=== PATIENT | male | born 1935 | race Caucasian/White ===

== ENCOUNTER 2017-12-19 17:38 | Emergency (ER) | payer MEDICARE, MEDICAID ==
[~2017-12-19] VITALS: Ht 177.8 cm; Wt 81.6 kg
--- NOTE | 2017-12-19 17:57 | Emergency Room Report ---
History of Present Illness General Chief Complaint: Malfunctioning Gastric Tube Source: Patient Present Illness HPI Patient is an 82-year-old male who was sent in by nursing facility for clogged G -tube. The patient was noted to have a previous G-tube placement. The patient was noted to be diabetic. The patient's G-tube began malfunctioning earlier in the day. The patient is normally nonverbal. History is markedly limited by patient's mental status. Allergies: Coded Allergies: No Known Allergies (Unverified , 12/19/17) Patient History Reviewed Nursing Documentation: PMH: Agreed; PSxH: Agreed Review of Systems All Other Systems: limited - by mental status Physical Exam Vital Signs Date Time Temp Pulse Resp B/P (MAP) Pulse Ox O2 Delivery O2 Flow Rate FiO2 12/19/17 17:41 97.7 72 18 149/70 98 Room Air 97.7 General Appearance: alert, Chronically Ill Eyes: bilateral eye other ENT: uvula midline, dry mucus membranes Neck: limited range of motion Respiratory: lungs clear, no rhonchi Cardiovascular #1: no edema, no gallop Gastrointestinal: soft, other - gtube stoma C/D/I Neurologic: responsive, 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 G-tube was manipulated with the acidic solution with improvement G-tube function. Patient tolerated well without complications. The patient was discharged back to [facility]. Patient was return for persistent vomiting, other concerns. Last Vital Signs Date Time Temp Pulse Resp B/P (MAP) Pulse Ox O2 Delivery O2 Flow Rate FiO2 12/19/17 17:41 97.7 72 18 149/70 98 Room Air 97.7 Status: improved Disposition: [facility] Condition: Stable Brannon Pool Dec 19, 2017 17:57
[2017-12-19 17:59] VITALS: BP 149/70
[2017-12-19 18:10] VITALS: BP 149/70
== END 2017-12-19 18:10 ==
LOC: EDBD 17:38 → EMR 18:08
DX: K94.23 Gastrostomy malfunction (principal)
CPT/HCPCS: 99283

== ENCOUNTER 2018-01-02 23:01 | Emergency (ER) | payer MEDICARE, MEDICAID ==
[~2018-01-02] VITALS: Ht 182.9 cm; Wt 82.6 kg
[2018-01-02 23:15] VITALS: BP 156/72
--- NOTE | 2018-01-02 23:20 | Emergency Room Report ---
History of Present Illness General Chief Complaint: Malfunctioning Gastric Tube Source: Patient, Medical Record, EMS Present Illness HPI Patient is an 82-year-old male brought in by EMS for malfunctioning G-tube. Patient was noted to have malpositioning of the G-tube. The patient G-tube was noted to be inside the abdomen too deep. The patient had not been vomiting. He had no recent fever. Allergies: Coded Allergies: No Known Allergies (Unverified , 12/19/17) Patient History Past Medical History: see triage record Reviewed Nursing Documentation: PMH: Agreed; PSxH: Agreed Nursing Documentation-PMH Hx Hypertension: Yes Hx Diabetes: Yes - dm type 2 Hx Dialysis: Yes - MWF (right upper chest) Hx Cerebrovascular Accident: Yes - hemiplegia, hemiparesis Review of Systems All Other Systems: limited Physical Exam Vital Signs Date Time Temp Pulse Resp B/P (MAP) Pulse Ox O2 Delivery O2 Flow Rate FiO2 01/02/18 23:06 97.7 72 18 150/76 99 Room Air 97.7 General Appearance: no apparent distress, Chronically Ill Head: atraumatic ENT: hearing grossly normal, normal voice Neck: full range of motion, supple Respiratory: no respiratory distress Gastrointestinal: other - gtube noted to be deep in abdomen. Musculoskeletal: decreased range of mation - right leg contracture Neurologic: motor weakness - left side weakness Psychiatric: mood/affect normal Skin: no rash Medical Decision Making Diagnostic Impression: Primary Impression: Malfunction of percutaneous endoscopic gastrostomy (PEG) tube ER Course Patient presented for G-tube malfunction. Differential diagnosis included was not limited to obstruction, gastric outlet obstruction, migration among others. Patient has a benign exam and does not appear to require any laboratory testing at this time. The G-tube was adjusted with manual traction. The patient's G-tube was subsequently noted to have improved placement. KUB after manipulation showed adequate gastrostomy function. Patient was discharged to half-way facility. Patient is to return for leaking G-tube, persistent vomiting, fever or other concerns. Last Vital Signs Date Time Temp Pulse Resp B/P (MAP) Pulse Ox O2 Delivery O2 Flow Rate FiO2 01/02/18 23:06 97.7 72 18 150/76 99 Room Air 97.7 Status: improved Disposition: [facility] Condition: Stable Referrals: Courtney Weeks MD (PCP) Brannon Pool Jan 02, 2018 23:20
[2018-01-02 23:55] VITALS: BP 156/72
--- NOTE | 2018-01-03 09:56 | Diagnostic Imaging Report ---
Indication: Gastrostomy tube replacement Technique: Supine abdomen following water-soluble contrast injection via the gastrostomy tube. Comparison: None Findings: There is opacification of the stomach confirming intraluminal positioning. No obvious extravasation is seen. Impression: Opacification of the stomach following injection of the gastrostomy tube confirming intraluminal positioning. No obvious extravasation.
== END 2018-01-02 23:54 ==
LOC: EDBD 23:01 → EMR 23:15
DX: K94.23 Gastrostomy malfunction (principal); Y83.3 Surgical operation with formation of external stoma as the cause of abnormal reaction of the patient, or of later complication, without mention of misadventure at the time of the procedure; I10 Essential (primary) hypertension; E11.9 Type 2 diabetes mellitus without complications; I69.351 Hemiplegia and hemiparesis following cerebral infarction affecting right dominant side
CPT/HCPCS: 74018; 99283

== ENCOUNTER 2018-01-17 20:30 | Inpatient (IN) | payer MEDICAID, MEDICARE ==
[~2018-01-17] VITALS: Ht 154.9 cm; Wt 87.6 kg
[2018-01-17 20:35] VITALS: BP 142/68
[2018-01-17] MEDS ORDERED: DULCOLAX10 MG RC (20:38)
[2018-01-17] MEDS ORDERED: COLACE100 MG ORAL (20:38)
[2018-01-17] MEDS ORDERED: JUVEN PACKET1 EAC1 GT (20:38)
[2018-01-17] MEDS ORDERED: MULTI-DELYN237 ML GT (20:38)
[2018-01-17] MEDS ORDERED: AMIODARONE HCL400 M1 GT (20:38)
[2018-01-17] MEDS ORDERED: NEXIUM40 MG GT (20:38)
[2018-01-17] MEDS ORDERED: METOPROLOL SUCC25 MG GT (20:38)
[2018-01-17] MEDS ORDERED: MILK OF MA400 MG/51 GT (20:38)
[2018-01-17] MEDS ORDERED: CRANBERRY450 M4 GT (20:38)
[2018-01-17] MEDS ORDERED: FERROUS SULFAT325 MG GT (20:38)
[2018-01-17] MEDS ORDERED: DONEPEZIL HCL10 MG ORAL (20:38)
[2018-01-17] MEDS ORDERED: LANTUS SOL100 UNIT/1 SUBQ (20:38)
[2018-01-17] MEDS ORDERED: PROSCAR5 MG GT (20:38)
[2018-01-17] MEDS ORDERED: FOLIC ACID1 MG ORAL (20:38)
[2018-01-17] MEDS ORDERED: ATORVASTATIN CA80 MG ORAL (20:38)
[2018-01-17] MEDS ORDERED: LOSARTAN POTASS50 MG ORAL (20:38)
[2018-01-17] MEDS ORDERED: FLORASTOR250 MG GT (20:38)
[2018-01-17] MEDS ORDERED: ACETAMINOPHEN325 M1 GT (20:46)
[2018-01-17] MEDS ORDERED: UTI-STAT L3875 MG/31 GT (20:46)
[2018-01-17] MEDS ORDERED: NORCO 5-325 TA1 EACH GT (20:46)
[2018-01-17] MEDS ORDERED: TYLENOL WITH C1 EACH GT (20:46)
[2018-01-17] MEDS ORDERED: NITRO-BID1 GM TOPIC (20:46)
[2018-01-17] MEDS ORDERED: TAMSULOSIN HCL0.4 MG ORAL (20:46)
[2018-01-17] MEDS ORDERED: SENNA8.6 M2 GT (20:46)
[2018-01-17] MEDS ORDERED: VITAMIN C500 M1 GT (20:46)
[2018-01-17 21:14] LABS: EOSINOPHILS % (AUTO) 3.4 % (0.0-3.0); HEMATOCRIT 38.3 % (42.0-52.0); HEMOGLOBIN 12.9 G/DL (14.2-18.0); LYMPHOCYTES % (AUTO) 20.8 % (20.0-45.0); MEAN CORPUSCULAR VOLUME 99 FL (80-99); MONOCYTES % (AUTO) 6.8 % (1.0-10.0); PLATELET COUNT 193 K/UL (150-450); RED BLOOD COUNT 3.86 M/UL (4.70-6.10); RED CELL DISTRIBUTION WIDTH 13.8 % (11.6-14.8); WHITE BLOOD COUNT 9.5 K/UL (4.8-10.8)
[2018-01-17 21:25] LABS: ANION GAP 8 mmol/L (5-15); BLOOD UREA NITROGEN 74 mg/dL (7-18); CALCIUM 8.9 MG/DL (8.5-10.1); CARBON DIOXIDE 27 MMOL/L (21-32); CHLORIDE 100 MMOL/L (98-107); CREATININE 1.7 MG/DL (0.55-1.30); POTASSIUM 3.7 MMOL/L (3.5-5.1); SODIUM 135 MMOL/L (136-145)
--- NOTE | 2018-01-17 21:44 | Emergency Room Report ---
History of Present Illness General Chief Complaint: General Complaint Source: EMS, PMD Present Illness HPI Patient present with discharge from the right dialysis catheter this in place [facility] had reported significant yellowish discharge Patient himself is not able to provide history Unknown regarding fever There was no report of vomiting or diarrhea Patient has been getting dialysis for over 1 month from this site Allergies: Coded Allergies: No Known Allergies (Unverified , 12/19/17) Patient History Limited by: medical condition Past Medical History: see triage record Pertinent Family History: unable to obtain Reviewed Nursing Documentation: PMH: Agreed; PSxH: Agreed Nursing Documentation-PMH Hx Cardiac Problems: Yes - CHF, anemia, atherosclerotic heart disease, hyperlipidemia Hx Hypertension: Yes Hx Diabetes: Yes - dm type 2 Hx Gastrointestinal Problems: Yes - dysphagia, gastrostomy Hx Dialysis: Yes - Kidney Failure, MWF dialysis, BPH Hx Cerebrovascular Accident: Yes - Encephalopathy,cererbral infarction, hemiplegia and hemiparesis Review of Systems All Other Systems: limited - Other than the ones mentioned in the history of present illness all others are reviewed however they do stay limited due to the patient's mental status Physical Exam Vital Signs Date Time Temp Pulse Resp B/P (MAP) Pulse Ox O2 Delivery O2 Flow Rate FiO2 01/17/18 20:21 74 20 142/68 98 Nasal Cannula 2.0 Sp02 EP Interpretation: reviewed, normal General Appearance: no apparent distress Head: normocephalic, atraumatic Eyes: bilateral eye PERRL ENT: normal pharynx Neck: supple, thyroid normal Respiratory: lungs clear Cardiovascular #1: regular rate, rhythm Gastrointestinal: non tender, soft, other - Feeding tube in place Musculoskeletal: other - Patient has appearance of previous CVA right hand contracted. Not following commands Neurologic: responsive - 2 physical stimuli however not verbal, not following commands Skin: other - Dialysis catheter in the right upper chest, the area sutured in, I cannot express any pus from the area Lymphatic: no adenopathy Medical Decision Making Diagnostic Impression: Primary Impression: dialysis catheter discharge ER Course Speaking to the primary physician there was significant concern of increased discharge from the site Specialty consultation is being made Patient's initial blood work is at appropriate levels And at this time requiring further inpatient care Labs Test 01/17/18 20:45 White Blood Count 9.5 K/UL (4.8-10.8) Red Blood Count 3.86 M/UL (4.70-6.10) Hemoglobin 12.9 G/DL (14.2-18.0) Hematocrit 38.3 % (42.0-52.0) Mean Corpuscular Volume 99 FL (80-99) Mean Corpuscular Hemoglobin 33.5 PG (27.0-31.0) Mean Corpuscular Hemoglobin Concent 33.8 G/DL (32.0-36.0) Red Cell Distribution Width 13.8 % (11.6-14.8) Platelet Count 193 K/UL (150-450) Mean Platelet Volume 7.6 FL (6.5-10.1) Neutrophils (%) (Auto) 68.0 % (45.0-75.0) Lymphocytes (%) (Auto) 20.8 % (20.0-45.0) Monocytes (%) (Auto) 6.8 % (1.0-10.0) Eosinophils (%) (Auto) 3.4 % (0.0-3.0) Basophils (%) (Auto) 1.0 % (0.0-2.0) Sodium Level 135 MMOL/L (136-145) Potassium Level 3.7 MMOL/L (3.5-5.1) Chloride Level 100 MMOL/L (98-107) Carbon Dioxide Level 27 MMOL/L (21-32) Anion Gap 8 mmol/L (5-15) Blood Urea Nitrogen 74 mg/dL (7-18) Creatinine 1.7 MG/DL (0.55-1.30) Estimat Glomerular Filtration Rate mL/min (>60) Glucose Level 215 MG/DL (74-106) Lactic Acid Level 1.90 mmol/L (0.66-2.22) Calcium Level 8.9 MG/DL (8.5-10.1) Rhythm Strip Diag. Results EP Interpretation: yes Rate: 77 Rhythm: NSR, no PVC's, no ectopy Chest X-Ray Diagnostic Results Chest X-Ray Diagnostic Results : Chest X-Ray Ordered: Yes # of Views/Limited/Complete: 1 View Indication: Chest Pain EP Interpretation: Yes Interpretation: no consolidation, no pneumothorax, other - Dialysis catheter in place poor respiratory effort haziness in the left upper and lower lobes perihilar fullness Impression: Other - Bilateral congestion Electronically Signed by: Damian Velasquez DO Last Vital Signs Date Time Temp Pulse Resp B/P (MAP) Pulse Ox O2 Delivery O2 Flow Rate FiO2 01/17/18 20:35 20 142/68 98 Nasal Cannula 2.0 01/17/18 20:21 74 Status: improved Disposition: ADMITTED INPATIENT Condition: Serious Referrals: Courtney Weeks MD (PCP) Damian Velasquez DO January 17, 2018 21:44
[2018-01-17 22:20] VITALS: BP 149/64
[2018-01-17 22:55] VITALS: BP 153/75
[2018-01-18] VITALS: BP 144/73
[2018-01-18] MEDS ORDERED: Tylenol #3 tab (300mg/30mg) ORAL PRN ×3 (01:15→06:45)
[2018-01-18] MEDS ORDERED: Sennosides 8.6mg ORAL PRN (01:15)
[2018-01-18] MEDS ORDERED: Milk of Magnesia 30ml Ud ORAL PRN (01:15)
[2018-01-18] MEDS ORDERED: Norco 5mg/325mg tab ORAL PRN ×3 (01:15→06:45)
[2018-01-18] MEDS ORDERED: Levemir Flexpen SUBQ SCH ×2 (02:30→21:00)
[2018-01-18 04:00] VITALS: BP 140/83
[2018-01-18] MEDS: Vancomycin 1gm/D5W 275ml IVPB SCH ×2 (04:42)
[2018-01-18 08:00] VITALS: BP 151/78
[2018-01-18 08:32] LABS: BASOPHILS % (AUTO) 1.2 % (0.0-2.0); EOSINOPHILS % (AUTO) 3.2 % (0.0-3.0); HEMATOCRIT 38.1 % (42.0-52.0); HEMOGLOBIN 13.2 G/DL (14.2-18.0); MEAN CORPUSCULAR VOLUME 100 FL (80-99); MONOCYTES % (AUTO) 7.8 % (1.0-10.0); NEUTROPHILS % (AUTO) 66.8 % (45.0-75.0); PLATELET COUNT 196 K/UL (150-450); RED BLOOD COUNT 3.81 M/UL (4.70-6.10); RED CELL DISTRIBUTION WIDTH 13.5 % (11.6-14.8)
[2018-01-18] MEDS ORDERED: Metoprolol Succinate XL 25mg tab ORAL SCH (09:00)
[2018-01-18] MEDS ORDERED: Losartan 50mg tab ORAL SCH (09:00)
[2018-01-18] MEDS ORDERED: Nitroglycerin 2% oint pkt TOPIC SCH (09:00)
[2018-01-18] MEDS ORDERED: Ascorbic Acid 500mg tab ORAL SCH (09:00)
[2018-01-18] MEDS ORDERED: Esomeprazole sodium 40mg vial IVP SCH (09:00)
[2018-01-18] MEDS ORDERED: Docusate 100mg cap ORAL SCH ×2 (09:00)
[2018-01-18] MEDS ORDERED: Multivitamins W/Minerals 15 ML UDC GT SCH (09:00)
[2018-01-18] MEDS ORDERED: Amiodarone 200mg tab ORAL SCH ×2 (09:00)
[2018-01-18] MEDS ORDERED: Enoxaparin 80mg Inj SUBQ SCH (09:00)
[2018-01-18] MEDS ORDERED: Pantoprazole Inj IVP SCH (09:00)
[2018-01-18] MEDS ORDERED: Milk of Magnesia 30ml Ud ORAL SCH (09:00)
[2018-01-18] MEDS ORDERED: Heparin 5000 units/ml inj SUBQ SCH (09:00)
[2018-01-18 09:09] LABS: ALANINE AMINOTRANSFERASE 75 U/L (12-78); ALBUMIN 2.4 G/DL (3.4-5.0); ALBUMIN/GLOBULIN RATIO 0.5 (1.0-2.7); ALKALINE PHOSPHATASE 182 U/L (46-116); ANION GAP 9 mmol/L (5-15); ASPARTATE AMINO TRANSFERASE 40 U/L (15-37); BILIRUBIN,TOTAL 0.5 MG/DL (0.2-1.0); BLOOD UREA NITROGEN 80 mg/dL (7-18); CALCIUM 9.1 MG/DL (8.5-10.1); CARBON DIOXIDE 27 MMOL/L (21-32); CHLORIDE 99 MMOL/L (98-107); CREATININE 1.8 MG/DL (0.55-1.30); POTASSIUM 4.3 MMOL/L (3.5-5.1); SODIUM 135 MMOL/L (136-145)
[2018-01-18] MEDS: Ascorbic Acid 500mg tab ORAL SCH (09:20)
[2018-01-18] MEDS: Metoprolol Succinate XL 25mg tab ORAL SCH (09:20)
[2018-01-18] MEDS: Losartan 50mg tab ORAL SCH (09:21)
[2018-01-18] MEDS: Donepezil 10mg tab ORAL SCH (09:21)
[2018-01-18] MEDS ORDERED: Tubing IV Secondary IV ONE (10:29)
[2018-01-18] MEDS ORDERED: D5W 275ml ONE (10:29)
[2018-01-18] MEDS ORDERED: NS 500ML ONE (10:29)
--- NOTE | 2018-01-18 11:37 | Cardiology Report ---
APPROVED REPORT EKG Measurement Heart [id number] P71 [id number] Atrial flutter with variable AV block with premature ventricular or aberrantly conducted complexes Right bundle branch block Left anterior fascicular block Bifascicular block Cannot rule out Inferior infarct, age undetermined Abnormal ECG
--- NOTE | 2018-01-18 11:47 | Consultation ---
Consult Note Consult Note asked to eval for dialysis management Chief Complaint: General Complaint Patient present with discharge from the right dialysis catheter this in place detention had reported significant yellowish discharge Patient himself is not able to provide history Unknown regarding fever There was no report of vomiting or diarrhea Hx Cardiac Problems: Yes - CHF, anemia, atherosclerotic heart disease, hyperlipidemia Hx Hypertension: Yes Hx Diabetes: Yes - dm type 2 Hx Gastrointestinal Problems: Yes - dysphagia, gastrostomy Hx Dialysis: Yes - Kidney Failure, MWF dialysis, BPH Hx Cerebrovascular Accident: Yes - Encephalopathy,cererbral infarction, hemiplegia and hemiparesis not historian- examined- data reviewed discussed with RN has over 300 cc urine residual ! Assessment/Plan Renal failure- Been dialysed , I am not sure the indication ! urine out let Obstruction, Urine retention Right permacath in place GT in place DM HTN Increase flomax- Singer for now 2D echo SANDRO kidney monitor renal parameters avoid nephrotoxics VALENTIN RUSH January 18, 2018 11:47
[2018-01-18 12:00] VITALS: BP 140/77
--- NOTE | 2018-01-18 12:11 | Cardiology Report ---
APPROVED REPORT EXAM: Two-dimensional and M-mode echocardiogram with Doppler and color Doppler. INDICATION Atrial Fibrillation M-Mode DIMENSIONS IVSd1.4 (0.7-1.1cm)Left Atrium (MM)3.9 (1.6-4.0cm) LVDd4.9 (3.5-5.6cm)Aortic Root2.7 (2.0-3.7cm) PWd1.1 (0.7-1.1cm)Aortic Cusp Exc.1.5 (1.5-2.0cm) LVDs3.9 (2.5-4.0cm) PWs1.3 cm Normal left ventricular chamber size. Global left ventricular hypokinesis. Left ventricular ejection fraction estimated to be 30 %. Mild left ventricular hypertrophy. No evidence of pericardial effusion. Left atrial size at upper limits of normal. Right cardiac chamber sizes are within normal limits. Aortic valve calcification with decreased cusp excursion c/w aortic stenosis. Mildly thickened mitral valve leaflets with normal excursion. Moderate mitral annulus and aortic root calcification. Pulmonic valve not well visualized. Normal tricuspid valve structure. IVC dilated at 2.4 cm without physiological collapse, estimated RAP is 15 mmHg. A color flow and spectral Doppler study was performed and revealed: Mild aortic insufficiency. Peak aortic valve gradient of 12 mmHg and a mean of 6 mmHg. Aortic valve area 1.4 cm2 calculated by continuity equation. Moderate mitral regurgitation. Left ventricular diastolic function could not be determined due to A-Fib. Mild tricuspid regurgitation. Tricuspid systolic velocities suggests peak right ventricular systolic pressure of 42 mmHg, consistent with mild pulmonary hypertension. Severe pulmonic regurgitation present.
[2018-01-18] MEDS: Docusate 100mg/10ml Liq GT SCH ×2 (12:56→17:16)
--- NOTE | 2018-01-18 12:57 | Cardiac Electrophysiology PN ---
Subjective Subjective [id number] Objective Last 24 Hour Vital Signs Date Time Temp Pulse Resp B/P (MAP) Pulse Ox O2 Delivery O2 Flow Rate FiO2 01/18/18 12:00 98.6 60 20 140/77 97 Room Air 98.6 01/18/18 09:21 151/78 01/18/18 09:20 85 151/78 01/18/18 08:00 98.2 85 21 151/78 97 98.2 01/18/18 04:00 69 01/18/18 04:00 98.3 73 20 140/83 98 Nasal Cannula 2.0 98.3 01/18/18 00:00 98.0 64 20 144/73 100 Nasal Cannula 2.0 98.0 01/17/18 23:00 68 22 149/64 99 Nasal Cannula 2.0 01/17/18 22:55 98.3 71 20 153/75 98 Nasal Cannula 2.0 98.3 01/17/18 22:55 65 01/17/18 22:20 68 22 149/64 99 Nasal Cannula 2.0 01/17/18 20:35 20 142/68 98 Nasal Cannula 2.0 01/17/18 20:21 74 20 142/68 98 Nasal Cannula 2.0 Intake and Output 01/17/18 01/18/18 19:00 07:00 Intake Total 100 ml Balance 100 ml Intake Oral 0 ml Free Water 30 ml Tube Feeding 70 ml # Voids 1 # Bowel Movements 2 Laboratory Tests Test 01/17/18 20:45 01/18/18 07:48 White Blood Count 9.5 K/UL (4.8-10.8) 9.0 K/UL (4.8-10.8) Red Blood Count 3.86 M/UL (4.70-6.10) L 3.81 M/UL (4.70-6.10) L Hemoglobin 12.9 G/DL (14.2-18.0) L 13.2 G/DL (14.2-18.0) L Hematocrit 38.3 % (42.0-52.0) L 38.1 % (42.0-52.0) L Mean Corpuscular Volume 99 FL (80-99) 100 FL (80-99) H Mean Corpuscular Hemoglobin 33.5 PG (27.0-31.0) H 34.6 PG (27.0-31.0) H Mean Corpuscular Hemoglobin Concent 33.8 G/DL (32.0-36.0) 34.6 G/DL (32.0-36.0) Red Cell Distribution Width 13.8 % (11.6-14.8) 13.5 % (11.6-14.8) Platelet Count 193 K/UL (150-450) 196 K/UL (150-450) Mean Platelet Volume 7.6 FL (6.5-10.1) 8.0 FL (6.5-10.1) Neutrophils (%) (Auto) 68.0 % (45.0-75.0) 66.8 % (45.0-75.0) Lymphocytes (%) (Auto) 20.8 % (20.0-45.0) 21.0 % (20.0-45.0) Monocytes (%) (Auto) 6.8 % (1.0-10.0) 7.8 % (1.0-10.0) Eosinophils (%) (Auto) 3.4 % (0.0-3.0) H 3.2 % (0.0-3.0) H Basophils (%) (Auto) 1.0 % (0.0-2.0) 1.2 % (0.0-2.0) Sodium Level 135 MMOL/L (136-145) L 135 MMOL/L (136-145) L Potassium Level 3.7 MMOL/L (3.5-5.1) 4.3 MMOL/L (3.5-5.1) Chloride Level 100 MMOL/L (98-107) 99 MMOL/L (98-107) Carbon Dioxide Level 27 MMOL/L (21-32) 27 MMOL/L (21-32) Anion Gap 8 mmol/L (5-15) 9 mmol/L (5-15) Blood Urea Nitrogen 74 mg/dL (7-18) H 80 mg/dL (7-18) H Creatinine 1.7 MG/DL (0.55-1.30) H 1.8 MG/DL (0.55-1.30) H Estimat Glomerular Filtration Rate mL/min (>60) mL/min (>60) Glucose Level 215 MG/DL (74-106) H 327 MG/DL (74-106) #H Lactic Acid Level 1.90 mmol/L (0.66-2.22) Calcium Level 8.9 MG/DL (8.5-10.1) 9.1 MG/DL (8.5-10.1) Total Bilirubin 0.5 MG/DL (0.2-1.0) Aspartate Amino Transf (AST/SGOT) 40 U/L (15-37) H Alanine Aminotransferase (ALT/SGPT) 75 U/L (12-78) Alkaline Phosphatase 182 U/L (46-116) H Troponin I 0.000 ng/mL (0.000-0.056) C-Reactive Protein, Quantitative < 0.4 mg/dL (0.00-0.90) Total Protein 7.1 G/DL (6.4-8.2) Albumin 2.4 G/DL (3.4-5.0) L Globulin 4.7 g/dL Albumin/Globulin Ratio 0.5 (1.0-2.7) L Thyroid Stimulating Hormone (TSH) 9.764 uiU/mL (0.358-3.740) Malik Shannon MD January 18, 2018 12:57
--- NOTE | 2018-01-18 15:07 | History & Physical ---
History and Physical History & Physicial Dictated for Int Med-Dr Weeks no. [id number]. ALAN DILLON January 18, 2018 15:07
[2018-01-18 16:00] VITALS: BP 130/77
[2018-01-18] MEDS: Eliquis 2.5mg tablet ORAL SCH (17:16)
[2018-01-18] MEDS: Tamsulosin 0.4mg cap ORAL SCH (17:16)
--- NOTE | 2018-01-18 17:56 | General Progress Note ---
Progress Note Progress Note Consult dictated #[id number] JOSEPH MIRANDA January 18, 2018 17:56
--- NOTE | 2018-01-18 18:45 | History and Physical Report ---
DATE OF ADMISSION: 01/17/2018 CHIEF COMPLAINT: The patient is an 82-year-old male, who presents with chief complaint of infected PermCath. HISTORY OF PRESENT ILLNESS: The patient is a resident of [facility]. The patient is followed there by Dr. Weeks. The patient has a right upper chest PermCath for dialysis. The patient undergoes dialysis every Friday, Friday, and Friday. According to staff at [facility], the patient began to experience purulent drainage from the right chest PermCath. The patient was transported to [facility]. The patient is admitted for infected right upper chest PermCath. REVIEW OF SYSTEMS: Unable to assess secondary to the patient's mental status. PAST MEDICAL HISTORY: Significant for: 1. End-stage renal disease, on hemodialysis every Friday, Friday, and Friday. 2. Diabetes type 2. 3. Hypercholesterolemia. 4. Cardiomyopathy. 5. Hypertension. 6. Alzheimer dementia. 7. Benign prostatic hypertrophy. 8. Congestive heart failure. PAST SURGICAL HISTORY: Significant for: 1. G-tube placement. 2. Right upper chest PermCath placement. CURRENT MEDICATIONS: 1. Amiodarone 400 mg one tablet per G-tube daily. 2. Atorvastatin 80 mg per G-tube nightly. 3. Cranberry tablets 450 mg per G-tube daily. 4. Donepezil 10 mg per G-tube nightly. 5. Nexium 40 mg per G-tube daily. 6. Iron sulfate 325 mg per G-tube twice daily. 7. Finasteride 5 mg per G-tube daily. 8. Florastor 250 mg per G-tube daily. 9. Folic acid 1 mg per G-tube daily. 10. Lantus insulin 23 units subcutaneously daily. 11. Losartan 50 mg per G-tube daily. 12. Metoprolol ER 25 mg per G-tube daily. 13. Nitroglycerin ointment 2% applied twice daily. 14. Flomax 0.4 mg per G-tube daily. ALLERGIES: No known drug allergies. SOCIAL HISTORY: The patient denies tobacco or alcohol use. The patient is a resident of [facility]. PHYSICAL EXAMINATION: VITAL SIGNS: Temperature 98.3, respirations 20, pulse 69, blood pressure 140/83. GENERAL: The patient is a well-developed and well-nourished male, who is confused. HEENT: Pupils equal and responsive to light and accommodation. Extraocular movements are intact. NECK: Supple without lymphadenopathy. CHEST: Lungs are clear to auscultation bilaterally without wheezes or rales. CARDIOVASCULAR: Regular rate. S1, S2 normal without murmurs, rubs, or gallops. ABDOMEN: Soft, nontender, and nondistended. Positive bowel sounds. No evidence of hepatosplenomegaly. Currently, no rebound or guarding noted. EXTREMITIES: Negative for clubbing, cyanosis, or edema. RECTAL: Refused. GENITAL: Refused. NEUROLOGIC: Cranial nerves II through XII are grossly intact without focal deficits. Motor strength is 5/5 bilaterally intact. Deep tendon reflexes are 2+, plantar. LABORATORY STUDIES: WBC 9.5, hemoglobin 12.9, hematocrit 38.3, platelets 193,000. Sodium 135, potassium 4.3, chloride 99, CO2 27, BUN 8, creatinine 1.8, glucose 327. TSH elevated at 9.764. ASSESSMENT: This is an 81-year-old male with: 1. Infected right upper chest PermCath. 2. End-stage renal disease. 3. Diabetes type 2. 4. Hypercholesterolemia. 5. Cardiomyopathy. 6. Atrial fibrillation. 7. Congestive heart failure. 8. Hypertension. 9. Alzheimer dementia. 10. Benign prostatic hypertrophy. TREATMENT: 1. Infected PermCath. The patient has been started empirically on intravenous vancomycin. An Infectious Disease consultation has been obtained. Blood cultures have been obtained. 2. End-stage renal disease. The patient is currently on hemodialysis every Friday, Friday, and Friday. Nephrology consultation has been obtained with Dr. Verma. We will follow recommendation of Nephrology. 3. Diabetes type 2. The patient has been started on NovoLog sliding scale. 4. Hypercholesterolemia. Continue atorvastatin as above. 5. Cardiomyopathy. 6. Atrial fibrillation. Continue amiodarone as above. 7. Congestive heart failure. 8. Hypertension. Continue losartan and metoprolol as above. 9. Alzheimer dementia. Continue Aricept as above. 10. Benign prostatic hypertrophy. Continue Flomax and finasteride as above. Tho Antonio M.D. DR: Cherelle JOB#: [id number] CC:
[2018-01-18 20:00] VITALS: BP 139/77
[2018-01-18] MEDS: Sennosides 8.6mg GT SCH (20:47)
[2018-01-18] MEDS ORDERED: Atorvastatin 80mg tab ORAL SCH ×2 (21:00)
[2018-01-18] MEDS ORDERED: Tamsulosin 0.4mg cap ORAL SCH ×2 (21:00)
[2018-01-18] MEDS ORDERED: Donepezil 10mg tab ORAL SCH (21:00)
--- NOTE | 2018-01-18 23:45 | Consultation ---
DATE OF CONSULTATION: 01/18/2018 CARDIOLOGY CONSULTATION CONSULTING PHYSICIAN: Malik Shannon M.D. REFERRING PHYSICIAN: Courtney Weeks M.D. REASON FOR CONSULTATION: Congestive heart failure as well as atrial flutter and fascicular block. HISTORY OF PRESENT ILLNESS: The patient is an 82-year-old gentleman with history of hypertension and congestive heart failure as well as diabetes and end-stage renal disease, on hemodialysis as well as history of chronic encephalopathy and hemiplegia and hemiparesis. The patient also has dysphagia, status post PEG placement. The patient was brought from emergency room for discharge from the right dialysis catheter, which has significant yellowish discharge. The patient is not able to provide any information; however, the information was obtained by reviewing the patient's records. On admission, the patient was found to have atrial flutter and bifascicular block. His echocardiogram showed ejection fraction of 30%. REVIEW OF SYSTEMS: Cannot be obtained, as the patient is nonverbal. PAST MEDICAL HISTORY: 1. Hypertension. 2. Diabetes. 3. End-stage renal disease, on hemodialysis. 4. Cardiomyopathy. 5. Atrial flutter. 6. Dysphagia, status post G-tube placement. FAMILY HISTORY: Noncontributory. SOCIAL HISTORY: He lives in a residential. Does not smoke or drink alcohol. PHYSICAL EXAMINATION: VITAL SIGNS: Blood pressure is 140/77, pulse 60, respirations 18, and temperature 98.2 degrees. HEAD AND NECK: No JVD. LUNGS: Clear. CARDIOVASCULAR: Regular S1 and S2 with no gallop. He has right chest PermCath. ABDOMEN: Soft, status post G-tube. EXTREMITIES: There is 1+ pitting edema. LABORATORY AND DIAGNOSTIC DATA: His EKG showed atrial flutter with ventricular response of 71 with bifascicular block including right bundle-branch block and left anterior fascicular block. His echocardiogram showed ejection fraction of only 30% with severe pulmonary regurgitation. His labs show white count of 9, hemoglobin 13.2, hematocrit 38.1, and platelet count of 196. Sodium 135, potassium 4.3, BUN of 80, creatinine 1.8, and glucose of 327. Troponin is negative. 02:23 is 9.764. ASSESSMENT AND PLAN: 1. Atrial flutter. The patient's rate is currently controlled on amiodarone 400 mg daily as well as Toprol-XL 25 mg daily. I will decrease amiodarone to 200 mg daily. The patient will need anticoagulation to prevent thromboembolic event. Switch Lovenox to Eliquis 2.5 mg b.i.d. 2. Hypertension. Continue losartan 50 mg daily and Toprol-XL 25 mg daily and hemodialysis. 3. Cardiomyopathy, ejection fraction of only 30%, on hemodialysis and Cozaar and Toprol-XL 25 mg daily. In view of his overall condition, he is not a candidate for defibrillator placement. Also, since he is asymptomatic despite having classical typical atrial flutter, he is not a candidate for defibrillator in view of his overall status, not being nonverbal and not on dialysis. The patient initially is on hemodialysis. 04:01 discharge from the dialysis catheter. The patient was started on vancomycin. 4. Hyperlipidemia, on Lipitor. Thank you very much, Dr. Weeks, for allowing me to participate in the care of this patient. Please do not hesitate to contact me for any questions regarding my evaluation. Malik Shannon M.D. DR: ANDRIA JOB#: [id number] CC:
[2018-01-19] VITALS: BP 155/79
--- NOTE | 2018-01-19 01:45 | Consultation ---
DATE OF CONSULTATION: 01/18/2018 VASCULAR SURGERY CONSULTATION CONSULTING PHYSICIAN: Héctor De Santiago M.D. REFERRING PHYSICIAN: Courtney Weeks M.D. REASON FOR EVALUATION: Right chest catheter evaluation and drainage. HISTORY OF PRESENT ILLNESS: This is an 82-year-old male who resides in a longterm, presented with a right chest catheter drainage. Vascular Surgery is consulted for further evaluation. The patient is nonverbal, has dementia and prior history of encephalopathy, all the history obtained from the medical records, the patient reported he is on dialysis through the right chest Iclu-X-Zamjjrnv. His BUN is 80 and creatinine is 1.8. PAST MEDICAL HISTORY: As above. History of stroke, dementia, nonverbal, nonambulatory, contracted lower extremity, longterm resident, diabetes mellitus, gastrostomy tube, history of anemia, congestive heart failure, diabetes mellitus type 2 and renal failure. MEDICATIONS: See attached MAR. ALLERGIES: No known drug allergies. SOCIAL HISTORY: Unobtainable. FAMILY HISTORY: Unobtainable. REVIEW OF SYSTEMS: Unobtainable. PHYSICAL EXAMINATION: VITAL SIGNS: The patient is afebrile, 98.6 degrees, heart rate 60, blood pressure is 140/77, respirations 20, and saturations 97%. EXTREMITIES: He has palpable radial pulses bilateral. Right chest Wekx-N-Mgazoplj site had an exit site skin infection, very superficial. There is no cellulitis. Absent popliteal and pedal pulses bilaterally. He does have lower extremity locked knee and contractures. There is no wound. LUNGS: Clear to auscultation. HEART: Regular rate and rhythm. ABDOMEN: Soft and nontender with palpable femoral pulses. LABORATORY AND DIAGNOSTIC DATA: Laboratories revealed WBC of 9.0, hemoglobin 13.2, and platelet count is 196. Sodium 135, potassium 4.3, chloride is 99, CO2 27, BUN is 80, creatinine is 1.8 and glucose is 327. AST 40 and ALT 75. IMPRESSION: 1. Right chest Wdzt-R-Qiobbxmr site, exit site skin infection, superficial with normal white count and no fever. 2. Renal failure, on dialysis with uremia. 3. History of heart failure. 4. Diabetes mellitus. 5. Encephalopathy. 6. Stroke. 7. Nonambulatory. 8. Dementia. 9. Nonverbal. 10. Knee contracture. 11. Calcific PAD. PLAN AND RECOMMENDATIONS: 1. We will have the right chest Zojb-V-Typincxe removed and cultured. 2. Renal and medical optimization in progress. 3. Antibiotics per ID service. 4. Obtain echocardiogram and renal ultrasound. 5. A new Perm-A-Cath and left arm arteriovenous shunt can be scheduled if indicated by renal service and once medically optimized and cleared, and consented by both with the patient and the nurse. Continue with DVT and decubitus precautions. Héctor De Santiago M.D. DR: EVITA JOB#: [id number] CC: Courtney Weeks M.D.; Fax#: [phone] Sidney Verma M.D. MTDArgelia
[2018-01-19] MEDS: Vancomycin 1gm/D5W 275ml IVPB SCH ×2 (03:36)
[2018-01-19 04:00] VITALS: BP 137/80
[2018-01-19 08:00] VITALS: BP 175/70
[2018-01-19] MEDS: Amiodarone 200mg tab ORAL SCH (09:00)
[2018-01-19] MEDS: Ascorbic Acid 500mg tab ORAL SCH (09:00)
[2018-01-19] MEDS: Docusate 100mg/10ml Liq GT SCH ×3 (09:00→17:23)
[2018-01-19] MEDS: Metoprolol Succinate XL 25mg tab ORAL SCH (09:00)
[2018-01-19] MEDS: Donepezil 10mg tab ORAL SCH (09:00)
[2018-01-19] MEDS: Eliquis 2.5mg tablet ORAL SCH ×2 (09:00→17:23)
[2018-01-19] MEDS: Tamsulosin 0.4mg cap ORAL SCH ×2 (09:00→17:24)
[2018-01-19] MEDS: Losartan 50mg tab ORAL SCH (09:00)
[2018-01-19] MEDS: Nitroglycerin 2% oint pkt TOPIC SCH (09:12)
--- NOTE | 2018-01-19 09:14 | Diagnostic Imaging Report ---
Indication:Elevated Bun and Creatinine. Technique: Grayscale and duplex Doppler imaging of the kidneys performed. Comparison: None Findings: Small shadowing echogenic focus demonstrated in the left kidney suspicious for nonobstructive stone. Findings may be confirmed by noncontrast CT. Renal echogenicity is within normal limits. There is no hydronephrosis demonstrated. IVC and bladder appear unremarkable. The kidneys are both between 10 and 11 cm in length. IMPRESSION: Suspected nonobstructive nephrolithiasis in the left kidney.
--- NOTE | 2018-01-19 09:24 | General Progress Note ---
Assessment/Plan Status: stable Assessment/Plan 1. Infected right upper chest PermCath. 2. End-stage renal disease. 3. Diabetes type 2. 4. Hypercholesterolemia. 5. Cardiomyopathy. 6. Atrial fibrillation. 7. Congestive heart failure. 8. Hypertension. 9. Alzheimer dementia. 10. Benign prostatic hypertrophy. 11. Lack of capacity to make medical decisions TREATMENT: DC HD access , will monitor for need for Re-insertion Notes from Cardiology, Nephrology, Vascular Sx and ID are reviewed Given the lack of availability of the Next keen, and the urgency for the procedure to remove the Cath, it is justified to proceed for removal/procedure at this time Subjective ROS Limited/Unobtainable: Yes Constitutional: Reports: no symptoms, malaise HEENT: Reports: no symptoms Respiratory: Reports: no symptoms Allergies: Coded Allergies: No Known Allergies (Unverified , 12/19/17) Objective Last 24 Hour Vital Signs Date Time Temp Pulse Resp B/P (MAP) Pulse Ox O2 Delivery O2 Flow Rate FiO2 01/19/18 09:12 175/70 01/19/18 09:00 65 175/70 01/19/18 09:00 175/70 01/19/18 04:00 97.0 63 20 137/80 98 Room Air 97.0 01/19/18 04:00 65 01/19/18 00:23 54 01/19/18 00:00 97.0 59 20 155/79 96 Room Air 97.0 01/18/18 20:35 66 01/18/18 20:00 97.9 63 20 139/77 96 Room Air 97.9 01/18/18 16:00 66 01/18/18 16:00 98.0 75 21 130/77 96 Room Air 98.0 01/18/18 12:00 84 01/18/18 12:00 98.6 60 20 140/77 97 Room Air 98.6 01/18/18 09:21 151/78 Intake and Output 01/18/18 01/19/18 19:00 07:00 Intake Total 0 ml 273.483 ml Output Total 200 ml Balance -200 ml 273.483 ml Intake Oral 0 ml Free Water 80 ml IV Total 73.483 ml Tube Feeding 120 ml Output Urine Total 200 ml # Voids 1 # Bowel Movements 6 Height (Feet): 5 Height (Inches): 1.00 Weight (Pounds): 177 General Appearance: WD/WN EENT: PERRL/EOMI Neck: supple Cardiovascular: normal rate Respiratory/Chest: lungs clear Abdomen: soft, other - PEG tube in place Extremities: non-tender, other - atrophied musculature Neurologic: community mental health social worker II-XII grossly normal, disoriented, other - not coherent but verbal at this time Courtney Weeks MD January 19, 2018 09:24
--- NOTE | 2018-01-19 09:51 | Diagnostic Imaging Report ---
APPROVED REPORT CPT Code: 98772 Present Symptoms Comments: BILATERAL LEGS PAIN. BILATERAL: Imaging reveals a patent deep venous system bilaterally. There is no evidence of thrombus within the femoral, popliteal or tibial segments. The greater saphenous veins are also within normal limits. Doppler indicates normal spontaneous flow within these segments.
[2018-01-19 09:54] LABS: HEMATOCRIT 37.8 % (42.0-52.0); LYMPHOCYTES % (AUTO) 20.2 % (20.0-45.0); MEAN CORPUSCULAR VOLUME 99 FL (80-99); MONOCYTES % (AUTO) 6.9 % (1.0-10.0); PLATELET COUNT 198 K/UL (150-450); RED BLOOD COUNT 3.82 M/UL (4.70-6.10); RED CELL DISTRIBUTION WIDTH 13.6 % (11.6-14.8); WHITE BLOOD COUNT 9.6 K/UL (4.8-10.8)
[2018-01-19 10:24] LABS: GAMMA GLUTAMYL TRANSPEPTIDASE 81 U/L (5-85); PHOSPHORUS 3.2 MG/DL (2.5-4.9)
[2018-01-19 10:26] LABS: ALANINE AMINOTRANSFERASE 61 U/L (12-78); ALBUMIN 2.3 G/DL (3.4-5.0); ALBUMIN/GLOBULIN RATIO 0.5 (1.0-2.7); ALKALINE PHOSPHATASE 164 U/L (46-116); ANION GAP 8 mmol/L (5-15); ASPARTATE AMINO TRANSFERASE 30 U/L (15-37); BILIRUBIN,TOTAL 0.5 MG/DL (0.2-1.0); BLOOD UREA NITROGEN 81 mg/dL (7-18); CALCIUM 9.4 MG/DL (8.5-10.1); CARBON DIOXIDE 28 MMOL/L (21-32); CHLORIDE 102 MMOL/L (98-107); CHOLESTEROL 87 MG/DL (< 200); CREATININE 1.8 MG/DL (0.55-1.30); FERRITIN 464 NG/ML (8-388); HDL CHOLESTEROL 35 MG/DL (40-60); POTASSIUM 3.8 MMOL/L (3.5-5.1); SODIUM 138 MMOL/L (136-145); TRIGLYCERIDES 29 MG/DL (30-150)
[2018-01-19 10:32] LABS: % IRON SATURATION 31 % (15-50); IRON 80 ug/dL (50-175); TOTAL IRON BINDING CAPACITY 262 ug/dL (250-450)
[2018-01-19] MEDS ORDERED: NovoLOG Insulin Flexpen SUBQ SCH (11:50)
[2018-01-19 12:00] VITALS: BP 154/73
--- NOTE | 2018-01-19 13:37 | Nephrology Progress Note ---
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 urine out let Obstruction, Urine retention Right permacath in place GT in place DM HTN echo: Cardiomyopathy 30% ej Fx HypoThyroidism Plan Plan: Increase flomax- Singer for now 2D echo 30% ej fx SANDRO kidney Suspected nonobstructive nephrolithiasis in the left kidney. monitor renal parameters avoid nephrotoxics After load reduction- optimize renal and cardiac status. Echo: Global left ventricular hypokinesis. Left ventricular ejection fraction estimated to be 30 %. Subjective ROS Limited/Unobtainable: No Constitutional: Reports: malaise, weakness Objective Objective Last 24 Hour Vital Signs Date Time Temp Pulse Resp B/P (MAP) Pulse Ox O2 Delivery O2 Flow Rate FiO2 01/19/18 09:12 175/70 01/19/18 09:00 65 175/70 01/19/18 09:00 175/70 01/19/18 08:00 66 01/19/18 08:00 98.0 80 20 175/70 98 Room Air 98.0 01/19/18 04:00 97.0 63 20 137/80 98 Room Air 97.0 01/19/18 04:00 65 01/19/18 00:23 54 01/19/18 00:00 97.0 59 20 155/79 96 Room Air 97.0 01/18/18 20:35 66 01/18/18 20:00 97.9 63 20 139/77 96 Room Air 97.9 01/18/18 16:00 66 01/18/18 16:00 98.0 75 21 130/77 96 Room Air 98.0 Intake and Output 01/18/18 01/19/18 19:00 07:00 Intake Total 0 ml 273.483 ml Output Total 200 ml Balance -200 ml 273.483 ml Intake Oral 0 ml Free Water 80 ml IV Total 73.483 ml Tube Feeding 120 ml Output Urine Total 200 ml # Voids 1 # Bowel Movements 6 Laboratory Tests 01/19/18 07:45: White Blood Count 9.6, Red Blood Count 3.82L, Hemoglobin 13.0L, Hematocrit 37.8L , Mean Corpuscular Volume 99, Mean Corpuscular Hemoglobin 34.1H, Mean Corpuscular Hemoglobin Concent 34.5, Red Cell Distribution Width 13.6, Platelet Count 198, Mean Platelet Volume 8.0, Neutrophils (%) (Auto) 69.0, Lymphocytes (% ) (Auto) 20.2, Monocytes (%) (Auto) 6.9, Eosinophils (%) (Auto) 3.0, Basophils ( %) (Auto) 1.0, Sodium Level 138, Potassium Level 3.8, Chloride Level 102, Carbon Dioxide Level 28, Anion Gap 8, Blood Urea Nitrogen 81H, Creatinine 1.8H, Estimat Glomerular Filtration Rate , Glucose Level 81#, Hemoglobin A1c 6.8H, Uric Acid 3.9, Calcium Level 9.4, Phosphorus Level 3.2, Magnesium Level 1.9, Iron Level 80, Total Iron Binding Capacity 262, Percent Iron Saturation 31, Unsaturated Iron Binding 182, Ferritin 464H, Total Bilirubin 0.5, Gamma Glutamyl Transpeptidase 81, Aspartate Amino Transf (AST/SGOT) 30, Alanine Aminotransferase (ALT/SGPT) 61, Alkaline Phosphatase 164H, Troponin I 0.000, Pro -B-Type Natriuretic Peptide 51654E, Total Protein 7.4, Albumin 2.3L, Globulin 5.1, Albumin/Globulin Ratio 0.5L, Triglycerides Level 29L, Cholesterol Level 87 , LDL Cholesterol 53, HDL Cholesterol 35L, Cholesterol/HDL Ratio 2.5L, Vitamin B12 Level 1173H, Folate 71.5H 01/19/18 11:50: Prothrombin Time 10.7, Prothromb Time International Ratio 1.0, Activated Partial Thromboplast Time 33 Height (Feet): 5 Height (Inches): 1.00 Weight (Pounds): 177 General Appearance: no apparent distress, lethargic Cardiovascular: bradycardia Respiratory/Chest: decreased breath sounds Abdomen: soft, other - PEG Objective no other changes VALENTIN RUSH January 19, 2018 13:37
--- NOTE | 2018-01-19 13:41 | Consultation ---
History of Present Illness General Date patient seen: January 19, 2018 Time patient seen: 13:30 Chief Complaint: General Complaint Present Illness HPI 82 y/o M with hx of Stroke w/ hemiparesis, dementia, nonverbal,HTN, HLD, cardiomyopathy, Aflutter, contractures, DM2, dysphagia s/p PEG, anemia, CHF, ESRD on HD, detention resident presents to ED on 01/17 with R chest catheter yellowish drainage. In ED found to ahve Aflutter and bifascicular block, EF 30%. No report of vomiting, diarrhea Allergies: Coded Allergies: No Known Allergies (Unverified , 12/19/17) Medication History Scheduled Amiodarone Hcl* (Amiodarone Hcl*), 400 MG ORAL DAILY, (Reported) Ascorbic Acid* (Vitamin C*), 500 MG ORAL DAILY, (Reported) Atorvastatin Calcium* (Lipitor*), 80 MG ORAL BEDTIME, (Reported) Cran/Vitc/Mannose/Inulin/Brom (Uti-Stat Liquid), 3,875 MG PO DAILY, (Reported) Cranberry Fruit Concentrate (Cranberry), 450 MG PO DAILY, (Reported) Docusate Sodium* (Colace*), 100 MG ORAL DAILY, (Reported) Donepezil Hcl* (Donepezil Hcl*), 10 MG ORAL DAILY, (Reported) Esomeprazole Magnesium (Nexium), 40 MG ORAL DAILY, (Reported) Ferrous Sulfate* (Ferrous Sulfate*), 325 MG ORAL TWICE A DAY, (Reported) Finasteride* (Proscar*), 5 MG ORAL DAILY, (Reported) Folic Acid* (Folic Acid*), 1 MG ORAL DAILY, (Reported) Insulin Glargine (Lantus), 23 SUBQ BEDTIME, (Reported) Losartan Potassium* (Losartan Potassium*), 50 MG ORAL DAILY, (Reported) Magnesium Hydroxide* (Milk Of Magnesia*), 30 ML ORAL DAILY, (Reported) Metoprolol Succinate* (Metoprolol Succinate*), 25 MG ORAL DAILY, (Reported) Multivitamin Liquid* (Multi-Delyn*), 5 ML GT DAILY, (Reported) Saccharomyces Boulardii (Florastor*), 250 MG ORAL DAILY, (Reported) Sennosides (Senna), 8.6 MG PO QHS, (Reported) Tamsulosin Hcl (Tamsulosin Hcl*), 0.4 MG ORAL BEDTIME, (Reported) Scheduled PRN Acetaminophen With Codeine 300MG/30MG (T#3)* (Tylenol With Codeine #3 Tablet*), 1 TAB ORAL Q4H PRN for For Pain, (Reported) Acetaminophen* (Acetaminophen 325MG Tablet*), 650 MG ORAL Q4H PRN for Mild Pain/ Temp > 100.5, (Reported) Bisacodyl (Dulcolax), 10 MG RC for Constipation, (Reported) Hydrocodone Bit/Acetaminophen 5-325* ([place] 5-325*), 1 TAB ORAL Q4H PRN for For Pain, (Reported) Miscellaneous Medications Arginine/Glutamine/Calcium Hmb (Tae Packet), 1 EACH PO, (Reported) Nitroglycerin (Nitro-Bid*), Unknown Dose TOPIC, (Reported) Patient History Healthcare decision maker Resuscitation status Full Code Advanced Directive on File Patient History Narrative Pmhx: as above Shx: He lives in a detention. Does not smoke or drink alcohol. Fhx: non contributory Review of Systems ROS Narrative unable to obtain Physical Exam Physical Exam Narrative HEAD AND NECK: No JVD. LUNGS: Clear. CARDIOVASCULAR: Regular S1 and S2 with no gallop. He has right chest PermCath. ABDOMEN: Soft, status post G-tube. EXTREMITIES: There is 1+ pitting edema R HD cath with erythema on exit site, no purulent drainage at present Last 24 Hour Vital Signs Date Time Temp Pulse Resp B/P (MAP) Pulse Ox O2 Delivery O2 Flow Rate FiO2 01/19/18 09:12 175/70 01/19/18 09:00 65 175/70 01/19/18 09:00 175/70 01/19/18 08:00 66 01/19/18 08:00 98.0 80 20 175/70 98 Room Air 98.0 01/19/18 04:00 97.0 63 20 137/80 98 Room Air 97.0 01/19/18 04:00 65 01/19/18 00:23 54 01/19/18 00:00 97.0 59 20 155/79 96 Room Air 97.0 01/18/18 20:35 66 01/18/18 20:00 97.9 63 20 139/77 96 Room Air 97.9 5/6/18 16:00 66 01/18/18 16:00 98.0 75 21 130/77 96 Room Air 98.0 Intake and Output 01/18/18 01/19/18 19:00 07:00 Intake Total 0 ml 273.483 ml Output Total 200 ml Balance -200 ml 273.483 ml Intake Oral 0 ml Free Water 80 ml IV Total 73.483 ml Tube Feeding 120 ml Output Urine Total 200 ml # Voids 1 # Bowel Movements 6 Laboratory Tests Test 01/19/18 07:45 01/19/18 11:50 White Blood Count 9.6 K/UL (4.8-10.8) Red Blood Count 3.82 M/UL (4.70-6.10) L Hemoglobin 13.0 G/DL (14.2-18.0) L Hematocrit 37.8 % (42.0-52.0) L Mean Corpuscular Volume 99 FL (80-99) Mean Corpuscular Hemoglobin 34.1 PG (27.0-31.0) H Mean Corpuscular Hemoglobin Concent 34.5 G/DL (32.0-36.0) Red Cell Distribution Width 13.6 % (11.6-14.8) Platelet Count 198 K/UL (150-450) Mean Platelet Volume 8.0 FL (6.5-10.1) Neutrophils (%) (Auto) 69.0 % (45.0-75.0) Lymphocytes (%) (Auto) 20.2 % (20.0-45.0) Monocytes (%) (Auto) 6.9 % (1.0-10.0) Eosinophils (%) (Auto) 3.0 % (0.0-3.0) Basophils (%) (Auto) 1.0 % (0.0-2.0) Sodium Level 138 MMOL/L (136-145) Potassium Level 3.8 MMOL/L (3.5-5.1) Chloride Level 102 MMOL/L (98-107) Carbon Dioxide Level 28 MMOL/L (21-32) Anion Gap 8 mmol/L (5-15) Blood Urea Nitrogen 81 mg/dL (7-18) H Creatinine 1.8 MG/DL (0.55-1.30) H Estimat Glomerular Filtration Rate mL/min (>60) Glucose Level 81 MG/DL (74-106) # Hemoglobin A1c 6.8 % (4.3-6.0) H Uric Acid 3.9 MG/DL (2.6-7.2) Calcium Level 9.4 MG/DL (8.5-10.1) Phosphorus Level 3.2 MG/DL (2.5-4.9) Magnesium Level 1.9 MG/DL (1.8-2.4) Iron Level 80 ug/dL (50-175) Total Iron Binding Capacity 262 ug/dL (250-450) Percent Iron Saturation 31 % (15-50) Unsaturated Iron Binding 182 ug/dL (112-346) Ferritin 464 NG/ML (8-388) H Total Bilirubin 0.5 MG/DL (0.2-1.0) Gamma Glutamyl Transpeptidase 81 U/L (5-85) Aspartate Amino Transf (AST/SGOT) 30 U/L (15-37) Alanine Aminotransferase (ALT/SGPT) 61 U/L (12-78) Alkaline Phosphatase 164 U/L (46-116) H Troponin I 0.000 ng/mL (0.000-0.056) Pro-B-Type Natriuretic Peptide 44500 pg/mL (0-125) H Total Protein 7.4 G/DL (6.4-8.2) Albumin 2.3 G/DL (3.4-5.0) L Globulin 5.1 g/dL Albumin/Globulin Ratio 0.5 (1.0-2.7) L Triglycerides Level 29 MG/DL (30-150) L Cholesterol Level 87 MG/DL (< 200) LDL Cholesterol 53 mg/dL (<100) HDL Cholesterol 35 MG/DL (40-60) L Cholesterol/HDL Ratio 2.5 (3.3-4.4) L Vitamin B12 Level 1173 PG/ML (193-986) H Folate 71.5 NG/ML (8.6-58.9) H Prothrombin Time 10.7 SEC (9.30-11.50) Prothromb Time International Ratio 1.0 (0.9-1.1) Activated Partial Thromboplast Time 33 SEC (23-33) Height (Feet): 5 Height (Inches): 1.00 Weight (Pounds): 177 Medications Current Medications Medications (Trade) Dose Ordered Sig/Tiffany Route PRN Reason Start Time Stop Time Status Last Admin Dose Admin Acetaminophen (Tylenol) 650 mg Q4H PRN ORAL Mild Pain/Temp > 100.5 01/18/18 02:00 02/17/18 01:59 Acetaminophen/ Codeine Phosphate (Tylenol #3) 1 tab Q4H PRN ORAL Pain Scale (3-5) 01/18/18 06:45 01/25/18 06:44 Acetaminophen/ Hydrocodone Bitart ([place] 5/325) 1 tab Q4H PRN ORAL Severe Pain (Pain Scale 7-10) 01/18/18 06:45 01/25/18 06:44 Amiodarone HCl (Cordarone) 200 mg DAILY ORAL 01/19/18 09:00 02/17/18 08:59 Apixaban (Eliquis) 2.5 mg BID ORAL 01/18/18 18:00 02/17/18 17:59 01/18/18 17:16 Ascorbic Acid (Vitamin C) 500 mg DAILY ORAL 01/18/18 09:00 02/17/18 08:59 01/18/18 09:20 Atorvastatin Calcium (Lipitor) 80 mg BEDTIME ORAL 01/18/18 21:00 02/17/18 20:59 01/18/18 20:47 Bisacodyl (Dulcolax) 10 mg DAILYPRN PRN RECTAL Constipation 01/18/18 02:00 02/17/18 01:59 Docusate Sodium (Colace) 100 mg TID GT 01/18/18 13:00 02/17/18 08:59 01/18/18 17:16 Donepezil HCl (Aricept) 10 mg DAILY ORAL 01/18/18 09:00 02/17/18 08:59 01/18/18 09:21 Finasteride (Proscar) 5 mg DAILY ORAL 01/18/18 09:00 02/17/18 08:59 01/18/18 09:20 Folic Acid (Folate) 1 mg DAILY ORAL 01/18/18 09:00 02/17/18 08:59 01/18/18 09:20 Losartan Potassium (Cozaar) 50 mg DAILY ORAL 01/18/18 09:00 02/17/18 08:59 01/18/18 09:21 Metoprolol Succinate (Toprol XL) 25 mg DAILY ORAL 01/18/18 09:00 6/5/18 08:59 01/18/18 09:20 Nitroglycerin (Nitro-Bid) 1 inch DAILY TOPIC 01/19/18 09:00 02/18/18 08:59 01/19/18 09:12 Saccharomyces Boulardii (Florastor) 250 mg DAILY ORAL 01/18/18 09:00 02/17/18 08:59 01/18/18 09:20 Sennosides (Senokot) 1 tab QHS GT 01/18/18 21:00 02/17/18 20:59 01/18/18 20:47 Tamsulosin HCl (Flomax) 0.4 mg BID ORAL 01/18/18 18:00 02/17/18 20:59 01/18/18 17:16 Vancomycin HCl (Vanco rx to dose) 1 ea DAILY PRN MISC Per pharmacy dosing 01/18/18 13:15 02/17/18 13:14 Vancomycin HCl 1 gm/Dextrose 275 ml @ 183.708 mls/hr Q24H IVPB 01/18/18 04:00 01/23/18 03:59 01/19/18 03:36 Assessment/Plan Assessment/Plan Abx: IV Vanco 01/18- Assessment: Infected HD cath- r.o bacteremia -BCx NTD -wound cx: GPC -Echo: no vegetations seen. Aortic valve calcification with decreased cusp excursion c/w aortic stenosis. Mildly thickened mitral valve leaflets with normal excursion. Moderate mitral annulus and aortic root calcification. Afebrile, no leukocytosis ESRD on HD -renal US: Suspected nonobstructive nephrolithiasis in the left kidney. Stroke w/ hemiparesis dementia nonverbal HTN HLD cardiomyopathy Aflutter contractures, DM2 dysphagia s/p PEG anemia CHF detention resident Plan: -Conitnue empiric IV Vancomycin #2 pending wound cx and Bcx -if Bcx remains negative will treat for 7 days -Agree with HD cath removal -placement of new permanent HD catheter should be done after Bcx negative for 72 hours and placed in opposite site -f/u cx -Monitor CBC/BMP, temperatures Thank you for this consultation. Will continue to follow along with you. Discussed with Sarah Lujan M.D. January 19, 2018 13:41
[2018-01-19] MEDS: HydrALAZINE 25mg tab GT SCH ×2 (14:30→17:23)
[2018-01-19 16:00] VITALS: BP 150/100
--- NOTE | 2018-01-19 16:14 | Cardiac Electrophysiology PN ---
Assessment/Plan Assessment/Plan 1. Atrial flutter. The patient's rate is currently controlled on amiodarone 200 mg daily as well as Toprol-XL 25 mg daily. On Eliquis 2.5 mg b.i.d. 2. Hypertension. Continue losartan 50 mg daily and Toprol-XL 25 mg daily and hemodialysis. 3. Cardiomyopathy, ejection fraction of only 30%, on hemodialysis and Cozaar and Toprol-XL 25 mg daily. In view of his overall condition, he is not a candidate for defibrillator placement. 4. ESRD on HD with discharge from the site. On vancomycin.Removal tomorroqw 5. Hyperlipidemia, on Lipitor. BINDU rN Subjective Subjective Comfortable in NAD. In Atrial fib controlled. Nonverbal.NPO for removal of R chest PermCath Objective Last 24 Hour Vital Signs Date Time Temp Pulse Resp B/P (MAP) Pulse Ox O2 Delivery O2 Flow Rate FiO2 01/19/18 14:30 154/73 01/19/18 12:00 73 01/19/18 12:00 97.2 56 20 154/73 97 Room Air 97.2 01/19/18 09:12 175/70 01/19/18 09:00 65 175/70 01/19/18 09:00 175/70 01/19/18 08:00 66 01/19/18 08:00 98.0 80 20 175/70 98 Room Air 98.0 01/19/18 04:00 97.0 63 20 137/80 98 Room Air 97.0 01/19/18 04:00 65 01/19/18 00:23 54 01/19/18 00:00 97.0 59 20 155/79 96 Room Air 97.0 01/18/18 20:35 66 01/18/18 20:00 97.9 63 20 139/77 96 Room Air 97.9 Intake and Output 01/18/18 01/19/18 19:00 07:00 Intake Total 0 ml 273.483 ml Output Total 200 ml Balance -200 ml 273.483 ml Intake Oral 0 ml Free Water 80 ml IV Total 73.483 ml Tube Feeding 120 ml Output Urine Total 200 ml # Voids 1 # Bowel Movements 6 Laboratory Tests Test 01/19/18 07:45 01/19/18 11:50 White Blood Count 9.6 K/UL (4.8-10.8) Red Blood Count 3.82 M/UL (4.70-6.10) L Hemoglobin 13.0 G/DL (14.2-18.0) L Hematocrit 37.8 % (42.0-52.0) L Mean Corpuscular Volume 99 FL (80-99) Mean Corpuscular Hemoglobin 34.1 PG (27.0-31.0) H Mean Corpuscular Hemoglobin Concent 34.5 G/DL (32.0-36.0) Red Cell Distribution Width 13.6 % (11.6-14.8) Platelet Count 198 K/UL (150-450) Mean Platelet Volume 8.0 FL (6.5-10.1) Neutrophils (%) (Auto) 69.0 % (45.0-75.0) Lymphocytes (%) (Auto) 20.2 % (20.0-45.0) Monocytes (%) (Auto) 6.9 % (1.0-10.0) Eosinophils (%) (Auto) 3.0 % (0.0-3.0) Basophils (%) (Auto) 1.0 % (0.0-2.0) Sodium Level 138 MMOL/L (136-145) Potassium Level 3.8 MMOL/L (3.5-5.1) Chloride Level 102 MMOL/L (98-107) Carbon Dioxide Level 28 MMOL/L (21-32) Anion Gap 8 mmol/L (5-15) Blood Urea Nitrogen 81 mg/dL (7-18) H Creatinine 1.8 MG/DL (0.55-1.30) H Estimat Glomerular Filtration Rate mL/min (>60) Glucose Level 81 MG/DL (74-106) # Hemoglobin A1c 6.8 % (4.3-6.0) H Uric Acid 3.9 MG/DL (2.6-7.2) Calcium Level 9.4 MG/DL (8.5-10.1) Phosphorus Level 3.2 MG/DL (2.5-4.9) Magnesium Level 1.9 MG/DL (1.8-2.4) Iron Level 80 ug/dL (50-175) Total Iron Binding Capacity 262 ug/dL (250-450) Percent Iron Saturation 31 % (15-50) Unsaturated Iron Binding 182 ug/dL (112-346) Ferritin 464 NG/ML (8-388) H Total Bilirubin 0.5 MG/DL (0.2-1.0) Gamma Glutamyl Transpeptidase 81 U/L (5-85) Aspartate Amino Transf (AST/SGOT) 30 U/L (15-37) Alanine Aminotransferase (ALT/SGPT) 61 U/L (12-78) Alkaline Phosphatase 164 U/L (46-116) H Troponin I 0.000 ng/mL (0.000-0.056) Pro-B-Type Natriuretic Peptide 61974 pg/mL (0-125) H Total Protein 7.4 G/DL (6.4-8.2) Albumin 2.3 G/DL (3.4-5.0) L Globulin 5.1 g/dL Albumin/Globulin Ratio 0.5 (1.0-2.7) L Triglycerides Level 29 MG/DL (30-150) L Cholesterol Level 87 MG/DL (< 200) LDL Cholesterol 53 mg/dL (<100) HDL Cholesterol 35 MG/DL (40-60) L Cholesterol/HDL Ratio 2.5 (3.3-4.4) L Vitamin B12 Level 1173 PG/ML (193-986) H Folate 71.5 NG/ML (8.6-58.9) H Prothrombin Time 10.7 SEC (9.30-11.50) Prothromb Time International Ratio 1.0 (0.9-1.1) Activated Partial Thromboplast Time 33 SEC (23-33) Microbiology Date/Time Source Procedure Growth Status 01/17/18 21:00 Blood Blood Culture - Preliminary NO GROWTH AFTER 24 HOURS Resulted 01/17/18 20:45 Blood Blood Culture - Preliminary NO GROWTH AFTER 24 HOURS Resulted 01/18/18 04:53 Chest Gram Stain - Final Resulted 01/18/18 04:53 Wound Culture - Preliminary Gram Positive Cocci Resulted Objective HEAD AND NECK: No JVD. LUNGS: Clear. CARDIOVASCULAR: Regular S1 and S2 with no gallop. He has right chest PermCath. ABDOMEN: Soft, status post G-tube. EXTREMITIES: There is 1+ pitting edema. Malik Shannon MD January 19, 2018 16:14
[2018-01-19] MEDS: NovoLOG Insulin Flexpen SUBQ SCH (17:34)
[2018-01-19 20:00] VITALS: BP 123/70
[2018-01-19] MEDS: Atorvastatin 20mg tab ORAL SCH (20:59)
[2018-01-19] MEDS: Sennosides 8.6mg GT SCH (21:00)
[2018-01-20] VITALS: BP 146/84
[2018-01-20] MEDS: HydrALAZINE 25mg tab GT SCH ×4 (00:32→21:43)
[2018-01-20] MEDS ORDERED: D5NS 200 ML IV ONE (02:30)
[2018-01-20] MEDS: Vancomycin 1gm/D5W 275ml IVPB SCH ×2 (03:35)
[2018-01-20 04:00] VITALS: BP 163/57
[2018-01-20] MEDS: NovoLOG Insulin Flexpen SUBQ SCH ×5 (06:00→23:30)
[2018-01-20 06:11] LABS: BASOPHILS % (AUTO) 0.7 % (0.0-2.0); EOSINOPHILS % (AUTO) 3.3 % (0.0-3.0); HEMATOCRIT 37.4 % (42.0-52.0); HEMOGLOBIN 13.8 G/DL (14.2-18.0); LYMPHOCYTES % (AUTO) 16.5 % (20.0-45.0); MEAN CORPUSCULAR VOLUME 98 FL (80-99); NEUTROPHILS % (AUTO) 72.4 % (45.0-75.0); PLATELET COUNT 205 K/UL (150-450); RED BLOOD COUNT 3.82 M/UL (4.70-6.10); RED CELL DISTRIBUTION WIDTH 13.3 % (11.6-14.8); WHITE BLOOD COUNT 8.9 K/UL (4.8-10.8)
[2018-01-20 06:48] LABS: ALANINE AMINOTRANSFERASE 52 U/L (12-78); ALBUMIN 2.4 G/DL (3.4-5.0); ALBUMIN/GLOBULIN RATIO 0.5 (1.0-2.7); ALKALINE PHOSPHATASE 161 U/L (46-116); ANION GAP 7 mmol/L (5-15); ASPARTATE AMINO TRANSFERASE 30 U/L (15-37); BILIRUBIN,TOTAL 0.6 MG/DL (0.2-1.0); BLOOD UREA NITROGEN 77 mg/dL (7-18); CALCIUM 9.5 MG/DL (8.5-10.1); CARBON DIOXIDE 27 MMOL/L (21-32); CHLORIDE 102 MMOL/L (98-107); POTASSIUM 3.8 MMOL/L (3.5-5.1); SODIUM 136 MMOL/L (136-145)
[2018-01-20 08:00] VITALS: BP 128/76
[2018-01-20] MEDS ORDERED: Lidocaine 2% 20mg/ml/Epi 0.005mg/ml 20ml vial INJ ONE (08:30)
[2018-01-20] MEDS ORDERED: Lidocaine 2% 20mg/ml/Epi 0.005mg/ml 20ml vial INJ SCH (09:00)
[2018-01-20] MEDS: Eliquis 2.5mg tablet ORAL SCH ×2 (09:00→17:59)
[2018-01-20] MEDS: Tamsulosin 0.4mg cap ORAL SCH ×2 (09:36→17:58)
[2018-01-20] MEDS: Donepezil 10mg tab ORAL SCH (09:36)
[2018-01-20] MEDS: Amiodarone 200mg tab ORAL SCH (09:36)
[2018-01-20] MEDS: Losartan 50mg tab ORAL SCH (09:38)
[2018-01-20] MEDS: Docusate 100mg/10ml Liq GT SCH ×3 (09:39→17:58)
[2018-01-20] MEDS: Nitroglycerin 2% oint pkt TOPIC SCH (09:39)
[2018-01-20] MEDS: Metoprolol Succinate XL 25mg tab ORAL SCH (09:43)
[2018-01-20] MEDS: Ascorbic Acid 500mg tab ORAL SCH (09:45)
--- NOTE | 2018-01-20 11:24 | Infectious Diseases Prog Note ---
Assessment/Plan Assessment/Plan Abx: IV Vanco 01/18- Assessment: Infected HD cath- r.o bacteremia -BCx NTD -wound cx: MRSA (S Vancomycin, Bactrim, Tetracycline) -Echo: no vegetations seen. Aortic valve calcification with decreased cusp excursion c/w aortic stenosis. Mildly thickened mitral valve leaflets with normal excursion. Moderate mitral annulus and aortic root calcification. Afebrile, no leukocytosis ESRD on HD -renal US: Suspected nonobstructive nephrolithiasis in the left kidney. Stroke w/ hemiparesis dementia nonverbal HTN HLD cardiomyopathy Aflutter contractures, DM2 dysphagia s/p PEG anemia CHF assisted resident Plan: -Conitnue empiric IV Vancomycin #3 for MRSA HD cath infection -if Bcx remains negative will treat for 7 days -Agree with HD cath removal -placement of new permanent HD catheter should be done after Bcx negative for 72 hours and placed in opposite site -Bcx from HD cath -f/u cx -Monitor CBC/BMP, temperatures Thank you for this consultation. Will continue to follow along with you. Discussed with RN. Subjective Allergies: Coded Allergies: No Known Allergies (Unverified , 12/19/17) Subjective afebrile no leukocytosis BCx NTD woujnd cx MRSA for remoavl of permacath today Objective Vital Signs Last 24 Hour Vital Signs Date Time Temp Pulse Resp B/P (MAP) Pulse Ox O2 Delivery O2 Flow Rate FiO2 01/20/18 09:43 103 128/76 01/20/18 09:39 128/76 01/20/18 09:38 128/76 01/20/18 08:00 97.7 103 20 128/76 97 Room Air 97.7 01/20/18 07:38 81 01/20/18 06:29 163/57 01/20/18 04:00 80 01/20/18 04:00 97.5 94 20 163/57 93 Room Air 97.5 01/20/18 00:32 146/84 01/20/18 00:00 96.8 76 20 146/84 96 Room Air 96.8 01/20/18 00:00 68 01/19/18 20:00 68 01/19/18 20:00 97.9 72 20 123/70 97 Room Air 97.9 01/19/18 17:23 154/73 01/19/18 16:00 97.8 68 20 150/100 97 Room Air 97.8 01/19/18 16:00 67 01/19/18 14:30 154/73 01/19/18 12:00 73 01/19/18 12:00 97.2 56 20 154/73 97 Room Air 97.2 Height (Feet): 5 Height (Inches): 1.00 Weight (Pounds): 177 Objective HEAD AND NECK: No JVD. LUNGS: Clear. CARDIOVASCULAR: Regular S1 and S2 with no gallop. He has right chest PermCath. ABDOMEN: Soft, status post G-tube. EXTREMITIES: There is 1+ pitting edema R HD cath with erythema on exit site, no purulent drainage at present Microbiology Date/Time Source Procedure Growth Status 01/18/18 07:48 Blood Blood Culture - Preliminary NO GROWTH AFTER 24 HOURS Resulted 01/17/18 21:00 Blood Blood Culture - Preliminary NO GROWTH AFTER 48 HOURS Resulted 01/17/18 20:45 Blood Blood Culture - Preliminary NO GROWTH AFTER 48 HOURS Resulted 01/17/18 22:13 Nasal Nares MRSA Culture - Final Staphylococcus Aureus - Mrsa Complete 01/18/18 04:53 Chest Gram Stain - Final Resulted 01/18/18 04:53 Wound Culture - Preliminary Staphylococcus Aureus - Mrsa Resulted 01/17/18 22:13 Rectum VRE Culture - Final Enterococcus Faecalis - Vre Complete Laboratory Tests Test 01/19/18 11:50 01/20/18 04:50 Prothrombin Time 10.7 SEC (9.30-11.50) Prothromb Time International Ratio 1.0 (0.9-1.1) Activated Partial Thromboplast Time 33 SEC (23-33) White Blood Count 8.9 K/UL (4.8-10.8) Red Blood Count 3.82 M/UL (4.70-6.10) L Hemoglobin 13.8 G/DL (14.2-18.0) L Hematocrit 37.4 % (42.0-52.0) L Mean Corpuscular Volume 98 FL (80-99) Mean Corpuscular Hemoglobin 36.1 PG (27.0-31.0) H Mean Corpuscular Hemoglobin Concent 36.9 G/DL (32.0-36.0) H Red Cell Distribution Width 13.3 % (11.6-14.8) Platelet Count 205 K/UL (150-450) Mean Platelet Volume 7.4 FL (6.5-10.1) Neutrophils (%) (Auto) 72.4 % (45.0-75.0) Lymphocytes (%) (Auto) 16.5 % (20.0-45.0) L Monocytes (%) (Auto) 7.0 % (1.0-10.0) Eosinophils (%) (Auto) 3.3 % (0.0-3.0) H Basophils (%) (Auto) 0.7 % (0.0-2.0) Sodium Level 136 MMOL/L (136-145) Potassium Level 3.8 MMOL/L (3.5-5.1) Chloride Level 102 MMOL/L (98-107) Carbon Dioxide Level 27 MMOL/L (21-32) Anion Gap 7 mmol/L (5-15) Blood Urea Nitrogen 77 mg/dL (7-18) H Creatinine 2.0 MG/DL (0.55-1.30) H Estimat Glomerular Filtration Rate mL/min (>60) Glucose Level 149 MG/DL (74-106) H Calcium Level 9.5 MG/DL (8.5-10.1) Total Bilirubin 0.6 MG/DL (0.2-1.0) Aspartate Amino Transf (AST/SGOT) 30 U/L (15-37) Alanine Aminotransferase (ALT/SGPT) 52 U/L (12-78) Alkaline Phosphatase 161 U/L (46-116) H Total Protein 7.5 G/DL (6.4-8.2) Albumin 2.4 G/DL (3.4-5.0) L Globulin 5.1 g/dL Albumin/Globulin Ratio 0.5 (1.0-2.7) L Current Medications Medications (Trade) Dose Ordered Sig/Tiffany Route PRN Reason Start Time Stop Time Status Last Admin Dose Admin Acetaminophen (Tylenol) 650 mg Q4H PRN ORAL Mild Pain/Temp > 100.5 01/18/18 02:00 02/17/18 01:59 Acetaminophen/ Codeine Phosphate (Tylenol #3) 1 tab Q4H PRN ORAL Pain Scale (3-5) 01/18/18 06:45 01/25/18 06:44 Acetaminophen/ Hydrocodone Bitart ([place] 5/325) 1 tab Q4H PRN ORAL Severe Pain (Pain Scale 7-10) 01/18/18 06:45 01/25/18 06:44 Amiodarone HCl (Cordarone) 200 mg DAILY ORAL 01/19/18 09:00 02/17/18 08:59 01/20/18 09:36 Apixaban (Eliquis) 2.5 mg BID ORAL 01/18/18 18:00 02/17/18 17:59 01/19/18 17:23 Ascorbic Acid (Vitamin C) 500 mg DAILY ORAL 01/18/18 09:00 02/17/18 08:59 01/20/18 09:45 Atorvastatin Calcium (Lipitor) 40 mg BEDTIME ORAL 01/19/18 21:00 02/17/18 20:59 01/19/18 20:59 Bisacodyl (Dulcolax) 10 mg DAILYPRN PRN RECTAL Constipation 01/18/18 02:00 02/17/18 01:59 Dextrose (Dextrose 50%) 25 ml STAT PRN IV Hypoglycemia 01/19/18 13:30 02/18/18 13:29 Dextrose (Dextrose 50%) 50 ml STAT PRN IV Hypoglycemia 01/19/18 13:30 02/18/18 13:29 01/20/18 00:32 Docusate Sodium (Colace) 100 mg TID GT 01/18/18 13:00 02/17/18 08:59 01/20/18 09:39 Donepezil HCl (Aricept) 10 mg DAILY ORAL 01/18/18 09:00 02/17/18 08:59 01/20/18 09:36 Finasteride (Proscar) 5 mg DAILY ORAL 01/18/18 09:00 02/17/18 08:59 01/20/18 09:36 Hydralazine HCl (Apresoline) 25 mg Q6HR GT 01/19/18 14:30 02/18/18 14:29 01/20/18 06:29 Insulin Aspart (NovoLOG) EVERY 6 HOURS SUBQ 01/19/18 18:00 02/18/18 17:59 Levothyroxine Sodium (Synthroid) 50 mcg DAILY@0630 ORAL 01/20/18 06:30 02/19/18 06:29 01/20/18 09:42 Losartan Potassium (Cozaar) 50 mg DAILY ORAL 01/18/18 09:00 02/17/18 08:59 01/20/18 09:38 Metoprolol Succinate (Toprol XL) 25 mg DAILY ORAL 01/18/18 09:00 02/17/18 08:59 01/20/18 09:43 Nitroglycerin (Nitro-Bid) 1 inch DAILY TOPIC 01/19/18 09:00 02/18/18 08:59 01/20/18 09:39 Saccharomyces Boulardii (Florastor) 250 mg DAILY ORAL 01/18/18 09:00 02/17/18 08:59 01/20/18 09:36 Sennosides (Senokot) 1 tab QHS GT 01/18/18 21:00 02/17/18 20:59 01/19/18 21:00 Tamsulosin HCl (Flomax) 0.4 mg BID ORAL 01/18/18 18:00 02/17/18 20:59 01/20/18 09:36 Vancomycin HCl (Vanco rx to dose) 1 ea DAILY PRN MISC Per pharmacy dosing 01/18/18 13:15 02/17/18 13:14 Vancomycin HCl 1 gm/Dextrose 275 ml @ 183.708 mls/hr Q24H IVPB 01/18/18 04:00 01/23/18 03:59 01/20/18 03:35 Sarah Borjas M.D. January 20, 2018 11:24
[2018-01-20 12:00] VITALS: BP 96/81
--- NOTE | 2018-01-20 13:09 | General Progress Note ---
Assessment/Plan Status: stable Assessment/Plan 1. Infected right upper chest PermCath. 2. End-stage renal disease. 3. Diabetes type 2. 4. Hypercholesterolemia. 5. Cardiomyopathy. 6. Atrial fibrillation. 7. Congestive heart failure. 8. Hypertension. 9. Alzheimer dementia. 10. Benign prostatic hypertrophy. 11. Lack of capacity to make medical decisions TREATMENT: DC HD access , will monitor for need for Re-insertion Notes from Cardiology, Nephrology, Vascular Sx and ID are reviewed Given the lack of availability of the Next keen, and the urgency for the procedure to remove the Cath, it is justified to proceed for removal/procedure at this time DC Lantus, c/q SSI On ATC- Eliquis Subjective ROS Limited/Unobtainable: Yes Constitutional: Reports: no symptoms, malaise Allergies: Coded Allergies: No Known Allergies (Unverified , 12/19/17) Objective Last 24 Hour Vital Signs Date Time Temp Pulse Resp B/P (MAP) Pulse Ox O2 Delivery O2 Flow Rate FiO2 01/20/18 12:00 96/81 01/20/18 12:00 97.9 93 18 96/81 95 Room Air 97.9 01/20/18 09:43 103 128/76 01/20/18 09:39 128/76 01/20/18 09:38 128/76 01/20/18 08:00 97.7 103 20 128/76 97 Room Air 97.7 01/20/18 07:38 81 01/20/18 06:29 163/57 01/20/18 04:00 80 01/20/18 04:00 97.5 94 20 163/57 93 Room Air 97.5 01/20/18 00:32 146/84 01/20/18 00:00 96.8 76 20 146/84 96 Room Air 96.8 01/20/18 00:00 68 01/19/18 20:00 68 01/19/18 20:00 97.9 72 20 123/70 97 Room Air 97.9 01/19/18 17:23 154/73 01/19/18 16:00 97.8 68 20 150/100 97 Room Air 97.8 01/19/18 16:00 67 01/19/18 14:30 154/73 Intake and Output 01/19/18 01/20/18 19:00 07:00 Intake Total 100 ml Output Total 651 ml 400 ml Balance -651 ml -300 ml Free Water 100 ml Output Urine Total 650 ml 400 ml Stool Total 1 ml # Bowel Movements 3 Laboratory Tests 01/20/18 04:50: White Blood Count 8.9, Red Blood Count 3.82L, Hemoglobin 13.8L, Hematocrit 37.4L , Mean Corpuscular Volume 98, Mean Corpuscular Hemoglobin 36.1H, Mean Corpuscular Hemoglobin Concent 36.9H, Red Cell Distribution Width 13.3, Platelet Count 205, Mean Platelet Volume 7.4, Neutrophils (%) (Auto) 72.4, Lymphocytes (%) (Auto) 16.5L, Monocytes (%) (Auto) 7.0, Eosinophils (%) (Auto) 3.3H, Basophils (%) (Auto) 0.7, Sodium Level 136, Potassium Level 3.8, Chloride Level 102, Carbon Dioxide Level 27, Anion Gap 7, Blood Urea Nitrogen 77H, Creatinine 2.0H, Estimat Glomerular Filtration Rate , Glucose Level 149H, Calcium Level 9.5, Total Bilirubin 0.6, Aspartate Amino Transf (AST/SGOT) 30, Alanine Aminotransferase (ALT/SGPT) 52, Alkaline Phosphatase 161H, Total Protein 7.5, Albumin 2.4L, Globulin 5.1, Albumin/Globulin Ratio 0.5L Height (Feet): 5 Height (Inches): 1.00 Weight (Pounds): 177 General Appearance: no apparent distress EENT: PERRL/EOMI Neck: supple Cardiovascular: normal rate Abdomen: soft, other - PEG in place Extremities: non-tender, other - atrophied musculature Neurologic: disoriented Courtney Weeks MD January 20, 2018 13:09
--- NOTE | 2018-01-20 14:54 | Nephrology Progress Note ---
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 urine out let Obstruction, Urine retention Right permacath in place GT in place DM HTN echo: Cardiomyopathy 30% ej Fx HypoThyroidism Plan Plan: stop Cocaar Albumin IV one dose adjust Hydralazine dose Increase flomax- Ifsher for now 2D echo 30% ej fx SANDRO kidney Suspected nonobstructive nephrolithiasis in the left kidney. monitor renal parameters avoid nephrotoxics After load reduction- optimize renal and cardiac status. Echo: Global left ventricular hypokinesis. Left ventricular ejection fraction estimated to be 30 %. Subjective ROS Limited/Unobtainable: No Constitutional: Reports: malaise Objective Objective Last 24 Hour Vital Signs Date Time Temp Pulse Resp B/P (MAP) Pulse Ox O2 Delivery O2 Flow Rate FiO2 01/20/18 12:00 96/81 01/20/18 12:00 97.9 93 18 96/81 95 Room Air 97.9 01/20/18 11:56 92 01/20/18 09:43 103 128/76 01/20/18 09:39 128/76 01/20/18 09:38 128/76 01/20/18 08:00 97.7 103 20 128/76 97 Room Air 97.7 01/20/18 07:38 81 01/20/18 06:29 163/57 01/20/18 04:00 80 01/20/18 04:00 97.5 94 20 163/57 93 Room Air 97.5 01/20/18 00:32 146/84 01/20/18 00:00 96.8 76 20 146/84 96 Room Air 96.8 01/20/18 00:00 68 01/19/18 20:00 68 01/19/18 20:00 97.9 72 20 123/70 97 Room Air 97.9 01/19/18 17:23 154/73 01/19/18 16:00 97.8 68 20 150/100 97 Room Air 97.8 01/19/18 16:00 67 Intake and Output 01/19/18 01/20/18 19:00 07:00 Intake Total 100 ml Output Total 651 ml 400 ml Balance -651 ml -300 ml Free Water 100 ml Output Urine Total 650 ml 400 ml Stool Total 1 ml # Bowel Movements 3 Laboratory Tests 01/20/18 04:50: White Blood Count 8.9, Red Blood Count 3.82L, Hemoglobin 13.8L, Hematocrit 37.4L , Mean Corpuscular Volume 98, Mean Corpuscular Hemoglobin 36.1H, Mean Corpuscular Hemoglobin Concent 36.9H, Red Cell Distribution Width 13.3, Platelet Count 205, Mean Platelet Volume 7.4, Neutrophils (%) (Auto) 72.4, Lymphocytes (%) (Auto) 16.5L, Monocytes (%) (Auto) 7.0, Eosinophils (%) (Auto) 3.3H, Basophils (%) (Auto) 0.7, Sodium Level 136, Potassium Level 3.8, Chloride Level 102, Carbon Dioxide Level 27, Anion Gap 7, Blood Urea Nitrogen 77H, Creatinine 2.0H, Estimat Glomerular Filtration Rate , Glucose Level 149H, Calcium Level 9.5, Total Bilirubin 0.6, Aspartate Amino Transf (AST/SGOT) 30, Alanine Aminotransferase (ALT/SGPT) 52, Alkaline Phosphatase 161H, Total Protein 7.5, Albumin 2.4L, Globulin 5.1, Albumin/Globulin Ratio 0.5L Height (Feet): 5 Height (Inches): 1.00 Weight (Pounds): 177 General Appearance: no apparent distress, lethargic Cardiovascular: tachycardia Respiratory/Chest: decreased breath sounds Abdomen: soft Genitourinary/Rectal: other - fisher + Objective no other changes VALENTIN RUSH January 20, 2018 14:54
[2018-01-20 16:00] VITALS: BP 144/95
--- NOTE | 2018-01-20 17:30 | Consultation ---
DATE OF CONSULTATION: 01/20/2018 ENDOCRINOLOGY CONSULTATION CONSULTING PHYSICIAN: Musa Miller M.D. REFERRING PHYSICIAN: Courtney Weeks M.D. REASON FOR CONSULTATION: Diabetes management. HISTORY OF PRESENT ILLNESS: It is important to note that history is obtained from review of the chart and medical records as the patient is not able to provide any history. The patient is an 82-year-old male with history of stroke, hemiparesis, dementia, nonverbal, hypertension, diabetes, cardiomyopathy, and end-stage renal disease, on hemodialysis, who is a resident at the senior care facility, admitted on 01/17/2018 with right chest catheter yellowish drainage and the patient in the emergency room had atrial fibrillation with bifascicular block and EF of 30%. The last time, he was hypoglycemic and he was treated with Levemir 23 units daily with NovoLog sliding scale. I was called to manage diabetes. REVIEW OF SYSTEMS: Unobtainable. ALLERGIES TO MEDICATION: None. MEDICATIONS: Reviewed and reconciled. FAMILY HISTORY: Noncontributory. SOCIAL HISTORY: Resident of a senior care facility. No active smoking, alcohol, or drug use. LABORATORY VALUES: WBC 8.9, hemoglobin 13.8, hematocrit 37.4, and platelets of 205. Sodium 138, potassium 3.8, chloride 102, bicarbonate 20, BUN 81, and creatinine 1.8. Hemoglobin A1c of 6.8. TSH of 9.7. PHYSICAL EXAMINATION: GENERAL: The patient is nonverbal. VITAL SIGNS: Blood pressure of 162/57, heart rate of 94, respiratory rate of 20, and temperature of 97.5. HEENT: Pupils are equal and reactive to light. Sclerae are anicteric. NECK: No JVD. No thyromegaly. LUNGS: Clear. HEART: Regular rate and rhythm. ABDOMEN: Positive bowel sounds. EXTREMITIES: Positive for edema. DIAGNOSES: 1. Infected dialysis catheter. 2. Hypothyroidism. 3. Diabetes, out of control. 4. Hypoglycemia. 5. Dementia. PLAN: Continue with sliding scale insulin without any basal insulin coverage and further adjustment according to blood glucose values. Start levothyroxine 50 mcg daily. Repeat TSH in two weeks. I will follow the patient during the hospital stay. Thank you, Dr. Weeks, for the courtesy of this consultation. Musa Miller M.D. DR: JAKE JOB#: [id number] CC:
[2018-01-20 20:00] VITALS: BP 132/73
[2018-01-20] MEDS: Atorvastatin 20mg tab ORAL SCH (21:42)
[2018-01-20] MEDS: Sennosides 8.6mg GT SCH (21:42)
--- NOTE | 2018-01-20 22:51 | Cardiology Progress Note ---
Assessment/Plan Assessment/Plan COVERAGE FOR DR. ESTRADA 1. Atrial flutter with CVR, continue amiodarone,Toprol-XL and Eliquis. 2. Hypertension. Continue losartan 50 mg daily and Toprol-XL 25 mg daily and hemodialysis. 3. Cardiomyopathy, ejection fraction of only 30%, he is not a candidate for defibrillator placement. 4. ESRD on HD with discharge from the site. On vancomycin. 5. Hyperlipidemia, on Lipitor. Subjective Subjective Atrial flutter with CVR at 74. Awake, not verbally communication. Objective Last 24 Hour Vital Signs Date Time Temp Pulse Resp B/P (MAP) Pulse Ox O2 Delivery O2 Flow Rate FiO2 01/20/18 21:43 132/73 01/20/18 20:00 97.0 74 20 132/73 96 Room Air 97.0 01/20/18 19:33 72 01/20/18 17:03 79 01/20/18 16:00 98.7 91 19 144/95 97 Room Air 98.7 01/20/18 12:00 96/81 01/20/18 12:00 97.9 93 18 96/81 95 Room Air 97.9 01/20/18 11:56 92 01/20/18 09:43 103 128/76 01/20/18 09:39 128/76 01/20/18 09:38 128/76 01/20/18 08:00 97.7 103 20 128/76 97 Room Air 97.7 01/20/18 07:38 81 01/20/18 06:29 163/57 01/20/18 04:00 80 01/20/18 04:00 97.5 94 20 163/57 93 Room Air 97.5 01/20/18 00:32 146/84 01/20/18 00:00 96.8 76 20 146/84 96 Room Air 96.8 01/20/18 00:00 68 Intake and Output 01/19/18 01/20/18 19:00 07:00 Intake Total 100 ml Output Total 651 ml 400 ml Balance -651 ml -300 ml Free Water 100 ml Output Urine Total 650 ml 400 ml Stool Total 1 ml # Bowel Movements 3 2D Echo: EF ~30%, global LV HK, Mild AR, RVSP 42 mmHg Laboratory Tests Test 01/20/18 04:50 White Blood Count 8.9 K/UL (4.8-10.8) Red Blood Count 3.82 M/UL (4.70-6.10) L Hemoglobin 13.8 G/DL (14.2-18.0) L Hematocrit 37.4 % (42.0-52.0) L Mean Corpuscular Volume 98 FL (80-99) Mean Corpuscular Hemoglobin 36.1 PG (27.0-31.0) H Mean Corpuscular Hemoglobin Concent 36.9 G/DL (32.0-36.0) H Red Cell Distribution Width 13.3 % (11.6-14.8) Platelet Count 205 K/UL (150-450) Mean Platelet Volume 7.4 FL (6.5-10.1) Neutrophils (%) (Auto) 72.4 % (45.0-75.0) Lymphocytes (%) (Auto) 16.5 % (20.0-45.0) L Monocytes (%) (Auto) 7.0 % (1.0-10.0) Eosinophils (%) (Auto) 3.3 % (0.0-3.0) H Basophils (%) (Auto) 0.7 % (0.0-2.0) Sodium Level 136 MMOL/L (136-145) Potassium Level 3.8 MMOL/L (3.5-5.1) Chloride Level 102 MMOL/L (98-107) Carbon Dioxide Level 27 MMOL/L (21-32) Anion Gap 7 mmol/L (5-15) Blood Urea Nitrogen 77 mg/dL (7-18) H Creatinine 2.0 MG/DL (0.55-1.30) H Estimat Glomerular Filtration Rate mL/min (>60) Glucose Level 149 MG/DL (74-106) H Calcium Level 9.5 MG/DL (8.5-10.1) Total Bilirubin 0.6 MG/DL (0.2-1.0) Aspartate Amino Transf (AST/SGOT) 30 U/L (15-37) Alanine Aminotransferase (ALT/SGPT) 52 U/L (12-78) Alkaline Phosphatase 161 U/L (46-116) H Total Protein 7.5 G/DL (6.4-8.2) Albumin 2.4 G/DL (3.4-5.0) L Globulin 5.1 g/dL Albumin/Globulin Ratio 0.5 (1.0-2.7) L Microbiology Date/Time Source Procedure Growth Status 01/18/18 07:48 Blood Blood Culture - Preliminary NO GROWTH AFTER 24 HOURS Resulted 01/19/18 01:30 Abdomen Gram Stain - Final Resulted 01/19/18 01:30 Abdomen Wound Culture Pending Resulted 01/18/18 04:53 Chest Gram Stain - Final Resulted 01/18/18 04:53 Wound Culture - Preliminary Staphylococcus Aureus - Mrsa Resulted Objective HEAD AND NECK: No JVD. LUNGS: Clear. CARDIOVASCULAR: Regular S1 and S2 with no gallop, right chest PermCath in place. ABDOMEN: Soft, status post G-tube. EXTREMITIES: There is 1+ pitting edema. DEACON CURRIE January 20, 2018 22:51
[2018-01-21] VITALS (7 sets, daily range): BP systolic 94–145; BP diastolic 52–92
[2018-01-21 04:26] LABS: BASOPHILS % (AUTO) 1.2 % (0.0-2.0); EOSINOPHILS % (AUTO) 2.1 % (0.0-3.0); HEMATOCRIT 35.8 % (42.0-52.0); HEMOGLOBIN 13.3 G/DL (14.2-18.0); LYMPHOCYTES % (AUTO) 16.2 % (20.0-45.0); MEAN CORPUSCULAR VOLUME 98 FL (80-99); MONOCYTES % (AUTO) 8.4 % (1.0-10.0); PLATELET COUNT 216 K/UL (150-450); RED BLOOD COUNT 3.64 M/UL (4.70-6.10); RED CELL DISTRIBUTION WIDTH 13.4 % (11.6-14.8); WHITE BLOOD COUNT 8.7 K/UL (4.8-10.8)
[2018-01-21 04:27] LABS: APPEARANCE,URINE CLEAR; BILIRUBIN, URINE NEGATIVE (NEGATIVE); GLUCOSE, URINE (UA) NEGATIVE (NEGATIVE); KETONES,URINE NEGATIVE (NEGATIVE); NITRITE,URINE NEGATIVE (NEGATIVE); PH,URINE 6 (4.5-8.0); PROTEIN,URINE 3+ (NEGATIVE); UROBILINOGEN,URINE NORMAL MG/DL (0.0-1.0)
[2018-01-21 04:37] LABS: ALANINE AMINOTRANSFERASE 41 U/L (12-78); ALBUMIN 2.3 G/DL (3.4-5.0); ALBUMIN/GLOBULIN RATIO 0.5 (1.0-2.7); ALKALINE PHOSPHATASE 175 U/L (46-116); ANION GAP 8 mmol/L (5-15); ASPARTATE AMINO TRANSFERASE 23 U/L (15-37); BILIRUBIN,TOTAL 0.5 MG/DL (0.2-1.0); BLOOD UREA NITROGEN 81 mg/dL (7-18); CALCIUM 9.5 MG/DL (8.5-10.1); CARBON DIOXIDE 27 MMOL/L (21-32); CHLORIDE 102 MMOL/L (98-107); CREATININE 2.3 MG/DL (0.55-1.30); POTASSIUM 4.1 MMOL/L (3.5-5.1); SODIUM 137 MMOL/L (136-145)
[2018-01-21] MEDS ORDERED: Vancomycin 1gm/D5W 275ml IVPB SCH ×2 (05:00)
[2018-01-21] MEDS ORDERED: Vancomycin 750mg/NS 250ml 250 ML IVPB SCH (05:00)
[2018-01-21 05:20] LABS: COLOR,URINE YELLOW; LEUKOCYTE ESTERASE ,URINE 1+ (NEGATIVE)
[2018-01-21] MEDS: NovoLOG Insulin Flexpen SUBQ SCH ×3 (05:27→18:00)
[2018-01-21] MEDS: HydrALAZINE 25mg tab GT SCH ×3 (06:39→22:00)
--- NOTE | 2018-01-21 07:05 | General Progress Note ---
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, stage IV ICD Codes: I13.0 - Hypertensive heart and chronic kidney disease with heart failure and stage 1 through stage 4 chronic kidney disease, or unspecified chronic kidney disease; N18.4 - Chronic kidney disease, stage 4 (severe) SNOMED: 949270127 (4) Renal failure (ARF), acute on chronic ICD Codes: N17.9 - Acute kidney failure, unspecified; N18.9 - Chronic kidney disease, unspecified SNOMED: 548307577 Assessment/Plan add Levemir 8 units daily continue NISS continue Levothyroxine 50 mcg daily repeat TSH in 2 weeks Subjective ROS Limited/Unobtainable: Yes Allergies: Coded Allergies: No Known Allergies (Unverified , 12/19/17) Subjective events noted Objective Last 24 Hour Vital Signs Date Time Temp Pulse Resp B/P (MAP) Pulse Ox O2 Delivery O2 Flow Rate FiO2 01/21/18 06:39 134/86 01/21/18 04:12 98 01/21/18 04:00 97.9 101 12 134/86 99 Room Air 97.9 01/21/18 00:00 97.7 89 20 94/52 96 Room Air 97.7 01/20/18 23:40 89 01/20/18 21:43 132/73 01/20/18 20:00 97.0 74 20 132/73 96 Room Air 97.0 01/20/18 19:33 72 01/20/18 17:03 79 01/20/18 16:00 98.7 91 19 144/95 97 Room Air 98.7 01/20/18 12:00 96/81 01/20/18 12:00 97.9 93 18 96/81 95 Room Air 97.9 01/20/18 11:56 92 01/20/18 09:43 103 128/76 01/20/18 09:39 128/76 01/20/18 09:38 128/76 01/20/18 08:00 97.7 103 20 128/76 97 Room Air 97.7 01/20/18 07:38 81 Intake and Output 01/20/18 01/21/18 19:00 07:00 Intake Total 350 ml 750 ml Output Total 800 ml Balance -450 ml 750 ml Free Water 50 ml 150 ml Tube Feeding 300 ml 500 ml Other 100 ml Output Urine Total 800 ml # Bowel Movements 1 4 Laboratory Tests 01/21/18 02:41: Urine Color Yellow, Urine Appearance Clear, Urine pH 6, Urine Specific [place] 1.005, Urine Protein 3+H, Urine Glucose (UA) Negative, Urine Ketones Negative, Urine Occult Blood 1+H, Urine Nitrite Negative, Urine Bilirubin Negative, Urine Urobilinogen Normal, Urine Leukocyte Esterase 1+H, Urine RBC 0-2H, Urine WBC 2-4 , Urine Squamous Epithelial Cells None, Urine Bacteria Few, Urine Eosinophils None seen, Urine Random Sodium 34 01/21/18 03:45: White Blood Count 8.7, Red Blood Count 3.64L, Hemoglobin 13.3L, Hematocrit 35.8L , Mean Corpuscular Volume 98, Mean Corpuscular Hemoglobin 36.4H, Mean Corpuscular Hemoglobin Concent 37.1H, Red Cell Distribution Width 13.4, Platelet Count 216, Mean Platelet Volume 8.2, Neutrophils (%) (Auto) 72.0, Lymphocytes (%) (Auto) 16.2L, Monocytes (%) (Auto) 8.4, Eosinophils (%) (Auto) 2.1, Basophils (%) (Auto) 1.2, Sodium Level 137, Potassium Level 4.1, Chloride Level 102, Carbon Dioxide Level 27, Anion Gap 8, Blood Urea Nitrogen 81H, Creatinine 2.3H, Estimat Glomerular Filtration Rate , Glucose Level 249#H, Calcium Level 9.5, Total Bilirubin 0.5, Aspartate Amino Transf (AST/SGOT) 23, Alanine Aminotransferase (ALT/SGPT) 41, Alkaline Phosphatase 175H, Total Protein 7.2, Albumin 2.3L, Globulin 4.9, Albumin/Globulin Ratio 0.5L, Vancomycin Level Trough 20.8H Height (Feet): 5 Height (Inches): 1.00 Weight (Pounds): 177 General Appearance: no apparent distress Neck: normal alignment Cardiovascular: normal rate Respiratory/Chest: decreased breath sounds Abdomen: other - PEG Pelvis: normal external exam Edema: 1+ Arm (L), 1+ Arm (R), 1+ Leg (L), 1+ Leg (R), 1+ Pedal (L), 1+ Pedal ( R), 1+ Generalized Objective Current Medications Medications (Trade) Dose Ordered Sig/Tiffany Route PRN Reason Start Time Stop Time Status Last Admin Dose Admin Acetaminophen (Tylenol) 650 mg Q4H PRN ORAL Mild Pain/Temp > 100.5 01/18/18 02:00 02/17/18 01:59 Acetaminophen/ Codeine Phosphate (Tylenol #3) 1 tab Q4H PRN ORAL Pain Scale (3-5) 01/18/18 06:45 01/25/18 06:44 Acetaminophen/ Hydrocodone Bitart ([place] 5/325) 1 tab Q4H PRN ORAL Severe Pain (Pain Scale 7-10) 01/18/18 06:45 01/25/18 06:44 Amiodarone HCl (Cordarone) 200 mg DAILY ORAL 01/19/18 09:00 02/17/18 08:59 01/20/18 09:36 Apixaban (Eliquis) 2.5 mg BID ORAL 01/18/18 18:00 02/17/18 17:59 01/20/18 17:59 Ascorbic Acid (Vitamin C) 500 mg DAILY ORAL 01/18/18 09:00 02/17/18 08:59 01/20/18 09:45 Atorvastatin Calcium (Lipitor) 40 mg BEDTIME ORAL 01/19/18 21:00 02/17/18 20:59 01/20/18 21:42 Bisacodyl (Dulcolax) 10 mg DAILYPRN PRN RECTAL Constipation 01/18/18 02:00 02/17/18 01:59 Dextrose (Dextrose 50%) 25 ml STAT PRN IV Hypoglycemia 01/19/18 13:30 02/18/18 13:29 Dextrose (Dextrose 50%) 50 ml STAT PRN IV Hypoglycemia 01/19/18 13:30 02/18/18 13:29 01/20/18 00:32 Docusate Sodium (Colace) 100 mg TID GT 01/18/18 13:00 02/17/18 08:59 01/20/18 17:58 Donepezil HCl (Aricept) 10 mg DAILY ORAL 01/18/18 09:00 02/17/18 08:59 01/20/18 09:36 Finasteride (Proscar) 5 mg DAILY ORAL 01/18/18 09:00 02/17/18 08:59 01/20/18 09:36 Hydralazine HCl (Apresoline) 25 mg Q8HR GT 01/20/18 22:00 02/18/18 14:29 01/21/18 06:39 Insulin Aspart (NovoLOG) EVERY 6 HOURS SUBQ 01/19/18 18:00 02/18/18 17:59 01/21/18 05:27 Levothyroxine Sodium (Synthroid) 50 mcg DAILY@0630 ORAL 01/20/18 06:30 02/19/18 06:29 01/21/18 06:39 Metoprolol Succinate (Toprol XL) 25 mg DAILY ORAL 01/18/18 09:00 02/17/18 08:59 01/20/18 09:43 Nitroglycerin (Nitro-Bid) 1 inch DAILY TOPIC 01/19/18 09:00 02/18/18 08:59 01/20/18 09:39 Saccharomyces Boulardii (Florastor) 250 mg DAILY ORAL 01/18/18 09:00 02/17/18 08:59 01/20/18 09:36 Sennosides (Senokot) 1 tab QHS GT 01/18/18 21:00 02/17/18 20:59 01/20/18 21:42 Tamsulosin HCl (Flomax) 0.4 mg BID ORAL 01/18/18 18:00 02/17/18 20:59 01/20/18 17:58 Vancomycin HCl (Vanco rx to dose) 1 ea DAILY PRN MISC Per pharmacy dosing 01/18/18 13:15 02/17/18 13:14 Vancomycin/Sodium Chloride 250 ml @ 166 mls/hr Q24H IVPB 01/21/18 05:00 01/26/18 04:59 01/21/18 06:26 Item Value Date Time Bedside Blood Glucose 243 mg/dl H 01/21/18 0600 Bedside Blood Glucose 198 mg/dl H 01/21/18 0000 Bedside Blood Glucose 163 mg/dl H 01/20/18 1801 Bedside Blood Glucose 150 mg/dl H 01/20/18 1234 Bedside Blood Glucose 122 mg/dl H 01/20/18 0600 Bedside Blood Glucose 134 mg/dl H 01/20/18 0050 ANITA WANG January 21, 2018 07:05
[2018-01-21] MEDS ORDERED: Levemir Flexpen SUBQ SCH (09:00)
[2018-01-21] MEDS: Ascorbic Acid 500mg tab ORAL SCH (09:03)
[2018-01-21] MEDS: Tamsulosin 0.4mg cap ORAL SCH ×2 (09:03→21:50)
[2018-01-21] MEDS: Amiodarone 200mg tab ORAL SCH (09:03)
[2018-01-21] MEDS: Eliquis 2.5mg tablet ORAL SCH (09:03)
[2018-01-21] MEDS: Docusate 100mg/10ml Liq GT SCH ×3 (09:03→21:50)
[2018-01-21] MEDS: Donepezil 10mg tab ORAL SCH (09:03)
[2018-01-21] MEDS: Metoprolol Succinate XL 25mg tab ORAL SCH (09:04)
[2018-01-21] MEDS: Nitroglycerin 2% oint pkt TOPIC SCH (09:04)
--- NOTE | 2018-01-21 11:07 | General Progress Note ---
Assessment/Plan Status: stable Assessment/Plan 1. Infected right upper chest PermCath. 2. End-stage renal disease. 3. Diabetes type 2. 4. Hypercholesterolemia. 5. Cardiomyopathy. 6. Atrial fibrillation. 7. Congestive heart failure. 8. Hypertension. 9. Alzheimer dementia. 10. Benign prostatic hypertrophy. 11. Lack of capacity to make medical decisions TREATMENT: DC HD access , will monitor for need for Re-insertion Notes from Cardiology, Nephrology, Vascular Sx and ID are reviewed Given the lack of availability of the Next keen, and the urgency for the procedure to remove the Cath, it is justified to proceed for removal/procedure at this time Re start low dose Lantus Self- Extraction of Fisher Ok to monitor off fisher Re-insert if Volume > 400 Subjective ROS Limited/Unobtainable: Yes Constitutional: Reports: malaise HEENT: Reports: no symptoms Allergies: Coded Allergies: No Known Allergies (Unverified , 12/19/17) Objective Last 24 Hour Vital Signs Date Time Temp Pulse Resp B/P (MAP) Pulse Ox O2 Delivery O2 Flow Rate FiO2 01/21/18 09:04 139/92 01/21/18 09:04 94 139/92 01/21/18 08:00 78 01/21/18 08:00 97.5 94 20 139/92 95 Room Air 97.5 01/21/18 06:39 134/86 01/21/18 04:12 98 01/21/18 04:00 97.9 101 12 134/86 99 Room Air 97.9 01/21/18 00:00 97.7 89 20 94/52 96 Room Air 97.7 01/20/18 23:40 89 01/20/18 21:43 132/73 01/20/18 20:00 97.0 74 20 132/73 96 Room Air 97.0 01/20/18 19:33 72 01/20/18 17:03 79 01/20/18 16:00 98.7 91 19 144/95 97 Room Air 98.7 01/20/18 12:00 96/81 01/20/18 12:00 97.9 93 18 96/81 95 Room Air 97.9 01/20/18 11:56 92 Intake and Output 01/20/18 01/21/18 19:00 07:00 Intake Total 350 ml 945.2 ml Output Total 800 ml 450 ml Balance -450 ml 495.2 ml Free Water 50 ml 200 ml IV Total 95.2 ml Tube Feeding 300 ml 550 ml Other 100 ml Output Urine Total 800 ml 450 ml # Bowel Movements 1 4 Laboratory Tests 01/21/18 02:41: Urine Color Yellow, Urine Appearance Clear, Urine pH 6, Urine Specific [place] 1.005, Urine Protein 3+H, Urine Glucose (UA) Negative, Urine Ketones Negative, Urine Occult Blood 1+H, Urine Nitrite Negative, Urine Bilirubin Negative, Urine Urobilinogen Normal, Urine Leukocyte Esterase 1+H, Urine RBC 0-2H, Urine WBC 2-4 , Urine Squamous Epithelial Cells None, Urine Bacteria Few, Urine Eosinophils None seen, Urine Random Sodium 34 01/21/18 03:45: White Blood Count 8.7, Red Blood Count 3.64L, Hemoglobin 13.3L, Hematocrit 35.8L , Mean Corpuscular Volume 98, Mean Corpuscular Hemoglobin 36.4H, Mean Corpuscular Hemoglobin Concent 37.1H, Red Cell Distribution Width 13.4, Platelet Count 216, Mean Platelet Volume 8.2, Neutrophils (%) (Auto) 72.0, Lymphocytes (%) (Auto) 16.2L, Monocytes (%) (Auto) 8.4, Eosinophils (%) (Auto) 2.1, Basophils (%) (Auto) 1.2, Sodium Level 137, Potassium Level 4.1, Chloride Level 102, Carbon Dioxide Level 27, Anion Gap 8, Blood Urea Nitrogen 81H, Creatinine 2.3H, Estimat Glomerular Filtration Rate , Glucose Level 249#H, Calcium Level 9.5, Total Bilirubin 0.5, Aspartate Amino Transf (AST/SGOT) 23, Alanine Aminotransferase (ALT/SGPT) 41, Alkaline Phosphatase 175H, Total Protein 7.2, Albumin 2.3L, Globulin 4.9, Albumin/Globulin Ratio 0.5L, Vancomycin Level Trough 20.8H Height (Feet): 5 Height (Inches): 1.00 Weight (Pounds): 177 General Appearance: WD/WN EENT: PERRL/EOMI Neck: supple Cardiovascular: normal rate Respiratory/Chest: lungs clear Abdomen: other - PEG tube in place Extremities: non-tender, other - atrophied extremities Neurologic: disoriented Courtney Weeks MD January 21, 2018 11:07
--- NOTE | 2018-01-21 11:27 | Nephrology Progress Note ---
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 monitor renal parameters avoid nephrotoxics After load reduction- optimize renal and cardiac status. Echo: Global left ventricular hypokinesis. Left ventricular ejection fraction estimated to be 30 %. Subjective ROS Limited/Unobtainable: No Constitutional: Reports: malaise, weakness Objective Objective Last 24 Hour Vital Signs Date Time Temp Pulse Resp B/P (MAP) Pulse Ox O2 Delivery O2 Flow Rate FiO2 01/21/18 09:04 139/92 01/21/18 09:04 94 139/92 01/21/18 08:00 78 01/21/18 08:00 97.5 94 20 139/92 95 Room Air 97.5 01/21/18 06:39 134/86 01/21/18 04:12 98 01/21/18 04:00 97.9 101 12 134/86 99 Room Air 97.9 01/21/18 00:00 97.7 89 20 94/52 96 Room Air 97.7 01/20/18 23:40 89 01/20/18 21:43 132/73 01/20/18 20:00 97.0 74 20 132/73 96 Room Air 97.0 01/20/18 19:33 72 01/20/18 17:03 79 01/20/18 16:00 98.7 91 19 144/95 97 Room Air 98.7 01/20/18 12:00 96/81 01/20/18 12:00 97.9 93 18 96/81 95 Room Air 97.9 01/20/18 11:56 92 Intake and Output 01/20/18 01/21/18 19:00 07:00 Intake Total 350 ml 945.2 ml Output Total 800 ml 450 ml Balance -450 ml 495.2 ml Free Water 50 ml 200 ml IV Total 95.2 ml Tube Feeding 300 ml 550 ml Other 100 ml Output Urine Total 800 ml 450 ml # Bowel Movements 1 4 Laboratory Tests 01/21/18 02:41: Urine Color Yellow, Urine Appearance Clear, Urine pH 6, Urine Specific [place] 1.005, Urine Protein 3+H, Urine Glucose (UA) Negative, Urine Ketones Negative, Urine Occult Blood 1+H, Urine Nitrite Negative, Urine Bilirubin Negative, Urine Urobilinogen Normal, Urine Leukocyte Esterase 1+H, Urine RBC 0-2H, Urine WBC 2-4 , Urine Squamous Epithelial Cells None, Urine Bacteria Few, Urine Eosinophils None seen, Urine Random Sodium 34 01/21/18 03:45: White Blood Count 8.7, Red Blood Count 3.64L, Hemoglobin 13.3L, Hematocrit 35.8L , Mean Corpuscular Volume 98, Mean Corpuscular Hemoglobin 36.4H, Mean Corpuscular Hemoglobin Concent 37.1H, Red Cell Distribution Width 13.4, Platelet Count 216, Mean Platelet Volume 8.2, Neutrophils (%) (Auto) 72.0, Lymphocytes (%) (Auto) 16.2L, Monocytes (%) (Auto) 8.4, Eosinophils (%) (Auto) 2.1, Basophils (%) (Auto) 1.2, Sodium Level 137, Potassium Level 4.1, Chloride Level 102, Carbon Dioxide Level 27, Anion Gap 8, Blood Urea Nitrogen 81H, Creatinine 2.3H, Estimat Glomerular Filtration Rate , Glucose Level 249#H, Calcium Level 9.5, Total Bilirubin 0.5, Aspartate Amino Transf (AST/SGOT) 23, Alanine Aminotransferase (ALT/SGPT) 41, Alkaline Phosphatase 175H, Total Protein 7.2, Albumin 2.3L, Globulin 4.9, Albumin/Globulin Ratio 0.5L, Vancomycin Level Trough 20.8H Height (Feet): 5 Height (Inches): 1.00 Weight (Pounds): 177 Objective no other changes VALENTIN RUSH January 21, 2018 11:27
--- NOTE | 2018-01-21 15:38 | Infectious Diseases Prog Note ---
Assessment/Plan Assessment/Plan Abx: IV Vanco 01/18- Assessment: Infected HD cath- r.o bacteremia -s/p removal perma cath 01/20 -BCx NTD -wound cx: MRSA (S Vancomycin, Bactrim, Tetracycline) -Echo: no vegetations seen. Aortic valve calcification with decreased cusp excursion c/w aortic stenosis. Mildly thickened mitral valve leaflets with normal excursion. Moderate mitral annulus and aortic root calcification. Afebrile, no leukocytosis ESRD on HD -renal US: Suspected nonobstructive nephrolithiasis in the left kidney.\ Abd wound- no sings of infection -wound cx: GPC, CONS (colonizers) Stroke w/ hemiparesis dementia nonverbal HTN HLD cardiomyopathy Aflutter contractures, DM2 dysphagia s/p PEG anemia CHF custodial resident Plan: -Conitnue empiric IV Vancomycin #4 for MRSA HD cath infection -if Bcx remains negative will treat for 7 days -Placement of new permanent HD catheter should be done after Bcx negative for 72 hours and placed in opposite site -f/u cx -Monitor CBC/BMP, temperatures Thank you for this consultation. Will continue to follow along with you. Discussed with RN. Subjective Allergies: Coded Allergies: No Known Allergies (Unverified , 12/19/17) Subjective afebrile no leukocytosis BCx NTD permacath removed yesterday Objective Vital Signs Last 24 Hour Vital Signs Date Time Temp Pulse Resp B/P (MAP) Pulse Ox O2 Delivery O2 Flow Rate FiO2 01/21/18 14:58 138/73 01/21/18 14:56 97.6 68 20 138/73 96 Room Air 97.6 01/21/18 12:00 66 01/21/18 11:57 97.6 68 20 114/74 96 Room Air 97.6 01/21/18 09:04 139/92 01/21/18 09:04 94 139/92 01/21/18 08:00 78 01/21/18 08:00 97.5 94 20 139/92 95 Room Air 97.5 01/21/18 06:39 134/86 01/21/18 04:12 98 01/21/18 04:00 97.9 101 12 134/86 99 Room Air 97.9 01/21/18 00:00 97.7 89 20 94/52 96 Room Air 97.7 01/20/18 23:40 89 01/20/18 21:43 132/73 01/20/18 20:00 97.0 74 20 132/73 96 Room Air 97.0 01/20/18 19:33 72 01/20/18 17:03 79 01/20/18 16:00 98.7 91 19 144/95 97 Room Air 98.7 Height (Feet): 5 Height (Inches): 1.00 Weight (Pounds): 177 Objective HEAD AND NECK: No JVD. LUNGS: Clear. CARDIOVASCULAR: Regular S1 and S2 with no gallop. He has right chest PermCath. ABDOMEN: Soft, status post G-tube. EXTREMITIES: There is 1+ pitting edema s/p removal of HD cath Microbiology Date/Time Source Procedure Growth Status 01/19/18 01:30 Abdomen Gram Stain - Final Resulted 01/19/18 01:30 Wound Culture - Preliminary Gram Positive Cocci Staphylococcus Sp Coag Neg Resulted Laboratory Tests Test 01/21/18 02:41 01/21/18 03:45 Urine Color Yellow Urine Appearance Clear Urine pH 6 (4.5-8.0) Urine Specific [place] 1.005 (1.005-1.035) Urine Protein 3+ (NEGATIVE) H Urine Glucose (UA) Negative (NEGATIVE) Urine Ketones Negative (NEGATIVE) Urine Occult Blood 1+ (NEGATIVE) H Urine Nitrite Negative (NEGATIVE) Urine Bilirubin Negative (NEGATIVE) Urine Urobilinogen Normal MG/DL (0.0-1.0) Urine Leukocyte Esterase 1+ (NEGATIVE) H Urine RBC 0-2 /HPF (0 - 0) H Urine WBC 2-4 /HPF (0 - 0) Urine Squamous Epithelial Cells None /LPF (NONE/OCC) Urine Bacteria Few /HPF (NONE) Urine Eosinophils None seen Urine Random Sodium 34 mmol/L (20-110) White Blood Count 8.7 K/UL (4.8-10.8) Red Blood Count 3.64 M/UL (4.70-6.10) L Hemoglobin 13.3 G/DL (14.2-18.0) L Hematocrit 35.8 % (42.0-52.0) L Mean Corpuscular Volume 98 FL (80-99) Mean Corpuscular Hemoglobin 36.4 PG (27.0-31.0) H Mean Corpuscular Hemoglobin Concent 37.1 G/DL (32.0-36.0) H Red Cell Distribution Width 13.4 % (11.6-14.8) Platelet Count 216 K/UL (150-450) Mean Platelet Volume 8.2 FL (6.5-10.1) Neutrophils (%) (Auto) 72.0 % (45.0-75.0) Lymphocytes (%) (Auto) 16.2 % (20.0-45.0) L Monocytes (%) (Auto) 8.4 % (1.0-10.0) Eosinophils (%) (Auto) 2.1 % (0.0-3.0) Basophils (%) (Auto) 1.2 % (0.0-2.0) Sodium Level 137 MMOL/L (136-145) Potassium Level 4.1 MMOL/L (3.5-5.1) Chloride Level 102 MMOL/L (98-107) Carbon Dioxide Level 27 MMOL/L (21-32) Anion Gap 8 mmol/L (5-15) Blood Urea Nitrogen 81 mg/dL (7-18) H Creatinine 2.3 MG/DL (0.55-1.30) H Estimat Glomerular Filtration Rate mL/min (>60) Glucose Level 249 MG/DL (74-106) #H Calcium Level 9.5 MG/DL (8.5-10.1) Total Bilirubin 0.5 MG/DL (0.2-1.0) Aspartate Amino Transf (AST/SGOT) 23 U/L (15-37) Alanine Aminotransferase (ALT/SGPT) 41 U/L (12-78) Alkaline Phosphatase 175 U/L (46-116) H C-Reactive Protein, Quantitative 0.7 mg/dL (0.00-0.90) Total Protein 7.2 G/DL (6.4-8.2) Albumin 2.3 G/DL (3.4-5.0) L Globulin 4.9 g/dL Albumin/Globulin Ratio 0.5 (1.0-2.7) L Vancomycin Level Trough 20.8 ug/mL (5.0-12.0) H Current Medications Medications (Trade) Dose Ordered Sig/Tiffany Route PRN Reason Start Time Stop Time Status Last Admin Dose Admin Acetaminophen (Tylenol) 650 mg Q4H PRN ORAL Mild Pain/Temp > 100.5 01/18/18 02:00 02/17/18 01:59 Acetaminophen/ Codeine Phosphate (Tylenol #3) 1 tab Q4H PRN ORAL Pain Scale (3-5) 01/18/18 06:45 01/25/18 06:44 Acetaminophen/ Hydrocodone Bitart ([place] 5/325) 1 tab Q4H PRN ORAL Severe Pain (Pain Scale 7-10) 01/18/18 06:45 01/25/18 06:44 Amiodarone HCl (Cordarone) 200 mg DAILY ORAL 01/19/18 09:00 02/17/18 08:59 01/21/18 09:03 Apixaban (Eliquis) 2.5 mg BID ORAL 01/18/18 18:00 02/17/18 17:59 01/21/18 09:03 Ascorbic Acid (Vitamin C) 500 mg DAILY ORAL 01/18/18 09:00 02/17/18 08:59 01/21/18 09:03 Atorvastatin Calcium (Lipitor) 40 mg BEDTIME ORAL 01/19/18 21:00 02/17/18 20:59 01/20/18 21:42 Bisacodyl (Dulcolax) 10 mg DAILYPRN PRN RECTAL Constipation 01/18/18 02:00 02/17/18 01:59 Dextrose (Dextrose 50%) 25 ml STAT PRN IV Hypoglycemia 01/21/18 07:30 02/20/18 07:29 Dextrose (Dextrose 50%) 50 ml STAT PRN IV Hypoglycemia 01/21/18 07:30 02/20/18 07:29 Docusate Sodium (Colace) 100 mg TID GT 01/18/18 13:00 02/17/18 08:59 01/21/18 14:17 Donepezil HCl (Aricept) 10 mg DAILY ORAL 01/18/18 09:00 02/17/18 08:59 01/21/18 09:03 Finasteride (Proscar) 5 mg DAILY ORAL 01/18/18 09:00 02/17/18 08:59 01/21/18 09:03 Hydralazine HCl (Apresoline) 25 mg Q8HR GT 01/20/18 22:00 02/18/18 14:29 01/21/18 14:58 Insulin Aspart (NovoLOG) EVERY 6 HOURS SUBQ 01/19/18 18:00 02/18/18 17:59 01/21/18 12:08 Insulin Detemir (Levemir) 8 units DAILY SUBQ 01/21/18 09:00 02/20/18 08:59 01/21/18 09:26 Levothyroxine Sodium (Synthroid) 50 mcg DAILY@0630 ORAL 01/20/18 06:30 02/19/18 06:29 01/21/18 06:39 Metoprolol Succinate (Toprol XL) 25 mg DAILY ORAL 01/18/18 09:00 02/17/18 08:59 01/21/18 09:04 Nitroglycerin (Nitro-Bid) 1 inch DAILY TOPIC 01/19/18 09:00 02/18/18 08:59 01/21/18 09:04 Saccharomyces Boulardii (Florastor) 250 mg DAILY ORAL 01/18/18 09:00 02/17/18 08:59 01/21/18 09:03 Sennosides (Senokot) 1 tab QHS GT 01/18/18 21:00 02/17/18 20:59 01/20/18 21:42 Tamsulosin HCl (Flomax) 0.4 mg BID ORAL 01/18/18 18:00 02/17/18 20:59 01/21/18 09:03 Sarah Borjas M.D. January 21, 2018 15:38
--- NOTE | 2018-01-21 15:50 | Consultation ---
History of Present Illness General Date patient seen: January 20, 2018 Chief Complaint: General Complaint Present Illness HPI 82-year-old male with history of stroke, hemiparesis, dementia, nonverbal, hypertension, diabetes, cardiomyopathy, and end-stage renal disease, on hemodialysis, who is a resident at the [facility] facility. the pt has been confused and unable to communicate due to cognitive impairment. the pt does not have capacity and gets agitated at times. Allergies: Coded Allergies: No Known Allergies (Unverified , 12/19/17) Medication History Scheduled Amiodarone Hcl* (Amiodarone Hcl*), 400 MG ORAL DAILY, (Reported) Ascorbic Acid* (Vitamin C*), 500 MG ORAL DAILY, (Reported) Atorvastatin Calcium* (Lipitor*), 80 MG ORAL BEDTIME, (Reported) Cran/Vitc/Mannose/Inulin/Brom (Uti-Stat Liquid), 3,875 MG PO DAILY, (Reported) Cranberry Fruit Concentrate (Cranberry), 450 MG PO DAILY, (Reported) Docusate Sodium* (Colace*), 100 MG ORAL DAILY, (Reported) Donepezil Hcl* (Donepezil Hcl*), 10 MG ORAL DAILY, (Reported) Esomeprazole Magnesium (Nexium), 40 MG ORAL DAILY, (Reported) Ferrous Sulfate* (Ferrous Sulfate*), 325 MG ORAL TWICE A DAY, (Reported) Finasteride* (Proscar*), 5 MG ORAL DAILY, (Reported) Folic Acid* (Folic Acid*), 1 MG ORAL DAILY, (Reported) Insulin Glargine (Lantus), 23 SUBQ BEDTIME, (Reported) Losartan Potassium* (Losartan Potassium*), 50 MG ORAL DAILY, (Reported) Magnesium Hydroxide* (Milk Of Magnesia*), 30 ML ORAL DAILY, (Reported) Metoprolol Succinate* (Metoprolol Succinate*), 25 MG ORAL DAILY, (Reported) Multivitamin Liquid* (Multi-Delyn*), 5 ML GT DAILY, (Reported) Saccharomyces Boulardii (Florastor*), 250 MG ORAL DAILY, (Reported) Sennosides (Senna), 8.6 MG PO QHS, (Reported) Tamsulosin Hcl (Tamsulosin Hcl*), 0.4 MG ORAL BEDTIME, (Reported) Scheduled PRN Acetaminophen With Codeine 300MG/30MG (T#3)* (Tylenol With Codeine #3 Tablet*), 1 TAB ORAL Q4H PRN for For Pain, (Reported) Acetaminophen* (Acetaminophen 325MG Tablet*), 650 MG ORAL Q4H PRN for Mild Pain/ Temp > 100.5, (Reported) Bisacodyl (Dulcolax), 10 MG RC for Constipation, (Reported) Hydrocodone Bit/Acetaminophen 5-325* ([place] 5-325*), 1 TAB ORAL Q4H PRN for For Pain, (Reported) Miscellaneous Medications Arginine/Glutamine/Calcium Hmb (Tae Packet), 1 EACH PO, (Reported) Nitroglycerin (Nitro-Bid*), Unknown Dose TOPIC, (Reported) Patient History Limited by: medical condition History Provided By: Medical Record, PMD Healthcare decision maker Resuscitation status Full Code Advanced Directive on File Past Medical/Surgical History Past Medical/Surgical History: (1) Attention to G-tube (2) Malfunction of gastrostomy tube (3) Renal failure (4) Renal failure (ARF), acute on chronic (5) 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 (6) 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, stage IV (7) Hypothyroidism (8) Diabetes mellitus out of control Review of Systems Psychiatric: Reports: prior hx, anxiety, depressed feelings, emotional problems Physical Exam General Appearance: WD/WN, no apparent distress, alert, confused Last 24 Hour Vital Signs Date Time Temp Pulse Resp B/P (MAP) Pulse Ox O2 Delivery O2 Flow Rate FiO2 01/21/18 14:58 138/73 01/21/18 14:56 97.6 68 20 138/73 96 Room Air 97.6 01/21/18 12:00 66 01/21/18 11:57 97.6 68 20 114/74 96 Room Air 97.6 01/21/18 09:04 139/92 01/21/18 09:04 94 139/92 01/21/18 08:00 78 01/21/18 08:00 97.5 94 20 139/92 95 Room Air 97.5 01/21/18 06:39 134/86 01/21/18 04:12 98 01/21/18 04:00 97.9 101 12 134/86 99 Room Air 97.9 01/21/18 00:00 97.7 89 20 94/52 96 Room Air 97.7 01/20/18 23:40 89 01/20/18 21:43 132/73 01/20/18 20:00 97.0 74 20 132/73 96 Room Air 97.0 01/20/18 19:33 72 01/20/18 17:03 79 01/20/18 16:00 98.7 91 19 144/95 97 Room Air 98.7 Intake and Output 01/20/18 01/21/18 19:00 07:00 Intake Total 350 ml 945.2 ml Output Total 800 ml 450 ml Balance -450 ml 495.2 ml Free Water 50 ml 200 ml IV Total 95.2 ml Tube Feeding 300 ml 550 ml Other 100 ml Output Urine Total 800 ml 450 ml # Bowel Movements 1 4 Laboratory Tests Test 01/21/18 02:41 01/21/18 03:45 Urine Color Yellow Urine Appearance Clear Urine pH 6 (4.5-8.0) Urine Specific [place] 1.005 (1.005-1.035) Urine Protein 3+ (NEGATIVE) H Urine Glucose (UA) Negative (NEGATIVE) Urine Ketones Negative (NEGATIVE) Urine Occult Blood 1+ (NEGATIVE) H Urine Nitrite Negative (NEGATIVE) Urine Bilirubin Negative (NEGATIVE) Urine Urobilinogen Normal MG/DL (0.0-1.0) Urine Leukocyte Esterase 1+ (NEGATIVE) H Urine RBC 0-2 /HPF (0 - 0) H Urine WBC 2-4 /HPF (0 - 0) Urine Squamous Epithelial Cells None /LPF (NONE/OCC) Urine Bacteria Few /HPF (NONE) Urine Eosinophils None seen Urine Random Sodium 34 mmol/L (20-110) White Blood Count 8.7 K/UL (4.8-10.8) Red Blood Count 3.64 M/UL (4.70-6.10) L Hemoglobin 13.3 G/DL (14.2-18.0) L Hematocrit 35.8 % (42.0-52.0) L Mean Corpuscular Volume 98 FL (80-99) Mean Corpuscular Hemoglobin 36.4 PG (27.0-31.0) H Mean Corpuscular Hemoglobin Concent 37.1 G/DL (32.0-36.0) H Red Cell Distribution Width 13.4 % (11.6-14.8) Platelet Count 216 K/UL (150-450) Mean Platelet Volume 8.2 FL (6.5-10.1) Neutrophils (%) (Auto) 72.0 % (45.0-75.0) Lymphocytes (%) (Auto) 16.2 % (20.0-45.0) L Monocytes (%) (Auto) 8.4 % (1.0-10.0) Eosinophils (%) (Auto) 2.1 % (0.0-3.0) Basophils (%) (Auto) 1.2 % (0.0-2.0) Sodium Level 137 MMOL/L (136-145) Potassium Level 4.1 MMOL/L (3.5-5.1) Chloride Level 102 MMOL/L (98-107) Carbon Dioxide Level 27 MMOL/L (21-32) Anion Gap 8 mmol/L (5-15) Blood Urea Nitrogen 81 mg/dL (7-18) H Creatinine 2.3 MG/DL (0.55-1.30) H Estimat Glomerular Filtration Rate mL/min (>60) Glucose Level 249 MG/DL (74-106) #H Calcium Level 9.5 MG/DL (8.5-10.1) Total Bilirubin 0.5 MG/DL (0.2-1.0) Aspartate Amino Transf (AST/SGOT) 23 U/L (15-37) Alanine Aminotransferase (ALT/SGPT) 41 U/L (12-78) Alkaline Phosphatase 175 U/L (46-116) H C-Reactive Protein, Quantitative 0.7 mg/dL (0.00-0.90) Total Protein 7.2 G/DL (6.4-8.2) Albumin 2.3 G/DL (3.4-5.0) L Globulin 4.9 g/dL Albumin/Globulin Ratio 0.5 (1.0-2.7) L Vancomycin Level Trough 20.8 ug/mL (5.0-12.0) H Height (Feet): 5 Height (Inches): 1.00 Weight (Pounds): 177 Medications Current Medications Medications (Trade) Dose Ordered Sig/Tiffany Route PRN Reason Start Time Stop Time Status Last Admin Dose Admin Acetaminophen (Tylenol) 650 mg Q4H PRN ORAL Mild Pain/Temp > 100.5 01/18/18 02:00 02/17/18 01:59 Acetaminophen/ Codeine Phosphate (Tylenol #3) 1 tab Q4H PRN ORAL Pain Scale (3-5) 01/18/18 06:45 01/25/18 06:44 Acetaminophen/ Hydrocodone Bitart ([place] 5/325) 1 tab Q4H PRN ORAL Severe Pain (Pain Scale 7-10) 01/18/18 06:45 01/25/18 06:44 Amiodarone HCl (Cordarone) 200 mg DAILY ORAL 01/19/18 09:00 02/17/18 08:59 01/21/18 09:03 Apixaban (Eliquis) 2.5 mg BID ORAL 01/18/18 18:00 02/17/18 17:59 01/21/18 09:03 Ascorbic Acid (Vitamin C) 500 mg DAILY ORAL 01/18/18 09:00 02/17/18 08:59 01/21/18 09:03 Atorvastatin Calcium (Lipitor) 40 mg BEDTIME ORAL 01/19/18 21:00 02/17/18 20:59 01/20/18 21:42 Bisacodyl (Dulcolax) 10 mg DAILYPRN PRN RECTAL Constipation 01/18/18 02:00 02/17/18 01:59 Dextrose (Dextrose 50%) 25 ml STAT PRN IV Hypoglycemia 01/21/18 07:30 02/20/18 07:29 Dextrose (Dextrose 50%) 50 ml STAT PRN IV Hypoglycemia 01/21/18 07:30 02/20/18 07:29 Docusate Sodium (Colace) 100 mg TID GT 01/18/18 13:00 02/17/18 08:59 01/21/18 14:17 Donepezil HCl (Aricept) 10 mg DAILY ORAL 01/18/18 09:00 02/17/18 08:59 01/21/18 09:03 Finasteride (Proscar) 5 mg DAILY ORAL 01/18/18 09:00 02/17/18 08:59 01/21/18 09:03 Hydralazine HCl (Apresoline) 25 mg Q8HR GT 01/20/18 22:00 02/18/18 14:29 01/21/18 14:58 Insulin Aspart (NovoLOG) EVERY 6 HOURS SUBQ 01/19/18 18:00 02/18/18 17:59 01/21/18 12:08 Insulin Detemir (Levemir) 8 units DAILY SUBQ 01/21/18 09:00 02/20/18 08:59 01/21/18 09:26 Levothyroxine Sodium (Synthroid) 50 mcg DAILY@0630 ORAL 01/20/18 06:30 02/19/18 06:29 01/21/18 06:39 Metoprolol Succinate (Toprol XL) 25 mg DAILY ORAL 01/18/18 09:00 02/17/18 08:59 01/21/18 09:04 Nitroglycerin (Nitro-Bid) 1 inch DAILY TOPIC 01/19/18 09:00 02/18/18 08:59 01/21/18 09:04 Saccharomyces Boulardii (Florastor) 250 mg DAILY ORAL 01/18/18 09:00 02/17/18 08:59 01/21/18 09:03 Sennosides (Senokot) 1 tab QHS GT 01/18/18 21:00 02/17/18 20:59 01/20/18 21:42 Tamsulosin HCl (Flomax) 0.4 mg BID ORAL 01/18/18 18:00 02/17/18 20:59 01/21/18 09:03 Vancomycin HCl (Vanco rx to dose) 1 ea DAILY PRN MISC Per rx protocol 01/21/18 15:45 02/20/18 15:44 UNV Assessment/Plan Status: not improved, unchanged Assessment/Plan Dementia encephalopathy -Ativan prn -dc Ashly Alanis M.D. January 21, 2018 15:50
--- NOTE | 2018-01-21 15:51 | General Progress Note ---
Assessment/Plan Status: stable, unchanged Assessment/Plan Dementia encephalopathy -Ativan prn -dc Aricept -the pt lacks capacity Subjective Date patient seen: January 21, 2018 Neurologic/Psychiatric: Reports: anxiety, depressed, emotional problems Allergies: Coded Allergies: No Known Allergies (Unverified , 12/19/17) Objective Last 24 Hour Vital Signs Date Time Temp Pulse Resp B/P (MAP) Pulse Ox O2 Delivery O2 Flow Rate FiO2 01/21/18 14:58 138/73 01/21/18 14:56 97.6 68 20 138/73 96 Room Air 97.6 01/21/18 12:00 66 01/21/18 11:57 97.6 68 20 114/74 96 Room Air 97.6 01/21/18 09:04 139/92 01/21/18 09:04 94 139/92 01/21/18 08:00 78 01/21/18 08:00 97.5 94 20 139/92 95 Room Air 97.5 01/21/18 06:39 134/86 01/21/18 04:12 98 01/21/18 04:00 97.9 101 12 134/86 99 Room Air 97.9 01/21/18 00:00 97.7 89 20 94/52 96 Room Air 97.7 01/20/18 23:40 89 01/20/18 21:43 132/73 01/20/18 20:00 97.0 74 20 132/73 96 Room Air 97.0 01/20/18 19:33 72 01/20/18 17:03 79 01/20/18 16:00 98.7 91 19 144/95 97 Room Air 98.7 Intake and Output 01/20/18 01/21/18 19:00 07:00 Intake Total 350 ml 945.2 ml Output Total 800 ml 450 ml Balance -450 ml 495.2 ml Free Water 50 ml 200 ml IV Total 95.2 ml Tube Feeding 300 ml 550 ml Other 100 ml Output Urine Total 800 ml 450 ml # Bowel Movements 1 4 Laboratory Tests 01/21/18 02:41: Urine Color Yellow, Urine Appearance Clear, Urine pH 6, Urine Specific [place] 1.005, Urine Protein 3+H, Urine Glucose (UA) Negative, Urine Ketones Negative, Urine Occult Blood 1+H, Urine Nitrite Negative, Urine Bilirubin Negative, Urine Urobilinogen Normal, Urine Leukocyte Esterase 1+H, Urine RBC 0-2H, Urine WBC 2-4 , Urine Squamous Epithelial Cells None, Urine Bacteria Few, Urine Eosinophils None seen, Urine Random Sodium 34 01/21/18 03:45: White Blood Count 8.7, Red Blood Count 3.64L, Hemoglobin 13.3L, Hematocrit 35.8L , Mean Corpuscular Volume 98, Mean Corpuscular Hemoglobin 36.4H, Mean Corpuscular Hemoglobin Concent 37.1H, Red Cell Distribution Width 13.4, Platelet Count 216, Mean Platelet Volume 8.2, Neutrophils (%) (Auto) 72.0, Lymphocytes (%) (Auto) 16.2L, Monocytes (%) (Auto) 8.4, Eosinophils (%) (Auto) 2.1, Basophils (%) (Auto) 1.2, Sodium Level 137, Potassium Level 4.1, Chloride Level 102, Carbon Dioxide Level 27, Anion Gap 8, Blood Urea Nitrogen 81H, Creatinine 2.3H, Estimat Glomerular Filtration Rate , Glucose Level 249#H, Calcium Level 9.5, Total Bilirubin 0.5, Aspartate Amino Transf (AST/SGOT) 23, Alanine Aminotransferase (ALT/SGPT) 41, Alkaline Phosphatase 175H, C-Reactive Protein, Quantitative 0.7, Total Protein 7.2, Albumin 2.3L, Globulin 4.9, Albumin/Globulin Ratio 0.5L, Vancomycin Level Trough 20.8H Height (Feet): 5 Height (Inches): 1.00 Weight (Pounds): 177 General Appearance: WD/WN, no apparent distress, alert, confused Neurologic: depressed affect Ashly Rajan M.D. January 21, 2018 15:51
--- NOTE | 2018-01-21 17:29 | Diagnostic Imaging Report ---
Indication: Gastrostomy tube placement Technique: XRAY Abdomen 1v Comparison: 01/02/2018 FINDINGS/IMPRESSION: A gastrostomy tube button/silicone bumper is noted projecting over the stomach bubble. Oral contrast is not noted within the stomach. There is oral contrast in distal small bowel loops. This may be related to delayed acquisition of the radiograph following administration of contrast via the gastrostomy tube. Repeat exam with acquisition of the radiograph immediately after injection of contrast via gastrostomy tube recommended. No evidence of bowel obstruction. There are atherosclerotic gastric calcifications and degenerative changes in the spine. This was conveyed to the treating staff on 2 E. via telephone conversation.
[2018-01-21] MEDS: Eliquis 2.5mg tablet GT SCH (21:50)
[2018-01-21] MEDS: Sennosides 8.6mg GT SCH (21:50)
[2018-01-21] MEDS: Atorvastatin 20mg tab ORAL SCH (21:50)
--- NOTE | 2018-01-21 22:30 | Consultation ---
DATE OF CONSULTATION: 01/21/2018 REASON FOR CONSULTATION: Urinary retention. HISTORY OF PRESENT ILLNESS: The patient was admitted to the hospital with a Singer catheter. Singer catheter was discharged and the patient is currently voiding spontaneously. He has previous history of urinary retention. PAST MEDICAL HISTORY: He has multiple medical problems including end-stage renal disease, and last time, he had an episode of hypoglycemia and was treated with some medications and currently voiding spontaneously. REVIEW OF SYMPTOMS: Unobtainable. ALLERGIES TO MEDICATIONS: None. MEDICATIONS: Reviewed and reconciled. FAMILY HISTORY: Noncontributory. PHYSICAL EXAMINATION: GENERAL: He is nonverbal. VITAL SIGNS: Blood pressure stable. LUNGS: Clear. HEART: Regular rate and rhythm. ABDOMEN: Positive bowel sounds. No evidence of suprapubic distention. No CVA tenderness. ASSESSMENT AND PLAN: History of benign prostatic hypertrophy and end-stage renal disease. Singer was removed. The patient is voiding spontaneous his Singer catheter. Blaise Barron M.D. DR: TOMMY JOB#: [id number] CC:
--- NOTE | 2018-01-21 23:32 | Cardiology Progress Note ---
Assessment/Plan Assessment/Plan COVERAGE FOR DR. ESTRADA 1. Atrial flutter with CVR, continue amiodarone,Toprol-XL and Eliquis. 2. Hypertension. Continue losartan and Toprol-XL. 3. Cardiomyopathy, ejection fraction ~30%, not a candidate for defibrillator placement. 4. ESRD on HD 5. Hyperlipidemia, continue Lipitor. Subjective Subjective Atrial flutter with CVR at 69. Not verbally communication. Objective Last 24 Hour Vital Signs Date Time Temp Pulse Resp B/P (MAP) Pulse Ox O2 Delivery O2 Flow Rate FiO2 01/21/18 22:00 145/75 01/21/18 20:41 97.8 69 16 145/75 96 97.8 01/21/18 19:14 61 01/21/18 16:00 79 01/21/18 16:00 97.3 78 20 120/70 95 Room Air 97.3 01/21/18 14:58 138/73 01/21/18 14:56 97.6 68 20 138/73 96 Room Air 97.6 01/21/18 12:00 66 01/21/18 11:57 97.6 68 20 114/74 96 Room Air 97.6 01/21/18 09:04 139/92 01/21/18 09:04 94 139/92 01/21/18 08:00 78 01/21/18 08:00 97.5 94 20 139/92 95 Room Air 97.5 01/21/18 06:39 134/86 01/21/18 04:12 98 01/21/18 04:00 97.9 101 12 134/86 99 Room Air 97.9 01/21/18 00:00 97.7 89 20 94/52 96 Room Air 97.7 01/20/18 23:40 89 Intake and Output 01/20/18 01/21/18 19:00 07:00 Intake Total 350 ml 945.2 ml Output Total 800 ml 450 ml Balance -450 ml 495.2 ml Free Water 50 ml 200 ml IV Total 95.2 ml Tube Feeding 300 ml 550 ml Other 100 ml Output Urine Total 800 ml 450 ml # Bowel Movements 1 4 2D Echo: EF ~30%, global LV HK, Mild AR, RVSP 42 mmHg Laboratory Tests Test 01/21/18 02:41 01/21/18 03:45 Urine Color Yellow Urine Appearance Clear Urine pH 6 (4.5-8.0) Urine Specific [place] 1.005 (1.005-1.035) Urine Protein 3+ (NEGATIVE) H Urine Glucose (UA) Negative (NEGATIVE) Urine Ketones Negative (NEGATIVE) Urine Occult Blood 1+ (NEGATIVE) H Urine Nitrite Negative (NEGATIVE) Urine Bilirubin Negative (NEGATIVE) Urine Urobilinogen Normal MG/DL (0.0-1.0) Urine Leukocyte Esterase 1+ (NEGATIVE) H Urine RBC 0-2 /HPF (0 - 0) H Urine WBC 2-4 /HPF (0 - 0) Urine Squamous Epithelial Cells None /LPF (NONE/OCC) Urine Bacteria Few /HPF (NONE) Urine Eosinophils None seen Urine Random Sodium 34 mmol/L (20-110) White Blood Count 8.7 K/UL (4.8-10.8) Red Blood Count 3.64 M/UL (4.70-6.10) L Hemoglobin 13.3 G/DL (14.2-18.0) L Hematocrit 35.8 % (42.0-52.0) L Mean Corpuscular Volume 98 FL (80-99) Mean Corpuscular Hemoglobin 36.4 PG (27.0-31.0) H Mean Corpuscular Hemoglobin Concent 37.1 G/DL (32.0-36.0) H Red Cell Distribution Width 13.4 % (11.6-14.8) Platelet Count 216 K/UL (150-450) Mean Platelet Volume 8.2 FL (6.5-10.1) Neutrophils (%) (Auto) 72.0 % (45.0-75.0) Lymphocytes (%) (Auto) 16.2 % (20.0-45.0) L Monocytes (%) (Auto) 8.4 % (1.0-10.0) Eosinophils (%) (Auto) 2.1 % (0.0-3.0) Basophils (%) (Auto) 1.2 % (0.0-2.0) Sodium Level 137 MMOL/L (136-145) Potassium Level 4.1 MMOL/L (3.5-5.1) Chloride Level 102 MMOL/L (98-107) Carbon Dioxide Level 27 MMOL/L (21-32) Anion Gap 8 mmol/L (5-15) Blood Urea Nitrogen 81 mg/dL (7-18) H Creatinine 2.3 MG/DL (0.55-1.30) H Estimat Glomerular Filtration Rate mL/min (>60) Glucose Level 249 MG/DL (74-106) #H Calcium Level 9.5 MG/DL (8.5-10.1) Total Bilirubin 0.5 MG/DL (0.2-1.0) Aspartate Amino Transf (AST/SGOT) 23 U/L (15-37) Alanine Aminotransferase (ALT/SGPT) 41 U/L (12-78) Alkaline Phosphatase 175 U/L (46-116) H C-Reactive Protein, Quantitative 0.7 mg/dL (0.00-0.90) Total Protein 7.2 G/DL (6.4-8.2) Albumin 2.3 G/DL (3.4-5.0) L Globulin 4.9 g/dL Albumin/Globulin Ratio 0.5 (1.0-2.7) L Vancomycin Level Trough 20.8 ug/mL (5.0-12.0) H Microbiology Date/Time Source Procedure Growth Status 01/19/18 01:30 Abdomen Gram Stain - Final Resulted 01/19/18 01:30 Wound Culture - Preliminary Gram Positive Cocci Staphylococcus Sp Coag Neg Resulted Objective HEAD AND NECK: No JVD. LUNGS: Clear. CARDIOVASCULAR: Regular S1 and S2 with no gallop, right chest PermCath in place. ABDOMEN: Soft, status post G-tube. EXTREMITIES: There is 1+ pitting edema. DEACON CURRIE January 21, 2018 23:32
[2018-01-22 00:16] VITALS: BP 139/78
[2018-01-22 04:00] VITALS: BP 144/77
[2018-01-22] MEDS ORDERED: Vancomycin 1gm in D5W 275ml IVPB SCH (04:00)
[2018-01-22] MEDS: NovoLOG Insulin Flexpen SUBQ SCH ×4 (06:00→17:51)
[2018-01-22] MEDS: HydrALAZINE 25mg tab GT SCH ×3 (06:54→21:39)
[2018-01-22 08:00] VITALS: BP 149/80
[2018-01-22 08:55] LABS: BASOPHILS % (AUTO) 1.1 % (0.0-2.0); EOSINOPHILS % (AUTO) 4.2 % (0.0-3.0); HEMATOCRIT 37.1 % (42.0-52.0); HEMOGLOBIN 12.4 G/DL (14.2-18.0); LYMPHOCYTES % (AUTO) 25.2 % (20.0-45.0); MEAN CORPUSCULAR VOLUME 99 FL (80-99); MONOCYTES % (AUTO) 9.5 % (1.0-10.0); NEUTROPHILS % (AUTO) 60.1 % (45.0-75.0); PLATELET COUNT 214 K/UL (150-450); RED BLOOD COUNT 3.77 M/UL (4.70-6.10); RED CELL DISTRIBUTION WIDTH 13.5 % (11.6-14.8); WHITE BLOOD COUNT 8.6 K/UL (4.8-10.8)
[2018-01-22] MEDS: Docusate 100mg/10ml Liq GT SCH ×3 (09:36→17:41)
[2018-01-22] MEDS: Tamsulosin 0.4mg cap ORAL SCH ×2 (09:36→17:41)
[2018-01-22] MEDS: Metoprolol Succinate XL 25mg tab ORAL SCH (09:38)
[2018-01-22] MEDS: Amiodarone 200mg tab ORAL SCH (09:38)
[2018-01-22] MEDS: Eliquis 2.5mg tablet GT SCH (09:38)
[2018-01-22] MEDS: Ascorbic Acid 500mg tab ORAL SCH (09:38)
[2018-01-22] MEDS: Nitroglycerin 2% oint pkt TOPIC SCH (09:39)
[2018-01-22] MEDS: Donepezil 10mg tab ORAL SCH (09:39)
[2018-01-22 09:46] LABS: ALANINE AMINOTRANSFERASE 42 U/L (12-78); ALBUMIN 2.6 G/DL (3.4-5.0); ALBUMIN/GLOBULIN RATIO 0.5 (1.0-2.7); ALKALINE PHOSPHATASE 153 U/L (46-116); ANION GAP 9 mmol/L (5-15); ASPARTATE AMINO TRANSFERASE 26 U/L (15-37); BILIRUBIN,TOTAL 0.6 MG/DL (0.2-1.0); BLOOD UREA NITROGEN 78 mg/dL (7-18); CALCIUM 9.2 MG/DL (8.5-10.1); CARBON DIOXIDE 26 MMOL/L (21-32); CHLORIDE 103 MMOL/L (98-107); CREATININE 2.3 MG/DL (0.55-1.30); PHOSPHORUS 4.7 MG/DL (2.5-4.9); POTASSIUM 3.9 MMOL/L (3.5-5.1); SODIUM 138 MMOL/L (136-145)
--- NOTE | 2018-01-22 10:11 | General Progress Note ---
Assessment/Plan Status: stable Assessment/Plan 1. Infected right upper chest PermCath. 2. End-stage renal disease. 3. Diabetes type 2. 4. Hypercholesterolemia. 5. Cardiomyopathy. 6. Atrial fibrillation. 7. Congestive heart failure. 8. Hypertension. 9. Alzheimer dementia. 10. Benign prostatic hypertrophy. 11. Lack of capacity to make medical decisions TREATMENT: DC HD access , will monitor for need for Re-insertion Notes from Cardiology, Nephrology, Vascular Sx and ID are reviewed Given the lack of availability of the Next keen, and the urgency for the procedure to remove the Cath, it is justified to proceed for removal/procedure at this time Re start low dose Lantus Self- Extraction of Fisher Ok to monitor off fisher Re-insert if Volume > 400 Subjective ROS Limited/Unobtainable: Yes Constitutional: Reports: malaise Allergies: Coded Allergies: No Known Allergies (Unverified , 12/19/17) Objective Last 24 Hour Vital Signs Date Time Temp Pulse Resp B/P (MAP) Pulse Ox O2 Delivery O2 Flow Rate FiO2 01/22/18 09:39 149/80 01/22/18 09:38 84 132/60 01/22/18 06:54 140/71 01/22/18 04:20 64 01/22/18 04:00 98.2 66 17 144/77 96 98.2 01/22/18 00:16 97.8 64 16 139/78 95 97.8 01/21/18 23:40 71 01/21/18 22:00 145/75 01/21/18 20:41 97.8 69 16 145/75 96 97.8 01/21/18 19:14 61 01/21/18 16:00 79 01/21/18 16:00 97.3 78 20 120/70 95 Room Air 97.3 01/21/18 14:58 138/73 01/21/18 14:56 97.6 68 20 138/73 96 Room Air 97.6 01/21/18 12:00 66 01/21/18 11:57 97.6 68 20 114/74 96 Room Air 97.6 Intake and Output 01/21/18 01/22/18 19:00 07:00 Intake Total 510 ml Output Total 1800 ml Balance -1290 ml IV Total 250 ml Tube Feeding 260 ml Output Urine Total 1800 ml # Voids 2 2 # Bowel Movements 1 1 Laboratory Tests 01/22/18 07:25: White Blood Count 8.6, Red Blood Count 3.77L, Hemoglobin 12.4L, Hematocrit 37.1L , Mean Corpuscular Volume 99, Mean Corpuscular Hemoglobin 32.9H, Mean Corpuscular Hemoglobin Concent 33.3, Red Cell Distribution Width 13.5, Platelet Count 214, Mean Platelet Volume 7.1, Neutrophils (%) (Auto) 60.1, Lymphocytes (% ) (Auto) 25.2, Monocytes (%) (Auto) 9.5, Eosinophils (%) (Auto) 4.2H, Basophils (%) (Auto) 1.1, Sodium Level 138, Potassium Level 3.9, Chloride Level 103, Carbon Dioxide Level 26, Anion Gap 9, Blood Urea Nitrogen 78H, Creatinine 2.3H, Estimat Glomerular Filtration Rate , Glucose Level 115#H, Uric Acid 5.6, Calcium Level 9.2, Phosphorus Level 4.7, Magnesium Level 2.0, Total Bilirubin 0.6, Aspartate Amino Transf (AST/SGOT) 26, Alanine Aminotransferase (ALT/SGPT) 42, Alkaline Phosphatase 153H, Troponin I [Pending], Pro-B-Type Natriuretic Peptide 90474D, Total Protein 7.5, Albumin 2.6L, Globulin 4.9, Albumin/Globulin Ratio 0.5L, Random Vancomycin Level 36.2 Height (Feet): 5 Height (Inches): 1.00 Weight (Pounds): 192 General Appearance: no apparent distress EENT: PERRL/EOMI Neck: supple Cardiovascular: normal rate Respiratory/Chest: lungs clear Abdomen: soft, other - PEG t in place Extremities: non-tender Neurologic: disoriented Courtney Weeks MD January 22, 2018 10:11
[2018-01-22] MEDS ORDERED: SYNTHROID50 MCG ORAL (10:16)
[2018-01-22] MEDS ORDERED: HYDRALAZINE HCL25 M1 GT (10:16)
[2018-01-22] MEDS ORDERED: ELIQUIS2.5 MG GT (10:16)
--- NOTE | 2018-01-22 10:52 | Nephrology Progress Note ---
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 monitor renal parameters avoid nephrotoxics After load reduction- optimize renal and cardiac status. Echo: Global left ventricular hypokinesis. Left ventricular ejection fraction estimated to be 30 %. Subjective ROS Limited/Unobtainable: No Constitutional: Reports: malaise Objective Objective Last 24 Hour Vital Signs Date Time Temp Pulse Resp B/P (MAP) Pulse Ox O2 Delivery O2 Flow Rate FiO2 01/22/18 09:39 149/80 01/22/18 09:38 84 132/60 01/22/18 06:54 140/71 01/22/18 04:20 64 01/22/18 04:00 98.2 66 17 144/77 96 98.2 01/22/18 00:16 97.8 64 16 139/78 95 97.8 01/21/18 23:40 71 01/21/18 22:00 145/75 01/21/18 20:41 97.8 69 16 145/75 96 97.8 01/21/18 19:14 61 01/21/18 16:00 79 01/21/18 16:00 97.3 78 20 120/70 95 Room Air 97.3 01/21/18 14:58 138/73 01/21/18 14:56 97.6 68 20 138/73 96 Room Air 97.6 01/21/18 12:00 66 01/21/18 11:57 97.6 68 20 114/74 96 Room Air 97.6 Intake and Output 01/21/18 01/22/18 19:00 07:00 Intake Total 510 ml Output Total 1800 ml Balance -1290 ml IV Total 250 ml Tube Feeding 260 ml Output Urine Total 1800 ml # Voids 2 2 # Bowel Movements 1 1 Laboratory Tests 01/22/18 07:25: White Blood Count 8.6, Red Blood Count 3.77L, Hemoglobin 12.4L, Hematocrit 37.1L , Mean Corpuscular Volume 99, Mean Corpuscular Hemoglobin 32.9H, Mean Corpuscular Hemoglobin Concent 33.3, Red Cell Distribution Width 13.5, Platelet Count 214, Mean Platelet Volume 7.1, Neutrophils (%) (Auto) 60.1, Lymphocytes (% ) (Auto) 25.2, Monocytes (%) (Auto) 9.5, Eosinophils (%) (Auto) 4.2H, Basophils (%) (Auto) 1.1, Sodium Level 138, Potassium Level 3.9, Chloride Level 103, Carbon Dioxide Level 26, Anion Gap 9, Blood Urea Nitrogen 78H, Creatinine 2.3H, Estimat Glomerular Filtration Rate , Glucose Level 115#H, Uric Acid 5.6, Calcium Level 9.2, Phosphorus Level 4.7, Magnesium Level 2.0, Total Bilirubin 0.6, Aspartate Amino Transf (AST/SGOT) 26, Alanine Aminotransferase (ALT/SGPT) 42, Alkaline Phosphatase 153H, Troponin I 0.000, Pro-B-Type Natriuretic Peptide 75254U, Total Protein 7.5, Albumin 2.6L, Globulin 4.9, Albumin/Globulin Ratio 0.5L, Random Vancomycin Level 36.2 Height (Feet): 5 Height (Inches): 1.00 Weight (Pounds): 192 General Appearance: no apparent distress Cardiovascular: normal rate Respiratory/Chest: decreased breath sounds Abdomen: distended Objective no other changes VALENTIN RUSH January 22, 2018 10:52
--- NOTE | 2018-01-22 11:35 | Diagnostic Imaging Report ---
Indication: Gastrostomy check Comparison: None Single view of the abdomen obtained Findings: Gastrostomy tube tip is projected over the stomach. There is contrast in multiple loops of small bowel and the stomach. No obvious extraluminal contrast identified. Aorta moderately calcified. IMPRESSION: NG tube appears to be in good position. No leak identified.
--- NOTE | 2018-01-22 11:57 | Diagnostic Imaging Report ---
EXAM: XR Chest, 1 View CLINICAL HISTORY: SOB TECHNIQUE: Frontal view of the chest. COMPARISON: No relevant prior studies available. FINDINGS: Lungs: Diffuse airspace opacities likely represent pulmonary vascular congestion. Pleural space: Probable left-sided pleural effusion. No pneumothorax. Heart: Mild enlargement of the heart. Mediastinum: Unremarkable. Bones/joints: No acute osseous abnormality. Tubes, lines and devices: Right IJ vas catheter with tip in the right atrium. IMPRESSION: 1. Right IJ vas catheter with tip in the right atrium. 2. Diffuse airspace opacities likely represent pulmonary vascular congestion. 3. Probable left-sided pleural effusion.
--- NOTE | 2018-01-22 11:59 | General Progress Note ---
Assessment/Plan Assessment/Plan Dementia encephalopathy -Ativan prn -dc Aricept -the pt lacks capacity Subjective Date patient seen: January 22, 2018 Neurologic/Psychiatric: Reports: anxiety, depressed, emotional problems Allergies: Coded Allergies: No Known Allergies (Unverified , 12/19/17) Objective Last 24 Hour Vital Signs Date Time Temp Pulse Resp B/P (MAP) Pulse Ox O2 Delivery O2 Flow Rate FiO2 01/22/18 09:39 149/80 01/22/18 09:38 84 132/60 01/22/18 06:54 140/71 01/22/18 04:20 64 01/22/18 04:00 98.2 66 17 144/77 96 98.2 01/22/18 00:16 97.8 64 16 139/78 95 97.8 01/21/18 23:40 71 01/21/18 22:00 145/75 01/21/18 20:41 97.8 69 16 145/75 96 97.8 01/21/18 19:14 61 01/21/18 16:00 79 01/21/18 16:00 97.3 78 20 120/70 95 Room Air 97.3 01/21/18 14:58 138/73 01/21/18 14:56 97.6 68 20 138/73 96 Room Air 97.6 01/21/18 12:00 66 Intake and Output 01/21/18 01/22/18 19:00 07:00 Intake Total 510 ml Output Total 1800 ml Balance -1290 ml IV Total 250 ml Tube Feeding 260 ml Output Urine Total 1800 ml # Voids 2 2 # Bowel Movements 1 1 Laboratory Tests 01/22/18 07:25: White Blood Count 8.6, Red Blood Count 3.77L, Hemoglobin 12.4L, Hematocrit 37.1L , Mean Corpuscular Volume 99, Mean Corpuscular Hemoglobin 32.9H, Mean Corpuscular Hemoglobin Concent 33.3, Red Cell Distribution Width 13.5, Platelet Count 214, Mean Platelet Volume 7.1, Neutrophils (%) (Auto) 60.1, Lymphocytes (% ) (Auto) 25.2, Monocytes (%) (Auto) 9.5, Eosinophils (%) (Auto) 4.2H, Basophils (%) (Auto) 1.1, Sodium Level 138, Potassium Level 3.9, Chloride Level 103, Carbon Dioxide Level 26, Anion Gap 9, Blood Urea Nitrogen 78H, Creatinine 2.3H, Estimat Glomerular Filtration Rate , Glucose Level 115#H, Uric Acid 5.6, Calcium Level 9.2, Phosphorus Level 4.7, Magnesium Level 2.0, Total Bilirubin 0.6, Aspartate Amino Transf (AST/SGOT) 26, Alanine Aminotransferase (ALT/SGPT) 42, Alkaline Phosphatase 153H, Troponin I 0.000, Pro-B-Type Natriuretic Peptide 82236X, Total Protein 7.5, Albumin 2.6L, Globulin 4.9, Albumin/Globulin Ratio 0.5L, Random Vancomycin Level 36.2 Height (Feet): 5 Height (Inches): 1.00 Weight (Pounds): 192 General Appearance: no apparent distress, alert, confused Ashly Rajan M.D. January 22, 2018 11:59
[2018-01-22 12:00] VITALS: BP 114/54
[2018-01-22] MEDS ORDERED: Heparin Sod 1000 units/ml 10ml ONE (12:31)
[2018-01-22] MEDS ORDERED: Heparin 2000 units/Ns 1000ml 0 ML ONE (12:31)
[2018-01-22] MEDS ORDERED: Heparin 2000 units/Ns 1000ml INJ SCH (12:45)
[2018-01-22] MEDS ORDERED: Lidocaine 2% 20mg/ml/Epi 0.005mg/ml 20ml vial INJ SCH (12:45)
[2018-01-22] MEDS ORDERED: Heparin Sod 1000 units/ml 10ml INJ SCH (12:45)
--- NOTE | 2018-01-22 15:31 | Cardiac Electrophysiology PN ---
Assessment/Plan Assessment/Plan 1. Atrial flutter. The patient's rate is currently controlled on amiodarone 200 mg daily, Toprol-XL 25 mg daily and resume Eliquis 2.5 mg b.i.d. if no surgery scheduled 2. Hypertension. Continue losartan 50 mg daily and Toprol-XL 25 mg 3. Cardiomyopathy, ejection fraction of only 30%, on hemodialysis and Cozaar and Toprol-XL 25 mg daily. In view of his overall condition, he is not a candidate for defibrillator placement. 4. ESRD on HD with discharge from the site. On vancomycin.S/P Removal of PermCath 5. Hyperlipidemia, on Lipitor. BINDU RN Subjective Subjective Comfortable in NAD in Atrial fib controlled. Says few words Objective Last 24 Hour Vital Signs Date Time Temp Pulse Resp B/P (MAP) Pulse Ox O2 Delivery O2 Flow Rate FiO2 01/22/18 14:53 129/74 01/22/18 12:00 97.5 62 21 114/54 98 97.5 01/22/18 12:00 63 01/22/18 09:39 149/80 01/22/18 09:38 84 132/60 01/22/18 08:00 97.9 79 19 149/80 97 97.9 01/22/18 08:00 73 01/22/18 06:54 140/71 01/22/18 04:20 64 01/22/18 04:00 98.2 66 17 144/77 96 98.2 01/22/18 00:16 97.8 64 16 139/78 95 97.8 01/21/18 23:40 71 01/21/18 22:00 145/75 01/21/18 20:41 97.8 69 16 145/75 96 97.8 01/21/18 19:14 61 01/21/18 16:00 79 01/21/18 16:00 97.3 78 20 120/70 95 Room Air 97.3 Intake and Output 01/21/18 01/22/18 19:00 07:00 Intake Total 510 ml Output Total 1800 ml Balance -1290 ml IV Total 250 ml Tube Feeding 260 ml Output Urine Total 1800 ml # Voids 2 2 # Bowel Movements 1 1 Laboratory Tests Test 01/22/18 07:25 White Blood Count 8.6 K/UL (4.8-10.8) Red Blood Count 3.77 M/UL (4.70-6.10) L Hemoglobin 12.4 G/DL (14.2-18.0) L Hematocrit 37.1 % (42.0-52.0) L Mean Corpuscular Volume 99 FL (80-99) Mean Corpuscular Hemoglobin 32.9 PG (27.0-31.0) H Mean Corpuscular Hemoglobin Concent 33.3 G/DL (32.0-36.0) Red Cell Distribution Width 13.5 % (11.6-14.8) Platelet Count 214 K/UL (150-450) Mean Platelet Volume 7.1 FL (6.5-10.1) Neutrophils (%) (Auto) 60.1 % (45.0-75.0) Lymphocytes (%) (Auto) 25.2 % (20.0-45.0) Monocytes (%) (Auto) 9.5 % (1.0-10.0) Eosinophils (%) (Auto) 4.2 % (0.0-3.0) H Basophils (%) (Auto) 1.1 % (0.0-2.0) Sodium Level 138 MMOL/L (136-145) Potassium Level 3.9 MMOL/L (3.5-5.1) Chloride Level 103 MMOL/L (98-107) Carbon Dioxide Level 26 MMOL/L (21-32) Anion Gap 9 mmol/L (5-15) Blood Urea Nitrogen 78 mg/dL (7-18) H Creatinine 2.3 MG/DL (0.55-1.30) H Estimat Glomerular Filtration Rate mL/min (>60) Glucose Level 115 MG/DL (74-106) #H Uric Acid 5.6 MG/DL (2.6-7.2) Calcium Level 9.2 MG/DL (8.5-10.1) Phosphorus Level 4.7 MG/DL (2.5-4.9) Magnesium Level 2.0 MG/DL (1.8-2.4) Total Bilirubin 0.6 MG/DL (0.2-1.0) Aspartate Amino Transf (AST/SGOT) 26 U/L (15-37) Alanine Aminotransferase (ALT/SGPT) 42 U/L (12-78) Alkaline Phosphatase 153 U/L (46-116) H Troponin I 0.000 ng/mL (0.000-0.056) Pro-B-Type Natriuretic Peptide 02022 pg/mL (0-125) H Total Protein 7.5 G/DL (6.4-8.2) Albumin 2.6 G/DL (3.4-5.0) L Globulin 4.9 g/dL Albumin/Globulin Ratio 0.5 (1.0-2.7) L Random Vancomycin Level 36.2 ug/mL Microbiology Date/Time Source Procedure Growth Status 01/20/18 12:05 Blood Blood Culture - Preliminary NO GROWTH AFTER 24 HOURS Resulted 01/20/18 16:44 Other(Specify in comment) Catheter Tip Culture - Preliminary NO GROWTH AFTER 24 HOURS Resulted Objective HEAD AND NECK: No JVD. LUNGS: Clear. CARDIOVASCULAR: Regular S1 and S2 with no gallop. R chest PermCath removed. ABDOMEN: Soft, status post G-tube. EXTREMITIES: There is 1+ pitting edema. Malik Shannon MD January 22, 2018 15:31
[2018-01-22 16:00] VITALS: BP 131/75
--- NOTE | 2018-01-22 17:00 | Infectious Diseases Prog Note ---
Assessment/Plan Assessment/Plan Abx: IV Vanco 01/18- Assessment: Infected HD cath- r.o bacteremia -s/p removal perma cath 01/20; cath tip cx NTD -BCx NTD (peripheral), HD Cath Bcx NTD -wound cx: MRSA (S Vancomycin, Bactrim, Tetracycline) -Echo: no vegetations seen. Aortic valve calcification with decreased cusp excursion c/w aortic stenosis. Mildly thickened mitral valve leaflets with normal excursion. Moderate mitral annulus and aortic root calcification. Afebrile, no leukocytosis ESRD on HD -renal US: Suspected nonobstructive nephrolithiasis in the left kidney.\ Abd wound- no sings of infection -wound cx: MRSA, CONS (colonizers) Stroke w/ hemiparesis dementia nonverbal HTN HLD cardiomyopathy Aflutter contractures, DM2 dysphagia s/p PEG anemia CHF long-term resident VRE colonized Plan: -Switch IV Vancomycin #01/19 to IV Daptomycin 4mg/kg q48hrs for MRSA HD cath infection (supratherapeutic vanco levels) -if Bcx positive, then extend duration to 14 adys -monitor CPK -Placement of new permanent HD catheter should be done after Bcx negative for 72 hours and placed in opposite site -f/u cx -Monitor CBC/BMP, temperatures Thank you for this consultation. Will continue to follow along with you. Discussed with RN. Subjective Allergies: Coded Allergies: No Known Allergies (Unverified , 12/19/17) Subjective afebrile no leukocytosis BCx NTD Objective Vital Signs Last 24 Hour Vital Signs Date Time Temp Pulse Resp B/P (MAP) Pulse Ox O2 Delivery O2 Flow Rate FiO2 01/22/18 16:00 76 01/22/18 14:53 129/74 01/22/18 12:00 97.5 62 21 114/54 98 97.5 01/22/18 12:00 63 01/22/18 09:39 149/80 01/22/18 09:38 84 132/60 01/22/18 08:00 97.9 79 19 149/80 97 97.9 01/22/18 08:00 73 01/22/18 06:54 140/71 01/22/18 04:20 64 01/22/18 04:00 98.2 66 17 144/77 96 98.2 01/22/18 00:16 97.8 64 16 139/78 95 97.8 01/21/18 23:40 71 01/21/18 22:00 145/75 01/21/18 20:41 97.8 69 16 145/75 96 97.8 01/21/18 19:14 61 Height (Feet): 5 Height (Inches): 1.00 Weight (Pounds): 192 Objective HEAD AND NECK: No JVD. LUNGS: Clear. CARDIOVASCULAR: Regular S1 and S2 with no gallop. He has right chest PermCath. ABDOMEN: Soft, status post G-tube. EXTREMITIES: There is 1+ pitting edema s/p removal of HD cath Microbiology Date/Time Source Procedure Growth Status 01/20/18 12:05 Blood Blood Culture - Preliminary NO GROWTH AFTER 24 HOURS Resulted 01/20/18 16:44 Other(Specify in comment) Catheter Tip Culture - Preliminary NO GROWTH AFTER 24 HOURS Resulted Laboratory Tests Test 01/22/18 07:25 White Blood Count 8.6 K/UL (4.8-10.8) Red Blood Count 3.77 M/UL (4.70-6.10) L Hemoglobin 12.4 G/DL (14.2-18.0) L Hematocrit 37.1 % (42.0-52.0) L Mean Corpuscular Volume 99 FL (80-99) Mean Corpuscular Hemoglobin 32.9 PG (27.0-31.0) H Mean Corpuscular Hemoglobin Concent 33.3 G/DL (32.0-36.0) Red Cell Distribution Width 13.5 % (11.6-14.8) Platelet Count 214 K/UL (150-450) Mean Platelet Volume 7.1 FL (6.5-10.1) Neutrophils (%) (Auto) 60.1 % (45.0-75.0) Lymphocytes (%) (Auto) 25.2 % (20.0-45.0) Monocytes (%) (Auto) 9.5 % (1.0-10.0) Eosinophils (%) (Auto) 4.2 % (0.0-3.0) H Basophils (%) (Auto) 1.1 % (0.0-2.0) Sodium Level 138 MMOL/L (136-145) Potassium Level 3.9 MMOL/L (3.5-5.1) Chloride Level 103 MMOL/L (98-107) Carbon Dioxide Level 26 MMOL/L (21-32) Anion Gap 9 mmol/L (5-15) Blood Urea Nitrogen 78 mg/dL (7-18) H Creatinine 2.3 MG/DL (0.55-1.30) H Estimat Glomerular Filtration Rate mL/min (>60) Glucose Level 115 MG/DL (74-106) #H Uric Acid 5.6 MG/DL (2.6-7.2) Calcium Level 9.2 MG/DL (8.5-10.1) Phosphorus Level 4.7 MG/DL (2.5-4.9) Magnesium Level 2.0 MG/DL (1.8-2.4) Total Bilirubin 0.6 MG/DL (0.2-1.0) Aspartate Amino Transf (AST/SGOT) 26 U/L (15-37) Alanine Aminotransferase (ALT/SGPT) 42 U/L (12-78) Alkaline Phosphatase 153 U/L (46-116) H Troponin I 0.000 ng/mL (0.000-0.056) Pro-B-Type Natriuretic Peptide 80415 pg/mL (0-125) H Total Protein 7.5 G/DL (6.4-8.2) Albumin 2.6 G/DL (3.4-5.0) L Globulin 4.9 g/dL Albumin/Globulin Ratio 0.5 (1.0-2.7) L Random Vancomycin Level 36.2 ug/mL Current Medications Medications (Trade) Dose Ordered Sig/Tiffany Route PRN Reason Start Time Stop Time Status Last Admin Dose Admin Acetaminophen (Tylenol) 650 mg Q4H PRN ORAL Mild Pain/Temp > 100.5 01/18/18 02:00 02/17/18 01:59 Acetaminophen/ Codeine Phosphate (Tylenol #3) 1 tab Q4H PRN ORAL Pain Scale (3-5) 01/18/18 06:45 01/25/18 06:44 Acetaminophen/ Hydrocodone Bitart ([place] 5/325) 1 tab Q4H PRN ORAL Severe Pain (Pain Scale 7-10) 01/18/18 06:45 01/25/18 06:44 Amiodarone HCl (Cordarone) 200 mg DAILY ORAL 5/7/18 09:00 02/17/18 08:59 01/22/18 09:38 Apixaban (Eliquis) 2.5 mg BID ORAL 01/22/18 18:00 02/21/18 17:59 UNV Ascorbic Acid (Vitamin C) 500 mg DAILY ORAL 01/18/18 09:00 02/17/18 08:59 01/22/18 09:38 Atorvastatin Calcium (Lipitor) 40 mg BEDTIME ORAL 01/19/18 21:00 02/17/18 20:59 01/20/18 21:42 Bisacodyl (Dulcolax) 10 mg DAILYPRN PRN RECTAL Constipation 01/18/18 02:00 02/17/18 01:59 Daptomycin 350 mg/ Sodium Chloride 55 ml @ 100 mls/hr QOD IV 01/24/18 09:00 01/31/18 08:59 UNV Dextrose (Dextrose 50%) 25 ml STAT PRN IV Hypoglycemia 01/21/18 07:30 02/20/18 07:29 Dextrose (Dextrose 50%) 50 ml STAT PRN IV Hypoglycemia 01/21/18 07:30 02/20/18 07:29 01/22/18 00:39 Docusate Sodium (Colace) 100 mg TID GT 01/18/18 13:00 02/17/18 08:59 01/22/18 14:52 Donepezil HCl (Aricept) 10 mg DAILY ORAL 01/18/18 09:00 02/17/18 08:59 01/22/18 09:39 Finasteride (Proscar) 5 mg DAILY ORAL 01/18/18 09:00 02/17/18 08:59 01/22/18 09:37 Hydralazine HCl (Apresoline) 25 mg Q8HR GT 01/20/18 22:00 02/18/18 14:29 01/22/18 14:53 Insulin Aspart (NovoLOG) EVERY 6 HOURS SUBQ 01/19/18 18:00 02/18/18 17:59 01/21/18 12:08 Levothyroxine Sodium (Synthroid) 50 mcg DAILY@0630 ORAL 01/20/18 06:30 02/19/18 06:29 01/22/18 06:54 Metoprolol Succinate (Toprol XL) 25 mg DAILY ORAL 01/18/18 09:00 02/17/18 08:59 01/22/18 09:38 Nitroglycerin (Nitro-Bid) 1 inch DAILY TOPIC 01/19/18 09:00 02/18/18 08:59 01/22/18 09:39 Saccharomyces Boulardii (Florastor) 250 mg DAILY ORAL 01/18/18 09:00 02/17/18 08:59 01/22/18 09:37 Sennosides (Senokot) 1 tab QHS GT 01/18/18 21:00 02/17/18 20:59 01/20/18 21:42 Tamsulosin HCl (Flomax) 0.4 mg BID ORAL 01/18/18 18:00 02/17/18 20:59 01/22/18 09:36 Sarah Borjas M.D. January 22, 2018 16:59
[2018-01-22] MEDS ORDERED: DAPTOmycin 350 MG in NS 55 ML IV SCH (18:00)
[2018-01-22] MEDS ORDERED: Eliquis 2.5mg tablet ORAL SCH (18:00)
--- NOTE | 2018-01-22 19:31 | General Progress Note ---
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, stage IV ICD Codes: I13.0 - Hypertensive heart and chronic kidney disease with heart failure and stage 1 through stage 4 chronic kidney disease, or unspecified chronic kidney disease; N18.4 - Chronic kidney disease, stage 4 (severe) SNOMED: 262636066 (4) Renal failure (ARF), acute on chronic ICD Codes: N17.9 - Acute kidney failure, unspecified; N18.9 - Chronic kidney disease, unspecified SNOMED: 887141588 Assessment/Plan no longer on Levemir - he became hypoglycemic even with only 8 units daily continue NISS continue Levothyroxine 50 mcg daily repeat TSH in 2 weeks Subjective ROS Limited/Unobtainable: Yes Allergies: Coded Allergies: No Known Allergies (Unverified , 12/19/17) Subjective events noted hypoglycemia this morning - I was notified by RN - Levemir 8 units daily was held and DC'ed TF is on and tolerated Objective Last 24 Hour Vital Signs Date Time Temp Pulse Resp B/P (MAP) Pulse Ox O2 Delivery O2 Flow Rate FiO2 01/22/18 16:00 98.0 78 20 131/75 97 98.0 01/22/18 16:00 76 01/22/18 14:53 129/74 01/22/18 12:00 97.5 62 21 114/54 98 97.5 01/22/18 12:00 63 01/22/18 09:39 149/80 01/22/18 09:38 84 132/60 01/22/18 08:00 97.9 79 19 149/80 97 97.9 01/22/18 08:00 73 01/22/18 06:54 140/71 01/22/18 04:20 64 01/22/18 04:00 98.2 66 17 144/77 96 98.2 01/22/18 00:16 97.8 64 16 139/78 95 97.8 01/21/18 23:40 71 01/21/18 22:00 145/75 01/21/18 20:41 97.8 69 16 145/75 96 97.8 Intake and Output 01/21/18 01/22/18 19:00 07:00 Intake Total 510 ml Output Total 1800 ml Balance -1290 ml IV Total 250 ml Tube Feeding 260 ml Output Urine Total 1800 ml # Voids 2 2 # Bowel Movements 1 1 Laboratory Tests 01/22/18 07:25: White Blood Count 8.6, Red Blood Count 3.77L, Hemoglobin 12.4L, Hematocrit 37.1L , Mean Corpuscular Volume 99, Mean Corpuscular Hemoglobin 32.9H, Mean Corpuscular Hemoglobin Concent 33.3, Red Cell Distribution Width 13.5, Platelet Count 214, Mean Platelet Volume 7.1, Neutrophils (%) (Auto) 60.1, Lymphocytes (% ) (Auto) 25.2, Monocytes (%) (Auto) 9.5, Eosinophils (%) (Auto) 4.2H, Basophils (%) (Auto) 1.1, Sodium Level 138, Potassium Level 3.9, Chloride Level 103, Carbon Dioxide Level 26, Anion Gap 9, Blood Urea Nitrogen 78H, Creatinine 2.3H, Estimat Glomerular Filtration Rate , Glucose Level 115#H, Uric Acid 5.6, Calcium Level 9.2, Phosphorus Level 4.7, Magnesium Level 2.0, Total Bilirubin 0.6, Aspartate Amino Transf (AST/SGOT) 26, Alanine Aminotransferase (ALT/SGPT) 42, Alkaline Phosphatase 153H, Troponin I 0.000, Pro-B-Type Natriuretic Peptide 69602X, Total Protein 7.5, Albumin 2.6L, Globulin 4.9, Albumin/Globulin Ratio 0.5L, Random Vancomycin Level 36.2 Height (Feet): 5 Height (Inches): 1.00 Weight (Pounds): 192 General Appearance: lethargic Neck: normal alignment Cardiovascular: regular rhythm Respiratory/Chest: decreased breath sounds Abdomen: normal bowel sounds Pelvis: normal external exam Edema: 1+ Arm (L), 1+ Arm (R), 1+ Leg (L), 1+ Leg (R), 1+ Pedal (L), 1+ Pedal ( R), 1+ Generalized Objective Current Medications Medications (Trade) Dose Ordered Sig/Tiffany Route PRN Reason Start Time Stop Time Status Last Admin Dose Admin Acetaminophen (Tylenol) 650 mg Q4H PRN ORAL Mild Pain/Temp > 100.5 01/18/18 02:00 02/17/18 01:59 Acetaminophen/ Codeine Phosphate (Tylenol #3) 1 tab Q4H PRN ORAL Pain Scale (3-5) 01/18/18 06:45 01/25/18 06:44 Acetaminophen/ Hydrocodone Bitart ([place] 5/325) 1 tab Q4H PRN ORAL Severe Pain (Pain Scale 7-10) 01/18/18 06:45 01/25/18 06:44 Amiodarone HCl (Cordarone) 200 mg DAILY ORAL 01/19/18 09:00 02/17/18 08:59 01/22/18 09:38 Apixaban (Eliquis) 2.5 mg BID ORAL 01/22/18 18:00 02/21/18 17:59 01/22/18 17:42 Ascorbic Acid (Vitamin C) 500 mg DAILY ORAL 01/18/18 09:00 02/17/18 08:59 01/22/18 09:38 Atorvastatin Calcium (Lipitor) 40 mg BEDTIME ORAL 01/19/18 21:00 02/17/18 20:59 01/20/18 21:42 Bisacodyl (Dulcolax) 10 mg DAILYPRN PRN RECTAL Constipation 01/18/18 02:00 02/17/18 01:59 Daptomycin 350 mg/ Sodium Chloride 55 ml @ 100 mls/hr QOD@1800 IV 01/22/18 18:00 01/29/18 17:59 01/22/18 18:01 Dextrose (Dextrose 50%) 25 ml STAT PRN IV Hypoglycemia 01/21/18 07:30 02/20/18 07:29 Dextrose (Dextrose 50%) 50 ml STAT PRN IV Hypoglycemia 01/21/18 07:30 02/20/18 07:29 01/22/18 00:39 Docusate Sodium (Colace) 100 mg TID GT 01/18/18 13:00 02/17/18 08:59 01/22/18 17:41 Donepezil HCl (Aricept) 10 mg DAILY ORAL 01/18/18 09:00 02/17/18 08:59 01/22/18 09:39 Finasteride (Proscar) 5 mg DAILY ORAL 01/18/18 09:00 02/17/18 08:59 01/22/18 09:37 Hydralazine HCl (Apresoline) 25 mg Q8HR GT 01/20/18 22:00 02/18/18 14:29 01/22/18 14:53 Insulin Aspart (NovoLOG) EVERY 6 HOURS SUBQ 01/19/18 18:00 02/18/18 17:59 01/22/18 17:51 Levothyroxine Sodium (Synthroid) 50 mcg DAILY@0630 ORAL 01/20/18 06:30 02/19/18 06:29 01/22/18 06:54 Metoprolol Succinate (Toprol XL) 25 mg DAILY ORAL 01/18/18 09:00 02/17/18 08:59 01/22/18 09:38 Nitroglycerin (Nitro-Bid) 1 inch DAILY TOPIC 01/19/18 09:00 02/18/18 08:59 01/22/18 09:39 Saccharomyces Boulardii (Florastor) 250 mg DAILY ORAL 01/18/18 09:00 02/17/18 08:59 01/22/18 09:37 Sennosides (Senokot) 1 tab QHS GT 01/18/18 21:00 02/17/18 20:59 01/20/18 21:42 Tamsulosin HCl (Flomax) 0.4 mg BID ORAL 01/18/18 18:00 02/17/18 20:59 01/22/18 17:41 Item Value Date Time Bedside Blood Glucose 180 mg/dl H 01/22/18 1751 Bedside Blood Glucose 143 mg/dl H 01/22/18 1200 Bedside Blood Glucose 110 mg/dl 01/22/18 0600 Bedside Blood Glucose 59 mg/dl L 01/22/18 0039 Bedside Blood Glucose 113 mg/dl 01/21/18 1800 ANITA WANG January 22, 2018 19:31
[2018-01-22 20:00] VITALS: BP 121/63
[2018-01-22] MEDS: Sennosides 8.6mg GT SCH (21:00)
[2018-01-22] MEDS: Atorvastatin 20mg tab ORAL SCH (21:38)
[2018-01-23] VITALS (7 sets, daily range): BP systolic 132–162; BP diastolic 64–95
[2018-01-23] MEDS: NovoLOG Insulin Flexpen SUBQ SCH ×5 (01:01→23:47)
[2018-01-23] MEDS ORDERED: Tylenol #3 tab (300mg/30mg) ORAL PRN (02:45)
[2018-01-23] MEDS ORDERED: Norco 5mg/325mg tab ORAL PRN (02:45)
[2018-01-23] MEDS ORDERED: Vancomycin 1gm/D5W 275ml IVPB SCH ×2 (05:00)
[2018-01-23 07:42] LABS: CREATINE KINASE 64 U/L (26-308)
[2018-01-23] MEDS: HydrALAZINE 25mg tab GT SCH ×3 (07:49→21:39)
[2018-01-23] MEDS: Docusate 100mg/10ml Liq GT SCH ×4 (09:16→17:06)
[2018-01-23] MEDS: Eliquis 2.5mg tablet ORAL SCH ×3 (09:17→17:06)
[2018-01-23] MEDS: Tamsulosin 0.4mg cap ORAL SCH ×3 (09:17→17:06)
[2018-01-23] MEDS: Metoprolol Succinate XL 25mg tab ORAL SCH ×2 (09:17→10:19)
[2018-01-23] MEDS: Ascorbic Acid 500mg tab ORAL SCH ×2 (09:17→10:19)
[2018-01-23] MEDS: Amiodarone 200mg tab ORAL SCH ×2 (09:17→10:18)
[2018-01-23] MEDS: Nitroglycerin 2% oint pkt TOPIC SCH (09:17)
[2018-01-23] MEDS: Donepezil 10mg tab ORAL SCH ×2 (09:20→10:18)
--- NOTE | 2018-01-23 12:46 | General Progress Note ---
Assessment/Plan Status: stable Assessment/Plan 1. Infected right upper chest PermCath. 2. End-stage renal disease. 3. Diabetes type 2. 4. Hypercholesterolemia. 5. Cardiomyopathy. 6. Atrial fibrillation. 7. Congestive heart failure. 8. Hypertension. 9. Alzheimer dementia. 10. Benign prostatic hypertrophy. 11. Lack of capacity to make medical decisions TREATMENT: DC HD access , will monitor for need for Re-insertion Notes from Cardiology, Nephrology, Vascular Sx and ID are reviewed Given the lack of availability of the Next keen, and the urgency for the procedure to remove the Cath, it is justified to proceed for removal/procedure at this time Re start low dose Lantus Self- Extraction of Fisher Ok to monitor off fisher Re-insert if Volume > 400 Subjective ROS Limited/Unobtainable: Yes Allergies: Coded Allergies: No Known Allergies (Unverified , 12/19/17) Objective Last 24 Hour Vital Signs Date Time Temp Pulse Resp B/P (MAP) Pulse Ox O2 Delivery O2 Flow Rate FiO2 01/23/18 09:17 145/64 01/23/18 08:00 97.8 71 16 145/64 95 Room Air 97.8 01/23/18 07:49 149/72 01/23/18 04:00 97.6 82 20 147/79 97 97.6 01/23/18 00:00 98.6 80 20 132/67 95 98.6 01/22/18 21:39 121/63 01/22/18 20:00 98.1 65 18 121/63 95 98.1 01/22/18 16:00 98.0 78 20 131/75 97 98.0 01/22/18 16:00 76 01/22/18 14:53 129/74 Intake and Output 01/22/18 01/23/18 19:00 07:00 Intake Total 55 ml 240 ml Balance 55 ml 240 ml IV Total 55 ml Tube Feeding 240 ml # Voids 2 6 # Bowel Movements 2 Laboratory Tests 01/23/18 06:40: Total Creatine Kinase 64 Height (Feet): 5 Height (Inches): 1.00 Weight (Pounds): 185 General Appearance: WD/WN EENT: PERRL/EOMI Neck: supple Cardiovascular: normal rate Respiratory/Chest: lungs clear Abdomen: soft Extremities: non-tender, other - atrophied mucles in all extremities Neurologic: disoriented, other - AO x 1 Courtney Weeks MD January 23, 2018 12:46
--- NOTE | 2018-01-23 12:46 | General Progress Note ---
Assessment/Plan Status: stable, progressing Assessment/Plan Dementia encephalopathy -Ativan prn -dc Aricept -the pt lacks capacity Subjective Date patient seen: January 23, 2018 Neurologic/Psychiatric: Reports: anxiety, depressed, emotional problems Allergies: Coded Allergies: No Known Allergies (Unverified , 12/19/17) Objective Last 24 Hour Vital Signs Date Time Temp Pulse Resp B/P (MAP) Pulse Ox O2 Delivery O2 Flow Rate FiO2 01/23/18 09:17 145/64 01/23/18 08:00 97.8 71 16 145/64 95 Room Air 97.8 01/23/18 07:49 149/72 01/23/18 04:00 97.6 82 20 147/79 97 97.6 01/23/18 00:00 98.6 80 20 132/67 95 98.6 01/22/18 21:39 121/63 01/22/18 20:00 98.1 65 18 121/63 95 98.1 01/22/18 16:00 98.0 78 20 131/75 97 98.0 01/22/18 16:00 76 01/22/18 14:53 129/74 Intake and Output 01/22/18 01/23/18 19:00 07:00 Intake Total 55 ml 240 ml Balance 55 ml 240 ml IV Total 55 ml Tube Feeding 240 ml # Voids 2 6 # Bowel Movements 2 Laboratory Tests 01/23/18 06:40: Total Creatine Kinase 64 Height (Feet): 5 Height (Inches): 1.00 Weight (Pounds): 185 General Appearance: WD/WN, no apparent distress, alert Neurologic: oriented x 3, responsive, depressed affect Ashly Rajan M.D. January 23, 2018 12:46
[2018-01-23] MEDS ORDERED: Tubing IV Secondary IV ONE (13:59)
[2018-01-23] MEDS ORDERED: D5NS 1000ml IV ONE (13:59)
[2018-01-23] MEDS ORDERED: Sterile Water Irrig 1000ml IRRIG ONE (13:59)
[2018-01-23] MEDS ORDERED: NS 500ML ONE (13:59)
--- NOTE | 2018-01-23 14:12 | GI Initial Consult Note ---
History of Present Illness General Date patient seen: January 23, 2018 Time patient seen: 14:06 Reason for Hospitalization: General Complaint Referring physician: ANDRAE SOLIZ Reason for Consultation: GT MALFUNCTION Present Illness HPI Patient present with discharge from the right dialysis catheter this in place custodial had reported significant yellowish discharge Patient himself is not able to provide history Unknown regarding fever There was no report of vomiting or diarrhea Patient has been getting dialysis for over 1 month from this site GI consulted for GT malfunction. ROS limited, seen awake alert NAD. GT assessed, unable to clog. Site assess, noted with hypergranulation and bleeding from the site. Labs reviewed show mild anemia, renal insufficiency and hypoalbuminemia. Home Meds Reported Medications Ascorbic Acid* (VITAMIN C*) 500 Mg Tablet, 500 MG ORAL DAILY, #30 TAB 0 Refills 01/17/18 Cran/Vitc/Mannose/Inulin/Brom (UTI-STAT LIQUID) 3,875 Mg/30 Ml Liquid, 3875 MG PO DAILY, ML 01/17/18 Acetaminophen With Codeine 300MG/30MG (T#3)* (TYLENOL WITH CODEINE #3 TABLET*) Y Tab, 1 TAB ORAL Q4H PRN for For Pain, #30 TAB 0 Refills 01/17/18 Acetaminophen* (ACETAMINOPHEN 325MG TABLET*) 325 Mg Tablet, 650 MG ORAL Q4H PRN for Mild Pain/Temp > 100.5, TAB 01/17/18 Tamsulosin Hcl (TAMSULOSIN HCL*) 0.4 Mg Cap.er.24h, 0.4 MG ORAL BEDTIME, CAP 01/17/18 Sennosides (SENNA) 8.6 Mg Tablet, 8.6 MG PO QHS, #2 TAB 01/17/18 Hydrocodone Bit/Acetaminophen 5-325* (NORCO 5-325*) 1 Each Tablet, 1 TAB ORAL Q4H PRN for For Pain, TAB 0 Refills 01/17/18 Nitroglycerin (NITRO-BID*) 1 Gm Oint...g., TOPIC, PKT 0 Refills 01/17/18 Multivitamin Liquid* (MULTI-DELYN*) 237 Ml Liquid, 5 ML GT DAILY, ML 01/17/18 Magnesium Hydroxide* (MILK OF MAGNESIA*) 400 Mg/5 Ml Oral.susp, 30 ML ORAL DAILY , ML 01/17/18 Metoprolol Succinate* (METOPROLOL SUCCINATE*) 25 Mg Tab.er.24h, 25 MG ORAL DAILY , TAB 01/17/18 Losartan Potassium* (LOSARTAN POTASSIUM*) 50 Mg Tablet, 50 MG ORAL DAILY, TAB 01/17/18 Insulin Glargine (LANTUS) 100 Unit/1 Ml Insuln.pen, 23 SUBQ BEDTIME, #1 EA 0 Refills 01/17/18 Arginine/Glutamine/Calcium Hmb (SUBHASH PACKET) 1 Each Powd.pack, 1 EACH PO, PACK 01/17/18 Folic Acid* (FOLIC ACID*) 1 Mg Tablet, 1 MG ORAL DAILY, TAB 01/17/18 Saccharomyces Boulardii (FLORASTOR*) 250 Mg Capsule, 250 MG ORAL DAILY, CAP 01/17/18 Finasteride* (PROSCAR*) 5 Mg Tablet, 5 MG ORAL DAILY, #30 TAB 0 Refills 01/17/18 Ferrous Sulfate* (FERROUS SULFATE*) 325 Mg Tablet, 325 MG ORAL TWICE A DAY, #60 TAB 0 Refills 01/17/18 Esomeprazole Magnesium (NEXIUM) 40 Mg Capsule.dr, 40 MG ORAL DAILY, CAP 01/17/18 Bisacodyl (DULCOLAX) 10 Mg Supp.rect, 10 MG RC PRN for Constipation, SUPP 01/17/18 Donepezil Hcl* (DONEPEZIL HCL*) 10 Mg Tablet, 10 MG ORAL DAILY, TAB 01/17/18 Docusate Sodium* (COLACE*) 100 Mg Capsule, 100 MG ORAL DAILY, CAP 01/17/18 Cranberry Fruit Concentrate (CRANBERRY) 450 Mg Capsule, 450 MG PO DAILY, CAP 01/17/18 Atorvastatin Calcium* (LIPITOR*) 80 Mg Tablet, 80 MG ORAL BEDTIME, TAB 01/17/18 Amiodarone Hcl* (AMIODARONE HCL*) 400 Mg Tablet, 400 MG ORAL DAILY, TAB 01/17/18 Med list reviewed/reconciled: Yes Allergies: Coded Allergies: No Known Allergies (Unverified , 12/19/17) Patient History PMH Narrative Limited by: medical condition Past Medical History: see triage record Pertinent Family History: unable to obtain Reviewed Nursing Documentation: PMH: Agreed; PSxH: Agreed Nursing Documentation-PMH Hx Cardiac Problems: Yes - CHF, anemia, atherosclerotic heart disease, hyperlipidemia Hx Hypertension: Yes Hx Diabetes: Yes - dm type 2 Hx Gastrointestinal Problems: Yes - dysphagia, gastrostomy Hx Dialysis: Yes - Kidney Failure, MWF dialysis, BPH Hx Cerebrovascular Accident: Yes - Encephalopathy,cererbral infarction, hemiplegia and hemiparesis Review of Systems All Other Systems: limited Physical Exam Vital Signs Date Time Temp Pulse Resp B/P (MAP) Pulse Ox O2 Delivery O2 Flow Rate FiO2 01/19/18 08:00 98.0 80 20 175/70 98 Room Air 98.0 Labs Laboratory Tests Test 01/23/18 06:40 Total Creatine Kinase 64 U/L (26-308) General Appearance: no apparent distress, alert Head: normocephalic EENT: normal ENT inspection Neck: supple Respiratory: normal breath sounds, no respiratory distress Gastrointestinal: gt - clogged, needs replacement Rectal: deferred Neurologic: alert Current Medications Current Medications Medications (Trade) Dose Ordered Sig/Tiffany Route PRN Reason Start Time Stop Time Status Last Admin Dose Admin Acetaminophen (Tylenol) 650 mg Q4H PRN ORAL Mild Pain/Temp > 100.5 01/23/18 02:00 02/17/18 01:59 Acetaminophen/ Codeine Phosphate (Tylenol #3) 1 tab Q4H PRN ORAL Pain Scale (3-5) 01/23/18 02:45 01/25/18 06:44 Acetaminophen/ Hydrocodone Bitart ([place] 5/325) 1 tab Q4H PRN ORAL Severe Pain (Pain Scale 7-10) 01/23/18 02:45 01/25/18 06:44 Amiodarone HCl (Cordarone) 200 mg DAILY ORAL 01/23/18 09:00 02/17/18 08:59 Apixaban (Eliquis) 2.5 mg BID ORAL 01/23/18 09:00 02/21/18 17:59 Ascorbic Acid (Vitamin C) 500 mg DAILY ORAL 01/23/18 09:00 02/17/18 08:59 Atorvastatin Calcium (Lipitor) 40 mg BEDTIME ORAL 01/23/18 21:00 02/17/18 20:59 Bisacodyl (Dulcolax) 10 mg DAILYPRN PRN RECTAL Constipation 01/23/18 02:00 02/17/18 01:59 Daptomycin 350 mg/ Sodium Chloride 55 ml @ 100 mls/hr QOD@1800 IV 01/24/18 18:00 01/29/18 17:59 Dextrose (Dextrose 50%) 25 ml STAT PRN IV Hypoglycemia 01/23/18 07:30 02/20/18 07:29 Dextrose (Dextrose 50%) 50 ml STAT PRN IV Hypoglycemia 01/23/18 07:30 02/20/18 07:29 Docusate Sodium (Colace) 100 mg TID GT 01/23/18 09:00 02/17/18 08:59 Donepezil HCl (Aricept) 10 mg DAILY ORAL 01/23/18 09:00 02/17/18 08:59 Finasteride (Proscar) 5 mg DAILY ORAL 01/23/18 09:00 02/17/18 08:59 Hydralazine HCl (Apresoline) 25 mg Q8HR GT 01/23/18 06:00 02/18/18 14:29 01/23/18 07:49 Insulin Aspart (NovoLOG) EVERY 6 HOURS SUBQ 01/23/18 00:00 02/18/18 17:59 01/23/18 07:31 Levothyroxine Sodium (Synthroid) 50 mcg DAILY@0630 ORAL 01/23/18 06:30 02/19/18 06:29 01/23/18 07:29 Metoprolol Succinate (Toprol XL) 25 mg DAILY ORAL 01/23/18 09:00 02/17/18 08:59 Nitroglycerin (Nitro-Bid) 1 inch DAILY TOPIC 01/23/18 09:00 02/18/18 08:59 01/23/18 09:17 Saccharomyces Boulardii (Florastor) 250 mg DAILY ORAL 01/23/18 09:00 02/17/18 08:59 Sennosides (Senokot) 1 tab QHS GT 01/23/18 21:00 02/17/18 20:59 Tamsulosin HCl (Flomax) 0.4 mg BID ORAL 01/23/18 09:00 02/17/18 20:59 GI: Plan Problems: (1) Anemia (2) Malfunction of gastrostomy tube (3) Hypothyroidism Plan GT replaced at beside with 20fr. >> ok to use after CXR confirmation GTFs per RD GT site care BID/prn >> zinc oxide around GT site anemia work up OB stool r/o GI bleed monitor H&H, prn transfusions bowel regime ppi fu labs Discussed with Dr. Espinal. Thank you for this patient referral, we will follow. The patient was seen and examined at bedside and all new and available data was reviewed in the patients chart. I agree with the above findings, impression and plan. (Patient seen earlier today. Signature stamp does not reflect patient encounter time.). - MD Keiko Nunez [employer] PROFESSOR OF EDUCATION January 23, 2018 14:12
--- NOTE | 2018-01-23 14:33 | Diagnostic Imaging Report ---
Indication: Dysphasia Procedure and findings: Real-time fluoroscopic imaging performed in a lateral projection in conjunction with the speech pathologist evaluation. Variable consistencies of barium given per mouth. Findings: Significant abnormalities of both oral and pharyngeal phases of swallowing are demonstrated. Total fluoroscopic time 164 seconds. Minimal delay in aspiration noted with nectar. No penetration or aspiration with thin barium. Abnormal video swallow. Please refer to speech pathology evaluation for more information.
--- NOTE | 2018-01-23 15:13 | General Progress Note ---
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, stage IV ICD Codes: I13.0 - Hypertensive heart and chronic kidney disease with heart failure and stage 1 through stage 4 chronic kidney disease, or unspecified chronic kidney disease; N18.4 - Chronic kidney disease, stage 4 (severe) SNOMED: 316937692 (4) Renal failure (ARF), acute on chronic ICD Codes: N17.9 - Acute kidney failure, unspecified; N18.9 - Chronic kidney disease, unspecified SNOMED: 523195971 Assessment/Plan will hold of on Levemir for now due to hx of hypoglycemia continue NISS continue Levothyroxine 50 mcg daily repeat TSH in 2 weeks Subjective ROS Limited/Unobtainable: Yes Allergies: Coded Allergies: No Known Allergies (Unverified , 12/19/17) Subjective events noted no recurrence of hypoglycemia Objective Last 24 Hour Vital Signs Date Time Temp Pulse Resp B/P (MAP) Pulse Ox O2 Delivery O2 Flow Rate FiO2 01/23/18 12:00 98.0 80 17 143/71 98 Room Air 98.0 01/23/18 09:17 145/64 01/23/18 08:00 97.8 71 16 145/64 95 Room Air 97.8 01/23/18 07:49 149/72 01/23/18 04:00 97.6 82 20 147/79 97 97.6 01/23/18 00:00 98.6 80 20 132/67 95 98.6 01/22/18 21:39 121/63 01/22/18 20:00 98.1 65 18 121/63 95 98.1 01/22/18 16:00 98.0 78 20 131/75 97 98.0 01/22/18 16:00 76 Intake and Output 01/22/18 01/23/18 19:00 07:00 Intake Total 55 ml 240 ml Balance 55 ml 240 ml IV Total 55 ml Tube Feeding 240 ml # Voids 2 6 # Bowel Movements 2 Laboratory Tests 01/23/18 06:40: Total Creatine Kinase 64 Height (Feet): 5 Height (Inches): 1.00 Weight (Pounds): 185 General Appearance: no apparent distress Neck: normal alignment Cardiovascular: normal rate Respiratory/Chest: decreased breath sounds Abdomen: normal bowel sounds Edema: 1+ Arm (L), 1+ Arm (R), 1+ Leg (L), 1+ Leg (R), 1+ Pedal (L), 1+ Pedal ( R), 1+ Generalized Objective Current Medications Medications (Trade) Dose Ordered Sig/Tiffany Route PRN Reason Start Time Stop Time Status Last Admin Dose Admin Acetaminophen (Tylenol) 650 mg Q4H PRN ORAL Mild Pain/Temp > 100.5 01/23/18 02:00 02/17/18 01:59 Acetaminophen/ Codeine Phosphate (Tylenol #3) 1 tab Q4H PRN ORAL Pain Scale (3-5) 01/23/18 02:45 01/25/18 06:44 Acetaminophen/ Hydrocodone Bitart ([place] 5/325) 1 tab Q4H PRN ORAL Severe Pain (Pain Scale 7-10) 01/23/18 02:45 01/25/18 06:44 Amiodarone HCl (Cordarone) 200 mg DAILY ORAL 01/23/18 09:00 02/17/18 08:59 Apixaban (Eliquis) 2.5 mg BID ORAL 01/23/18 09:00 02/21/18 17:59 Ascorbic Acid (Vitamin C) 500 mg DAILY ORAL 01/23/18 09:00 02/17/18 08:59 Atorvastatin Calcium (Lipitor) 40 mg BEDTIME ORAL 01/23/18 21:00 02/17/18 20:59 Bisacodyl (Dulcolax) 10 mg DAILYPRN PRN RECTAL Constipation 01/23/18 02:00 02/17/18 01:59 Daptomycin 350 mg/ Sodium Chloride 55 ml @ 100 mls/hr QOD@1800 IV 01/24/18 18:00 01/29/18 17:59 Dextrose (Dextrose 50%) 25 ml STAT PRN IV Hypoglycemia 01/23/18 07:30 02/20/18 07:29 Dextrose (Dextrose 50%) 50 ml STAT PRN IV Hypoglycemia 01/23/18 07:30 02/20/18 07:29 Diatrizoate Meglum/ Diatrizoate Sod (Gastrografin) 120 ml ONCE ONCE ORAL 01/23/18 15:00 01/23/18 15:01 UNV Docusate Sodium (Colace) 100 mg TID GT 01/23/18 09:00 02/17/18 08:59 Donepezil HCl (Aricept) 10 mg DAILY ORAL 01/23/18 09:00 02/17/18 08:59 Finasteride (Proscar) 5 mg DAILY ORAL 01/23/18 09:00 02/17/18 08:59 Hydralazine HCl (Apresoline) 25 mg Q8HR GT 01/23/18 06:00 02/18/18 14:29 01/23/18 07:49 Insulin Aspart (NovoLOG) EVERY 6 HOURS SUBQ 01/23/18 00:00 02/18/18 17:59 01/23/18 07:31 Levothyroxine Sodium (Synthroid) 50 mcg DAILY@0630 ORAL 01/23/18 06:30 02/19/18 06:29 01/23/18 07:29 Metoprolol Succinate (Toprol XL) 25 mg DAILY ORAL 01/23/18 09:00 02/17/18 08:59 Nitroglycerin (Nitro-Bid) 1 inch DAILY TOPIC 01/23/18 09:00 02/18/18 08:59 01/23/18 09:17 Saccharomyces Boulardii (Florastor) 250 mg DAILY ORAL 01/23/18 09:00 02/17/18 08:59 Sennosides (Senokot) 1 tab QHS GT 01/23/18 21:00 02/17/18 20:59 Tamsulosin HCl (Flomax) 0.4 mg BID ORAL 01/23/18 09:00 02/17/18 20:59 Zinc Oxide (Zinc Oxide) 1 applic BID TOPIC 01/23/18 18:00 02/22/18 17:59 Item Value Date Time Bedside Blood Glucose 155 mg/dl H 01/23/18 1200 Bedside Blood Glucose 253 mg/dl H 01/23/18 0731 Bedside Blood Glucose 253 mg/dl H 01/23/18 0600 Bedside Blood Glucose 245 mg/dl H 01/23/18 0101 Bedside Blood Glucose 213 mg/dl H 01/22/18 2135 Bedside Blood Glucose 180 mg/dl H 01/22/18 1751 ANITA WANG January 23, 2018 15:13
--- NOTE | 2018-01-23 15:24 | Cardiac Electrophysiology PN ---
Assessment/Plan Assessment/Plan 1. Atrial flutter. Continue amiodarone 200 mg daily, Toprol-XL 25 mg daily and Eliquis 2.5 mg b.i.d. 2. Hypertension. Continue losartan 50 mg daily and Toprol-XL 25 mg 3. Cardiomyopathy, ejection fraction of only 30%, on hemodialysis and Cozaar and Toprol-XL 25 mg daily. In view of his overall condition, he is not a candidate for defibrillator placement. 4. ESRD on HD with discharge from the site. On vancomycin.S/P Removal of PermCath 5. Hyperlipidemia, on Lipitor. BINDU RN Subjective Subjective Comfortable in NAD transferred to [facility]. Objective Last 24 Hour Vital Signs Date Time Temp Pulse Resp B/P (MAP) Pulse Ox O2 Delivery O2 Flow Rate FiO2 01/23/18 12:00 98.0 80 17 143/71 98 Room Air 98.0 01/23/18 09:17 145/64 01/23/18 08:00 97.8 71 16 145/64 95 Room Air 97.8 01/23/18 07:49 149/72 01/23/18 04:00 97.6 82 20 147/79 97 97.6 01/23/18 00:00 98.6 80 20 132/67 95 98.6 01/22/18 21:39 121/63 01/22/18 20:00 98.1 65 18 121/63 95 98.1 01/22/18 16:00 98.0 78 20 131/75 97 98.0 01/22/18 16:00 76 Intake and Output 01/22/18 01/23/18 19:00 07:00 Intake Total 55 ml 240 ml Balance 55 ml 240 ml IV Total 55 ml Tube Feeding 240 ml # Voids 2 6 # Bowel Movements 2 Laboratory Tests Test 01/23/18 06:40 Total Creatine Kinase 64 U/L (26-308) Microbiology Date/Time Source Procedure Growth Status 01/20/18 16:44 Other(Specify in comment) Catheter Tip Culture - Preliminary Resulted Objective HEAD AND NECK: No JVD. LUNGS: Clear. CARDIOVASCULAR: Regular S1 and S2 with no gallop. R chest PermCath removed. ABDOMEN: Soft, status post G-tube. EXTREMITIES: There is 1+ pitting edema. Malik Shannon MD January 23, 2018 15:24
--- NOTE | 2018-01-23 15:36 | Nephrology Progress Note ---
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 replace permacath if out pt dialysis to continue by PMD adjust Hydralazine dose Increase flomax- Singer for now 2D echo 30% ej fx SANDRO kidney Suspected nonobstructive nephrolithiasis in the left kidney. monitor renal parameters avoid nephrotoxics After load reduction- optimize renal and cardiac status. Echo: Global left ventricular hypokinesis. Left ventricular ejection fraction estimated to be 30 %. Subjective ROS Limited/Unobtainable: No Constitutional: Reports: malaise Objective Objective Last 24 Hour Vital Signs Date Time Temp Pulse Resp B/P (MAP) Pulse Ox O2 Delivery O2 Flow Rate FiO2 01/23/18 12:00 98.0 80 17 143/71 98 Room Air 98.0 01/23/18 09:17 145/64 01/23/18 08:00 97.8 71 16 145/64 95 Room Air 97.8 01/23/18 07:49 149/72 01/23/18 04:00 97.6 82 20 147/79 97 97.6 01/23/18 00:00 98.6 80 20 132/67 95 98.6 01/22/18 21:39 121/63 01/22/18 20:00 98.1 65 18 121/63 95 98.1 01/22/18 16:00 98.0 78 20 131/75 97 98.0 01/22/18 16:00 76 Intake and Output 01/22/18 01/23/18 19:00 07:00 Intake Total 55 ml 240 ml Balance 55 ml 240 ml IV Total 55 ml Tube Feeding 240 ml # Voids 2 6 # Bowel Movements 2 Laboratory Tests 01/23/18 06:40: Total Creatine Kinase 64 Height (Feet): 5 Height (Inches): 1.00 Weight (Pounds): 185 General Appearance: no apparent distress Objective no other changes VALENTIN RUSH January 23, 2018 15:36
--- NOTE | 2018-01-23 16:41 | Diagnostic Imaging Report ---
Indication: Gastrostomy injection Comparison: None Single view of the abdomen obtained Findings: Gastrostomy tube projects over the upper part of the stomach. There is no leak. There is contrast in the stomach and first part of the duodenum. Pre-existing contrast from prior study noted in the colon. IMPRESSION: Unremarkable gastrostomy injection
[2018-01-23] MEDS: Zinc Oxide Oint 2oz TOPIC SCH (18:03)
--- NOTE | 2018-01-23 18:43 | Infectious Diseases Prog Note ---
Assessment/Plan Assessment/Plan Abx: IV Vanco 01/18- Assessment: Infected HD cath- r.o bacteremia -s/p removal perma cath 01/20; cath tip cx NTD -BCx NTD (peripheral), HD Cath Bcx NTD -wound cx: MRSA (S Vancomycin, Bactrim, Tetracycline) -Echo: no vegetations seen. Aortic valve calcification with decreased cusp excursion c/w aortic stenosis. Mildly thickened mitral valve leaflets with normal excursion. Moderate mitral annulus and aortic root calcification. 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 Will continue to follow along with you. Discussed with RN. Subjective Allergies: Coded Allergies: No Known Allergies (Unverified , 12/19/17) Subjective afebrile no leukocytosis BCx NTD Objective Vital Signs Last 24 Hour Vital Signs Date Time Temp Pulse Resp B/P (MAP) Pulse Ox O2 Delivery O2 Flow Rate FiO2 01/23/18 18:13 70 142/86 01/23/18 16:00 97.4 90 16 162/90 98 Room Air 97.4 01/23/18 12:00 98.0 80 17 143/71 98 Room Air 98.0 01/23/18 09:17 145/64 01/23/18 08:00 97.8 71 16 145/64 95 Room Air 97.8 01/23/18 07:49 149/72 01/23/18 04:00 97.6 82 20 147/79 97 97.6 01/23/18 00:00 98.6 80 20 132/67 95 98.6 01/22/18 21:39 121/63 01/22/18 20:00 98.1 65 18 121/63 95 98.1 Height (Feet): 5 Height (Inches): 1.00 Weight (Pounds): 185 Objective HEAD AND NECK: No JVD. LUNGS: Clear. CARDIOVASCULAR: Regular S1 and S2 with no gallop. He has right chest PermCath. ABDOMEN: Soft, status post G-tube. EXTREMITIES: There is 1+ pitting edema s/p removal of HD cath Laboratory Tests Test 01/23/18 06:40 Total Creatine Kinase 64 U/L (26-308) Current Medications Medications (Trade) Dose Ordered Sig/Tiffany Route PRN Reason Start Time Stop Time Status Last Admin Dose Admin Acetaminophen (Tylenol) 650 mg Q4H PRN ORAL Mild Pain/Temp > 100.5 01/23/18 02:00 02/17/18 01:59 Acetaminophen/ Codeine Phosphate (Tylenol #3) 1 tab Q4H PRN ORAL Pain Scale (3-5) 01/23/18 02:45 01/25/18 06:44 Acetaminophen/ Hydrocodone Bitart ([place] 5/325) 1 tab Q4H PRN ORAL Severe Pain (Pain Scale 7-10) 01/23/18 02:45 01/25/18 06:44 Amiodarone HCl (Cordarone) 200 mg DAILY ORAL 01/23/18 09:00 02/17/18 08:59 Apixaban (Eliquis) 2.5 mg BID ORAL 01/23/18 09:00 02/21/18 17:59 01/23/18 17:06 Ascorbic Acid (Vitamin C) 500 mg DAILY ORAL 01/23/18 09:00 02/17/18 08:59 Atorvastatin Calcium (Lipitor) 40 mg BEDTIME ORAL 01/23/18 21:00 02/17/18 20:59 Bisacodyl (Dulcolax) 10 mg DAILYPRN PRN RECTAL Constipation 01/23/18 02:00 02/17/18 01:59 Daptomycin 350 mg/ Sodium Chloride 55 ml @ 100 mls/hr QOD@1800 IV 01/24/18 18:00 01/29/18 17:59 Dextrose (Dextrose 50%) 25 ml STAT PRN IV Hypoglycemia 01/23/18 07:30 02/20/18 07:29 Dextrose (Dextrose 50%) 50 ml STAT PRN IV Hypoglycemia 01/23/18 07:30 02/20/18 07:29 Diatrizoate Meglum/ Diatrizoate Sod (Gastrografin) 120 ml ONCE PRN ORAL RADIOLOGY PROCEDURE 01/23/18 16:00 01/25/18 23:59 01/23/18 16:02 Docusate Sodium (Colace) 100 mg TID GT 01/23/18 09:00 02/17/18 08:59 Donepezil HCl (Aricept) 10 mg DAILY ORAL 01/23/18 09:00 02/17/18 08:59 Finasteride (Proscar) 5 mg DAILY ORAL 01/23/18 09:00 02/17/18 08:59 Hydralazine HCl (Apresoline) 25 mg Q8HR GT 01/23/18 06:00 02/18/18 14:29 01/23/18 07:49 Insulin Aspart (NovoLOG) EVERY 6 HOURS SUBQ 01/23/18 00:00 02/18/18 17:59 01/23/18 17:40 Levothyroxine Sodium (Synthroid) 50 mcg DAILY@0630 ORAL 01/23/18 06:30 02/19/18 06:29 01/23/18 07:29 Metoprolol Succinate (Toprol XL) 25 mg DAILY ORAL 01/23/18 09:00 02/17/18 08:59 Nitroglycerin (Nitro-Bid) 1 inch DAILY TOPIC 01/23/18 09:00 02/18/18 08:59 01/23/18 09:17 Saccharomyces Boulardii (Florastor) 250 mg DAILY ORAL 01/23/18 09:00 02/17/18 08:59 Sennosides (Senokot) 1 tab QHS GT 01/23/18 21:00 02/17/18 20:59 Tamsulosin HCl (Flomax) 0.4 mg BID ORAL 01/23/18 09:00 02/17/18 20:59 01/23/18 17:06 Zinc Oxide (Zinc Oxide) 1 applic BID TOPIC 01/23/18 18:00 02/22/18 17:59 01/23/18 18:03 Sarah Borjas M.D. January 23, 2018 18:43
[2018-01-23] MEDS ORDERED: Atorvastatin 20mg tab ORAL SCH (21:00)
[2018-01-23] MEDS ORDERED: Sennosides 8.6mg GT SCH (21:00)
[2018-01-24] VITALS: BP 129/66
[2018-01-24 04:00] VITALS: BP 149/77
[2018-01-24] MEDS ORDERED: HydrALAZINE 25mg tab GT SCH (06:00)
[2018-01-24] MEDS: NovoLOG Insulin Flexpen SUBQ SCH ×3 (06:06→17:22)
--- NOTE | 2018-01-24 07:34 | General Progress Note ---
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, stage IV ICD Codes: I13.0 - Hypertensive heart and chronic kidney disease with heart failure and stage 1 through stage 4 chronic kidney disease, or unspecified chronic kidney disease; N18.4 - Chronic kidney disease, stage 4 (severe) SNOMED: 290055473 (4) Renal failure (ARF), acute on chronic ICD Codes: N17.9 - Acute kidney failure, unspecified; N18.9 - Chronic kidney disease, unspecified SNOMED: 451241158 Assessment/Plan no need for basal insulin for now continue NISS tight glycemic control is not indicated continue Levothyroxine 50 mcg daily repeat TSH in 2 weeks Subjective ROS Limited/Unobtainable: Yes Allergies: Coded Allergies: No Known Allergies (Unverified , 12/19/17) Subjective events noted BG values improved w/o hypoglycemia Objective Last 24 Hour Vital Signs Date Time Temp Pulse Resp B/P (MAP) Pulse Ox O2 Delivery O2 Flow Rate FiO2 01/24/18 06:28 149/77 01/24/18 04:00 97.6 71 20 149/77 98 Room Air 97.6 01/24/18 04:00 Room Air 01/24/18 00:00 97.4 66 20 129/66 98 Room Air 97.4 01/24/18 00:00 Room Air 01/23/18 21:39 148/95 01/23/18 20:00 98.1 72 20 148/95 98 Room Air 98.1 01/23/18 20:00 Room Air 01/23/18 18:13 70 142/86 01/23/18 16:00 97.4 90 16 162/90 98 Room Air 97.4 01/23/18 12:00 98.0 80 17 143/71 98 Room Air 98.0 01/23/18 09:17 145/64 01/23/18 08:00 97.8 71 16 145/64 95 Room Air 97.8 01/23/18 07:49 149/72 Intake and Output 01/23/18 01/24/18 19:00 07:00 Intake Total 240 ml 490 ml Balance 240 ml 490 ml Free Water 120 ml 160 ml Tube Feeding 120 ml 330 ml # Voids 2 # Bowel Movements 2 1 Laboratory Tests 01/23/18 23:30: Urine Eosinophils None seen Height (Feet): 5 Height (Inches): 1.00 Weight (Pounds): 187 General Appearance: no apparent distress Neck: normal alignment Cardiovascular: normal rate Respiratory/Chest: lungs clear Abdomen: normal bowel sounds, other - PEG Pelvis: normal external exam Edema: 1+ Arm (L), 1+ Arm (R), 1+ Leg (L), 1+ Leg (R), 1+ Pedal (L), 1+ Pedal ( R), 1+ Generalized Objective Current Medications Medications (Trade) Dose Ordered Sig/Tiffany Route PRN Reason Start Time Stop Time Status Last Admin Dose Admin Acetaminophen (Tylenol) 650 mg Q4H PRN ORAL Mild Pain/Temp > 100.5 01/23/18 02:00 02/17/18 01:59 Acetaminophen/ Codeine Phosphate (Tylenol #3) 1 tab Q4H PRN ORAL Pain Scale (3-5) 01/23/18 02:45 01/25/18 06:44 Acetaminophen/ Hydrocodone Bitart ([place] 5/325) 1 tab Q4H PRN ORAL Severe Pain (Pain Scale 7-10) 01/23/18 02:45 01/25/18 06:44 Amiodarone HCl (Cordarone) 200 mg DAILY ORAL 01/23/18 09:00 02/17/18 08:59 Apixaban (Eliquis) 2.5 mg BID ORAL 01/23/18 09:00 02/21/18 17:59 01/23/18 17:06 Ascorbic Acid (Vitamin C) 500 mg DAILY ORAL 01/23/18 09:00 02/17/18 08:59 Atorvastatin Calcium (Lipitor) 40 mg BEDTIME ORAL 01/23/18 21:00 02/17/18 20:59 01/23/18 21:39 Bisacodyl (Dulcolax) 10 mg DAILYPRN PRN RECTAL Constipation 01/23/18 02:00 02/17/18 01:59 Daptomycin 350 mg/ Sodium Chloride 55 ml @ 100 mls/hr QOD@1800 IV 01/24/18 18:00 01/29/18 17:59 Dextrose (Dextrose 50%) 25 ml STAT PRN IV Hypoglycemia 01/23/18 07:30 02/20/18 07:29 Dextrose (Dextrose 50%) 50 ml STAT PRN IV Hypoglycemia 01/23/18 07:30 02/20/18 07:29 Diatrizoate Meglum/ Diatrizoate Sod (Gastrografin) 120 ml ONCE PRN ORAL RADIOLOGY PROCEDURE 01/23/18 16:00 01/25/18 23:59 01/23/18 16:02 Docusate Sodium (Colace) 100 mg TID GT 01/23/18 09:00 02/17/18 08:59 Donepezil HCl (Aricept) 10 mg DAILY ORAL 01/23/18 09:00 02/17/18 08:59 Finasteride (Proscar) 5 mg DAILY ORAL 01/23/18 09:00 02/17/18 08:59 Hydralazine HCl (Apresoline) 25 mg Q8HR GT 01/24/18 06:00 02/23/18 05:59 01/24/18 06:28 Insulin Aspart (NovoLOG) EVERY 6 HOURS SUBQ 01/23/18 00:00 02/18/18 17:59 01/24/18 06:06 Levothyroxine Sodium (Synthroid) 50 mcg DAILY@0630 ORAL 01/23/18 06:30 02/19/18 06:29 01/24/18 06:09 Metoprolol Succinate (Toprol XL) 25 mg DAILY ORAL 01/23/18 09:00 02/17/18 08:59 Nitroglycerin (Nitro-Bid) 1 inch DAILY TOPIC 01/23/18 09:00 02/18/18 08:59 01/23/18 09:17 Saccharomyces Boulardii (Florastor) 250 mg DAILY ORAL 01/23/18 09:00 02/17/18 08:59 Sennosides (Senokot) 1 tab QHS GT 01/23/18 21:00 02/17/18 20:59 Tamsulosin HCl (Flomax) 0.4 mg BID ORAL 01/23/18 09:00 02/17/18 20:59 01/23/18 17:06 Zinc Oxide (Zinc Oxide) 1 applic BID TOPIC 01/23/18 18:00 02/22/18 17:59 01/23/18 18:03 Item Value Date Time Bedside Blood Glucose 168 mg/dl H 01/24/18 0606 Bedside Blood Glucose 161 mg/dl H 01/24/18 0000 Bedside Blood Glucose 203 mg/dl H 01/23/18 1740 Bedside Blood Glucose 155 mg/dl H 01/23/18 1200 Bedside Blood Glucose 253 mg/dl H 01/23/18 0731 Bedside Blood Glucose 253 mg/dl H 01/23/18 0600 ANITA WANG January 24, 2018 07:34
[2018-01-24 08:00] VITALS: BP 158/83
[2018-01-24] MEDS: Docusate 100mg/10ml Liq GT SCH ×4 (09:00→17:25)
[2018-01-24] MEDS ORDERED: DAPTOmycin 350 MG in NS 55 ML IV SCH ×2 (09:00→18:00)
[2018-01-24 09:16] LABS: BASOPHILS % (AUTO) 1.1 % (0.0-2.0); EOSINOPHILS % (AUTO) 3.3 % (0.0-3.0); HEMOGLOBIN 12.8 G/DL (14.2-18.0); LYMPHOCYTES % (AUTO) 17.3 % (20.0-45.0); MEAN CORPUSCULAR VOLUME 99 FL (80-99); MONOCYTES % (AUTO) 9.7 % (1.0-10.0); NEUTROPHILS % (AUTO) 68.7 % (45.0-75.0); PLATELET COUNT 238 K/UL (150-450); RED BLOOD COUNT 3.84 M/UL (4.70-6.10); RED CELL DISTRIBUTION WIDTH 13.2 % (11.6-14.8); WHITE BLOOD COUNT 8.5 K/UL (4.8-10.8)
--- NOTE | 2018-01-24 09:17 | General Progress Note ---
Assessment/Plan Status: stable Assessment/Plan 1. Infected right upper chest PermCath. 2. End-stage renal disease. 3. Diabetes type 2. 4. Hypercholesterolemia. 5. Cardiomyopathy. 6. Atrial fibrillation. 7. Congestive heart failure. 8. Hypertension. 9. Alzheimer dementia. 10. Benign prostatic hypertrophy. 11. Lack of capacity to make medical decisions TREATMENT: DC HD access , will monitor for need for Re-insertion Notes from Cardiology, Nephrology, Vascular Sx and ID are reviewed Given the lack of availability of the Next keen, and the urgency for the procedure to remove the Cath, it is justified to proceed for removal/procedure at this time Re start low dose Lantus Self- Extraction of Fisher Ok to monitor off fisher Re-insert if Volume > 400 Subjective ROS Limited/Unobtainable: Yes Allergies: Coded Allergies: No Known Allergies (Unverified , 12/19/17) Objective Last 24 Hour Vital Signs Date Time Temp Pulse Resp B/P (MAP) Pulse Ox O2 Delivery O2 Flow Rate FiO2 01/24/18 06:28 149/77 01/24/18 04:00 97.6 71 20 149/77 98 Room Air 97.6 01/24/18 04:00 Room Air 01/24/18 00:00 97.4 66 20 129/66 98 Room Air 97.4 01/24/18 00:00 Room Air 01/23/18 21:39 148/95 01/23/18 20:00 98.1 72 20 148/95 98 Room Air 98.1 01/23/18 20:00 Room Air 01/23/18 18:13 70 142/86 01/23/18 16:00 97.4 90 16 162/90 98 Room Air 97.4 01/23/18 12:00 98.0 80 17 143/71 98 Room Air 98.0 01/23/18 09:17 145/64 Intake and Output 01/23/18 01/24/18 19:00 07:00 Intake Total 240 ml 490 ml Balance 240 ml 490 ml Free Water 120 ml 160 ml Tube Feeding 120 ml 330 ml # Voids 2 # Bowel Movements 2 1 Laboratory Tests 01/23/18 23:30: Urine Eosinophils None seen 01/24/18 07:15: White Blood Count [Pending], Red Blood Count [Pending], Hemoglobin [Pending], Hematocrit [Pending], Mean Corpuscular Volume [Pending], Mean Corpuscular Hemoglobin [Pending], Mean Corpuscular Hemoglobin Concent [Pending], Red Cell Distribution Width [Pending], Platelet Count [Pending], Mean Platelet Volume [ Pending], Neutrophils (%) (Auto) [Pending], Lymphocytes (%) (Auto) [Pending], Monocytes (%) (Auto) [Pending], Eosinophils (%) (Auto) [Pending], Basophils (%) (Auto) [Pending], Sodium Level [Pending], Potassium Level [Pending], Chloride Level [Pending], Carbon Dioxide Level [Pending], Blood Urea Nitrogen [Pending], Creatinine [Pending], Estimat Glomerular Filtration Rate [Pending], Glucose Level [Pending], Calcium Level [Pending], Phosphorus Level [Pending], Magnesium Level [Pending] Height (Feet): 5 Height (Inches): 1.00 Weight (Pounds): 187 General Appearance: no apparent distress EENT: PERRL/EOMI Neck: supple Cardiovascular: normal rate Abdomen: soft Extremities: other - atrophied musculature Neurologic: disoriented Courtney Weeks MD January 24, 2018 09:17
[2018-01-24] MEDS: Amiodarone 200mg tab ORAL SCH (09:30)
[2018-01-24] MEDS: Ascorbic Acid 500mg tab ORAL SCH (09:30)
[2018-01-24] MEDS: Donepezil 10mg tab ORAL SCH (09:30)
[2018-01-24] MEDS: Metoprolol Succinate XL 25mg tab ORAL SCH (09:31)
[2018-01-24] MEDS: Nitroglycerin 2% oint pkt TOPIC SCH (09:31)
[2018-01-24] MEDS: Zinc Oxide Oint 2oz TOPIC SCH ×2 (09:33→17:25)
[2018-01-24 09:46] LABS: ANION GAP 12 mmol/L (5-15); BLOOD UREA NITROGEN 80 mg/dL (7-18); CALCIUM 9.3 MG/DL (8.5-10.1); CARBON DIOXIDE 25 MMOL/L (21-32); CHLORIDE 105 MMOL/L (98-107); CREATININE 2.4 MG/DL (0.55-1.30); PHOSPHORUS 4.7 MG/DL (2.5-4.9); POTASSIUM 3.9 MMOL/L (3.5-5.1); SODIUM 142 MMOL/L (136-145)
--- NOTE | 2018-01-24 10:35 | Infectious Diseases Prog Note ---
Assessment/Plan Assessment/Plan Assessment: Infected HD cath- r.o bacteremia -s/p removal perma cath 01/20; cath tip cx :GPC -BCx NTD (peripheral), HD Cath Bcx NTD -wound cx: MRSA (S Vancomycin, Bactrim, Tetracycline) -Echo: no vegetations seen. Aortic valve calcification with decreased cusp excursion c/w aortic stenosis. Mildly thickened mitral valve leaflets with normal excursion. Moderate mitral annulus and aortic root calcification. Abd wound- no sings of infection -wound cx: MRSA, CONS (colonizers) Afebrile, no leukocytosis ESRD on HD -renal US: Suspected nonobstructive nephrolithiasis in the left kidney.\ Stroke w/ hemiparesis dementia nonverbal HTN HLD cardiomyopathy Aflutter contractures, DM2 dysphagia s/p PEG anemia CHF longterm resident VRE colonized Plan: -Continue IV Daptomycin 4mg/kg q48hrs abx d # 03/21 for MRSA HD cath infection -01/22 SP IV Vancomcyin #5 (d/c due to supratherapeutic vanco levels) -if Bcx positive, then extend duration to 14 days and increase dose to 6mg/kg -monitor CPK -Placement of new permanent HD catheter should be done after Bcx negative for 72 hours and placed in opposite site -f/u Blood cx -Monitor CBC/BMP, temperatures Subjective Constitutional: Denies: no symptoms, fever, chills, fatigue, anorexia, drenching sweats, other Allergies: Coded Allergies: No Known Allergies (Unverified , 12/19/17) Objective Vital Signs Last 24 Hour Vital Signs Date Time Temp Pulse Resp B/P (MAP) Pulse Ox O2 Delivery O2 Flow Rate FiO2 01/24/18 09:31 158/83 01/24/18 09:31 81 158/83 01/24/18 08:00 97.2 81 18 158/83 97 Room Air 97.2 01/24/18 06:28 149/77 01/24/18 04:00 97.6 71 20 149/77 98 Room Air 97.6 01/24/18 04:00 Room Air 01/24/18 00:00 97.4 66 20 129/66 98 Room Air 97.4 01/24/18 00:00 Room Air 01/23/18 21:39 148/95 01/23/18 20:00 98.1 72 20 148/95 98 Room Air 98.1 01/23/18 20:00 Room Air 01/23/18 18:13 70 142/86 01/23/18 16:00 97.4 90 16 162/90 98 Room Air 97.4 01/23/18 12:00 98.0 80 17 143/71 98 Room Air 98.0 Height (Feet): 5 Height (Inches): 1.00 Weight (Pounds): 187 HEENT: mucous membranes moist Respiratory/Chest: normal breath sounds Cardiovascular: regular rhythm Abdomen: no organomegaly Laboratory Tests Test 01/23/18 23:30 01/24/18 07:15 Urine Eosinophils None seen White Blood Count 8.5 K/UL (4.8-10.8) Red Blood Count 3.84 M/UL (4.70-6.10) L Hemoglobin 12.8 G/DL (14.2-18.0) L Hematocrit 38.0 % (42.0-52.0) L Mean Corpuscular Volume 99 FL (80-99) Mean Corpuscular Hemoglobin 33.2 PG (27.0-31.0) H Mean Corpuscular Hemoglobin Concent 33.6 G/DL (32.0-36.0) Red Cell Distribution Width 13.2 % (11.6-14.8) Platelet Count 238 K/UL (150-450) Mean Platelet Volume 7.4 FL (6.5-10.1) Neutrophils (%) (Auto) 68.7 % (45.0-75.0) Lymphocytes (%) (Auto) 17.3 % (20.0-45.0) L Monocytes (%) (Auto) 9.7 % (1.0-10.0) Eosinophils (%) (Auto) 3.3 % (0.0-3.0) H Basophils (%) (Auto) 1.1 % (0.0-2.0) Sodium Level 142 MMOL/L (136-145) Potassium Level 3.9 MMOL/L (3.5-5.1) Chloride Level 105 MMOL/L (98-107) Carbon Dioxide Level 25 MMOL/L (21-32) Anion Gap 12 mmol/L (5-15) Blood Urea Nitrogen 80 mg/dL (7-18) H Creatinine 2.4 MG/DL (0.55-1.30) H Estimat Glomerular Filtration Rate mL/min (>60) Glucose Level 198 MG/DL (74-106) H Calcium Level 9.3 MG/DL (8.5-10.1) Phosphorus Level 4.7 MG/DL (2.5-4.9) Magnesium Level 2.1 MG/DL (1.8-2.4) Current Medications Medications (Trade) Dose Ordered Sig/Tiffany Route PRN Reason Start Time Stop Time Status Last Admin Dose Admin Acetaminophen (Tylenol) 650 mg Q4H PRN ORAL Mild Pain/Temp > 100.5 01/23/18 02:00 02/17/18 01:59 Acetaminophen/ Codeine Phosphate (Tylenol #3) 1 tab Q4H PRN ORAL Pain Scale (3-5) 01/23/18 02:45 01/25/18 06:44 Acetaminophen/ Hydrocodone Bitart ([place] 5/325) 1 tab Q4H PRN ORAL Severe Pain (Pain Scale 7-10) 01/23/18 02:45 01/25/18 06:44 Amiodarone HCl (Cordarone) 200 mg DAILY ORAL 01/23/18 09:00 02/17/18 08:59 01/24/18 09:30 Apixaban (Eliquis) 2.5 mg BID ORAL 01/23/18 09:00 02/21/18 17:59 01/23/18 17:06 Ascorbic Acid (Vitamin C) 500 mg DAILY ORAL 01/23/18 09:00 02/17/18 08:59 01/24/18 09:30 Atorvastatin Calcium (Lipitor) 40 mg BEDTIME ORAL 01/23/18 21:00 02/17/18 20:59 01/23/18 21:39 Bisacodyl (Dulcolax) 10 mg DAILYPRN PRN RECTAL Constipation 01/23/18 02:00 02/17/18 01:59 Daptomycin 350 mg/ Sodium Chloride 55 ml @ 100 mls/hr QOD@1800 IV 01/24/18 18:00 01/29/18 17:59 Dextrose (Dextrose 50%) 25 ml STAT PRN IV Hypoglycemia 01/23/18 07:30 02/20/18 07:29 Dextrose (Dextrose 50%) 50 ml STAT PRN IV Hypoglycemia 01/23/18 07:30 02/20/18 07:29 Diatrizoate Meglum/ Diatrizoate Sod (Gastrografin) 120 ml ONCE PRN ORAL RADIOLOGY PROCEDURE 01/23/18 16:00 01/25/18 23:59 01/23/18 16:02 Docusate Sodium (Colace) 100 mg TID GT 01/23/18 09:00 02/17/18 08:59 Donepezil HCl (Aricept) 10 mg DAILY ORAL 01/23/18 09:00 02/17/18 08:59 01/24/18 09:30 Finasteride (Proscar) 5 mg DAILY ORAL 01/23/18 09:00 02/17/18 08:59 01/24/18 09:31 Hydralazine HCl (Apresoline) 25 mg Q8HR GT 01/24/18 06:00 02/23/18 05:59 01/24/18 06:28 Insulin Aspart (NovoLOG) EVERY 6 HOURS SUBQ 01/23/18 00:00 02/18/18 17:59 01/24/18 06:06 Levothyroxine Sodium (Synthroid) 50 mcg DAILY@0630 ORAL 01/23/18 06:30 02/19/18 06:29 01/24/18 06:09 Metoprolol Succinate (Toprol XL) 25 mg DAILY ORAL 01/23/18 09:00 02/17/18 08:59 01/24/18 09:31 Nitroglycerin (Nitro-Bid) 1 inch DAILY TOPIC 01/23/18 09:00 02/18/18 08:59 01/24/18 09:31 Saccharomyces Boulardii (Florastor) 250 mg DAILY ORAL 01/23/18 09:00 02/17/18 08:59 01/24/18 09:30 Sennosides (Senokot) 1 tab QHS GT 01/23/18 21:00 02/17/18 20:59 Tamsulosin HCl (Flomax) 0.4 mg BID ORAL 01/23/18 09:00 02/17/18 20:59 01/23/18 17:06 Zinc Oxide (Zinc Oxide) 1 applic BID TOPIC 01/23/18 18:00 02/22/18 17:59 01/24/18 09:33 Alberto Little MD January 24, 2018 10:35
--- NOTE | 2018-01-24 11:08 | Nephrology Progress Note ---
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 replace permacath if out pt dialysis to continue by PMD adjust Hydralazine dose Increase flomax- [place] for now 2D echo 30% ej fx SANDRO kidney Suspected nonobstructive nephrolithiasis in the left kidney. monitor renal parameters avoid nephrotoxics After load reduction- hydralazine optimize renal and cardiac status. Echo: Global left ventricular hypokinesis. Left ventricular ejection fraction estimated to be 30 %. Subjective ROS Limited/Unobtainable: No Objective Objective Last 24 Hour Vital Signs Date Time Temp Pulse Resp B/P (MAP) Pulse Ox O2 Delivery O2 Flow Rate FiO2 01/24/18 09:31 158/83 01/24/18 09:31 81 158/83 01/24/18 08:00 97.2 81 18 158/83 97 Room Air 97.2 01/24/18 06:28 149/77 01/24/18 04:00 97.6 71 20 149/77 98 Room Air 97.6 01/24/18 04:00 Room Air 01/24/18 00:00 97.4 66 20 129/66 98 Room Air 97.4 01/24/18 00:00 Room Air 01/23/18 21:39 148/95 01/23/18 20:00 98.1 72 20 148/95 98 Room Air 98.1 01/23/18 20:00 Room Air 01/23/18 18:13 70 142/86 01/23/18 16:00 97.4 90 16 162/90 98 Room Air 97.4 01/23/18 12:00 98.0 80 17 143/71 98 Room Air 98.0 Intake and Output 01/23/18 01/24/18 19:00 07:00 Intake Total 240 ml 490 ml Balance 240 ml 490 ml Free Water 120 ml 160 ml Tube Feeding 120 ml 330 ml # Voids 2 # Bowel Movements 2 1 Laboratory Tests 01/23/18 23:30: Urine Eosinophils None seen 01/24/18 07:15: White Blood Count 8.5, Red Blood Count 3.84L, Hemoglobin 12.8L, Hematocrit 38.0L , Mean Corpuscular Volume 99, Mean Corpuscular Hemoglobin 33.2H, Mean Corpuscular Hemoglobin Concent 33.6, Red Cell Distribution Width 13.2, Platelet Count 238, Mean Platelet Volume 7.4, Neutrophils (%) (Auto) 68.7, Lymphocytes (% ) (Auto) 17.3L, Monocytes (%) (Auto) 9.7, Eosinophils (%) (Auto) 3.3H, Basophils (%) (Auto) 1.1, Sodium Level 142, Potassium Level 3.9, Chloride Level 105, Carbon Dioxide Level 25, Anion Gap 12, Blood Urea Nitrogen 80H, Creatinine 2.4H, Estimat Glomerular Filtration Rate , Glucose Level 198H, Calcium Level 9.3 , Phosphorus Level 4.7, Magnesium Level 2.1 Height (Feet): 5 Height (Inches): 1.00 Weight (Pounds): 187 General Appearance: no apparent distress Objective no other changes VALENTIN RUSH January 24, 2018 11:08
[2018-01-24] MEDS: Eliquis 2.5mg tablet ORAL SCH ×2 (11:23→17:25)
[2018-01-24] MEDS: Tamsulosin 0.4mg cap ORAL SCH ×2 (11:23→17:25)
[2018-01-24] MEDS: HydrALAZINE 25mg tab GT SCH ×2 (11:58→17:26)
[2018-01-24 12:00] VITALS: BP 154/80
--- NOTE | 2018-01-24 14:37 | Cardiac Electrophysiology PN ---
Assessment/Plan Assessment/Plan 1. Atrial flutter. Continue amiodarone 200 mg daily, Toprol-XL 25 mg daily and Eliquis 2.5 mg b.i.d. 2. Hypertension. Continue Hydralazine 25 q6 and Toprol-XL 25 mg 3. Cardiomyopathy, ejection fraction of only 30%, on hemodialysis and Cozaar and Toprol-XL 25 mg daily. In view of his overall condition, he is not a candidate for defibrillator placement. 4. ESRD on HD with discharge from the PermCath, s/p REMOVAL 5. Hyperlipidemia, on Lipitor. 6. Dysphagia, S/P PEF replacement DW RN Subjective Subjective Comfortable in NAD . G tube was replaced at bedside Objective Last 24 Hour Vital Signs Date Time Temp Pulse Resp B/P (MAP) Pulse Ox O2 Delivery O2 Flow Rate FiO2 01/24/18 12:00 98.6 80 18 154/80 97 Room Air 98.6 01/24/18 11:58 154/80 01/24/18 09:31 158/83 01/24/18 09:31 81 158/83 01/24/18 08:00 97.2 81 18 158/83 97 Room Air 97.2 01/24/18 06:28 149/77 01/24/18 04:00 97.6 71 20 149/77 98 Room Air 97.6 01/24/18 04:00 Room Air 01/24/18 00:00 97.4 66 20 129/66 98 Room Air 97.4 01/24/18 00:00 Room Air 01/23/18 21:39 148/95 01/23/18 20:00 98.1 72 20 148/95 98 Room Air 98.1 01/23/18 20:00 Room Air 01/23/18 18:13 70 142/86 01/23/18 16:00 97.4 90 16 162/90 98 Room Air 97.4 Intake and Output 01/23/18 01/24/18 19:00 07:00 Intake Total 240 ml 490 ml Balance 240 ml 490 ml Free Water 120 ml 160 ml Tube Feeding 120 ml 330 ml # Voids 2 # Bowel Movements 2 1 Laboratory Tests Test 01/23/18 23:30 01/24/18 07:15 Urine Eosinophils None seen White Blood Count 8.5 K/UL (4.8-10.8) Red Blood Count 3.84 M/UL (4.70-6.10) L Hemoglobin 12.8 G/DL (14.2-18.0) L Hematocrit 38.0 % (42.0-52.0) L Mean Corpuscular Volume 99 FL (80-99) Mean Corpuscular Hemoglobin 33.2 PG (27.0-31.0) H Mean Corpuscular Hemoglobin Concent 33.6 G/DL (32.0-36.0) Red Cell Distribution Width 13.2 % (11.6-14.8) Platelet Count 238 K/UL (150-450) Mean Platelet Volume 7.4 FL (6.5-10.1) Neutrophils (%) (Auto) 68.7 % (45.0-75.0) Lymphocytes (%) (Auto) 17.3 % (20.0-45.0) L Monocytes (%) (Auto) 9.7 % (1.0-10.0) Eosinophils (%) (Auto) 3.3 % (0.0-3.0) H Basophils (%) (Auto) 1.1 % (0.0-2.0) Sodium Level 142 MMOL/L (136-145) Potassium Level 3.9 MMOL/L (3.5-5.1) Chloride Level 105 MMOL/L (98-107) Carbon Dioxide Level 25 MMOL/L (21-32) Anion Gap 12 mmol/L (5-15) Blood Urea Nitrogen 80 mg/dL (7-18) H Creatinine 2.4 MG/DL (0.55-1.30) H Estimat Glomerular Filtration Rate mL/min (>60) Glucose Level 198 MG/DL (74-106) H Calcium Level 9.3 MG/DL (8.5-10.1) Phosphorus Level 4.7 MG/DL (2.5-4.9) Magnesium Level 2.1 MG/DL (1.8-2.4) Objective HEAD AND NECK: No JVD. LUNGS: Clear. CARDIOVASCULAR: Regular S1 and S2 with no gallop. R chest PermCath removed. ABDOMEN: Soft, status post G-tube. EXTREMITIES: There is 1+ pitting edema. Malik Shannon MD January 24, 2018 14:37
[2018-01-24 16:00] VITALS: BP 148/79
[2018-01-24 20:00] VITALS: BP 156/81
[2018-01-24] MEDS: Sennosides 8.6mg GT SCH (21:43)
[2018-01-24] MEDS: Atorvastatin 20mg tab ORAL SCH (21:43)
[2018-01-25] VITALS: BP 137/73
[2018-01-25] MEDS: HydrALAZINE 25mg tab GT SCH ×5 (00:11→23:59)
[2018-01-25] MEDS: NovoLOG Insulin Flexpen SUBQ SCH ×4 (00:12→18:19)
[2018-01-25 04:00] VITALS: BP 125/52
--- NOTE | 2018-01-25 06:53 | General Progress Note ---
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, stage IV ICD Codes: I13.0 - Hypertensive heart and chronic kidney disease with heart failure and stage 1 through stage 4 chronic kidney disease, or unspecified chronic kidney disease; N18.4 - Chronic kidney disease, stage 4 (severe) SNOMED: 906647560 (4) Renal failure (ARF), acute on chronic ICD Codes: N17.9 - Acute kidney failure, unspecified; N18.9 - Chronic kidney disease, unspecified SNOMED: 232561441 Assessment/Plan no need for basal insulin for now continue NISS tight glycemic control is not indicated continue Levothyroxine 50 mcg daily repeat TSH in 2 weeks Subjective ROS Limited/Unobtainable: Yes Allergies: Coded Allergies: No Known Allergies (Unverified , 12/19/17) Subjective events noted BG values improved w/o hypoglycemia Objective Last 24 Hour Vital Signs Date Time Temp Pulse Resp B/P (MAP) Pulse Ox O2 Delivery O2 Flow Rate FiO2 01/25/18 06:45 125/52 01/25/18 04:00 97.7 63 20 125/52 100 Room Air 97.7 01/25/18 00:11 156/81 01/25/18 00:00 98.0 91 20 137/73 99 Room Air 98.0 01/24/18 20:00 98.5 102 20 156/81 99 Room Air 98.5 01/24/18 17:26 148/79 01/24/18 16:00 98.1 76 18 148/79 97 Room Air 98.1 01/24/18 12:00 98.6 80 18 154/80 97 Room Air 98.6 01/24/18 11:58 154/80 01/24/18 09:31 158/83 01/24/18 09:31 81 158/83 01/24/18 08:00 97.2 81 18 158/83 97 Room Air 97.2 Intake and Output 01/24/18 01/25/18 19:00 07:00 # Voids 5 # Bowel Movements 1 Laboratory Tests 01/24/18 07:15: White Blood Count 8.5, Red Blood Count 3.84L, Hemoglobin 12.8L, Hematocrit 38.0L , Mean Corpuscular Volume 99, Mean Corpuscular Hemoglobin 33.2H, Mean Corpuscular Hemoglobin Concent 33.6, Red Cell Distribution Width 13.2, Platelet Count 238, Mean Platelet Volume 7.4, Neutrophils (%) (Auto) 68.7, Lymphocytes (% ) (Auto) 17.3L, Monocytes (%) (Auto) 9.7, Eosinophils (%) (Auto) 3.3H, Basophils (%) (Auto) 1.1, Sodium Level 142, Potassium Level 3.9, Chloride Level 105, Carbon Dioxide Level 25, Anion Gap 12, Blood Urea Nitrogen 80H, Creatinine 2.4H, Estimat Glomerular Filtration Rate , Glucose Level 198H, Calcium Level 9.3 , Phosphorus Level 4.7, Magnesium Level 2.1 Height (Feet): 5 Height (Inches): 1.00 Weight (Pounds): 187 General Appearance: no apparent distress Neck: normal alignment Cardiovascular: normal rate Respiratory/Chest: decreased breath sounds Abdomen: normal bowel sounds Pelvis: normal external exam Edema: 1+ Arm (L), 1+ Arm (R), 1+ Leg (L), 1+ Leg (R), 1+ Pedal (L), 1+ Pedal ( R), 1+ Generalized Objective Current Medications Medications (Trade) Dose Ordered Sig/Tiffany Route PRN Reason Start Time Stop Time Status Last Admin Dose Admin Acetaminophen (Tylenol) 650 mg Q4H PRN ORAL Mild Pain/Temp > 100.5 01/23/18 02:00 02/17/18 01:59 Amiodarone HCl (Cordarone) 200 mg DAILY ORAL 01/25/18 09:00 02/17/18 08:59 Apixaban (Eliquis) 2.5 mg BID ORAL 01/24/18 18:00 02/21/18 17:59 01/24/18 17:25 Ascorbic Acid (Vitamin C) 500 mg DAILY ORAL 01/25/18 09:00 02/17/18 08:59 Atorvastatin Calcium (Lipitor) 40 mg BEDTIME ORAL 01/24/18 21:00 02/17/18 20:59 01/24/18 21:43 Bisacodyl (Dulcolax) 10 mg DAILYPRN PRN RECTAL Constipation 01/23/18 02:00 02/17/18 01:59 Dextrose (Dextrose 50%) 25 ml STAT PRN IV Hypoglycemia 01/23/18 07:30 02/20/18 07:29 Dextrose (Dextrose 50%) 50 ml STAT PRN IV Hypoglycemia 01/23/18 07:30 02/20/18 07:29 Diatrizoate Meglum/ Diatrizoate Sod (Gastrografin) 120 ml ONCE PRN ORAL RADIOLOGY PROCEDURE 01/23/18 16:00 01/25/18 23:59 01/23/18 16:02 Docusate Sodium (Colace) 100 mg TID GT 01/24/18 13:00 02/17/18 12:59 Donepezil HCl (Aricept) 10 mg DAILY ORAL 01/25/18 09:00 02/17/18 08:59 Finasteride (Proscar) 5 mg DAILY ORAL 01/23/18 09:00 02/17/18 08:59 01/24/18 09:31 Hydralazine HCl (Apresoline) 25 mg Q6HR GT 01/24/18 12:00 02/23/18 05:59 01/25/18 06:45 Insulin Aspart (NovoLOG) EVERY 6 HOURS SUBQ 01/23/18 00:00 02/18/18 17:59 01/25/18 06:46 Levothyroxine Sodium (Synthroid) 50 mcg DAILY@0630 ORAL 01/23/18 06:30 02/19/18 06:29 01/25/18 06:45 Metoprolol Succinate (Toprol XL) 25 mg DAILY ORAL 01/23/18 09:00 02/17/18 08:59 01/24/18 09:31 Nitroglycerin (Nitro-Bid) 1 inch DAILY TOPIC 01/23/18 09:00 02/18/18 08:59 01/24/18 09:31 Saccharomyces Boulardii (Florastor) 250 mg DAILY ORAL 01/25/18 09:00 02/17/18 08:59 Sennosides (Senokot) 1 tab QHS GT 01/24/18 21:00 02/23/18 20:59 01/24/18 21:43 Tamsulosin HCl (Flomax) 0.4 mg BID ORAL 01/24/18 18:00 02/17/18 17:59 01/24/18 17:25 Zinc Oxide (Zinc Oxide) 1 applic BID TOPIC 01/23/18 18:00 02/22/18 17:59 01/24/18 17:25 Item Value Date Time Bedside Blood Glucose 212 mg/dl H 01/25/18 0646 Bedside Blood Glucose 188 mg/dl H 01/25/18 0012 Bedside Blood Glucose 220 mg/dl H 01/24/18 1800 Bedside Blood Glucose 213 mg/dl H 01/24/18 1200 Bedside Blood Glucose 168 mg/dl H 01/24/18 0606 Bedside Blood Glucose 161 mg/dl H 01/24/18 0000 ANITA WANG January 25, 2018 06:53
[2018-01-25 08:00] VITALS: BP 129/73
[2018-01-25] MEDS: Docusate 100mg/10ml Liq GT SCH ×3 (09:00→18:00)
[2018-01-25] MEDS: Zinc Oxide Oint 2oz TOPIC SCH ×2 (10:09→18:12)
[2018-01-25] MEDS: Donepezil 10mg tab ORAL SCH (10:10)
[2018-01-25] MEDS: Tamsulosin 0.4mg cap ORAL SCH ×2 (10:10→18:11)
[2018-01-25] MEDS: Ascorbic Acid 500mg tab ORAL SCH (10:10)
[2018-01-25] MEDS: Eliquis 2.5mg tablet ORAL SCH ×2 (10:11→18:11)
[2018-01-25] MEDS: Amiodarone 200mg tab ORAL SCH (10:11)
[2018-01-25] MEDS: Metoprolol Succinate XL 25mg tab ORAL SCH (10:52)
[2018-01-25] MEDS: Nitroglycerin 2% oint pkt TOPIC SCH (10:53)
--- NOTE | 2018-01-25 11:33 | General Progress Note ---
Assessment/Plan Status: stable Assessment/Plan 1. Infected right upper chest PermCath. 2. End-stage renal disease- transiet- off HD for now- will monitor renal function 3. Diabetes type 2. 4. Hypercholesterolemia. 5. Cardiomyopathy. 6. Atrial fibrillation. 7. Congestive heart failure. 8. Hypertension. 9. Alzheimer dementia. 10. Benign prostatic hypertrophy. 11. Lack of capacity to make medical decisions TREATMENT: DC HD access , will monitor for need for Re-insertion Notes from Cardiology, Nephrology, Vascular Sx and ID are reviewed Given the lack of availability of the Next keen, and the urgency for the procedure to remove the Cath, it is justified to proceed for removal/procedure at this time oFF scheduled insuline Self- Extraction of Fisher Ok to monitor off fisher Re-insert if Volume > 400 Subjective Allergies: Coded Allergies: No Known Allergies (Unverified , 12/19/17) Objective Last 24 Hour Vital Signs Date Time Temp Pulse Resp B/P (MAP) Pulse Ox O2 Delivery O2 Flow Rate FiO2 01/25/18 10:53 129/73 01/25/18 10:52 84 129/73 01/25/18 08:00 98.8 84 17 129/73 100 Room Air 98.8 01/25/18 06:45 125/52 01/25/18 04:00 97.7 63 20 125/52 100 Room Air 97.7 01/25/18 00:11 156/81 01/25/18 00:00 98.0 91 20 137/73 99 Room Air 98.0 01/24/18 20:00 98.5 102 20 156/81 99 Room Air 98.5 01/24/18 17:26 148/79 01/24/18 16:00 98.1 76 18 148/79 97 Room Air 98.1 01/24/18 12:00 98.6 80 18 154/80 97 Room Air 98.6 01/24/18 11:58 154/80 Intake and Output 01/24/18 01/25/18 19:00 07:00 Intake Total 90 ml 510 ml Balance 90 ml 510 ml Free Water 60 ml 180 ml Tube Feeding 30 ml 330 ml # Voids 5 2 # Bowel Movements 1 1 Height (Feet): 5 Height (Inches): 1.00 Weight (Pounds): 184 Objective Height (Feet): 5 Height (Inches): 1.00 Weight (Pounds): 187 General Appearance: no apparent distress EENT: PERRL/EOMI Neck: supple Cardiovascular: normal rate Abdomen: soft Extremities: other - atrophied musculature Neurologic: disoriented Courtney Weeks MD January 25, 2018 11:33
[2018-01-25 12:00] VITALS: BP 124/71
--- NOTE | 2018-01-25 13:48 | Nephrology Progress Note ---
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 replace permacath if out pt dialysis to continue by PMD adjust Hydralazine dose Increase flomax- Singer for now 2D echo 30% ej fx SANDRO kidney Suspected nonobstructive nephrolithiasis in the left kidney. monitor renal parameters avoid nephrotoxics After load reduction- hydralazine optimize renal and cardiac status. Echo: Global left ventricular hypokinesis. Left ventricular ejection fraction estimated to be 30 %. Subjective ROS Limited/Unobtainable: No Constitutional: Reports: malaise Objective Objective Last 24 Hour Vital Signs Date Time Temp Pulse Resp B/P (MAP) Pulse Ox O2 Delivery O2 Flow Rate FiO2 01/25/18 12:13 124/71 01/25/18 12:00 97.5 74 18 124/71 99 Room Air 97.5 01/25/18 10:53 129/73 01/25/18 10:52 84 129/73 01/25/18 08:00 98.8 84 17 129/73 100 Room Air 98.8 01/25/18 06:45 125/52 01/25/18 04:00 97.7 63 20 125/52 100 Room Air 97.7 01/25/18 00:11 156/81 01/25/18 00:00 98.0 91 20 137/73 99 Room Air 98.0 01/24/18 20:00 98.5 102 20 156/81 99 Room Air 98.5 01/24/18 17:26 148/79 01/24/18 16:00 98.1 76 18 148/79 97 Room Air 98.1 Intake and Output 01/24/18 01/25/18 19:00 07:00 Intake Total 90 ml 510 ml Balance 90 ml 510 ml Free Water 60 ml 180 ml Tube Feeding 30 ml 330 ml # Voids 5 2 # Bowel Movements 1 1 Height (Feet): 5 Height (Inches): 1.00 Weight (Pounds): 184 General Appearance: no apparent distress Objective no other changes VALENTIN RUSH January 25, 2018 13:48
[2018-01-25 16:00] VITALS: BP 118/79
[2018-01-25 20:00] VITALS: BP 123/80
[2018-01-25] MEDS: Atorvastatin 20mg tab ORAL SCH (20:10)
[2018-01-25] MEDS: Sennosides 8.6mg GT SCH (20:10)
[2018-01-26] VITALS (7 sets, daily range): BP systolic 105–153; BP diastolic 62–84
[2018-01-26] MEDS: NovoLOG Insulin Flexpen SUBQ SCH ×5 (05:52→23:55)
[2018-01-26] MEDS: HydrALAZINE 25mg tab GT SCH ×4 (05:52→23:53)
[2018-01-26] MEDS: Metoprolol Succinate XL 25mg tab ORAL SCH (09:00)
[2018-01-26] MEDS: Docusate 100mg/10ml Liq GT SCH ×4 (09:00→18:00)
[2018-01-26] MEDS: Zinc Oxide Oint 2oz TOPIC SCH ×2 (10:16→18:31)
[2018-01-26] MEDS: Donepezil 10mg tab ORAL SCH (10:19)
[2018-01-26] MEDS: Ascorbic Acid 500mg tab ORAL SCH (10:23)
[2018-01-26] MEDS: Eliquis 2.5mg tablet ORAL SCH ×2 (10:23→18:30)
[2018-01-26] MEDS: Tamsulosin 0.4mg cap ORAL SCH ×2 (10:25→18:29)
--- NOTE | 2018-01-26 10:31 | Infectious Diseases Prog Note ---
Assessment/Plan Assessment/Plan Assessment: Infected HD cath- no Evid of bacteremia -s/p removal perma cath 01/20; cath tip cx :CoNS -BCx NTD (peripheral), HD Cath Bcx NTD -wound cx: MRSA (S Vancomycin, Bactrim, Tetracycline) -Echo: no vegetations seen. Aortic valve calcification with decreased cusp excursion c/w aortic stenosis. Mildly thickened mitral valve leaflets with normal excursion. Moderate mitral annulus and aortic root calcification. Abd wound- no sings of infection -wound cx: MRSA, CONS (colonizers) Afebrile, no leukocytosis ESRD on HD -renal US: Suspected nonobstructive nephrolithiasis in the left kidney Stroke w/ hemiparesis dementia nonverbal HTN HLD cardiomyopathy Aflutter contractures, DM2 dysphagia s/p PEG anemia CHF long-term resident VRE colonized Plan: - 01/24 SP IV Daptomycin 4mg/kg q48hrs abx d # 7/ for MRSA HD cath infection -01/22 SP IV Vancomcyin #5 (d/c due to supratherapeutic vanco levels) - from ID stand point ok to proceed w Placement of new permanent HD catheter -f/u Blood cx -Monitor CBC/BMP, temperatures Subjective Allergies: Coded Allergies: No Known Allergies (Unverified , 12/19/17) Subjective comfortable Objective Vital Signs Last 24 Hour Vital Signs Date Time Temp Pulse Resp B/P (MAP) Pulse Ox O2 Delivery O2 Flow Rate FiO2 01/26/18 06:00 99.0 98 20 148/72 96 Room Air 99.0 01/26/18 05:52 148/72 01/26/18 04:00 99.0 98 20 153/72 96 Room Air 99.0 01/26/18 00:00 103 20 132/73 95 Room Air 01/25/18 23:59 133/73 01/25/18 20:00 98.0 98 20 123/80 93 Room Air 98.0 01/25/18 18:12 118/79 01/25/18 16:00 98.0 81 17 118/79 98 Room Air 98.0 01/25/18 12:13 124/71 01/25/18 12:00 97.5 74 18 124/71 99 Room Air 97.5 01/25/18 10:53 129/73 01/25/18 10:52 84 129/73 Height (Feet): 5 Height (Inches): 1.00 Weight (Pounds): 189 HEENT: anicteric Respiratory/Chest: no accessory muscle use Cardiovascular: regularly irregular Abdomen: soft, non tender Current Medications Medications (Trade) Dose Ordered Sig/Tiffany Route PRN Reason Start Time Stop Time Status Last Admin Dose Admin Acetaminophen (Tylenol) 650 mg Q4H PRN ORAL Mild Pain/Temp > 100.5 01/23/18 02:00 02/17/18 01:59 Amiodarone HCl (Cordarone) 200 mg DAILY ORAL 01/25/18 09:00 02/17/18 08:59 01/25/18 10:11 Apixaban (Eliquis) 2.5 mg BID ORAL 01/24/18 18:00 02/21/18 17:59 01/26/18 10:23 Ascorbic Acid (Vitamin C) 500 mg DAILY ORAL 01/25/18 09:00 02/17/18 08:59 01/26/18 10:23 Atorvastatin Calcium (Lipitor) 40 mg BEDTIME ORAL 01/24/18 21:00 02/17/18 20:59 01/25/18 20:10 Bisacodyl (Dulcolax) 10 mg DAILYPRN PRN RECTAL Constipation 01/23/18 02:00 02/17/18 01:59 Dextrose (Dextrose 50%) 25 ml STAT PRN IV Hypoglycemia 01/23/18 07:30 02/20/18 07:29 Dextrose (Dextrose 50%) 50 ml STAT PRN IV Hypoglycemia 01/23/18 07:30 02/20/18 07:29 Docusate Sodium (Colace) 100 mg TID GT 01/24/18 13:00 02/17/18 12:59 Donepezil HCl (Aricept) 10 mg DAILY ORAL 01/25/18 09:00 02/17/18 08:59 01/26/18 10:19 Finasteride (Proscar) 5 mg DAILY ORAL 01/25/18 10:30 02/24/18 10:29 01/26/18 10:20 Hydralazine HCl (Apresoline) 25 mg Q6HR GT 01/24/18 12:00 02/23/18 05:59 01/26/18 05:52 Insulin Aspart (NovoLOG) EVERY 6 HOURS SUBQ 01/23/18 00:00 02/18/18 17:59 01/26/18 05:52 Levothyroxine Sodium (Synthroid) 50 mcg DAILY@0630 ORAL 01/26/18 06:30 02/25/18 06:29 01/26/18 05:50 Metoprolol Succinate (Toprol XL) 25 mg DAILY ORAL 01/25/18 10:30 02/24/18 10:29 01/25/18 10:52 Nitroglycerin (Nitro-Bid) 1 inch DAILY TOPIC 01/25/18 10:30 02/24/18 10:29 01/25/18 10:53 Saccharomyces Boulardii (Florastor) 250 mg DAILY ORAL 01/25/18 09:00 02/17/18 08:59 01/26/18 10:19 Sennosides (Senokot) 1 tab QHS GT 01/24/18 21:00 02/23/18 20:59 01/24/18 21:43 Tamsulosin HCl (Flomax) 0.4 mg BID ORAL 01/24/18 18:00 02/17/18 17:59 01/26/18 10:25 Zinc Oxide (Zinc Oxide) 1 applic BID TOPIC 01/23/18 18:00 02/22/18 17:59 01/26/18 10:16 Alberto Little MD January 26, 2018 10:31
[2018-01-26] MEDS: Amiodarone 200mg tab ORAL SCH (10:39)
[2018-01-26] MEDS: Nitroglycerin 2% oint pkt TOPIC SCH (10:40)
--- NOTE | 2018-01-26 11:17 | Nephrology Progress Note ---
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 replace permacath if out pt dialysis to continue by PMD adjust Hydralazine dose Increase flomax- Singer for now 2D echo 30% ej fx SANDRO kidney Suspected nonobstructive nephrolithiasis in the left kidney. monitor renal parameters avoid nephrotoxics After load reduction- hydralazine optimize renal and cardiac status. Echo: Global left ventricular hypokinesis. Left ventricular ejection fraction estimated to be 30 %. Subjective ROS Limited/Unobtainable: No Constitutional: Reports: malaise, weakness Objective Objective Last 24 Hour Vital Signs Date Time Temp Pulse Resp B/P (MAP) Pulse Ox O2 Delivery O2 Flow Rate FiO2 01/26/18 10:40 105/84 01/26/18 09:00 85 105/84 01/26/18 08:00 99.0 85 20 105/84 97 Room Air 99.0 01/26/18 06:00 99.0 98 20 148/72 96 Room Air 99.0 01/26/18 05:52 148/72 01/26/18 04:00 99.0 98 20 153/72 96 Room Air 99.0 01/26/18 00:00 103 20 132/73 95 Room Air 01/25/18 23:59 133/73 01/25/18 20:00 98.0 98 20 123/80 93 Room Air 98.0 01/25/18 18:12 118/79 01/25/18 16:00 98.0 81 17 118/79 98 Room Air 98.0 01/25/18 12:13 124/71 01/25/18 12:00 97.5 74 18 124/71 99 Room Air 97.5 Intake and Output 01/25/18 01/26/18 19:00 07:00 Intake Total 90 ml 360 ml Output Total 960 ml 350 ml Balance -870 ml 10 ml Free Water 60 ml 60 ml Tube Feeding 30 ml 300 ml Output Urine Total 960 ml 350 ml # Bowel Movements 1 Height (Feet): 5 Height (Inches): 1.00 Weight (Pounds): 189 General Appearance: no apparent distress Objective no other changes VALENTIN RUSH January 26, 2018 11:17
--- NOTE | 2018-01-26 12:01 | GI Progress Note ---
Assessment/Plan Problems: (1) Anemia ICD Codes: D64.9 - Anemia, unspecified SNOMED: 351928826 (2) Malfunction of gastrostomy tube ICD Codes: K94.23 - Gastrostomy malfunction SNOMED: 795591888 (3) Attention to G-tube ICD Codes: Z43.1 - Encounter for attention to gastrostomy SNOMED: 743734102, 437171474 Status: unchanged Status Narrative Discussed with Dr. Espinal. Assessment/Plan GT replaced at beside with 20fr.\ GTFs per RD GT site care BID/prn >> zinc oxide around GT site OB stool r/o GI bleed monitor H&H, prn transfusions bowel regime ppi fu labs The patient was seen and examined at bedside and all new and available data was reviewed in the patients chart. I agree with the above findings, impression and plan. (Patient seen earlier today. Signature stamp does not reflect patient encounter time.). - Xavier Espinal MD Subjective Subjective limited Objective Last 24 Hour Vital Signs Date Time Temp Pulse Resp B/P (MAP) Pulse Ox O2 Delivery O2 Flow Rate FiO2 01/26/18 10:40 105/84 01/26/18 09:00 85 105/84 01/26/18 08:00 99.0 85 20 105/84 97 Room Air 99.0 01/26/18 06:00 99.0 98 20 148/72 96 Room Air 99.0 01/26/18 05:52 148/72 01/26/18 04:00 99.0 98 20 153/72 96 Room Air 99.0 01/26/18 00:00 103 20 132/73 95 Room Air 01/25/18 23:59 133/73 01/25/18 20:00 98.0 98 20 123/80 93 Room Air 98.0 01/25/18 18:12 118/79 01/25/18 16:00 98.0 81 17 118/79 98 Room Air 98.0 01/25/18 12:13 124/71 01/25/18 12:00 97.5 74 18 124/71 99 Room Air 97.5 Intake and Output 01/25/18 01/26/18 19:00 07:00 Intake Total 90 ml 360 ml Output Total 960 ml 350 ml Balance -870 ml 10 ml Free Water 60 ml 60 ml Tube Feeding 30 ml 300 ml Output Urine Total 960 ml 350 ml # Bowel Movements 1 Height (Feet): 5 Height (Inches): 1.00 Weight (Pounds): 189 General Appearance: no apparent distress Cardiovascular: normal rate Respiratory/Chest: normal breath sounds, no respiratory distress Abdominal Exam: normal bowel sounds, non tender, soft, GT site - c/d/i Extremities: non-tender Camilo Aden NP January 26, 2018 12:01
--- NOTE | 2018-01-26 14:04 | General Progress Note ---
Assessment/Plan Status: stable Assessment/Plan 1. Infected right upper chest PermCath. 2. End-stage renal disease- transiet- off HD for now- will monitor renal function 3. Diabetes type 2. 4. Hypercholesterolemia. 5. Cardiomyopathy. 6. Atrial fibrillation. 7. Congestive heart failure. 8. Hypertension. 9. Alzheimer dementia. 10. Benign prostatic hypertrophy. 11. Lack of capacity to make medical decisions TREATMENT: DC HD access , will monitor for need for Re-insertion Notes from Cardiology, Nephrology, Vascular Sx and ID are reviewed Given the lack of availability of the Next keen, and the urgency for the procedure to remove the Cath, it is justified to proceed for removal/procedure at this time oFF scheduled insuline Self- Extraction of Fisher Ok to monitor off fisher Re-insert if Volume > 400 will monitor off Fisher and Off HD Subjective ROS Limited/Unobtainable: No Constitutional: Reports: malaise HEENT: Reports: no symptoms Cardiovascular: Reports: no symptoms Allergies: Coded Allergies: No Known Allergies (Unverified , 12/19/17) Objective Last 24 Hour Vital Signs Date Time Temp Pulse Resp B/P (MAP) Pulse Ox O2 Delivery O2 Flow Rate FiO2 01/26/18 12:00 110/66 01/26/18 12:00 97.7 95 20 110/66 93 Room Air 97.7 01/26/18 10:40 105/84 01/26/18 09:00 85 105/84 01/26/18 08:00 99.0 85 20 105/84 97 Room Air 99.0 01/26/18 06:00 99.0 98 20 148/72 96 Room Air 99.0 01/26/18 05:52 148/72 01/26/18 04:00 99.0 98 20 153/72 96 Room Air 99.0 01/26/18 00:00 103 20 132/73 95 Room Air 01/25/18 23:59 133/73 01/25/18 20:00 98.0 98 20 123/80 93 Room Air 98.0 01/25/18 18:12 118/79 01/25/18 16:00 98.0 81 17 118/79 98 Room Air 98.0 Intake and Output 01/25/18 01/26/18 19:00 07:00 Intake Total 90 ml 360 ml Output Total 960 ml 350 ml Balance -870 ml 10 ml Free Water 60 ml 60 ml Tube Feeding 30 ml 300 ml Output Urine Total 960 ml 350 ml # Bowel Movements 1 Height (Feet): 5 Height (Inches): 1.00 Weight (Pounds): 189 Objective Height (Feet): 5 Height (Inches): 1.00 Weight (Pounds): 187 General Appearance: no apparent distress EENT: PERRL/EOMI Neck: supple Cardiovascular: normal rate Abdomen: soft, PEG tube in place Extremities: other - atrophied musculature, spontaneous movement Neurologic: disoriented, is awake Courtney eWeks MD January 26, 2018 14:04
--- NOTE | 2018-01-26 15:04 | General Progress Note ---
Assessment/Plan Assessment/Plan Dementia encephalopathy -Ativan prn -dc Aricept -the pt lacks capacity Subjective Date patient seen: January 26, 2018 Neurologic/Psychiatric: Reports: anxiety, depressed, emotional problems Allergies: Coded Allergies: No Known Allergies (Unverified , 12/19/17) Objective Last 24 Hour Vital Signs Date Time Temp Pulse Resp B/P (MAP) Pulse Ox O2 Delivery O2 Flow Rate FiO2 01/26/18 12:00 110/66 01/26/18 12:00 97.7 95 20 110/66 93 Room Air 97.7 01/26/18 10:40 105/84 01/26/18 09:00 85 105/84 01/26/18 08:00 99.0 85 20 105/84 97 Room Air 99.0 01/26/18 06:00 99.0 98 20 148/72 96 Room Air 99.0 01/26/18 05:52 148/72 01/26/18 04:00 99.0 98 20 153/72 96 Room Air 99.0 01/26/18 00:00 103 20 132/73 95 Room Air 01/25/18 23:59 133/73 01/25/18 20:00 98.0 98 20 123/80 93 Room Air 98.0 01/25/18 18:12 118/79 01/25/18 16:00 98.0 81 17 118/79 98 Room Air 98.0 Intake and Output 01/25/18 01/26/18 19:00 07:00 Intake Total 90 ml 360 ml Output Total 960 ml 350 ml Balance -870 ml 10 ml Free Water 60 ml 60 ml Tube Feeding 30 ml 300 ml Output Urine Total 960 ml 350 ml # Bowel Movements 1 Height (Feet): 5 Height (Inches): 1.00 Weight (Pounds): 189 General Appearance: no apparent distress, alert, confused Ashly Rajan M.D. January 26, 2018 15:04
--- NOTE | 2018-01-26 15:14 | Cardiac Electrophysiology PN ---
Assessment/Plan Assessment/Plan 1. Atrial flutter.On amiodarone 200 mg daily, Toprol-XL 25 mg daily and Eliquis 2.5 mg b.i.d. 2. Hypertension. Continue Hydralazine 25 q6 and Toprol-XL 25 mg 3. Cardiomyopathy, ejection fraction of only 30%, on hemodialysis and Cozaar and Toprol-XL 25 mg daily. Not a candidate for defibrillator placement. 4. ESRD on HD with discharge from the PermCath, s/p REMOVAL 5. Hyperlipidemia, on Lipitor. 6. Dysphagia, S/P PEG replacement DW RN Subjective Subjective Comfortable in NAD.No events. Awaiting placement Objective Last 24 Hour Vital Signs Date Time Temp Pulse Resp B/P (MAP) Pulse Ox O2 Delivery O2 Flow Rate FiO2 01/26/18 12:00 110/66 01/26/18 12:00 97.7 95 20 110/66 93 Room Air 97.7 01/26/18 10:40 105/84 01/26/18 09:00 85 105/84 01/26/18 08:00 99.0 85 20 105/84 97 Room Air 99.0 01/26/18 06:00 99.0 98 20 148/72 96 Room Air 99.0 01/26/18 05:52 148/72 01/26/18 04:00 99.0 98 20 153/72 96 Room Air 99.0 01/26/18 00:00 103 20 132/73 95 Room Air 01/25/18 23:59 133/73 01/25/18 20:00 98.0 98 20 123/80 93 Room Air 98.0 01/25/18 18:12 118/79 01/25/18 16:00 98.0 81 17 118/79 98 Room Air 98.0 Intake and Output 01/25/18 01/26/18 19:00 07:00 Intake Total 90 ml 360 ml Output Total 960 ml 350 ml Balance -870 ml 10 ml Free Water 60 ml 60 ml Tube Feeding 30 ml 300 ml Output Urine Total 960 ml 350 ml # Bowel Movements 1 Objective HEAD AND NECK: No JVD. LUNGS: Clear. CARDIOVASCULAR: Regular S1 and S2 with no gallop. ABDOMEN: Soft, status post G-tube. EXTREMITIES: 1+ pitting edema. Malik Shannon MD January 26, 2018 15:14
[2018-01-26] MEDS: Sennosides 8.6mg GT SCH (21:00)
[2018-01-26] MEDS: Atorvastatin 20mg tab ORAL SCH (21:03)
[2018-01-27] VITALS: BP 127/64
[2018-01-27 04:00] VITALS: BP 124/61
[2018-01-27] MEDS: HydrALAZINE 25mg tab GT SCH (05:50)
[2018-01-27] MEDS: NovoLOG Insulin Flexpen SUBQ SCH ×3 (05:52→17:43)
[2018-01-27 06:37] LABS: BASOPHILS % (AUTO) 0.7 % (0.0-2.0); EOSINOPHILS % (AUTO) 0.7 % (0.0-3.0); HEMATOCRIT 34.9 % (42.0-52.0); HEMOGLOBIN 11.7 G/DL (14.2-18.0); LYMPHOCYTES % (AUTO) 17.4 % (20.0-45.0); MEAN CORPUSCULAR VOLUME 99 FL (80-99); MONOCYTES % (AUTO) 11.1 % (1.0-10.0); PLATELET COUNT 213 K/UL (150-450); RED BLOOD COUNT 3.53 M/UL (4.70-6.10); RED CELL DISTRIBUTION WIDTH 13.5 % (11.6-14.8); WHITE BLOOD COUNT 10.1 K/UL (4.8-10.8)
[2018-01-27 07:12] LABS: ALANINE AMINOTRANSFERASE 27 U/L (12-78); ALBUMIN/GLOBULIN RATIO 0.4 (1.0-2.7); ALKALINE PHOSPHATASE 139 U/L (46-116); ANION GAP 11 mmol/L (5-15); ASPARTATE AMINO TRANSFERASE 16 U/L (15-37); BILIRUBIN,TOTAL 0.6 MG/DL (0.2-1.0); BLOOD UREA NITROGEN 98 mg/dL (7-18); CALCIUM 9.2 MG/DL (8.5-10.1); CARBON DIOXIDE 23 MMOL/L (21-32); CHLORIDE 105 MMOL/L (98-107); CREATININE 3.1 MG/DL (0.55-1.30); PHOSPHORUS 3.9 MG/DL (2.5-4.9); POTASSIUM 3.9 MMOL/L (3.5-5.1); SODIUM 139 MMOL/L (136-145)
--- NOTE | 2018-01-27 07:14 | General Progress Note ---
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, stage IV ICD Codes: I13.0 - Hypertensive heart and chronic kidney disease with heart failure and stage 1 through stage 4 chronic kidney disease, or unspecified chronic kidney disease; N18.4 - Chronic kidney disease, stage 4 (severe) SNOMED: 313130849 (4) Renal failure (ARF), acute on chronic ICD Codes: N17.9 - Acute kidney failure, unspecified; N18.9 - Chronic kidney disease, unspecified SNOMED: 790322413 Assessment/Plan add Levemir 6 units daily continue NISS tight glycemic control is not indicated continue Levothyroxine 50 mcg daily repeat TSH next week Subjective ROS Limited/Unobtainable: Yes Allergies: Coded Allergies: No Known Allergies (Unverified , 12/19/17) Subjective events noted BG values elevated Objective Last 24 Hour Vital Signs Date Time Temp Pulse Resp B/P (MAP) Pulse Ox O2 Delivery O2 Flow Rate FiO2 01/27/18 05:50 124/61 01/27/18 04:00 98.6 54 18 124/61 94 98.6 01/27/18 00:00 99.3 61 20 127/64 95 99.3 01/26/18 23:53 127/64 01/26/18 20:00 99.3 71 19 126/62 92 99.3 01/26/18 18:30 115/68 01/26/18 16:00 97.7 85 20 115/68 96 Room Air 97.7 01/26/18 12:00 110/66 01/26/18 12:00 97.7 95 20 110/66 93 Room Air 97.7 01/26/18 10:40 105/84 01/26/18 09:00 85 105/84 01/26/18 08:00 99.0 85 20 105/84 97 Room Air 99.0 Intake and Output 01/26/18 01/27/18 19:00 07:00 Intake Total 480 ml 480 ml Output Total 300 ml Balance 180 ml 480 ml Free Water 120 ml 120 ml Tube Feeding 360 ml 360 ml Output Urine Total 300 ml # Bowel Movements 1 Laboratory Tests 01/26/18 17:30: C-Reactive Protein, Quantitative 16.5H 01/27/18 06:00: White Blood Count 10.1, Red Blood Count 3.53L, Hemoglobin 11.7L, Hematocrit 34.9L, Mean Corpuscular Volume 99, Mean Corpuscular Hemoglobin 33.2H, Mean Corpuscular Hemoglobin Concent 33.6, Red Cell Distribution Width 13.5, Platelet Count 213, Mean Platelet Volume 6.8, Neutrophils (%) (Auto) 70.0, Lymphocytes (% ) (Auto) 17.4L, Monocytes (%) (Auto) 11.1H, Eosinophils (%) (Auto) 0.7, Basophils (%) (Auto) 0.7, Sodium Level [Pending], Potassium Level [Pending], Chloride Level [Pending], Carbon Dioxide Level [Pending], Blood Urea Nitrogen [ Pending], Creatinine [Pending], Estimat Glomerular Filtration Rate [Pending], Glucose Level [Pending], Calcium Level [Pending], Phosphorus Level [Pending], Magnesium Level [Pending], Total Bilirubin [Pending], Aspartate Amino Transf ( AST/SGOT) [Pending], Alanine Aminotransferase (ALT/SGPT) [Pending], Alkaline Phosphatase [Pending], Total Protein [Pending], Albumin [Pending], Globulin [ Pending], Random Vancomycin Level [Pending] Height (Feet): 5 Height (Inches): 1.00 Weight (Pounds): 188 General Appearance: lethargic Neck: normal alignment Cardiovascular: normal rate Respiratory/Chest: decreased breath sounds Abdomen: normal bowel sounds Pelvis: normal external exam Objective Current Medications Medications (Trade) Dose Ordered Sig/Tiffany Route PRN Reason Start Time Stop Time Status Last Admin Dose Admin Acetaminophen (Tylenol) 650 mg Q4H PRN ORAL Mild Pain/Temp > 100.5 01/23/18 02:00 02/17/18 01:59 Amiodarone HCl (Cordarone) 200 mg DAILY ORAL 01/25/18 09:00 02/17/18 08:59 01/26/18 10:39 Apixaban (Eliquis) 2.5 mg BID ORAL 01/24/18 18:00 02/21/18 17:59 01/26/18 18:30 Ascorbic Acid (Vitamin C) 500 mg DAILY ORAL 01/25/18 09:00 02/17/18 08:59 01/26/18 10:23 Atorvastatin Calcium (Lipitor) 40 mg BEDTIME ORAL 01/24/18 21:00 02/17/18 20:59 01/26/18 21:03 Bisacodyl (Dulcolax) 10 mg DAILYPRN PRN RECTAL Constipation 01/23/18 02:00 02/17/18 01:59 Dextrose (Dextrose 50%) 25 ml STAT PRN IV Hypoglycemia 01/23/18 07:30 02/20/18 07:29 Dextrose (Dextrose 50%) 50 ml STAT PRN IV Hypoglycemia 01/23/18 07:30 02/20/18 07:29 Docusate Sodium (Colace) 100 mg TID GT 01/24/18 13:00 02/17/18 12:59 Donepezil HCl (Aricept) 10 mg DAILY ORAL 01/25/18 09:00 02/17/18 08:59 01/26/18 10:19 Finasteride (Proscar) 5 mg DAILY ORAL 01/25/18 10:30 02/24/18 10:29 01/26/18 10:20 Hydralazine HCl (Apresoline) 25 mg Q6HR GT 01/24/18 12:00 02/23/18 05:59 01/27/18 05:50 Insulin Aspart (NovoLOG) EVERY 6 HOURS SUBQ 01/23/18 00:00 02/18/18 17:59 01/27/18 05:52 Levothyroxine Sodium (Synthroid) 50 mcg DAILY@0630 ORAL 01/26/18 06:30 02/25/18 06:29 01/27/18 05:51 Metoprolol Succinate (Toprol XL) 25 mg DAILY ORAL 01/25/18 10:30 02/24/18 10:29 01/25/18 10:52 Nitroglycerin (Nitro-Bid) 1 inch DAILY TOPIC 01/25/18 10:30 02/24/18 10:29 01/26/18 10:40 Saccharomyces Boulardii (Florastor) 250 mg DAILY ORAL 01/25/18 09:00 02/17/18 08:59 01/26/18 10:19 Sennosides (Senokot) 1 tab QHS GT 01/24/18 21:00 02/23/18 20:59 01/24/18 21:43 Tamsulosin HCl (Flomax) 0.4 mg BID ORAL 01/24/18 18:00 02/17/18 17:59 01/26/18 18:29 Zinc Oxide (Zinc Oxide) 1 applic BID TOPIC 01/23/18 18:00 02/22/18 17:59 01/26/18 18:31 Item Value Date Time Bedside Blood Glucose 302 mg/dl H 01/27/18 0600 Bedside Blood Glucose 222 mg/dl H 01/27/18 0000 Bedside Blood Glucose 259 mg/dl H 01/26/18 1833 Bedside Blood Glucose 189 mg/dl H 01/26/18 1239 Bedside Blood Glucose 165 mg/dl H 01/26/18 0600 ANITA WANG January 27, 2018 07:14
[2018-01-27 08:00] VITALS: BP 104/63
[2018-01-27] MEDS: Metoprolol Succinate XL 25mg tab ORAL SCH (09:00)
[2018-01-27] MEDS: Donepezil 10mg tab ORAL SCH (09:21)
[2018-01-27] MEDS: Eliquis 2.5mg tablet ORAL SCH ×2 (09:21→17:39)
[2018-01-27] MEDS: Nitroglycerin 2% oint pkt TOPIC SCH (09:21)
[2018-01-27] MEDS: Docusate 100mg/10ml Liq GT SCH ×3 (09:21→17:38)
[2018-01-27] MEDS: Ascorbic Acid 500mg tab ORAL SCH (09:22)
[2018-01-27] MEDS: Tamsulosin 0.4mg cap ORAL SCH ×2 (09:22→20:54)
[2018-01-27] MEDS: Amiodarone 200mg tab ORAL SCH (09:31)
[2018-01-27] MEDS: Zinc Oxide Oint 2oz TOPIC SCH ×2 (09:33→17:40)
--- NOTE | 2018-01-27 09:48 | GI Progress Note ---
Assessment/Plan Problems: (1) Anemia ICD Codes: D64.9 - Anemia, unspecified SNOMED: 019913146 (2) Malfunction of gastrostomy tube ICD Codes: K94.23 - Gastrostomy malfunction SNOMED: 142892890 (3) Attention to G-tube ICD Codes: Z43.1 - Encounter for attention to gastrostomy SNOMED: 215329836, 622645794 Status: unchanged Status Narrative Discussed with Dr. Espinal. Assessment/Plan GT replaced at beside with 20fr. GTFs per RD GT site care BID/prn >> zinc oxide around GT site OB stool r/o GI bleed monitor H&H, prn transfusions bowel regime ppi fu labs The patient was seen and examined at bedside and all new and available data was reviewed in the patients chart. I agree with the above findings, impression and plan. (Patient seen earlier today. Signature stamp does not reflect patient encounter time.). - Xavier Espinal MD Subjective Subjective limited Objective Last 24 Hour Vital Signs Date Time Temp Pulse Resp B/P (MAP) Pulse Ox O2 Delivery O2 Flow Rate FiO2 01/27/18 09:21 104/63 01/27/18 09:00 87 102/59 01/27/18 05:50 124/61 01/27/18 04:00 98.6 54 18 124/61 94 98.6 01/27/18 00:00 99.3 61 20 127/64 95 99.3 01/26/18 23:53 127/64 01/26/18 20:00 99.3 71 19 126/62 92 99.3 01/26/18 18:30 115/68 01/26/18 16:00 97.7 85 20 115/68 96 Room Air 97.7 01/26/18 12:00 110/66 01/26/18 12:00 97.7 95 20 110/66 93 Room Air 97.7 01/26/18 10:40 105/84 Intake and Output 01/26/18 01/27/18 19:00 07:00 Intake Total 480 ml 480 ml Output Total 300 ml Balance 180 ml 480 ml Free Water 120 ml 120 ml Tube Feeding 360 ml 360 ml Output Urine Total 300 ml # Bowel Movements 1 Laboratory Tests Test 01/26/18 17:30 01/27/18 06:00 C-Reactive Protein, Quantitative 16.5 mg/dL (0.00-0.90) H White Blood Count 10.1 K/UL (4.8-10.8) Red Blood Count 3.53 M/UL (4.70-6.10) L Hemoglobin 11.7 G/DL (14.2-18.0) L Hematocrit 34.9 % (42.0-52.0) L Mean Corpuscular Volume 99 FL (80-99) Mean Corpuscular Hemoglobin 33.2 PG (27.0-31.0) H Mean Corpuscular Hemoglobin Concent 33.6 G/DL (32.0-36.0) Red Cell Distribution Width 13.5 % (11.6-14.8) Platelet Count 213 K/UL (150-450) Mean Platelet Volume 6.8 FL (6.5-10.1) Neutrophils (%) (Auto) 70.0 % (45.0-75.0) Lymphocytes (%) (Auto) 17.4 % (20.0-45.0) L Monocytes (%) (Auto) 11.1 % (1.0-10.0) H Eosinophils (%) (Auto) 0.7 % (0.0-3.0) Basophils (%) (Auto) 0.7 % (0.0-2.0) Sodium Level 139 MMOL/L (136-145) Potassium Level 3.9 MMOL/L (3.5-5.1) Chloride Level 105 MMOL/L (98-107) Carbon Dioxide Level 23 MMOL/L (21-32) Anion Gap 11 mmol/L (5-15) Blood Urea Nitrogen 98 mg/dL (7-18) H Creatinine 3.1 MG/DL (0.55-1.30) H Estimat Glomerular Filtration Rate mL/min (>60) Glucose Level 283 MG/DL (74-106) H Calcium Level 9.2 MG/DL (8.5-10.1) Phosphorus Level 3.9 MG/DL (2.5-4.9) Magnesium Level 2.3 MG/DL (1.8-2.4) Total Bilirubin 0.6 MG/DL (0.2-1.0) Aspartate Amino Transf (AST/SGOT) 16 U/L (15-37) Alanine Aminotransferase (ALT/SGPT) 27 U/L (12-78) Alkaline Phosphatase 139 U/L (46-116) H Total Protein 7.2 G/DL (6.4-8.2) Albumin 2.0 G/DL (3.4-5.0) L Globulin 5.2 g/dL Albumin/Globulin Ratio 0.4 (1.0-2.7) L Random Vancomycin Level 17.5 ug/mL Height (Feet): 5 Height (Inches): 1.00 Weight (Pounds): 188 General Appearance: WD/WN, no apparent distress, alert Cardiovascular: normal rate Respiratory/Chest: normal breath sounds, no respiratory distress Abdominal Exam: normal bowel sounds, non tender, soft, GT site - c/d/i Extremities: normal range of motion, non-tender Camilo Aden NP January 27, 2018 09:48
--- NOTE | 2018-01-27 10:15 | Infectious Diseases Prog Note ---
Assessment/Plan Assessment/Plan Assessment: Infected HD cath- no Evid of bacteremia -s/p removal perma cath 01/20; cath tip cx :CoNS -BCx NTD (peripheral), HD Cath Bcx NTD -wound cx: MRSA (S Vancomycin, Bactrim, Tetracycline) -Echo: no vegetations seen. Aortic valve calcification with decreased cusp excursion c/w aortic stenosis. Mildly thickened mitral valve leaflets with normal excursion. Moderate mitral annulus and aortic root calcification. Abd wound- no sings of infection -wound cx: MRSA, CONS (colonizers) Afebrile, no leukocytosis ESRD on HD -renal US: Suspected nonobstructive nephrolithiasis in the left kidney Stroke w/ hemiparesis dementia nonverbal HTN HLD cardiomyopathy Aflutter contractures, DM2 dysphagia s/p PEG anemia CHF shelter resident VRE colonized Plan: Monitor pt off of AB Rx - 01/24 SP IV Daptomycin 4mg/kg q48hrs abx d # 7/7 for MRSA HD cath infection -01/22 SP IV Vancomcyin #5 (d/c due to supratherapeutic vanco levels) - from ID stand point ok to proceed w Placement of new permanent HD catheter -Monitor CBC/BMP, temperatures Subjective Constitutional: Denies: no symptoms, fever, chills, fatigue, anorexia, drenching sweats, other Allergies: Coded Allergies: No Known Allergies (Unverified , 12/19/17) Subjective comfortable Objective Vital Signs Last 24 Hour Vital Signs Date Time Temp Pulse Resp B/P (MAP) Pulse Ox O2 Delivery O2 Flow Rate FiO2 01/27/18 09:21 104/63 01/27/18 09:00 87 102/59 01/27/18 05:50 124/61 01/27/18 04:00 98.6 54 18 124/61 94 98.6 01/27/18 00:00 99.3 61 20 127/64 95 99.3 01/26/18 23:53 127/64 01/26/18 20:00 99.3 71 19 126/62 92 99.3 01/26/18 18:30 115/68 01/26/18 16:00 97.7 85 20 115/68 96 Room Air 97.7 01/26/18 12:00 110/66 01/26/18 12:00 97.7 95 20 110/66 93 Room Air 97.7 01/26/18 10:40 105/84 Height (Feet): 5 Height (Inches): 1.00 Weight (Pounds): 188 HEENT: anicteric Respiratory/Chest: respiratory distress Cardiovascular: regularly irregular Abdomen: no organomegaly Laboratory Tests Test 01/26/18 17:30 01/27/18 06:00 C-Reactive Protein, Quantitative 16.5 mg/dL (0.00-0.90) H White Blood Count 10.1 K/UL (4.8-10.8) Red Blood Count 3.53 M/UL (4.70-6.10) L Hemoglobin 11.7 G/DL (14.2-18.0) L Hematocrit 34.9 % (42.0-52.0) L Mean Corpuscular Volume 99 FL (80-99) Mean Corpuscular Hemoglobin 33.2 PG (27.0-31.0) H Mean Corpuscular Hemoglobin Concent 33.6 G/DL (32.0-36.0) Red Cell Distribution Width 13.5 % (11.6-14.8) Platelet Count 213 K/UL (150-450) Mean Platelet Volume 6.8 FL (6.5-10.1) Neutrophils (%) (Auto) 70.0 % (45.0-75.0) Lymphocytes (%) (Auto) 17.4 % (20.0-45.0) L Monocytes (%) (Auto) 11.1 % (1.0-10.0) H Eosinophils (%) (Auto) 0.7 % (0.0-3.0) Basophils (%) (Auto) 0.7 % (0.0-2.0) Sodium Level 139 MMOL/L (136-145) Potassium Level 3.9 MMOL/L (3.5-5.1) Chloride Level 105 MMOL/L (98-107) Carbon Dioxide Level 23 MMOL/L (21-32) Anion Gap 11 mmol/L (5-15) Blood Urea Nitrogen 98 mg/dL (7-18) H Creatinine 3.1 MG/DL (0.55-1.30) H Estimat Glomerular Filtration Rate mL/min (>60) Glucose Level 283 MG/DL (74-106) H Calcium Level 9.2 MG/DL (8.5-10.1) Phosphorus Level 3.9 MG/DL (2.5-4.9) Magnesium Level 2.3 MG/DL (1.8-2.4) Total Bilirubin 0.6 MG/DL (0.2-1.0) Aspartate Amino Transf (AST/SGOT) 16 U/L (15-37) Alanine Aminotransferase (ALT/SGPT) 27 U/L (12-78) Alkaline Phosphatase 139 U/L (46-116) H Total Protein 7.2 G/DL (6.4-8.2) Albumin 2.0 G/DL (3.4-5.0) L Globulin 5.2 g/dL Albumin/Globulin Ratio 0.4 (1.0-2.7) L Random Vancomycin Level 17.5 ug/mL Current Medications Medications (Trade) Dose Ordered Sig/Tiffany Route PRN Reason Start Time Stop Time Status Last Admin Dose Admin Acetaminophen (Tylenol) 650 mg Q4H PRN ORAL Mild Pain/Temp > 100.5 01/23/18 02:00 02/17/18 01:59 Albumin Human (Albuminar-5) 250 ml ONCE ONCE IV 01/27/18 09:30 01/27/18 09:31 UNV Amiodarone HCl (Cordarone) 200 mg DAILY ORAL 01/25/18 09:00 02/17/18 08:59 01/27/18 09:31 Apixaban (Eliquis) 2.5 mg BID ORAL 01/24/18 18:00 02/21/18 17:59 01/27/18 09:21 Ascorbic Acid (Vitamin C) 500 mg DAILY ORAL 01/25/18 09:00 02/17/18 08:59 01/27/18 09:22 Atorvastatin Calcium (Lipitor) 40 mg BEDTIME ORAL 01/24/18 21:00 02/17/18 20:59 01/26/18 21:03 Bisacodyl (Dulcolax) 10 mg DAILYPRN PRN RECTAL Constipation 01/23/18 02:00 02/17/18 01:59 Dextrose (Dextrose 50%) 25 ml STAT PRN IV Hypoglycemia 01/23/18 07:30 02/20/18 07:29 Dextrose (Dextrose 50%) 25 ml STAT PRN IV Hypoglycemia 01/27/18 07:15 02/26/18 07:14 Dextrose (Dextrose 50%) 50 ml STAT PRN IV Hypoglycemia 01/23/18 07:30 02/20/18 07:29 Dextrose (Dextrose 50%) 50 ml STAT PRN IV Hypoglycemia 01/27/18 07:15 02/26/18 07:14 Docusate Sodium (Colace) 100 mg TID GT 01/24/18 13:00 02/17/18 12:59 01/27/18 09:21 Donepezil HCl (Aricept) 10 mg DAILY ORAL 01/25/18 09:00 02/17/18 08:59 01/27/18 09:21 Finasteride (Proscar) 5 mg DAILY ORAL 01/25/18 10:30 02/24/18 10:29 01/27/18 09:23 Hydralazine HCl (Apresoline) 10 mg Q6HR GT 01/27/18 12:00 02/23/18 05:59 UNV Insulin Aspart (NovoLOG) EVERY 6 HOURS SUBQ 01/23/18 00:00 02/18/18 17:59 01/27/18 05:52 Insulin Detemir (Levemir) 6 units DAILY SUBQ 01/27/18 10:00 02/26/18 09:59 Levothyroxine Sodium (Synthroid) 50 mcg DAILY@0630 ORAL 01/26/18 06:30 02/25/18 06:29 01/27/18 05:51 Metoprolol Succinate (Toprol XL) 25 mg DAILY ORAL 01/25/18 10:30 02/24/18 10:29 01/25/18 10:52 Nitroglycerin (Nitro-Bid) 1 inch DAILY TOPIC 01/25/18 10:30 02/24/18 10:29 01/27/18 09:21 Saccharomyces Boulardii (Florastor) 250 mg DAILY ORAL 01/25/18 09:00 02/17/18 08:59 01/27/18 09:21 Sennosides (Senokot) 1 tab QHS GT 01/24/18 21:00 02/23/18 20:59 01/24/18 21:43 Tamsulosin HCl (Flomax) 0.4 mg QHS ORAL 01/27/18 21:00 02/17/18 17:59 UNV Zinc Oxide (Zinc Oxide) 1 applic BID TOPIC 01/23/18 18:00 02/22/18 17:59 01/27/18 09:33 Alberto Little MD January 27, 2018 10:15
[2018-01-27] MEDS: Levemir Flexpen SUBQ SCH (10:46)
[2018-01-27] MEDS ORDERED: Albumin Human 5% 250ml IV SCH (11:00)
[2018-01-27 12:00] VITALS: BP 138/67
--- NOTE | 2018-01-27 13:23 | Nephrology Progress Note ---
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 replace permacath if out pt dialysis to continue by PMD adjust Hydralazine dose Increase flomax- Singer for now 2D echo 30% ej fx SANDRO kidney Suspected nonobstructive nephrolithiasis in the left kidney. monitor renal parameters avoid nephrotoxics After load reduction- hydralazine optimize renal and cardiac status. Echo: Global left ventricular hypokinesis. Left ventricular ejection fraction estimated to be 30 %. Subjective ROS Limited/Unobtainable: No Constitutional: Reports: malaise, weakness Objective Objective Last 24 Hour Vital Signs Date Time Temp Pulse Resp B/P (MAP) Pulse Ox O2 Delivery O2 Flow Rate FiO2 01/27/18 09:21 104/63 01/27/18 09:00 87 102/59 01/27/18 08:00 98.2 88 17 104/63 97 Room Air 98.2 01/27/18 05:50 124/61 01/27/18 04:00 98.6 54 18 124/61 94 98.6 01/27/18 00:00 99.3 61 20 127/64 95 99.3 01/26/18 23:53 127/64 01/26/18 20:00 99.3 71 19 126/62 92 99.3 01/26/18 18:30 115/68 01/26/18 16:00 97.7 85 20 115/68 96 Room Air 97.7 Intake and Output 01/26/18 01/27/18 19:00 07:00 Intake Total 480 ml 480 ml Output Total 300 ml Balance 180 ml 480 ml Free Water 120 ml 120 ml Tube Feeding 360 ml 360 ml Output Urine Total 300 ml # Bowel Movements 1 Laboratory Tests 01/26/18 17:30: C-Reactive Protein, Quantitative 16.5H 01/27/18 06:00: White Blood Count 10.1, Red Blood Count 3.53L, Hemoglobin 11.7L, Hematocrit 34.9L, Mean Corpuscular Volume 99, Mean Corpuscular Hemoglobin 33.2H, Mean Corpuscular Hemoglobin Concent 33.6, Red Cell Distribution Width 13.5, Platelet Count 213, Mean Platelet Volume 6.8, Neutrophils (%) (Auto) 70.0, Lymphocytes (% ) (Auto) 17.4L, Monocytes (%) (Auto) 11.1H, Eosinophils (%) (Auto) 0.7, Basophils (%) (Auto) 0.7, Sodium Level 139, Potassium Level 3.9, Chloride Level 105, Carbon Dioxide Level 23, Anion Gap 11, Blood Urea Nitrogen 98H, Creatinine 3.1H, Estimat Glomerular Filtration Rate , Glucose Level 283H, Calcium Level 9.2 , Phosphorus Level 3.9, Magnesium Level 2.3, Total Bilirubin 0.6, Aspartate Amino Transf (AST/SGOT) 16, Alanine Aminotransferase (ALT/SGPT) 27, Alkaline Phosphatase 139H, Total Protein 7.2, Albumin 2.0L, Globulin 5.2, Albumin/ Globulin Ratio 0.4L, Random Vancomycin Level 17.5 Height (Feet): 5 Height (Inches): 1.00 Weight (Pounds): 188 General Appearance: no apparent distress, lethargic, confused Cardiovascular: normal rate Respiratory/Chest: decreased breath sounds Abdomen: soft Objective no other changes VALENTIN RUSH January 27, 2018 13:23
[2018-01-27] MEDS: HydrALAZINE 10mg Tab GT SCH ×2 (13:54→17:39)
--- NOTE | 2018-01-27 14:06 | General Progress Note ---
Assessment/Plan Status: stable, progressing Assessment/Plan Dementia encephalopathy -Ativan prn -dc Aricept -the pt lacks capacity Subjective Date patient seen: January 27, 2018 Neurologic/Psychiatric: Reports: anxiety, depressed, emotional problems Allergies: Coded Allergies: No Known Allergies (Unverified , 12/19/17) Objective Last 24 Hour Vital Signs Date Time Temp Pulse Resp B/P (MAP) Pulse Ox O2 Delivery O2 Flow Rate FiO2 01/27/18 13:54 138/67 01/27/18 09:21 104/63 01/27/18 09:00 87 102/59 01/27/18 08:00 98.2 88 17 104/63 97 Room Air 98.2 01/27/18 05:50 124/61 01/27/18 04:00 98.6 54 18 124/61 94 98.6 01/27/18 00:00 99.3 61 20 127/64 95 99.3 01/26/18 23:53 127/64 01/26/18 20:00 99.3 71 19 126/62 92 99.3 01/26/18 18:30 115/68 01/26/18 16:00 97.7 85 20 115/68 96 Room Air 97.7 Intake and Output 01/26/18 01/27/18 19:00 07:00 Intake Total 480 ml 480 ml Output Total 300 ml Balance 180 ml 480 ml Free Water 120 ml 120 ml Tube Feeding 360 ml 360 ml Output Urine Total 300 ml # Bowel Movements 1 Laboratory Tests 01/26/18 17:30: C-Reactive Protein, Quantitative 16.5H 01/27/18 06:00: White Blood Count 10.1, Red Blood Count 3.53L, Hemoglobin 11.7L, Hematocrit 34.9L, Mean Corpuscular Volume 99, Mean Corpuscular Hemoglobin 33.2H, Mean Corpuscular Hemoglobin Concent 33.6, Red Cell Distribution Width 13.5, Platelet Count 213, Mean Platelet Volume 6.8, Neutrophils (%) (Auto) 70.0, Lymphocytes (% ) (Auto) 17.4L, Monocytes (%) (Auto) 11.1H, Eosinophils (%) (Auto) 0.7, Basophils (%) (Auto) 0.7, Sodium Level 139, Potassium Level 3.9, Chloride Level 105, Carbon Dioxide Level 23, Anion Gap 11, Blood Urea Nitrogen 98H, Creatinine 3.1H, Estimat Glomerular Filtration Rate , Glucose Level 283H, Calcium Level 9.2 , Phosphorus Level 3.9, Magnesium Level 2.3, Total Bilirubin 0.6, Aspartate Amino Transf (AST/SGOT) 16, Alanine Aminotransferase (ALT/SGPT) 27, Alkaline Phosphatase 139H, Total Protein 7.2, Albumin 2.0L, Globulin 5.2, Albumin/ Globulin Ratio 0.4L, Random Vancomycin Level 17.5 Height (Feet): 5 Height (Inches): 1.00 Weight (Pounds): 188 General Appearance: no apparent distress, alert, confused Ashly Rajan M.D. January 27, 2018 14:06
--- NOTE | 2018-01-27 14:06 | Psych Consult Progress Note ---
Psych Consult Progress Note Consult 01/25/18 Dementia encephalopathy -Ativan prn -dc Aricept -the pt lacks capacity Vital Signs Last 24 Hour Vital Signs Date Time Temp Pulse Resp B/P (MAP) Pulse Ox O2 Delivery O2 Flow Rate FiO2 01/27/18 13:54 138/67 01/27/18 09:21 104/63 01/27/18 09:00 87 102/59 01/27/18 08:00 98.2 88 17 104/63 97 Room Air 98.2 01/27/18 05:50 124/61 01/27/18 04:00 98.6 54 18 124/61 94 98.6 01/27/18 00:00 99.3 61 20 127/64 95 99.3 01/26/18 23:53 127/64 01/26/18 20:00 99.3 71 19 126/62 92 99.3 01/26/18 18:30 115/68 01/26/18 16:00 97.7 85 20 115/68 96 Room Air 97.7 Labs Laboratory Tests Test 01/26/18 17:30 01/27/18 06:00 C-Reactive Protein, Quantitative 16.5 mg/dL (0.00-0.90) H White Blood Count 10.1 K/UL (4.8-10.8) Red Blood Count 3.53 M/UL (4.70-6.10) L Hemoglobin 11.7 G/DL (14.2-18.0) L Hematocrit 34.9 % (42.0-52.0) L Mean Corpuscular Volume 99 FL (80-99) Mean Corpuscular Hemoglobin 33.2 PG (27.0-31.0) H Mean Corpuscular Hemoglobin Concent 33.6 G/DL (32.0-36.0) Red Cell Distribution Width 13.5 % (11.6-14.8) Platelet Count 213 K/UL (150-450) Mean Platelet Volume 6.8 FL (6.5-10.1) Neutrophils (%) (Auto) 70.0 % (45.0-75.0) Lymphocytes (%) (Auto) 17.4 % (20.0-45.0) L Monocytes (%) (Auto) 11.1 % (1.0-10.0) H Eosinophils (%) (Auto) 0.7 % (0.0-3.0) Basophils (%) (Auto) 0.7 % (0.0-2.0) Sodium Level 139 MMOL/L (136-145) Potassium Level 3.9 MMOL/L (3.5-5.1) Chloride Level 105 MMOL/L (98-107) Carbon Dioxide Level 23 MMOL/L (21-32) Anion Gap 11 mmol/L (5-15) Blood Urea Nitrogen 98 mg/dL (7-18) H Creatinine 3.1 MG/DL (0.55-1.30) H Estimat Glomerular Filtration Rate mL/min (>60) Glucose Level 283 MG/DL (74-106) H Calcium Level 9.2 MG/DL (8.5-10.1) Phosphorus Level 3.9 MG/DL (2.5-4.9) Magnesium Level 2.3 MG/DL (1.8-2.4) Total Bilirubin 0.6 MG/DL (0.2-1.0) Aspartate Amino Transf (AST/SGOT) 16 U/L (15-37) Alanine Aminotransferase (ALT/SGPT) 27 U/L (12-78) Alkaline Phosphatase 139 U/L (46-116) H Total Protein 7.2 G/DL (6.4-8.2) Albumin 2.0 G/DL (3.4-5.0) L Globulin 5.2 g/dL Albumin/Globulin Ratio 0.4 (1.0-2.7) L Random Vancomycin Level 17.5 ug/mL Medications Current Medications Medications (Trade) Dose Ordered Sig/Tiffany Route PRN Reason Start Time Stop Time Status Last Admin Dose Admin Acetaminophen (Tylenol) 650 mg Q4H PRN ORAL Mild Pain/Temp > 100.5 01/23/18 02:00 02/17/18 01:59 Amiodarone HCl (Cordarone) 200 mg DAILY ORAL 01/25/18 09:00 02/17/18 08:59 01/27/18 09:31 Apixaban (Eliquis) 2.5 mg BID ORAL 01/24/18 18:00 02/21/18 17:59 01/27/18 09:21 Ascorbic Acid (Vitamin C) 500 mg DAILY ORAL 01/25/18 09:00 02/17/18 08:59 01/27/18 09:22 Atorvastatin Calcium (Lipitor) 40 mg BEDTIME ORAL 01/24/18 21:00 02/17/18 20:59 01/26/18 21:03 Bisacodyl (Dulcolax) 10 mg DAILYPRN PRN RECTAL Constipation 01/23/18 02:00 02/17/18 01:59 Dextrose (Dextrose 50%) 25 ml STAT PRN IV Hypoglycemia 01/27/18 07:15 02/26/18 07:14 Dextrose (Dextrose 50%) 50 ml STAT PRN IV Hypoglycemia 01/27/18 07:15 02/26/18 07:14 Docusate Sodium (Colace) 100 mg TID GT 01/24/18 13:00 02/17/18 12:59 01/27/18 13:53 Donepezil HCl (Aricept) 10 mg DAILY ORAL 01/25/18 09:00 02/17/18 08:59 01/27/18 09:21 Finasteride (Proscar) 5 mg DAILY ORAL 01/25/18 10:30 02/24/18 10:29 01/27/18 09:23 Hydralazine HCl (Apresoline) 10 mg Q6HR GT 01/27/18 12:00 02/26/18 11:59 01/27/18 13:54 Insulin Aspart (NovoLOG) EVERY 6 HOURS SUBQ 01/23/18 00:00 02/18/18 17:59 01/27/18 12:10 Insulin Detemir (Levemir) 6 units DAILY SUBQ 01/27/18 10:00 02/26/18 09:59 01/27/18 10:46 Levothyroxine Sodium (Synthroid) 50 mcg DAILY@0630 ORAL 01/26/18 06:30 02/25/18 06:29 01/27/18 05:51 Metoprolol Succinate (Toprol XL) 25 mg DAILY ORAL 01/25/18 10:30 02/24/18 10:29 01/25/18 10:52 Nitroglycerin (Nitro-Bid) 1 inch DAILY TOPIC 01/25/18 10:30 02/24/18 10:29 01/27/18 09:21 Saccharomyces Boulardii (Florastor) 250 mg DAILY ORAL 01/25/18 09:00 02/17/18 08:59 01/27/18 09:21 Sennosides (Senokot) 1 tab QHS GT 01/24/18 21:00 02/23/18 20:59 01/24/18 21:43 Sodium Chloride 500 ml @ 999 mls/hr Q31M ONCE IV 01/27/18 14:20 01/27/18 14:50 01/27/18 13:57 Tamsulosin HCl (Flomax) 0.4 mg QHS ORAL 01/27/18 21:00 02/17/18 17:59 Zinc Oxide (Zinc Oxide) 1 applic BID TOPIC 01/23/18 18:00 02/22/18 17:59 01/27/18 09:33 Ashly Rajan M.D. January 27, 2018 14:06
[2018-01-27] MEDS ORDERED: Sodium Chloride 500ML 500 ML IV ONE (14:20)
--- NOTE | 2018-01-27 14:55 | Diagnostic Imaging Report ---
Indication: Cough Technique: One view of the chest Comparison: 01/17/2018 Findings: Interim removal of previously demonstrated tunneled dialysis catheter. There is infiltrate and pleural fluid at the left lung base, possibly increased from the prior exam. There is generalized mild interstitial congestion which appears similar to the prior exam. The heart remains enlarged. Impression: Left basilar pleural fluid and infiltrate, possibly increased from previous study of 10 days earlier Mild interstitial congestion, similar to previous Interim tunneled dialysis catheter removal
--- NOTE | 2018-01-27 15:31 | General Progress Note ---
Assessment/Plan Status: stable Assessment/Plan 1. Infected right upper chest PermCath. 2. End-stage renal disease- transiet- off HD for now- will monitor renal function 3. Diabetes type 2. 4. Hypercholesterolemia. 5. Cardiomyopathy. 6. Atrial fibrillation. 7. Congestive heart failure. 8. Hypertension. 9. Alzheimer dementia. 10. Benign prostatic hypertrophy. 11. Lack of capacity to make medical decisions TREATMENT: DC HD access , will monitor for need for Re-insertion Notes from Cardiology, Nephrology, Vascular Sx and ID are reviewed Given the lack of availability of the Next keen, and the urgency for the procedure to remove the Cath, it is justified to proceed for removal/procedure at this time oFF scheduled insuline Self- Extraction of Fisher Ok to monitor off fisher Re-insert if Volume > 400 will monitor off Fisher and Off HD Subjective ROS Limited/Unobtainable: Yes Allergies: Coded Allergies: No Known Allergies (Unverified , 12/19/17) Objective Last 24 Hour Vital Signs Date Time Temp Pulse Resp B/P (MAP) Pulse Ox O2 Delivery O2 Flow Rate FiO2 01/27/18 13:54 138/67 01/27/18 12:00 98.6 72 18 138/67 96 Room Air 98.6 01/27/18 09:21 104/63 01/27/18 09:00 87 102/59 01/27/18 08:00 98.2 88 17 104/63 97 Room Air 98.2 01/27/18 05:50 124/61 01/27/18 04:00 98.6 54 18 124/61 94 98.6 01/27/18 00:00 99.3 61 20 127/64 95 99.3 01/26/18 23:53 127/64 01/26/18 20:00 99.3 71 19 126/62 92 99.3 01/26/18 18:30 115/68 01/26/18 16:00 97.7 85 20 115/68 96 Room Air 97.7 Intake and Output 01/26/18 01/27/18 19:00 07:00 Intake Total 480 ml 480 ml Output Total 300 ml Balance 180 ml 480 ml Free Water 120 ml 120 ml Tube Feeding 360 ml 360 ml Output Urine Total 300 ml # Bowel Movements 1 Laboratory Tests 01/26/18 17:30: C-Reactive Protein, Quantitative 16.5H 01/27/18 06:00: White Blood Count 10.1, Red Blood Count 3.53L, Hemoglobin 11.7L, Hematocrit 34.9L, Mean Corpuscular Volume 99, Mean Corpuscular Hemoglobin 33.2H, Mean Corpuscular Hemoglobin Concent 33.6, Red Cell Distribution Width 13.5, Platelet Count 213, Mean Platelet Volume 6.8, Neutrophils (%) (Auto) 70.0, Lymphocytes (% ) (Auto) 17.4L, Monocytes (%) (Auto) 11.1H, Eosinophils (%) (Auto) 0.7, Basophils (%) (Auto) 0.7, Sodium Level 139, Potassium Level 3.9, Chloride Level 105, Carbon Dioxide Level 23, Anion Gap 11, Blood Urea Nitrogen 98H, Creatinine 3.1H, Estimat Glomerular Filtration Rate , Glucose Level 283H, Calcium Level 9.2 , Phosphorus Level 3.9, Magnesium Level 2.3, Total Bilirubin 0.6, Aspartate Amino Transf (AST/SGOT) 16, Alanine Aminotransferase (ALT/SGPT) 27, Alkaline Phosphatase 139H, Total Protein 7.2, Albumin 2.0L, Globulin 5.2, Albumin/ Globulin Ratio 0.4L, Random Vancomycin Level 17.5 Height (Feet): 5 Height (Inches): 1.00 Weight (Pounds): 188 General Appearance: no apparent distress EENT: PERRL/EOMI Neck: supple Cardiovascular: normal rate Respiratory/Chest: lungs clear Abdomen: soft Extremities: non-tender Objective Height (Feet): 5 Height (Inches): 1.00 Weight (Pounds): 187 General Appearance: no apparent distress EENT: PERRL/EOMI Neck: supple Cardiovascular: normal rate Abdomen: soft, PEG tube in place Extremities: other - atrophied musculature, spontaneous movement Neurologic: disoriented, is awake Courtney Weeks MD January 27, 2018 15:31
[2018-01-27 16:00] VITALS: BP 128/60
--- NOTE | 2018-01-27 17:20 | Cardiac Electrophysiology PN ---
Assessment/Plan Assessment/Plan 1. Atrial flutter.On amiodarone 200 mg daily, Toprol-XL 25 mg daily and Eliquis 2.5 mg b.i.d. 2. Hypertension. Continue Hydralazine 25 q6 and Toprol-XL 25 mg 3. Cardiomyopathy with EF 30% on Cozaar and Toprol-XL 25 mg daily. Not a candidate for defibrillator placement. 4. ESRD on HD with discharge from the PermCath, s/p REMOVAL HD per Dr Verma 5. Hyperlipidemia, on Lipitor. 6. 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 No events. Awaiting placement Objective Last 24 Hour Vital Signs Date Time Temp Pulse Resp B/P (MAP) Pulse Ox O2 Delivery O2 Flow Rate FiO2 01/27/18 13:54 138/67 01/27/18 12:00 98.6 72 18 138/67 96 Room Air 98.6 01/27/18 09:21 104/63 01/27/18 09:00 87 102/59 01/27/18 08:00 98.2 88 17 104/63 97 Room Air 98.2 01/27/18 05:50 124/61 01/27/18 04:00 98.6 54 18 124/61 94 98.6 01/27/18 00:00 99.3 61 20 127/64 95 99.3 01/26/18 23:53 127/64 01/26/18 20:00 99.3 71 19 126/62 92 99.3 01/26/18 18:30 115/68 Intake and Output 01/26/18 01/27/18 19:00 07:00 Intake Total 480 ml 480 ml Output Total 300 ml Balance 180 ml 480 ml Free Water 120 ml 120 ml Tube Feeding 360 ml 360 ml Output Urine Total 300 ml # Bowel Movements 1 Laboratory Tests Test 01/26/18 17:30 01/27/18 06:00 C-Reactive Protein, Quantitative 16.5 mg/dL (0.00-0.90) H White Blood Count 10.1 K/UL (4.8-10.8) Red Blood Count 3.53 M/UL (4.70-6.10) L Hemoglobin 11.7 G/DL (14.2-18.0) L Hematocrit 34.9 % (42.0-52.0) L Mean Corpuscular Volume 99 FL (80-99) Mean Corpuscular Hemoglobin 33.2 PG (27.0-31.0) H Mean Corpuscular Hemoglobin Concent 33.6 G/DL (32.0-36.0) Red Cell Distribution Width 13.5 % (11.6-14.8) Platelet Count 213 K/UL (150-450) Mean Platelet Volume 6.8 FL (6.5-10.1) Neutrophils (%) (Auto) 70.0 % (45.0-75.0) Lymphocytes (%) (Auto) 17.4 % (20.0-45.0) L Monocytes (%) (Auto) 11.1 % (1.0-10.0) H Eosinophils (%) (Auto) 0.7 % (0.0-3.0) Basophils (%) (Auto) 0.7 % (0.0-2.0) Sodium Level 139 MMOL/L (136-145) Potassium Level 3.9 MMOL/L (3.5-5.1) Chloride Level 105 MMOL/L (98-107) Carbon Dioxide Level 23 MMOL/L (21-32) Anion Gap 11 mmol/L (5-15) Blood Urea Nitrogen 98 mg/dL (7-18) H Creatinine 3.1 MG/DL (0.55-1.30) H Estimat Glomerular Filtration Rate mL/min (>60) Glucose Level 283 MG/DL (74-106) H Calcium Level 9.2 MG/DL (8.5-10.1) Phosphorus Level 3.9 MG/DL (2.5-4.9) Magnesium Level 2.3 MG/DL (1.8-2.4) Total Bilirubin 0.6 MG/DL (0.2-1.0) Aspartate Amino Transf (AST/SGOT) 16 U/L (15-37) Alanine Aminotransferase (ALT/SGPT) 27 U/L (12-78) Alkaline Phosphatase 139 U/L (46-116) H Total Protein 7.2 G/DL (6.4-8.2) Albumin 2.0 G/DL (3.4-5.0) L Globulin 5.2 g/dL Albumin/Globulin Ratio 0.4 (1.0-2.7) L Random Vancomycin Level 17.5 ug/mL Objective HEAD AND NECK: No JVD. LUNGS: Clear. CARDIOVASCULAR: Regular S1 and S2 with no gallop. ABDOMEN: Soft, status post G-tube. EXTREMITIES: 1+ pitting edema. Malik Shannon MD January 27, 2018 17:20
[2018-01-27 20:00] VITALS: BP 120/71
[2018-01-27] MEDS: Atorvastatin 20mg tab ORAL SCH (20:53)
[2018-01-27] MEDS: Sennosides 8.6mg GT SCH (20:54)
[2018-01-28] VITALS: BP 132/65
[2018-01-28] MEDS: HydrALAZINE 10mg Tab GT SCH ×4 (00:20→17:37)
[2018-01-28] MEDS: NovoLOG Insulin Flexpen SUBQ SCH ×4 (00:21→17:37)
[2018-01-28 04:00] VITALS: BP 131/82
--- NOTE | 2018-01-28 07:06 | General Progress Note ---
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, stage IV ICD Codes: I13.0 - Hypertensive heart and chronic kidney disease with heart failure and stage 1 through stage 4 chronic kidney disease, or unspecified chronic kidney disease; N18.4 - Chronic kidney disease, stage 4 (severe) SNOMED: 010999694 (4) Renal failure (ARF), acute on chronic ICD Codes: N17.9 - Acute kidney failure, unspecified; N18.9 - Chronic kidney disease, unspecified SNOMED: 329065677 Assessment/Plan continue Levemir 6 units daily continue NISS tight glycemic control is not indicated continue Levothyroxine 50 mcg daily repeat TSH next week Subjective ROS Limited/Unobtainable: Yes Allergies: Coded Allergies: No Known Allergies (Unverified , 12/19/17) Subjective events noted BG values improved after addition of Levemir 6 units Objective Last 24 Hour Vital Signs Date Time Temp Pulse Resp B/P (MAP) Pulse Ox O2 Delivery O2 Flow Rate FiO2 01/28/18 05:51 131/82 01/28/18 04:00 97.1 77 18 131/82 96 97.1 01/28/18 00:20 130/65 01/28/18 00:00 97.2 71 18 132/65 96 97.2 01/27/18 20:00 97.1 78 18 120/71 95 97.1 01/27/18 17:39 128/60 01/27/18 16:00 98.2 74 19 128/60 98 Room Air 98.2 01/27/18 13:54 138/67 01/27/18 12:00 98.6 72 18 138/67 96 Room Air 98.6 01/27/18 09:21 104/63 01/27/18 09:00 87 102/59 01/27/18 08:00 98.2 88 17 104/63 97 Room Air 98.2 Intake and Output 01/27/18 01/28/18 19:00 07:00 Intake Total 640 ml 450 ml Output Total 50 ml Balance 590 ml 450 ml Intake Oral 0 ml Free Water 280 ml 120 ml Tube Feeding 360 ml 330 ml Output Urine Total 50 ml # Voids 3 # Bowel Movements 3 3 Height (Feet): 5 Height (Inches): 1.00 Weight (Pounds): 192 General Appearance: no apparent distress Neck: normal alignment Cardiovascular: normal rate Respiratory/Chest: decreased breath sounds Abdomen: normal bowel sounds Objective Current Medications Medications (Trade) Dose Ordered Sig/Tiffany Route PRN Reason Start Time Stop Time Status Last Admin Dose Admin Acetaminophen (Tylenol) 650 mg Q4H PRN ORAL Mild Pain/Temp > 100.5 01/23/18 02:00 02/17/18 01:59 Amiodarone HCl (Cordarone) 200 mg DAILY ORAL 01/25/18 09:00 02/17/18 08:59 01/27/18 09:31 Apixaban (Eliquis) 2.5 mg BID ORAL 01/24/18 18:00 02/21/18 17:59 01/27/18 17:39 Ascorbic Acid (Vitamin C) 500 mg DAILY ORAL 01/25/18 09:00 02/17/18 08:59 01/27/18 09:22 Atorvastatin Calcium (Lipitor) 40 mg BEDTIME ORAL 01/24/18 21:00 02/17/18 20:59 01/27/18 20:53 Bisacodyl (Dulcolax) 10 mg DAILYPRN PRN RECTAL Constipation 01/23/18 02:00 02/17/18 01:59 Dextrose (Dextrose 50%) 25 ml STAT PRN IV Hypoglycemia 01/27/18 07:15 02/26/18 07:14 Dextrose (Dextrose 50%) 50 ml STAT PRN IV Hypoglycemia 01/27/18 07:15 02/26/18 07:14 Docusate Sodium (Colace) 100 mg TID GT 01/24/18 13:00 02/17/18 12:59 01/27/18 13:53 Donepezil HCl (Aricept) 10 mg DAILY ORAL 01/25/18 09:00 02/17/18 08:59 01/27/18 09:21 Finasteride (Proscar) 5 mg DAILY ORAL 01/25/18 10:30 02/24/18 10:29 01/27/18 09:23 Hydralazine HCl (Apresoline) 10 mg Q6HR GT 01/27/18 12:00 02/26/18 11:59 01/28/18 05:51 Insulin Aspart (NovoLOG) EVERY 6 HOURS SUBQ 01/23/18 00:00 02/18/18 17:59 01/28/18 05:53 Insulin Detemir (Levemir) 6 units DAILY SUBQ 01/27/18 10:00 02/26/18 09:59 01/27/18 10:46 Levothyroxine Sodium (Synthroid) 50 mcg DAILY@0630 ORAL 01/26/18 06:30 02/25/18 06:29 01/28/18 05:51 Metoprolol Succinate (Toprol XL) 25 mg DAILY ORAL 01/25/18 10:30 02/24/18 10:29 01/25/18 10:52 Nitroglycerin (Nitro-Bid) 1 inch DAILY TOPIC 01/25/18 10:30 02/24/18 10:29 01/27/18 09:21 Saccharomyces Boulardii (Florastor) 250 mg DAILY ORAL 01/25/18 09:00 02/17/18 08:59 01/27/18 09:21 Sennosides (Senokot) 1 tab QHS GT 01/24/18 21:00 02/23/18 20:59 01/24/18 21:43 Tamsulosin HCl (Flomax) 0.4 mg QHS ORAL 01/27/18 21:00 02/17/18 17:59 01/27/18 20:54 Zinc Oxide (Zinc Oxide) 1 applic BID TOPIC 01/23/18 18:00 02/22/18 17:59 01/27/18 17:40 Item Value Date Time Bedside Blood Glucose 173 mg/dl H 01/28/18 0600 Bedside Blood Glucose 218 mg/dl H 01/28/18 0021 Bedside Blood Glucose 172 mg/dl H 01/27/18 1800 Bedside Blood Glucose 262 mg/dl H 01/27/18 1210 Bedside Blood Glucose 210 mg/dl H 01/27/18 1046 Bedside Blood Glucose 302 mg/dl H 01/27/18 0600 ANITA WANG January 28, 2018 07:06
[2018-01-28 07:32] LABS: BASOPHILS % (AUTO) 0.5 % (0.0-2.0); EOSINOPHILS % (AUTO) 3.9 % (0.0-3.0); HEMATOCRIT 33.8 % (42.0-52.0); HEMOGLOBIN 11.4 G/DL (14.2-18.0); LYMPHOCYTES % (AUTO) 19.1 % (20.0-45.0); MEAN CORPUSCULAR VOLUME 99 FL (80-99); MONOCYTES % (AUTO) 9.1 % (1.0-10.0); NEUTROPHILS % (AUTO) 67.5 % (45.0-75.0); PLATELET COUNT 231 K/UL (150-450); RED BLOOD COUNT 3.42 M/UL (4.70-6.10); RED CELL DISTRIBUTION WIDTH 13.6 % (11.6-14.8)
[2018-01-28 07:52] LABS: ANION GAP 12 mmol/L (5-15); BLOOD UREA NITROGEN 108 mg/dL (7-18); CALCIUM 9.5 MG/DL (8.5-10.1); CARBON DIOXIDE 25 MMOL/L (21-32); CHLORIDE 103 MMOL/L (98-107); CREATININE 3.2 MG/DL (0.55-1.30); PHOSPHORUS 4.6 MG/DL (2.5-4.9); POTASSIUM 3.7 MMOL/L (3.5-5.1); SODIUM 140 MMOL/L (136-145)
[2018-01-28 08:00] VITALS: BP 141/86
[2018-01-28] MEDS: Docusate 100mg/10ml Liq GT SCH ×3 (09:00→17:34)
[2018-01-28] MEDS: Donepezil 10mg tab ORAL SCH (10:10)
[2018-01-28] MEDS: Amiodarone 200mg tab ORAL SCH (10:11)
[2018-01-28] MEDS: Eliquis 2.5mg tablet ORAL SCH ×2 (10:13→17:36)
[2018-01-28] MEDS: Metoprolol Succinate XL 25mg tab ORAL SCH (10:17)
[2018-01-28] MEDS: Ascorbic Acid 500mg tab ORAL SCH (10:18)
[2018-01-28] MEDS: Nitroglycerin 2% oint pkt TOPIC SCH (10:20)
[2018-01-28] MEDS: Zinc Oxide Oint 2oz TOPIC SCH ×2 (10:21→17:41)
--- NOTE | 2018-01-28 10:44 | Nephrology Progress Note ---
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 replace permacath if out pt dialysis to continue by PMD adjust Hydralazine dose Increase flomax- Fisher for now 2D echo 30% ej fx SANDRO kidney Suspected nonobstructive nephrolithiasis in the left kidney. monitor renal parameters avoid nephrotoxics After load reduction- hydralazine optimize renal and cardiac status. Echo: Global left ventricular hypokinesis. Left ventricular ejection fraction estimated to be 30 %. Subjective ROS Limited/Unobtainable: No Constitutional: Reports: malaise, weakness Objective Objective Last 24 Hour Vital Signs Date Time Temp Pulse Resp B/P (MAP) Pulse Ox O2 Delivery O2 Flow Rate FiO2 01/28/18 10:20 142/80 01/28/18 10:17 78 142/80 01/28/18 08:00 97.0 87 16 141/86 97 97.0 01/28/18 05:51 131/82 01/28/18 04:00 97.1 77 18 131/82 96 97.1 01/28/18 00:20 130/65 01/28/18 00:00 97.2 71 18 132/65 96 97.2 01/27/18 20:00 97.1 78 18 120/71 95 97.1 01/27/18 17:39 128/60 01/27/18 16:00 98.2 74 19 128/60 98 Room Air 98.2 01/27/18 13:54 138/67 01/27/18 12:00 98.6 72 18 138/67 96 Room Air 98.6 Intake and Output 01/27/18 01/28/18 19:00 07:00 Intake Total 640 ml 450 ml Output Total 50 ml Balance 590 ml 450 ml Intake Oral 0 ml Free Water 280 ml 120 ml Tube Feeding 360 ml 330 ml Output Urine Total 50 ml # Voids 3 # Bowel Movements 3 3 Laboratory Tests 01/28/18 06:05: White Blood Count 9.0, Red Blood Count 3.42L, Hemoglobin 11.4L, Hematocrit 33.8L , Mean Corpuscular Volume 99, Mean Corpuscular Hemoglobin 33.4H, Mean Corpuscular Hemoglobin Concent 33.8, Red Cell Distribution Width 13.6, Platelet Count 231, Mean Platelet Volume 6.8, Neutrophils (%) (Auto) 67.5, Lymphocytes (% ) (Auto) 19.1L, Monocytes (%) (Auto) 9.1, Eosinophils (%) (Auto) 3.9H, Basophils (%) (Auto) 0.5, Sodium Level 140, Potassium Level 3.7, Chloride Level 103, Carbon Dioxide Level 25, Anion Gap 12, Blood Urea Nitrogen 108H, Creatinine 3.2H, Estimat Glomerular Filtration Rate , Glucose Level 184#H, Calcium Level 9.5, Phosphorus Level 4.6, Magnesium Level 2.4 Height (Feet): 5 Height (Inches): 1.00 Weight (Pounds): 192 General Appearance: no apparent distress Respiratory/Chest: decreased breath sounds Abdomen: soft Genitourinary/Rectal: other - fisher Objective no other changes VALENTIN RUSH January 28, 2018 10:44
[2018-01-28] MEDS: Levemir Flexpen SUBQ SCH (10:49)
[2018-01-28] MEDS ORDERED: Digoxin Elixir 0.125mg NG SCH (10:55)
--- NOTE | 2018-01-28 11:38 | GI Progress Note ---
Assessment/Plan Problems: (1) Anemia ICD Codes: D64.9 - Anemia, unspecified SNOMED: 004586830 (2) Malfunction of gastrostomy tube ICD Codes: K94.23 - Gastrostomy malfunction SNOMED: 336422944 (3) Attention to G-tube ICD Codes: Z43.1 - Encounter for attention to gastrostomy SNOMED: 814401487, 886317645 Status: unchanged Status Narrative Discussed with Dr. Espinal. Assessment/Plan GT replaced at beside with 20fr. GTFs per RD GT site care BID/prn >> zinc oxide around GT site OB stool r/o GI bleed monitor H&H, prn transfusions bowel regime ppi fu labs The patient was seen and examined at bedside and all new and available data was reviewed in the patients chart. I agree with the above findings, impression and plan. (Patient seen earlier today. Signature stamp does not reflect patient encounter time.). - Xavier Espinal MD Subjective Subjective limited Objective Last 24 Hour Vital Signs Date Time Temp Pulse Resp B/P (MAP) Pulse Ox O2 Delivery O2 Flow Rate FiO2 01/28/18 10:20 142/80 01/28/18 10:17 78 142/80 01/28/18 08:00 97.0 87 16 141/86 97 97.0 01/28/18 05:51 131/82 01/28/18 04:00 97.1 77 18 131/82 96 97.1 01/28/18 00:20 130/65 01/28/18 00:00 97.2 71 18 132/65 96 97.2 01/27/18 20:00 97.1 78 18 120/71 95 97.1 01/27/18 17:39 128/60 01/27/18 16:00 98.2 74 19 128/60 98 Room Air 98.2 01/27/18 13:54 138/67 01/27/18 12:00 98.6 72 18 138/67 96 Room Air 98.6 Intake and Output 01/27/18 01/28/18 19:00 07:00 Intake Total 640 ml 450 ml Output Total 50 ml Balance 590 ml 450 ml Intake Oral 0 ml Free Water 280 ml 120 ml Tube Feeding 360 ml 330 ml Output Urine Total 50 ml # Voids 3 # Bowel Movements 3 3 Laboratory Tests Test 01/28/18 06:05 White Blood Count 9.0 K/UL (4.8-10.8) Red Blood Count 3.42 M/UL (4.70-6.10) L Hemoglobin 11.4 G/DL (14.2-18.0) L Hematocrit 33.8 % (42.0-52.0) L Mean Corpuscular Volume 99 FL (80-99) Mean Corpuscular Hemoglobin 33.4 PG (27.0-31.0) H Mean Corpuscular Hemoglobin Concent 33.8 G/DL (32.0-36.0) Red Cell Distribution Width 13.6 % (11.6-14.8) Platelet Count 231 K/UL (150-450) Mean Platelet Volume 6.8 FL (6.5-10.1) Neutrophils (%) (Auto) 67.5 % (45.0-75.0) Lymphocytes (%) (Auto) 19.1 % (20.0-45.0) L Monocytes (%) (Auto) 9.1 % (1.0-10.0) Eosinophils (%) (Auto) 3.9 % (0.0-3.0) H Basophils (%) (Auto) 0.5 % (0.0-2.0) Sodium Level 140 MMOL/L (136-145) Potassium Level 3.7 MMOL/L (3.5-5.1) Chloride Level 103 MMOL/L (98-107) Carbon Dioxide Level 25 MMOL/L (21-32) Anion Gap 12 mmol/L (5-15) Blood Urea Nitrogen 108 mg/dL (7-18) H Creatinine 3.2 MG/DL (0.55-1.30) H Estimat Glomerular Filtration Rate mL/min (>60) Glucose Level 184 MG/DL (74-106) #H Calcium Level 9.5 MG/DL (8.5-10.1) Phosphorus Level 4.6 MG/DL (2.5-4.9) Magnesium Level 2.4 MG/DL (1.8-2.4) Height (Feet): 5 Height (Inches): 1.00 Weight (Pounds): 192 General Appearance: alert Cardiovascular: normal rate Respiratory/Chest: no respiratory distress Abdominal Exam: GT site - c/d/i Camilo Aden CERTIFIED FAMILY MEDIATOR January 28, 2018 11:38
[2018-01-28 12:00] VITALS: BP 102/60
[2018-01-28 16:00] VITALS: BP 119/76
--- NOTE | 2018-01-28 16:00 | General Progress Note ---
Assessment/Plan Assessment/Plan Dementia encephalopathy -Ativan prn -dc Aricept -the pt lacks capacity Subjective Date patient seen: January 28, 2018 Neurologic/Psychiatric: Reports: anxiety, depressed, emotional problems Allergies: Coded Allergies: No Known Allergies (Unverified , 12/19/17) Objective Last 24 Hour Vital Signs Date Time Temp Pulse Resp B/P (MAP) Pulse Ox O2 Delivery O2 Flow Rate FiO2 01/28/18 12:00 97.5 69 20 102/60 99 97.5 01/28/18 12:00 102/60 01/28/18 10:20 142/80 01/28/18 10:17 78 142/80 01/28/18 08:00 97.0 87 16 141/86 97 97.0 01/28/18 05:51 131/82 01/28/18 04:00 97.1 77 18 131/82 96 97.1 01/28/18 00:20 130/65 01/28/18 00:00 97.2 71 18 132/65 96 97.2 01/27/18 20:00 97.1 78 18 120/71 95 97.1 01/27/18 17:39 128/60 Intake and Output 01/27/18 01/28/18 19:00 07:00 Intake Total 640 ml 450 ml Output Total 50 ml Balance 590 ml 450 ml Intake Oral 0 ml Free Water 280 ml 120 ml Tube Feeding 360 ml 330 ml Output Urine Total 50 ml # Voids 3 # Bowel Movements 3 3 Laboratory Tests 01/28/18 06:05: White Blood Count 9.0, Red Blood Count 3.42L, Hemoglobin 11.4L, Hematocrit 33.8L , Mean Corpuscular Volume 99, Mean Corpuscular Hemoglobin 33.4H, Mean Corpuscular Hemoglobin Concent 33.8, Red Cell Distribution Width 13.6, Platelet Count 231, Mean Platelet Volume 6.8, Neutrophils (%) (Auto) 67.5, Lymphocytes (% ) (Auto) 19.1L, Monocytes (%) (Auto) 9.1, Eosinophils (%) (Auto) 3.9H, Basophils (%) (Auto) 0.5, Sodium Level 140, Potassium Level 3.7, Chloride Level 103, Carbon Dioxide Level 25, Anion Gap 12, Blood Urea Nitrogen 108H, Creatinine 3.2H, Estimat Glomerular Filtration Rate , Glucose Level 184#H, Calcium Level 9.5, Phosphorus Level 4.6, Magnesium Level 2.4 Height (Feet): 5 Height (Inches): 1.00 Weight (Pounds): 192 Ashly Rajan M.D. January 28, 2018 16:00
--- NOTE | 2018-01-28 16:29 | Cardiac Electrophysiology PN ---
Assessment/Plan Assessment/Plan 1. Atrial flutter. in SR on amiodarone 100 mg daily, Dig, Toprol-XL 25 mg daily and Eliquis 2.5 mg b.i.d. 2. Hypertension. Continue Hydralazine 10 q6 and Toprol-XL 25 mg 3. Cardiomyopathy with EF 30% on Cozaar and Toprol-XL 25 mg daily. Not a candidate for defibrillator placement. 4. ESRD on HD with discharge from the [facility], s/p REMOVAL no HD yet per Dr Verma 5. Hyperlipidemia, on Lipitor. 6. 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 No events. Placement in progress Objective Last 24 Hour Vital Signs Date Time Temp Pulse Resp B/P (MAP) Pulse Ox O2 Delivery O2 Flow Rate FiO2 01/28/18 16:00 98.0 60 20 119/76 99 98.0 01/28/18 12:00 97.5 69 20 102/60 99 97.5 01/28/18 12:00 102/60 01/28/18 10:20 142/80 01/28/18 10:17 78 142/80 01/28/18 08:00 97.0 87 16 141/86 97 97.0 01/28/18 05:51 131/82 01/28/18 04:00 97.1 77 18 131/82 96 97.1 01/28/18 00:20 130/65 01/28/18 00:00 97.2 71 18 132/65 96 97.2 01/27/18 20:00 97.1 78 18 120/71 95 97.1 01/27/18 17:39 128/60 Intake and Output 01/27/18 01/28/18 19:00 07:00 Intake Total 640 ml 450 ml Output Total 50 ml Balance 590 ml 450 ml Intake Oral 0 ml Free Water 280 ml 120 ml Tube Feeding 360 ml 330 ml Output Urine Total 50 ml # Voids 3 # Bowel Movements 3 3 Laboratory Tests Test 01/28/18 06:05 White Blood Count 9.0 K/UL (4.8-10.8) Red Blood Count 3.42 M/UL (4.70-6.10) L Hemoglobin 11.4 G/DL (14.2-18.0) L Hematocrit 33.8 % (42.0-52.0) L Mean Corpuscular Volume 99 FL (80-99) Mean Corpuscular Hemoglobin 33.4 PG (27.0-31.0) H Mean Corpuscular Hemoglobin Concent 33.8 G/DL (32.0-36.0) Red Cell Distribution Width 13.6 % (11.6-14.8) Platelet Count 231 K/UL (150-450) Mean Platelet Volume 6.8 FL (6.5-10.1) Neutrophils (%) (Auto) 67.5 % (45.0-75.0) Lymphocytes (%) (Auto) 19.1 % (20.0-45.0) L Monocytes (%) (Auto) 9.1 % (1.0-10.0) Eosinophils (%) (Auto) 3.9 % (0.0-3.0) H Basophils (%) (Auto) 0.5 % (0.0-2.0) Sodium Level 140 MMOL/L (136-145) Potassium Level 3.7 MMOL/L (3.5-5.1) Chloride Level 103 MMOL/L (98-107) Carbon Dioxide Level 25 MMOL/L (21-32) Anion Gap 12 mmol/L (5-15) Blood Urea Nitrogen 108 mg/dL (7-18) H Creatinine 3.2 MG/DL (0.55-1.30) H Estimat Glomerular Filtration Rate mL/min (>60) Glucose Level 184 MG/DL (74-106) #H Calcium Level 9.5 MG/DL (8.5-10.1) Phosphorus Level 4.6 MG/DL (2.5-4.9) Magnesium Level 2.4 MG/DL (1.8-2.4) Objective HEAD AND NECK: No JVD. LUNGS: Clear. CARDIOVASCULAR: Regular S1 and S2 with no gallop. ABDOMEN: Soft, status post G-tube. EXTREMITIES: 1+ pitting edema. Malik Shannon MD January 28, 2018 16:29
--- NOTE | 2018-01-28 18:30 | Infectious Diseases Prog Note ---
Assessment/Plan Assessment/Plan Assessment: Infected HD cath- no Evid of bacteremia -s/p removal perma cath 01/20; cath tip cx :CoNS -BCx NTD (peripheral), HD Cath Bcx NTD -wound cx: MRSA (S Vancomycin, Bactrim, Tetracycline) -Echo: no vegetations seen. Aortic valve calcification with decreased cusp excursion c/w aortic stenosis. Mildly thickened mitral valve leaflets with normal excursion. Moderate mitral annulus and aortic root calcification. Abd wound- no sings of infection -wound cx: MRSA, CONS (colonizers) Afebrile, no leukocytosis ESRD on HD -renal US: Suspected nonobstructive nephrolithiasis in the left kidney Stroke w/ hemiparesis dementia nonverbal HTN HLD cardiomyopathy Aflutter contractures, DM2 dysphagia s/p PEG anemia CHF longterm resident VRE colonized Plan: Monitor pt off of AB Rx - 01/24 SP IV Daptomycin 4mg/kg q48hrs abx d # 7/ for MRSA HD cath infection -01/22 SP IV Vancomcyin #5 (d/c due to supratherapeutic vanco levels) - from ID stand point ok to proceed w Placement of new permanent HD catheter -Monitor CBC/BMP, temperatures Subjective Allergies: Coded Allergies: No Known Allergies (Unverified , 12/19/17) Subjective comfortable Objective Vital Signs Last 24 Hour Vital Signs Date Time Temp Pulse Resp B/P (MAP) Pulse Ox O2 Delivery O2 Flow Rate FiO2 01/28/18 17:37 119/76 01/28/18 16:00 98.0 60 20 119/76 99 98.0 01/28/18 12:00 97.5 69 20 102/60 99 97.5 01/28/18 12:00 102/60 01/28/18 10:55 59 01/28/18 10:20 142/80 01/28/18 10:17 78 142/80 01/28/18 08:00 97.0 87 16 141/86 97 97.0 01/28/18 05:51 131/82 01/28/18 04:00 97.1 77 18 131/82 96 97.1 01/28/18 00:20 130/65 01/28/18 00:00 97.2 71 18 132/65 96 97.2 01/27/18 20:00 97.1 78 18 120/71 95 97.1 Height (Feet): 5 Height (Inches): 1.00 Weight (Pounds): 192 HEENT: anicteric Respiratory/Chest: no respiratory distress Cardiovascular: regular rhythm Abdomen: soft, non tender Laboratory Tests Test 01/28/18 06:05 White Blood Count 9.0 K/UL (4.8-10.8) Red Blood Count 3.42 M/UL (4.70-6.10) L Hemoglobin 11.4 G/DL (14.2-18.0) L Hematocrit 33.8 % (42.0-52.0) L Mean Corpuscular Volume 99 FL (80-99) Mean Corpuscular Hemoglobin 33.4 PG (27.0-31.0) H Mean Corpuscular Hemoglobin Concent 33.8 G/DL (32.0-36.0) Red Cell Distribution Width 13.6 % (11.6-14.8) Platelet Count 231 K/UL (150-450) Mean Platelet Volume 6.8 FL (6.5-10.1) Neutrophils (%) (Auto) 67.5 % (45.0-75.0) Lymphocytes (%) (Auto) 19.1 % (20.0-45.0) L Monocytes (%) (Auto) 9.1 % (1.0-10.0) Eosinophils (%) (Auto) 3.9 % (0.0-3.0) H Basophils (%) (Auto) 0.5 % (0.0-2.0) Sodium Level 140 MMOL/L (136-145) Potassium Level 3.7 MMOL/L (3.5-5.1) Chloride Level 103 MMOL/L (98-107) Carbon Dioxide Level 25 MMOL/L (21-32) Anion Gap 12 mmol/L (5-15) Blood Urea Nitrogen 108 mg/dL (7-18) H Creatinine 3.2 MG/DL (0.55-1.30) H Estimat Glomerular Filtration Rate mL/min (>60) Glucose Level 184 MG/DL (74-106) #H Calcium Level 9.5 MG/DL (8.5-10.1) Phosphorus Level 4.6 MG/DL (2.5-4.9) Magnesium Level 2.4 MG/DL (1.8-2.4) Current Medications Medications (Trade) Dose Ordered Sig/Tiffany Route PRN Reason Start Time Stop Time Status Last Admin Dose Admin Acetaminophen (Tylenol) 650 mg Q4H PRN ORAL Mild Pain/Temp > 100.5 01/23/18 02:00 02/17/18 01:59 Amiodarone HCl (Cordarone) 100 mg DAILY ORAL 01/29/18 09:00 02/17/18 08:59 Apixaban (Eliquis) 2.5 mg BID ORAL 01/24/18 18:00 02/21/18 17:59 01/28/18 17:36 Ascorbic Acid (Vitamin C) 500 mg DAILY ORAL 01/25/18 09:00 02/17/18 08:59 01/28/18 10:18 Atorvastatin Calcium (Lipitor) 40 mg BEDTIME ORAL 01/24/18 21:00 02/17/18 20:59 01/27/18 20:53 Bisacodyl (Dulcolax) 10 mg DAILYPRN PRN RECTAL Constipation 01/23/18 02:00 02/17/18 01:59 Carvedilol (Coreg) 3.125 mg EVERY 12 HOURS ORAL 01/28/18 21:00 02/27/18 20:59 Dextrose (Dextrose 50%) 25 ml STAT PRN IV Hypoglycemia 01/27/18 07:15 02/26/18 07:14 Dextrose (Dextrose 50%) 50 ml STAT PRN IV Hypoglycemia 01/27/18 07:15 02/26/18 07:14 Digoxin (Lanoxin) 0.125 mg EVERY OTHER DAY NG 01/30/18 09:00 03/01/18 08:59 Docusate Sodium (Colace) 100 mg TID GT 01/24/18 13:00 02/17/18 12:59 01/27/18 13:53 Donepezil HCl (Aricept) 10 mg QHS ORAL 01/29/18 21:00 02/17/18 08:59 Finasteride (Proscar) 5 mg DAILY ORAL 01/25/18 10:30 02/24/18 10:29 01/28/18 10:16 Hydralazine HCl (Apresoline) 10 mg Q6HR GT 01/27/18 12:00 02/26/18 11:59 01/28/18 17:37 Insulin Aspart (NovoLOG) EVERY 6 HOURS SUBQ 01/23/18 00:00 02/18/18 17:59 01/28/18 17:37 Insulin Detemir (Levemir) 6 units DAILY SUBQ 01/27/18 10:00 02/26/18 09:59 01/28/18 10:49 Levothyroxine Sodium (Synthroid) 50 mcg DAILY@0630 ORAL 01/26/18 06:30 02/25/18 06:29 01/28/18 05:51 Nitroglycerin (Nitro-Bid) 1 inch DAILY TOPIC 01/25/18 10:30 02/24/18 10:29 01/28/18 10:20 Saccharomyces Boulardii (Florastor) 250 mg DAILY ORAL 01/25/18 09:00 02/17/18 08:59 01/28/18 10:14 Sennosides (Senokot) 1 tab QHS GT 01/24/18 21:00 02/23/18 20:59 01/24/18 21:43 Tamsulosin HCl (Flomax) 0.4 mg QHS ORAL 01/27/18 21:00 02/17/18 17:59 01/27/18 20:54 Zinc Oxide (Zinc Oxide) 1 applic BID TOPIC 01/23/18 18:00 02/22/18 17:59 01/28/18 17:41 Alberto Little MD January 28, 2018 18:30
[2018-01-28 20:00] VITALS: BP 122/65
[2018-01-28] MEDS: Sennosides 8.6mg GT SCH (21:00)
[2018-01-28] MEDS: Atorvastatin 20mg tab ORAL SCH (22:04)
[2018-01-28] MEDS: Tamsulosin 0.4mg cap ORAL SCH (22:08)
[2018-01-29] VITALS: BP 120/72
[2018-01-29] MEDS: HydrALAZINE 10mg Tab GT SCH ×4 (00:07→17:24)
[2018-01-29] MEDS: NovoLOG Insulin Flexpen SUBQ SCH ×4 (00:10→17:40)
[2018-01-29 04:00] VITALS: BP 120/72
[2018-01-29 06:06] LABS: ALANINE AMINOTRANSFERASE 26 U/L (12-78); ALBUMIN 2.1 G/DL (3.4-5.0); ALBUMIN/GLOBULIN RATIO 0.4 (1.0-2.7); ALKALINE PHOSPHATASE 134 U/L (46-116); ANION GAP 10 mmol/L (5-15); ASPARTATE AMINO TRANSFERASE 19 U/L (15-37); BILIRUBIN,TOTAL 0.5 MG/DL (0.2-1.0); BLOOD UREA NITROGEN 110 mg/dL (7-18); CALCIUM 8.9 MG/DL (8.5-10.1); CARBON DIOXIDE 27 MMOL/L (21-32); CHLORIDE 104 MMOL/L (98-107); CREATININE 3.2 MG/DL (0.55-1.30); PHOSPHORUS 4.9 MG/DL (2.5-4.9); POTASSIUM 3.8 MMOL/L (3.5-5.1); SODIUM 141 MMOL/L (136-145)
--- NOTE | 2018-01-29 06:45 | General Progress Note ---
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, stage IV ICD Codes: I13.0 - Hypertensive heart and chronic kidney disease with heart failure and stage 1 through stage 4 chronic kidney disease, or unspecified chronic kidney disease; N18.4 - Chronic kidney disease, stage 4 (severe) SNOMED: 646619292 (4) Renal failure (ARF), acute on chronic ICD Codes: N17.9 - Acute kidney failure, unspecified; N18.9 - Chronic kidney disease, unspecified SNOMED: 126692516 Assessment/Plan increase Levemir to 8 units daily continue NISS tight glycemic control is not indicated continue Levothyroxine 50 mcg daily repeat TSH next week Subjective ROS Limited/Unobtainable: Yes Allergies: Coded Allergies: No Known Allergies (Unverified , 12/19/17) Subjective events noted BG values on higher side Objective Last 24 Hour Vital Signs Date Time Temp Pulse Resp B/P (MAP) Pulse Ox O2 Delivery O2 Flow Rate FiO2 01/29/18 06:24 120/72 01/29/18 04:00 98.6 73 20 120/72 98 98.6 01/29/18 00:07 120/72 01/29/18 00:00 98.2 74 18 120/72 100 98.2 01/28/18 22:05 79 122/65 01/28/18 20:00 98.4 79 20 122/65 99 98.4 01/28/18 17:37 119/76 01/28/18 16:00 98.0 60 20 119/76 99 98.0 01/28/18 12:00 97.5 69 20 102/60 99 97.5 01/28/18 12:00 102/60 01/28/18 10:55 59 01/28/18 10:20 142/80 01/28/18 10:17 78 142/80 01/28/18 08:00 97.0 87 16 141/86 97 97.0 Intake and Output 01/28/18 01/29/18 19:00 07:00 Intake Total 30 ml 330 ml Output Total 800 ml Balance -770 ml 330 ml Free Water 60 ml Tube Feeding 30 ml 270 ml Output Urine Total 800 ml # Bowel Movements 2 Laboratory Tests 01/29/18 05:30: Sodium Level 141, Potassium Level 3.8, Chloride Level 104, Carbon Dioxide Level 27, Anion Gap 10, Blood Urea Nitrogen 110H, Creatinine 3.2H, Estimat Glomerular Filtration Rate , Glucose Level 224H, Calcium Level 8.9, Phosphorus Level 4.9, Magnesium Level 2.3, Total Bilirubin 0.5, Aspartate Amino Transf (AST/SGOT) 19, Alanine Aminotransferase (ALT/SGPT) 26, Alkaline Phosphatase 134H, Total Protein 6.9, Albumin 2.1L, Globulin 4.8, Albumin/Globulin Ratio 0.4L, Digoxin Level < 0.2L Height (Feet): 5 Height (Inches): 1.00 Weight (Pounds): 192 General Appearance: no apparent distress Neck: normal alignment Cardiovascular: regular rhythm Respiratory/Chest: decreased breath sounds Abdomen: normal bowel sounds Pelvis: normal external exam Edema: 1+ Arm (L), 1+ Arm (R), 1+ Leg (L), 1+ Leg (R), 1+ Pedal (L), 1+ Pedal ( R), 1+ Generalized Objective Current Medications Medications (Trade) Dose Ordered Sig/Tiffany Route PRN Reason Start Time Stop Time Status Last Admin Dose Admin Acetaminophen (Tylenol) 650 mg Q4H PRN ORAL Mild Pain/Temp > 100.5 01/23/18 02:00 02/17/18 01:59 Amiodarone HCl (Cordarone) 100 mg DAILY ORAL 01/29/18 09:00 02/17/18 08:59 Apixaban (Eliquis) 2.5 mg BID ORAL 01/24/18 18:00 02/21/18 17:59 01/28/18 17:36 Ascorbic Acid (Vitamin C) 500 mg DAILY ORAL 01/25/18 09:00 02/17/18 08:59 01/28/18 10:18 Atorvastatin Calcium (Lipitor) 40 mg BEDTIME ORAL 01/24/18 21:00 02/17/18 20:59 01/28/18 22:04 Bisacodyl (Dulcolax) 10 mg DAILYPRN PRN RECTAL Constipation 01/23/18 02:00 02/17/18 01:59 Carvedilol (Coreg) 3.125 mg EVERY 12 HOURS ORAL 01/28/18 21:00 02/27/18 20:59 01/28/18 22:05 Dextrose (Dextrose 50%) 25 ml STAT PRN IV Hypoglycemia 01/27/18 07:15 02/26/18 07:14 Dextrose (Dextrose 50%) 50 ml STAT PRN IV Hypoglycemia 01/27/18 07:15 02/26/18 07:14 Digoxin (Lanoxin) 0.125 mg EVERY OTHER DAY NG 01/30/18 09:00 03/01/18 08:59 Docusate Sodium (Colace) 100 mg TID GT 01/24/18 13:00 02/17/18 12:59 01/27/18 13:53 Donepezil HCl (Aricept) 10 mg QHS ORAL 01/29/18 21:00 02/17/18 08:59 Finasteride (Proscar) 5 mg DAILY ORAL 01/25/18 10:30 02/24/18 10:29 01/28/18 10:16 Hydralazine HCl (Apresoline) 10 mg Q6HR GT 01/27/18 12:00 02/26/18 11:59 01/29/18 06:24 Insulin Aspart (NovoLOG) EVERY 6 HOURS SUBQ 01/23/18 00:00 02/18/18 17:59 01/29/18 06:27 Insulin Detemir (Levemir) 6 units DAILY SUBQ 01/27/18 10:00 02/26/18 09:59 01/28/18 10:49 Levothyroxine Sodium (Synthroid) 50 mcg DAILY@0630 ORAL 01/26/18 06:30 02/25/18 06:29 01/29/18 06:24 Nitroglycerin (Nitro-Bid) 1 inch DAILY TOPIC 01/25/18 10:30 02/24/18 10:29 01/28/18 10:20 Saccharomyces Boulardii (Florastor) 250 mg DAILY ORAL 01/25/18 09:00 02/17/18 08:59 01/28/18 10:14 Sennosides (Senokot) 1 tab QHS GT 01/24/18 21:00 02/23/18 20:59 01/24/18 21:43 Tamsulosin HCl (Flomax) 0.4 mg QHS ORAL 01/27/18 21:00 02/17/18 17:59 01/28/18 22:08 Zinc Oxide (Zinc Oxide) 1 applic BID TOPIC 01/23/18 18:00 02/22/18 17:59 01/28/18 17:41 Item Value Date Time Bedside Blood Glucose 216 mg/dl H 01/29/18 0627 Bedside Blood Glucose 195 mg/dl H 01/29/18 0010 Bedside Blood Glucose 221 mg/dl H 01/28/18 1800 Bedside Blood Glucose 221 mg/dl H 01/28/18 1257 Bedside Blood Glucose 173 mg/dl H 01/28/18 1049 Bedside Blood Glucose 173 mg/dl H 01/28/18 0600 ANITA WANG January 29, 2018 06:45
[2018-01-29 08:00] VITALS: BP 131/86
[2018-01-29] MEDS: Docusate 100mg/10ml Liq GT SCH ×3 (09:14→17:23)
[2018-01-29] MEDS: Eliquis 2.5mg tablet ORAL SCH ×2 (09:14→17:23)
[2018-01-29] MEDS: Ascorbic Acid 500mg tab ORAL SCH (09:15)
[2018-01-29] MEDS: Amiodarone 200mg tab ORAL SCH (09:15)
[2018-01-29] MEDS: Nitroglycerin 2% oint pkt TOPIC SCH (09:16)
[2018-01-29] MEDS: Zinc Oxide Oint 2oz TOPIC SCH ×2 (09:23→17:24)
[2018-01-29] MEDS: Levemir Flexpen SUBQ SCH (10:13)
[2018-01-29 11:38] VITALS: BP 101/57
--- NOTE | 2018-01-29 11:39 | GI Progress Note ---
Assessment/Plan Problems: (1) Anemia ICD Codes: D64.9 - Anemia, unspecified SNOMED: 671378138 (2) Malfunction of gastrostomy tube ICD Codes: K94.23 - Gastrostomy malfunction SNOMED: 007612854 (3) Attention to G-tube ICD Codes: Z43.1 - Encounter for attention to gastrostomy SNOMED: 147500072, 719366195 Status: stable, unchanged Status Narrative Discussed with Dr. Espinal. Assessment/Plan GT replaced at beside with 20fr. GTFs per RD GT site care BID/prn >> zinc oxide around GT site OB stool r/o GI bleed monitor H&H, prn transfusions bowel regime ppi fu labs The patient was seen and examined at bedside and all new and available data was reviewed in the patients chart. I agree with the above findings, impression and plan. (Patient seen earlier today. Signature stamp does not reflect patient encounter time.). - Xavier Espinal MD Subjective Subjective limited Objective Last 24 Hour Vital Signs Date Time Temp Pulse Resp B/P (MAP) Pulse Ox O2 Delivery O2 Flow Rate FiO2 01/29/18 09:16 131/86 01/29/18 09:15 67 131/86 01/29/18 08:00 98.2 67 12 131/86 100 Room Air 98.2 01/29/18 06:24 120/72 01/29/18 04:00 98.6 73 20 120/72 98 98.6 01/29/18 00:07 120/72 01/29/18 00:00 98.2 74 18 120/72 100 98.2 01/28/18 22:05 79 122/65 01/28/18 20:00 98.4 79 20 122/65 99 98.4 01/28/18 17:37 119/76 01/28/18 16:00 98.0 60 20 119/76 99 98.0 01/28/18 12:00 97.5 69 20 102/60 99 97.5 01/28/18 12:00 102/60 Intake and Output 01/28/18 01/29/18 19:00 07:00 Intake Total 30 ml 480 ml Output Total 800 ml 350 ml Balance -770 ml 130 ml Free Water 120 ml Tube Feeding 30 ml 360 ml Output Urine Total 800 ml 350 ml # Bowel Movements 2 1 Laboratory Tests Test 01/29/18 05:30 Sodium Level 141 MMOL/L (136-145) Potassium Level 3.8 MMOL/L (3.5-5.1) Chloride Level 104 MMOL/L (98-107) Carbon Dioxide Level 27 MMOL/L (21-32) Anion Gap 10 mmol/L (5-15) Blood Urea Nitrogen 110 mg/dL (7-18) H Creatinine 3.2 MG/DL (0.55-1.30) H Estimat Glomerular Filtration Rate mL/min (>60) Glucose Level 224 MG/DL (74-106) H Calcium Level 8.9 MG/DL (8.5-10.1) Phosphorus Level 4.9 MG/DL (2.5-4.9) Magnesium Level 2.3 MG/DL (1.8-2.4) Total Bilirubin 0.5 MG/DL (0.2-1.0) Aspartate Amino Transf (AST/SGOT) 19 U/L (15-37) Alanine Aminotransferase (ALT/SGPT) 26 U/L (12-78) Alkaline Phosphatase 134 U/L (46-116) H Total Protein 6.9 G/DL (6.4-8.2) Albumin 2.1 G/DL (3.4-5.0) L Globulin 4.8 g/dL Albumin/Globulin Ratio 0.4 (1.0-2.7) L Digoxin Level < 0.2 NG/ML (0.5-2.0) L Height (Feet): 5 Height (Inches): 1.00 Weight (Pounds): 191 General Appearance: alert Cardiovascular: normal rate Respiratory/Chest: normal breath sounds, no respiratory distress Abdominal Exam: site - c/d/i Camilo Aden NP January 29, 2018 11:39
--- NOTE | 2018-01-29 12:46 | Diagnostic Imaging Report ---
APPROVED REPORT CPT Code: 10385 Present Symptoms Right Comments: RIGHT ARM SWELLING. RIGHT UPPER EXTREMITY: Venous imaging reveals patency of the internal jugular, subclavian, axillary and brachial veins. The basilic vein are also patent. Doppler indicates normal spontaneous flow within these venous segments.The cephalic vein was not well visualized.
--- NOTE | 2018-01-29 12:51 | Diagnostic Imaging Report ---
APPROVED REPORT CPT Code: 96277 Present Symptoms Comments: Screening BILATERAL UPPER EXTREMITY: Imaging of the subclavian, axillary, brachial, radial and ulnar arteries is within normal limits. There is no evidence of stenosis or occlusion within these segments. The Doppler waveforms of the bilateral upper extremity are multiphasic, consistent with normal inflow to the upper extremity.
--- NOTE | 2018-01-29 12:52 | Diagnostic Imaging Report ---
APPROVED REPORT CPT Code: 87831 Symptoms Comments: Screening BILATERAL: Common femoral artery waveform analysis is within normal limits at rest. Color flow duplex sonography reveals minimal calcification throughout the superficial femoral, and popliteal arteries. There is no evidence of stenosis or occlusion within these segments. The tibioperoneal trunks were patent. The anterior tibial and dorsalis pedis arteries are also minimally calcified. Doppler tibial artery waveform is (biphasic) in the anterior tibial and dorsalis pedis artery, however, monophasic Doppler waveform is noted in the posterior tibial arteries, consistent, with mild ischemia at rest. bilaterally.
--- NOTE | 2018-01-29 13:22 | Infectious Diseases Prog Note ---
Assessment/Plan Assessment/Plan Assessment: Infected HD cath- no Evid of bacteremia -s/p removal perma cath 01/20; cath tip cx :CoNS -BCx NTD (peripheral), HD Cath Bcx NTD -wound cx: MRSA (S Vancomycin, Bactrim, Tetracycline) -Echo: no vegetations seen. Aortic valve calcification with decreased cusp excursion c/w aortic stenosis. Mildly thickened mitral valve leaflets with normal excursion. Moderate mitral annulus and aortic root calcification. Abd wound- no sings of infection -wound cx: MRSA, CONS (colonizers) Afebrile, no leukocytosis ESRD on HD -renal US: Suspected nonobstructive nephrolithiasis in the left kidney Stroke w/ hemiparesis dementia nonverbal HTN HLD cardiomyopathy Aflutter contractures, DM2 dysphagia s/p PEG anemia CHF custodial resident VRE colonized Plan: Monitor pt off of AB Rx - 01/24 SP IV Daptomycin 4mg/kg q48hrs abx d # 7/ for MRSA HD cath infection -01/22 SP IV Vancomcyin #5 (d/c due to supratherapeutic vanco levels) - from ID stand point ok to proceed w Placement of new permanent HD catheter -Monitor CBC/BMP, temperatures Subjective Allergies: Coded Allergies: No Known Allergies (Unverified , 12/19/17) Subjective comfortable Objective Vital Signs Last 24 Hour Vital Signs Date Time Temp Pulse Resp B/P (MAP) Pulse Ox O2 Delivery O2 Flow Rate FiO2 01/29/18 12:00 101/57 01/29/18 11:38 97.8 80 17 101/57 96 Room Air 97.8 01/29/18 09:16 131/86 01/29/18 09:15 67 131/86 01/29/18 08:00 98.2 67 12 131/86 100 Room Air 98.2 01/29/18 06:24 120/72 01/29/18 04:00 98.6 73 20 120/72 98 98.6 01/29/18 00:07 120/72 01/29/18 00:00 98.2 74 18 120/72 100 98.2 01/28/18 22:05 79 122/65 01/28/18 20:00 98.4 79 20 122/65 99 98.4 01/28/18 17:37 119/76 01/28/18 16:00 98.0 60 20 119/76 99 98.0 Height (Feet): 5 Height (Inches): 1.00 Weight (Pounds): 191 HEENT: atraumatic Respiratory/Chest: normal breath sounds Cardiovascular: regular rhythm Abdomen: soft, non tender Laboratory Tests Test 01/29/18 05:30 Sodium Level 141 MMOL/L (136-145) Potassium Level 3.8 MMOL/L (3.5-5.1) Chloride Level 104 MMOL/L (98-107) Carbon Dioxide Level 27 MMOL/L (21-32) Anion Gap 10 mmol/L (5-15) Blood Urea Nitrogen 110 mg/dL (7-18) H Creatinine 3.2 MG/DL (0.55-1.30) H Estimat Glomerular Filtration Rate mL/min (>60) Glucose Level 224 MG/DL (74-106) H Calcium Level 8.9 MG/DL (8.5-10.1) Phosphorus Level 4.9 MG/DL (2.5-4.9) Magnesium Level 2.3 MG/DL (1.8-2.4) Total Bilirubin 0.5 MG/DL (0.2-1.0) Aspartate Amino Transf (AST/SGOT) 19 U/L (15-37) Alanine Aminotransferase (ALT/SGPT) 26 U/L (12-78) Alkaline Phosphatase 134 U/L (46-116) H Total Protein 6.9 G/DL (6.4-8.2) Albumin 2.1 G/DL (3.4-5.0) L Globulin 4.8 g/dL Albumin/Globulin Ratio 0.4 (1.0-2.7) L Digoxin Level < 0.2 NG/ML (0.5-2.0) L Current Medications Medications (Trade) Dose Ordered Sig/Tiffany Route PRN Reason Start Time Stop Time Status Last Admin Dose Admin Acetaminophen (Tylenol) 650 mg Q4H PRN ORAL Mild Pain/Temp > 100.5 01/23/18 02:00 02/17/18 01:59 Amiodarone HCl (Cordarone) 100 mg DAILY ORAL 01/29/18 09:00 02/17/18 08:59 01/29/18 09:15 Apixaban (Eliquis) 2.5 mg BID ORAL 01/24/18 18:00 02/21/18 17:59 01/29/18 09:14 Ascorbic Acid (Vitamin C) 500 mg DAILY ORAL 01/25/18 09:00 02/17/18 08:59 01/29/18 09:15 Atorvastatin Calcium (Lipitor) 40 mg BEDTIME ORAL 01/24/18 21:00 02/17/18 20:59 01/28/18 22:04 Bisacodyl (Dulcolax) 10 mg DAILYPRN PRN RECTAL Constipation 01/23/18 02:00 02/17/18 01:59 Carvedilol (Coreg) 3.125 mg EVERY 12 HOURS ORAL 01/28/18 21:00 02/27/18 20:59 01/29/18 09:15 Dextrose (Dextrose 50%) 25 ml STAT PRN IV Hypoglycemia 01/27/18 07:15 02/26/18 07:14 Dextrose (Dextrose 50%) 50 ml STAT PRN IV Hypoglycemia 01/27/18 07:15 02/26/18 07:14 Digoxin (Lanoxin) 0.125 mg EVERY OTHER DAY NG 01/30/18 09:00 03/01/18 08:59 Docusate Sodium (Colace) 100 mg TID GT 01/24/18 13:00 02/17/18 12:59 01/29/18 09:14 Donepezil HCl (Aricept) 10 mg QHS ORAL 01/29/18 21:00 02/17/18 08:59 Finasteride (Proscar) 5 mg DAILY ORAL 01/25/18 10:30 02/24/18 10:29 01/29/18 09:14 Hydralazine HCl (Apresoline) 10 mg Q6HR GT 01/27/18 12:00 02/26/18 11:59 01/29/18 06:24 Insulin Aspart (NovoLOG) EVERY 6 HOURS SUBQ 01/23/18 00:00 02/18/18 17:59 01/29/18 12:25 Insulin Detemir (Levemir) 8 units DAILY SUBQ 01/29/18 09:00 02/26/18 09:59 01/29/18 10:13 Levothyroxine Sodium (Synthroid) 50 mcg DAILY@0630 ORAL 01/26/18 06:30 02/25/18 06:29 01/29/18 06:24 Nitroglycerin (Nitro-Bid) 1 inch DAILY TOPIC 01/25/18 10:30 02/24/18 10:29 01/29/18 09:16 Saccharomyces Boulardii (Florastor) 250 mg DAILY ORAL 01/25/18 09:00 02/17/18 08:59 01/29/18 09:15 Sennosides (Senokot) 1 tab QHS GT 01/24/18 21:00 02/23/18 20:59 01/24/18 21:43 Tamsulosin HCl (Flomax) 0.4 mg QHS ORAL 01/27/18 21:00 02/17/18 17:59 01/28/18 22:08 Zinc Oxide (Zinc Oxide) 1 applic BID TOPIC 01/23/18 18:00 02/22/18 17:59 01/29/18 09:23 Alberto Little MD January 29, 2018 13:22
--- NOTE | 2018-01-29 13:42 | Nephrology Progress Note ---
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 replace permacath if out pt dialysis to continue by PMD adjust Hydralazine dose Increase flomax- Singer for now 2D echo 30% ej fx SANDRO kidney Suspected nonobstructive nephrolithiasis in the left kidney. monitor renal parameters avoid nephrotoxics After load reduction- hydralazine optimize renal and cardiac status. Echo: Global left ventricular hypokinesis. Left ventricular ejection fraction estimated to be 30 %. Subjective ROS Limited/Unobtainable: No Objective Objective Last 24 Hour Vital Signs Date Time Temp Pulse Resp B/P (MAP) Pulse Ox O2 Delivery O2 Flow Rate FiO2 01/29/18 12:00 101/57 01/29/18 11:38 97.8 80 17 101/57 96 Room Air 97.8 01/29/18 09:16 131/86 01/29/18 09:15 67 131/86 01/29/18 08:00 98.2 67 12 131/86 100 Room Air 98.2 01/29/18 06:24 120/72 01/29/18 04:00 98.6 73 20 120/72 98 98.6 01/29/18 00:07 120/72 01/29/18 00:00 98.2 74 18 120/72 100 98.2 01/28/18 22:05 79 122/65 01/28/18 20:00 98.4 79 20 122/65 99 98.4 01/28/18 17:37 119/76 01/28/18 16:00 98.0 60 20 119/76 99 98.0 Intake and Output 01/28/18 01/29/18 19:00 07:00 Intake Total 30 ml 480 ml Output Total 800 ml 350 ml Balance -770 ml 130 ml Free Water 120 ml Tube Feeding 30 ml 360 ml Output Urine Total 800 ml 350 ml # Bowel Movements 2 1 Laboratory Tests 01/29/18 05:30: Sodium Level 141, Potassium Level 3.8, Chloride Level 104, Carbon Dioxide Level 27, Anion Gap 10, Blood Urea Nitrogen 110H, Creatinine 3.2H, Estimat Glomerular Filtration Rate , Glucose Level 224H, Calcium Level 8.9, Phosphorus Level 4.9, Magnesium Level 2.3, Total Bilirubin 0.5, Aspartate Amino Transf (AST/SGOT) 19, Alanine Aminotransferase (ALT/SGPT) 26, Alkaline Phosphatase 134H, Total Protein 6.9, Albumin 2.1L, Globulin 4.8, Albumin/Globulin Ratio 0.4L, Digoxin Level < 0.2L Height (Feet): 5 Height (Inches): 1.00 Weight (Pounds): 191 General Appearance: no apparent distress Cardiovascular: normal rate Respiratory/Chest: decreased breath sounds Abdomen: soft Objective no other changes VALENTIN RUSH January 29, 2018 13:42
[2018-01-29] MEDS ORDERED: Digoxin Elixir 0.125mg NG SCH (13:45)
--- NOTE | 2018-01-29 15:48 | General Progress Note ---
Assessment/Plan Assessment/Plan 1. Infected right upper chest PermCath. 2. End-stage renal disease- transiet- off HD for now- will monitor renal function 3. Diabetes type 2. 4. Hypercholesterolemia. 5. Cardiomyopathy. 6. Atrial fibrillation. 7. Congestive heart failure. 8. Hypertension. 9. Alzheimer dementia. 10. Benign prostatic hypertrophy. 11. Lack of capacity to make medical decisions TREATMENT: DC HD access , will monitor for need for Re-insertion Notes from Cardiology, Nephrology, Vascular Sx and ID are reviewed Given the lack of availability of the Next keen, and the urgency for the procedure to remove the Cath, it is justified to proceed for removal/procedure at this time oFF scheduled insuline Self- Extraction of Fisher Ok to monitor off fisher Re-insert if Volume > 400 will monitor off Fisher and Off HD Subjective ROS Limited/Unobtainable: Yes Allergies: Coded Allergies: No Known Allergies (Unverified , 12/19/17) Objective Last 24 Hour Vital Signs Date Time Temp Pulse Resp B/P (MAP) Pulse Ox O2 Delivery O2 Flow Rate FiO2 01/29/18 14:50 63 01/29/18 14:48 63 01/29/18 12:00 101/57 01/29/18 11:38 97.8 80 17 101/57 96 Room Air 97.8 01/29/18 09:16 131/86 01/29/18 09:15 67 131/86 01/29/18 08:00 98.2 67 12 131/86 100 Room Air 98.2 01/29/18 06:24 120/72 01/29/18 04:00 98.6 73 20 120/72 98 98.6 01/29/18 00:07 120/72 01/29/18 00:00 98.2 74 18 120/72 100 98.2 01/28/18 22:05 79 122/65 01/28/18 20:00 98.4 79 20 122/65 99 98.4 01/28/18 17:37 119/76 01/28/18 16:00 98.0 60 20 119/76 99 98.0 Intake and Output 01/28/18 01/29/18 19:00 07:00 Intake Total 30 ml 480 ml Output Total 800 ml 350 ml Balance -770 ml 130 ml Free Water 120 ml Tube Feeding 30 ml 360 ml Output Urine Total 800 ml 350 ml # Bowel Movements 2 1 Laboratory Tests 01/29/18 05:30: Sodium Level 141, Potassium Level 3.8, Chloride Level 104, Carbon Dioxide Level 27, Anion Gap 10, Blood Urea Nitrogen 110H, Creatinine 3.2H, Estimat Glomerular Filtration Rate , Glucose Level 224H, Calcium Level 8.9, Phosphorus Level 4.9, Magnesium Level 2.3, Total Bilirubin 0.5, Aspartate Amino Transf (AST/SGOT) 19, Alanine Aminotransferase (ALT/SGPT) 26, Alkaline Phosphatase 134H, C-Reactive Protein, Quantitative 10.6H, Total Protein 6.9, Albumin 2.1L, Globulin 4.8, Albumin/Globulin Ratio 0.4L, Digoxin Level < 0.2L Height (Feet): 5 Height (Inches): 1.00 Weight (Pounds): 191 Objective Height (Feet): 5 Height (Inches): 1.00 Weight (Pounds): 187 General Appearance: no apparent distress EENT: PERRL/EOMI Neck: supple Cardiovascular: normal rate Abdomen: soft, PEG tube in place Extremities: other - atrophied musculature, spontaneous movement Neurologic: disoriented, is awake Courtney Weeks MD January 29, 2018 15:48
[2018-01-29 16:00] VITALS: BP 133/76
--- NOTE | 2018-01-29 16:05 | General Progress Note ---
Assessment/Plan Status: stable, progressing Assessment/Plan Dementia encephalopathy -Ativan prn -dc Aricept -the pt lacks capacity Subjective Date patient seen: January 29, 2018 Neurologic/Psychiatric: Reports: anxiety, depressed, emotional problems Allergies: Coded Allergies: No Known Allergies (Unverified , 12/19/17) Objective Last 24 Hour Vital Signs Date Time Temp Pulse Resp B/P (MAP) Pulse Ox O2 Delivery O2 Flow Rate FiO2 01/29/18 14:50 63 01/29/18 14:48 63 01/29/18 12:00 101/57 01/29/18 11:38 97.8 80 17 101/57 96 Room Air 97.8 01/29/18 09:16 131/86 01/29/18 09:15 67 131/86 01/29/18 08:00 98.2 67 12 131/86 100 Room Air 98.2 01/29/18 06:24 120/72 01/29/18 04:00 98.6 73 20 120/72 98 98.6 01/29/18 00:07 120/72 01/29/18 00:00 98.2 74 18 120/72 100 98.2 01/28/18 22:05 79 122/65 01/28/18 20:00 98.4 79 20 122/65 99 98.4 01/28/18 17:37 119/76 Intake and Output 01/28/18 01/29/18 19:00 07:00 Intake Total 30 ml 480 ml Output Total 800 ml 350 ml Balance -770 ml 130 ml Free Water 120 ml Tube Feeding 30 ml 360 ml Output Urine Total 800 ml 350 ml # Bowel Movements 2 1 Laboratory Tests 01/29/18 05:30: Sodium Level 141, Potassium Level 3.8, Chloride Level 104, Carbon Dioxide Level 27, Anion Gap 10, Blood Urea Nitrogen 110H, Creatinine 3.2H, Estimat Glomerular Filtration Rate , Glucose Level 224H, Calcium Level 8.9, Phosphorus Level 4.9, Magnesium Level 2.3, Total Bilirubin 0.5, Aspartate Amino Transf (AST/SGOT) 19, Alanine Aminotransferase (ALT/SGPT) 26, Alkaline Phosphatase 134H, C-Reactive Protein, Quantitative 10.6H, Total Protein 6.9, Albumin 2.1L, Globulin 4.8, Albumin/Globulin Ratio 0.4L, Digoxin Level < 0.2L Height (Feet): 5 Height (Inches): 1.00 Weight (Pounds): 191 General Appearance: WD/WN, no apparent distress, alert, confused Ashly Rajan M.D. January 29, 2018 16:05
--- NOTE | 2018-01-29 17:13 | Cardiac Electrophysiology PN ---
Assessment/Plan Assessment/Plan 1. Atrial flutter. In SR while was on tele on amiodarone 100 mg daily, Dig, Toprol-XL 25 mg daily and Eliquis 2.5 mg b.i.d. 2. Hypertension. Continue Hydralazine 10 q6 and Toprol-XL 25 mg 3. Cardiomyopathy with EF 30% on Cozaar and Toprol-XL 25 mg daily. Not a candidate for defibrillator placement. 4. ESRD on HD with discharge from the [facility] that was REMOVED HD per Dr Verma 5. Hyperlipidemia, on Lipitor. 6. Dysphagia, S/P PEG replacement DW RN Subjective Subjective Comfortable in NAD Placement in progress Objective Last 24 Hour Vital Signs Date Time Temp Pulse Resp B/P (MAP) Pulse Ox O2 Delivery O2 Flow Rate FiO2 01/29/18 16:00 97.7 82 19 133/76 96 Room Air 97.7 01/29/18 14:50 63 01/29/18 14:48 63 01/29/18 12:00 101/57 01/29/18 11:38 97.8 80 17 101/57 96 Room Air 97.8 01/29/18 09:16 131/86 01/29/18 09:15 67 131/86 01/29/18 08:00 98.2 67 12 131/86 100 Room Air 98.2 01/29/18 06:24 120/72 01/29/18 04:00 98.6 73 20 120/72 98 98.6 01/29/18 00:07 120/72 01/29/18 00:00 98.2 74 18 120/72 100 98.2 01/28/18 22:05 79 122/65 01/28/18 20:00 98.4 79 20 122/65 99 98.4 01/28/18 17:37 119/76 Intake and Output 01/28/18 01/29/18 19:00 07:00 Intake Total 30 ml 480 ml Output Total 800 ml 350 ml Balance -770 ml 130 ml Free Water 120 ml Tube Feeding 30 ml 360 ml Output Urine Total 800 ml 350 ml # Bowel Movements 2 1 Laboratory Tests Test 01/29/18 05:30 Sodium Level 141 MMOL/L (136-145) Potassium Level 3.8 MMOL/L (3.5-5.1) Chloride Level 104 MMOL/L (98-107) Carbon Dioxide Level 27 MMOL/L (21-32) Anion Gap 10 mmol/L (5-15) Blood Urea Nitrogen 110 mg/dL (7-18) H Creatinine 3.2 MG/DL (0.55-1.30) H Estimat Glomerular Filtration Rate mL/min (>60) Glucose Level 224 MG/DL (74-106) H Calcium Level 8.9 MG/DL (8.5-10.1) Phosphorus Level 4.9 MG/DL (2.5-4.9) Magnesium Level 2.3 MG/DL (1.8-2.4) Total Bilirubin 0.5 MG/DL (0.2-1.0) Aspartate Amino Transf (AST/SGOT) 19 U/L (15-37) Alanine Aminotransferase (ALT/SGPT) 26 U/L (12-78) Alkaline Phosphatase 134 U/L (46-116) H C-Reactive Protein, Quantitative 10.6 mg/dL (0.00-0.90) H Total Protein 6.9 G/DL (6.4-8.2) Albumin 2.1 G/DL (3.4-5.0) L Globulin 4.8 g/dL Albumin/Globulin Ratio 0.4 (1.0-2.7) L Digoxin Level < 0.2 NG/ML (0.5-2.0) L Objective HEAD AND NECK: No JVD. LUNGS: Clear. CARDIOVASCULAR: Regular S1 and S2 with no gallop. ABDOMEN: Soft, status post G-tube. EXTREMITIES: 1+ pitting edema. Malik Shannon MD January 29, 2018 17:13
[2018-01-29 20:00] VITALS: BP 132/68
[2018-01-29] MEDS: Tamsulosin 0.4mg cap ORAL SCH (20:40)
[2018-01-29] MEDS: Sennosides 8.6mg GT SCH (20:40)
[2018-01-29] MEDS: Atorvastatin 20mg tab ORAL SCH (20:40)
[2018-01-29] MEDS ORDERED: Donepezil 10mg tab ORAL SCH (21:00)
[2018-01-30] VITALS: BP 136/64
[2018-01-30] MEDS: NovoLOG Insulin Flexpen SUBQ SCH ×4 (00:27→17:33)
[2018-01-30] MEDS: HydrALAZINE 10mg Tab GT SCH ×3 (00:29→11:57)
[2018-01-30 04:00] VITALS: BP 116/65
[2018-01-30 08:00] VITALS: BP 124/62
[2018-01-30] MEDS: Nitroglycerin 2% oint pkt TOPIC SCH (08:54)
[2018-01-30] MEDS: Zinc Oxide Oint 2oz TOPIC SCH ×2 (08:54→17:34)
[2018-01-30] MEDS: Docusate 100mg/10ml Liq GT SCH ×3 (08:54→17:32)
[2018-01-30] MEDS: Eliquis 2.5mg tablet ORAL SCH ×2 (08:55→17:32)
[2018-01-30] MEDS: Amiodarone 200mg tab ORAL SCH (08:55)
[2018-01-30] MEDS: Ascorbic Acid 500mg tab ORAL SCH (08:55)
[2018-01-30] MEDS: Levemir Flexpen SUBQ SCH (08:58)
[2018-01-30] MEDS ORDERED: Digoxin Elixir 0.125mg NG SCH (09:00)
[2018-01-30 09:06] LABS: BASOPHILS % (AUTO) 0.7 % (0.0-2.0); EOSINOPHILS % (AUTO) 4.6 % (0.0-3.0); HEMATOCRIT 34.8 % (42.0-52.0); HEMOGLOBIN 11.5 G/DL (14.2-18.0); LYMPHOCYTES % (AUTO) 21.8 % (20.0-45.0); MEAN CORPUSCULAR VOLUME 99 FL (80-99); MONOCYTES % (AUTO) 11.2 % (1.0-10.0); NEUTROPHILS % (AUTO) 61.6 % (45.0-75.0); PLATELET COUNT 244 K/UL (150-450); RED CELL DISTRIBUTION WIDTH 13.3 % (11.6-14.8); WHITE BLOOD COUNT 8.1 K/UL (4.8-10.8)
--- NOTE | 2018-01-30 09:13 | Infectious Diseases Prog Note ---
Assessment/Plan Assessment/Plan Assessment: Infected HD cath- no Evid of bacteremia -s/p removal perma cath 01/20; cath tip cx :CoNS -BCx NTD (peripheral), HD Cath Bcx NTD -wound cx: MRSA (S Vancomycin, Bactrim, Tetracycline) -Echo: no vegetations seen. Aortic valve calcification with decreased cusp excursion c/w aortic stenosis. Mildly thickened mitral valve leaflets with normal excursion. Moderate mitral annulus and aortic root calcification. Abd wound- no sings of infection -wound cx: MRSA, CONS (colonizers) Afebrile, no leukocytosis ESRD on HD -renal US: Suspected nonobstructive nephrolithiasis in the left kidney Stroke w/ hemiparesis dementia nonverbal HTN HLD cardiomyopathy Aflutter contractures, DM2 dysphagia s/p PEG anemia CHF longterm resident VRE colonized Plan: Monitor pt off of AB Rx - 01/24 SP IV Daptomycin 4mg/kg q48hrs abx d # 7/ for MRSA HD cath infection -01/22 SP IV Vancomcyin #5 (d/c due to supratherapeutic vanco levels) - from ID stand point ok to proceed w Placement of new permanent HD catheter but Nephro planning to Monitor patient off of antibiotics -Monitor CBC/BMP, temperatures Subjective Allergies: Coded Allergies: No Known Allergies (Unverified , 12/19/17) Subjective comfortable Objective Vital Signs Last 24 Hour Vital Signs Date Time Temp Pulse Resp B/P (MAP) Pulse Ox O2 Delivery O2 Flow Rate FiO2 01/30/18 08:54 60 124/62 01/30/18 08:54 124/62 01/30/18 08:00 98.9 60 17 124/62 96 Room Air 98.9 01/30/18 06:04 116/65 01/30/18 04:00 97.3 65 20 116/65 94 Room Air 97.3 01/30/18 00:29 136/64 01/30/18 00:00 97.5 67 20 136/64 94 Room Air 97.5 01/29/18 20:41 67 132/68 01/29/18 20:00 97.7 67 20 132/68 95 Room Air 97.7 01/29/18 17:24 139/77 01/29/18 16:00 97.7 82 19 133/76 96 Room Air 97.7 01/29/18 14:50 63 01/29/18 14:48 63 01/29/18 12:00 101/57 01/29/18 11:38 97.8 80 17 101/57 96 Room Air 97.8 01/29/18 09:16 131/86 01/29/18 09:15 67 131/86 Height (Feet): 5 Height (Inches): 1.00 Weight (Pounds): 193 Respiratory/Chest: no respiratory distress Cardiovascular: regularly irregular Abdomen: no organomegaly Laboratory Tests Test 01/30/18 06:00 White Blood Count Pending Red Blood Count Pending Hemoglobin Pending Hematocrit Pending Mean Corpuscular Volume Pending Mean Corpuscular Hemoglobin Pending Mean Corpuscular Hemoglobin Concent Pending Red Cell Distribution Width Pending Platelet Count Pending Mean Platelet Volume Pending Neutrophils (%) (Auto) Pending Lymphocytes (%) (Auto) Pending Monocytes (%) (Auto) Pending Eosinophils (%) (Auto) Pending Basophils (%) (Auto) Pending Sodium Level Pending Potassium Level Pending Chloride Level Pending Carbon Dioxide Level Pending Blood Urea Nitrogen Pending Creatinine Pending Estimat Glomerular Filtration Rate Pending Glucose Level Pending Calcium Level Pending Phosphorus Level Pending Magnesium Level Pending Total Bilirubin Pending Aspartate Amino Transf (AST/SGOT) Pending Alanine Aminotransferase (ALT/SGPT) Pending Alkaline Phosphatase Pending Pro-B-Type Natriuretic Peptide Pending Total Protein Pending Albumin Pending Globulin Pending Digoxin Level Pending Current Medications Medications (Trade) Dose Ordered Sig/Tiffany Route PRN Reason Start Time Stop Time Status Last Admin Dose Admin Acetaminophen (Tylenol) 650 mg Q4H PRN ORAL Mild Pain/Temp > 100.5 01/23/18 02:00 02/17/18 01:59 Amiodarone HCl (Cordarone) 100 mg DAILY ORAL 01/29/18 09:00 02/17/18 08:59 01/30/18 08:55 Apixaban (Eliquis) 2.5 mg BID ORAL 01/24/18 18:00 02/21/18 17:59 01/30/18 08:55 Ascorbic Acid (Vitamin C) 500 mg DAILY ORAL 01/25/18 09:00 02/17/18 08:59 01/30/18 08:55 Atorvastatin Calcium (Lipitor) 40 mg BEDTIME ORAL 01/24/18 21:00 02/17/18 20:59 01/29/18 20:40 Bisacodyl (Dulcolax) 10 mg DAILYPRN PRN RECTAL Constipation 01/23/18 02:00 02/17/18 01:59 Carvedilol (Coreg) 3.125 mg EVERY 12 HOURS ORAL 01/28/18 21:00 02/27/18 20:59 01/30/18 08:54 Dextrose (Dextrose 50%) 25 ml STAT PRN IV Hypoglycemia 01/27/18 07:15 02/26/18 07:14 Dextrose (Dextrose 50%) 50 ml STAT PRN IV Hypoglycemia 01/27/18 07:15 02/26/18 07:14 Docusate Sodium (Colace) 100 mg TID GT 01/24/18 13:00 02/17/18 12:59 01/30/18 08:54 Donepezil HCl (Aricept) 10 mg QHS ORAL 01/29/18 21:00 02/17/18 08:59 01/29/18 20:40 Finasteride (Proscar) 5 mg DAILY ORAL 01/25/18 10:30 02/24/18 10:29 01/30/18 08:56 Hydralazine HCl (Apresoline) 12.5 mg Q6HR GT 01/29/18 18:00 02/26/18 11:59 01/30/18 06:04 Insulin Aspart (NovoLOG) EVERY 6 HOURS SUBQ 01/23/18 00:00 02/18/18 17:59 01/30/18 06:06 Insulin Detemir (Levemir) 8 units DAILY SUBQ 01/29/18 09:00 02/26/18 09:59 01/30/18 08:58 Levothyroxine Sodium (Synthroid) 50 mcg DAILY@0630 ORAL 01/26/18 06:30 02/25/18 06:29 01/30/18 06:04 Nitroglycerin (Nitro-Bid) 1 inch DAILY TOPIC 01/25/18 10:30 02/24/18 10:29 01/30/18 08:54 Saccharomyces Boulardii (Florastor) 250 mg DAILY ORAL 01/25/18 09:00 02/17/18 08:59 01/30/18 08:55 Sennosides (Senokot) 1 tab QHS GT 01/24/18 21:00 02/23/18 20:59 01/29/18 20:40 Tamsulosin HCl (Flomax) 0.4 mg QHS ORAL 01/27/18 21:00 02/17/18 17:59 01/29/18 20:40 Zinc Oxide (Zinc Oxide) 1 applic BID TOPIC 01/23/18 18:00 02/22/18 17:59 01/30/18 08:54 Alberto Little MD January 30, 2018 09:13
[2018-01-30 09:36] LABS: ALANINE AMINOTRANSFERASE 28 U/L (12-78); ALBUMIN 2.1 G/DL (3.4-5.0); ALBUMIN/GLOBULIN RATIO 0.4 (1.0-2.7); ALKALINE PHOSPHATASE 143 U/L (46-116); ANION GAP 13 mmol/L (5-15); ASPARTATE AMINO TRANSFERASE 19 U/L (15-37); BILIRUBIN,TOTAL 0.6 MG/DL (0.2-1.0); BLOOD UREA NITROGEN 119 mg/dL (7-18); CARBON DIOXIDE 24 MMOL/L (21-32); CHLORIDE 104 MMOL/L (98-107); CREATININE 3.3 MG/DL (0.55-1.30); PHOSPHORUS 4.4 MG/DL (2.5-4.9); POTASSIUM 3.9 MMOL/L (3.5-5.1); SODIUM 141 MMOL/L (136-145)
--- NOTE | 2018-01-30 11:26 | GI Progress Note ---
Assessment/Plan Problems: (1) Anemia ICD Codes: D64.9 - Anemia, unspecified SNOMED: 357940992 (2) Malfunction of gastrostomy tube ICD Codes: K94.23 - Gastrostomy malfunction SNOMED: 982048276 (3) Attention to G-tube ICD Codes: Z43.1 - Encounter for attention to gastrostomy SNOMED: 537326890, 556610262 Status: stable Status Narrative Discussed with Dr. Espinal. Assessment/Plan GT replaced at beside with 20fr. GTFs per RD GT site care BID/prn >> zinc oxide around GT site OB stool r/o GI bleed monitor H&H, prn transfusions bowel regime ppi fu labs The patient was seen and examined at bedside and all new and available data was reviewed in the patients chart. I agree with the above findings, impression and plan. (Patient seen earlier today. Signature stamp does not reflect patient encounter time.). - Xavier Espinal MD Subjective Subjective limited Objective Last 24 Hour Vital Signs Date Time Temp Pulse Resp B/P (MAP) Pulse Ox O2 Delivery O2 Flow Rate FiO2 01/30/18 08:54 60 124/62 01/30/18 08:54 124/62 01/30/18 08:00 98.9 60 17 124/62 96 Room Air 98.9 01/30/18 06:04 116/65 01/30/18 04:00 97.3 65 20 116/65 94 Room Air 97.3 01/30/18 00:29 136/64 01/30/18 00:00 97.5 67 20 136/64 94 Room Air 97.5 01/29/18 20:41 67 132/68 01/29/18 20:00 97.7 67 20 132/68 95 Room Air 97.7 01/29/18 17:24 139/77 01/29/18 16:00 97.7 82 19 133/76 96 Room Air 97.7 01/29/18 14:50 63 01/29/18 14:48 63 01/29/18 12:00 101/57 01/29/18 11:38 97.8 80 17 101/57 96 Room Air 97.8 Intake and Output 01/29/18 01/30/18 19:00 07:00 Intake Total 480 ml 450 ml Output Total 300 ml 250 ml Balance 180 ml 200 ml Free Water 120 ml 120 ml Tube Feeding 360 ml 330 ml Output Urine Total 300 ml 250 ml # Bowel Movements 1 1 Laboratory Tests Test 01/30/18 06:00 White Blood Count 8.1 K/UL (4.8-10.8) Red Blood Count 3.50 M/UL (4.70-6.10) L Hemoglobin 11.5 G/DL (14.2-18.0) L Hematocrit 34.8 % (42.0-52.0) L Mean Corpuscular Volume 99 FL (80-99) Mean Corpuscular Hemoglobin 32.9 PG (27.0-31.0) H Mean Corpuscular Hemoglobin Concent 33.0 G/DL (32.0-36.0) Red Cell Distribution Width 13.3 % (11.6-14.8) Platelet Count 244 K/UL (150-450) Mean Platelet Volume 6.6 FL (6.5-10.1) Neutrophils (%) (Auto) 61.6 % (45.0-75.0) Lymphocytes (%) (Auto) 21.8 % (20.0-45.0) Monocytes (%) (Auto) 11.2 % (1.0-10.0) H Eosinophils (%) (Auto) 4.6 % (0.0-3.0) H Basophils (%) (Auto) 0.7 % (0.0-2.0) Sodium Level 141 MMOL/L (136-145) Potassium Level 3.9 MMOL/L (3.5-5.1) Chloride Level 104 MMOL/L (98-107) Carbon Dioxide Level 24 MMOL/L (21-32) Anion Gap 13 mmol/L (5-15) Blood Urea Nitrogen 119 mg/dL (7-18) H Creatinine 3.3 MG/DL (0.55-1.30) H Estimat Glomerular Filtration Rate mL/min (>60) Glucose Level 166 MG/DL (74-106) H Calcium Level 9.0 MG/DL (8.5-10.1) Phosphorus Level 4.4 MG/DL (2.5-4.9) Magnesium Level 2.5 MG/DL (1.8-2.4) H Total Bilirubin 0.6 MG/DL (0.2-1.0) Aspartate Amino Transf (AST/SGOT) 19 U/L (15-37) Alanine Aminotransferase (ALT/SGPT) 28 U/L (12-78) Alkaline Phosphatase 143 U/L (46-116) H Pro-B-Type Natriuretic Peptide 22104 pg/mL (0-125) H Total Protein 7.3 G/DL (6.4-8.2) Albumin 2.1 G/DL (3.4-5.0) L Globulin 5.2 g/dL Albumin/Globulin Ratio 0.4 (1.0-2.7) L Digoxin Level 1.4 NG/ML (0.5-2.0) Height (Feet): 5 Height (Inches): 1.00 Weight (Pounds): 193 General Appearance: WD/WN, no apparent distress, alert Cardiovascular: normal rate Respiratory/Chest: normal breath sounds, no respiratory distress Abdominal Exam: normal bowel sounds, non tender, soft Extremities: normal range of motion, non-tender Camilo Aden NP January 30, 2018 11:26
[2018-01-30 12:00] VITALS: BP 128/71
--- NOTE | 2018-01-30 15:02 | General Progress Note ---
Assessment/Plan Status: stable Assessment/Plan Dementia encephalopathy -Ativan prn -dc Aricept -the pt lacks capacity Subjective Date patient seen: January 30, 2018 Neurologic/Psychiatric: Reports: anxiety, depressed, emotional problems Allergies: Coded Allergies: No Known Allergies (Unverified , 12/19/17) Objective Last 24 Hour Vital Signs Date Time Temp Pulse Resp B/P (MAP) Pulse Ox O2 Delivery O2 Flow Rate FiO2 01/30/18 12:00 97.8 81 18 128/71 99 Room Air 97.8 01/30/18 11:57 128/71 01/30/18 08:54 60 124/62 01/30/18 08:54 124/62 01/30/18 08:00 98.9 60 17 124/62 96 Room Air 98.9 01/30/18 06:04 116/65 01/30/18 04:00 97.3 65 20 116/65 94 Room Air 97.3 01/30/18 00:29 136/64 01/30/18 00:00 97.5 67 20 136/64 94 Room Air 97.5 01/29/18 20:41 67 132/68 01/29/18 20:00 97.7 67 20 132/68 95 Room Air 97.7 01/29/18 17:24 139/77 01/29/18 16:00 97.7 82 19 133/76 96 Room Air 97.7 Intake and Output 01/29/18 01/30/18 19:00 07:00 Intake Total 480 ml 450 ml Output Total 300 ml 250 ml Balance 180 ml 200 ml Free Water 120 ml 120 ml Tube Feeding 360 ml 330 ml Output Urine Total 300 ml 250 ml # Bowel Movements 1 1 Laboratory Tests 01/30/18 06:00: White Blood Count 8.1, Red Blood Count 3.50L, Hemoglobin 11.5L, Hematocrit 34.8L , Mean Corpuscular Volume 99, Mean Corpuscular Hemoglobin 32.9H, Mean Corpuscular Hemoglobin Concent 33.0, Red Cell Distribution Width 13.3, Platelet Count 244, Mean Platelet Volume 6.6, Neutrophils (%) (Auto) 61.6, Lymphocytes (% ) (Auto) 21.8, Monocytes (%) (Auto) 11.2H, Eosinophils (%) (Auto) 4.6H, Basophils (%) (Auto) 0.7, Sodium Level 141, Potassium Level 3.9, Chloride Level 104, Carbon Dioxide Level 24, Anion Gap 13, Blood Urea Nitrogen 119H, Creatinine 3.3H, Estimat Glomerular Filtration Rate , Glucose Level 166H, Calcium Level 9.0, Phosphorus Level 4.4, Magnesium Level 2.5H, Total Bilirubin 0.6, Aspartate Amino Transf (AST/SGOT) 19, Alanine Aminotransferase (ALT/SGPT) 28, Alkaline Phosphatase 143H, Pro-B-Type Natriuretic Peptide 13209W, Total Protein 7.3, Albumin 2.1L, Globulin 5.2, Albumin/Globulin Ratio 0.4L, Digoxin Level 1.4 Height (Feet): 5 Height (Inches): 1.00 Weight (Pounds): 193 General Appearance: WD/WN, no apparent distress, alert, confused Neurologic: alert, responsive, depressed affect Ashly Rajan M.D. January 30, 2018 15:02
--- NOTE | 2018-01-30 15:28 | Nephrology Progress Note ---
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 replace permacath if out pt dialysis to continue by PMD adjust Hydralazine dose Increase flomax- Singer for now 2D echo 30% ej fx SANDRO kidney Suspected nonobstructive nephrolithiasis in the left kidney. monitor renal parameters avoid nephrotoxics After load reduction- hydralazine optimize renal and cardiac status. Echo: Global left ventricular hypokinesis. Left ventricular ejection fraction estimated to be 30 %. Subjective ROS Limited/Unobtainable: No Objective Objective Last 24 Hour Vital Signs Date Time Temp Pulse Resp B/P (MAP) Pulse Ox O2 Delivery O2 Flow Rate FiO2 01/30/18 12:00 97.8 81 18 128/71 99 Room Air 97.8 01/30/18 11:57 128/71 01/30/18 08:54 60 124/62 01/30/18 08:54 124/62 01/30/18 08:00 98.9 60 17 124/62 96 Room Air 98.9 01/30/18 06:04 116/65 01/30/18 04:00 97.3 65 20 116/65 94 Room Air 97.3 01/30/18 00:29 136/64 01/30/18 00:00 97.5 67 20 136/64 94 Room Air 97.5 01/29/18 20:41 67 132/68 01/29/18 20:00 97.7 67 20 132/68 95 Room Air 97.7 01/29/18 17:24 139/77 01/29/18 16:00 97.7 82 19 133/76 96 Room Air 97.7 Intake and Output 01/29/18 01/30/18 19:00 07:00 Intake Total 480 ml 450 ml Output Total 300 ml 250 ml Balance 180 ml 200 ml Free Water 120 ml 120 ml Tube Feeding 360 ml 330 ml Output Urine Total 300 ml 250 ml # Bowel Movements 1 1 Laboratory Tests 01/30/18 06:00: White Blood Count 8.1, Red Blood Count 3.50L, Hemoglobin 11.5L, Hematocrit 34.8L , Mean Corpuscular Volume 99, Mean Corpuscular Hemoglobin 32.9H, Mean Corpuscular Hemoglobin Concent 33.0, Red Cell Distribution Width 13.3, Platelet Count 244, Mean Platelet Volume 6.6, Neutrophils (%) (Auto) 61.6, Lymphocytes (% ) (Auto) 21.8, Monocytes (%) (Auto) 11.2H, Eosinophils (%) (Auto) 4.6H, Basophils (%) (Auto) 0.7, Sodium Level 141, Potassium Level 3.9, Chloride Level 104, Carbon Dioxide Level 24, Anion Gap 13, Blood Urea Nitrogen 119H, Creatinine 3.3H, Estimat Glomerular Filtration Rate , Glucose Level 166H, Calcium Level 9.0, Phosphorus Level 4.4, Magnesium Level 2.5H, Total Bilirubin 0.6, Aspartate Amino Transf (AST/SGOT) 19, Alanine Aminotransferase (ALT/SGPT) 28, Alkaline Phosphatase 143H, Pro-B-Type Natriuretic Peptide 34291V, Total Protein 7.3, Albumin 2.1L, Globulin 5.2, Albumin/Globulin Ratio 0.4L, Digoxin Level 1.4 Height (Feet): 5 Height (Inches): 1.00 Weight (Pounds): 193 General Appearance: no apparent distress Objective no other changes VALENTIN RUSH January 30, 2018 15:28
[2018-01-30 16:00] VITALS: BP 114/60
--- NOTE | 2018-01-30 16:03 | Cardiac Electrophysiology PN ---
Assessment/Plan Assessment/Plan 1. Atrial flutter. In SR when was on tele. continue amiodarone 100 mg daily, Dig , Toprol-XL 25 mg daily and Eliquis 2.5 mg b.i.d. 2. Hypertension. Change Hydralazine to 25 bid and Toprol-XL 25 mg 3. Cardiomyopathy with EF 30% on Cozaar and Toprol-XL 25 mg daily. Not a candidate for defibrillator placement. 4. ESRD on HD with discharge from the [facility] that was REMOVED HD per Dr Verma 5. Hyperlipidemia, on Lipitor. 6. Dysphagia, S/P PEG replacement DW RN Subjective Subjective Comfortable in NAD awaiting placement Objective Last 24 Hour Vital Signs Date Time Temp Pulse Resp B/P (MAP) Pulse Ox O2 Delivery O2 Flow Rate FiO2 01/30/18 12:00 97.8 81 18 128/71 99 Room Air 97.8 01/30/18 11:57 128/71 01/30/18 08:54 60 124/62 01/30/18 08:54 124/62 01/30/18 08:00 98.9 60 17 124/62 96 Room Air 98.9 01/30/18 06:04 116/65 01/30/18 04:00 97.3 65 20 116/65 94 Room Air 97.3 01/30/18 00:29 136/64 01/30/18 00:00 97.5 67 20 136/64 94 Room Air 97.5 01/29/18 20:41 67 132/68 01/29/18 20:00 97.7 67 20 132/68 95 Room Air 97.7 01/29/18 17:24 139/77 Intake and Output 01/29/18 01/30/18 19:00 07:00 Intake Total 480 ml 450 ml Output Total 300 ml 250 ml Balance 180 ml 200 ml Free Water 120 ml 120 ml Tube Feeding 360 ml 330 ml Output Urine Total 300 ml 250 ml # Bowel Movements 1 1 Laboratory Tests Test 01/30/18 06:00 White Blood Count 8.1 K/UL (4.8-10.8) Red Blood Count 3.50 M/UL (4.70-6.10) L Hemoglobin 11.5 G/DL (14.2-18.0) L Hematocrit 34.8 % (42.0-52.0) L Mean Corpuscular Volume 99 FL (80-99) Mean Corpuscular Hemoglobin 32.9 PG (27.0-31.0) H Mean Corpuscular Hemoglobin Concent 33.0 G/DL (32.0-36.0) Red Cell Distribution Width 13.3 % (11.6-14.8) Platelet Count 244 K/UL (150-450) Mean Platelet Volume 6.6 FL (6.5-10.1) Neutrophils (%) (Auto) 61.6 % (45.0-75.0) Lymphocytes (%) (Auto) 21.8 % (20.0-45.0) Monocytes (%) (Auto) 11.2 % (1.0-10.0) H Eosinophils (%) (Auto) 4.6 % (0.0-3.0) H Basophils (%) (Auto) 0.7 % (0.0-2.0) Sodium Level 141 MMOL/L (136-145) Potassium Level 3.9 MMOL/L (3.5-5.1) Chloride Level 104 MMOL/L (98-107) Carbon Dioxide Level 24 MMOL/L (21-32) Anion Gap 13 mmol/L (5-15) Blood Urea Nitrogen 119 mg/dL (7-18) H Creatinine 3.3 MG/DL (0.55-1.30) H Estimat Glomerular Filtration Rate mL/min (>60) Glucose Level 166 MG/DL (74-106) H Calcium Level 9.0 MG/DL (8.5-10.1) Phosphorus Level 4.4 MG/DL (2.5-4.9) Magnesium Level 2.5 MG/DL (1.8-2.4) H Total Bilirubin 0.6 MG/DL (0.2-1.0) Aspartate Amino Transf (AST/SGOT) 19 U/L (15-37) Alanine Aminotransferase (ALT/SGPT) 28 U/L (12-78) Alkaline Phosphatase 143 U/L (46-116) H Pro-B-Type Natriuretic Peptide 89064 pg/mL (0-125) H Total Protein 7.3 G/DL (6.4-8.2) Albumin 2.1 G/DL (3.4-5.0) L Globulin 5.2 g/dL Albumin/Globulin Ratio 0.4 (1.0-2.7) L Digoxin Level 1.4 NG/ML (0.5-2.0) Objective HEAD AND NECK: No JVD. LUNGS: Clear. CARDIOVASCULAR: Regular S1 and S2 with no gallop. ABDOMEN: Soft, status post G-tube. EXTREMITIES: 1+ pitting edema. Malik Shannon MD January 30, 2018 16:03
[2018-01-30 20:00] VITALS: BP 148/89
[2018-01-30] MEDS ORDERED: HydrALAZINE 25mg tab GT SCH (21:00)
--- NOTE | 2018-02-03 10:10 | Discharge Summary ---
Discharge Summary Discharge Summary _ DATE OF ADMISSION: 01/17/2018 DATE OF DISCHARGE: 01/30/2018 REASON FOR ADMISSION: 82 years old male with past medical history significant for CVA with hemiplegia and hemiparesis, encephalopathy, end-stage renal disease, on hemodialysis, diabetes mellitus, hypertension, anemia, CHF,cardiomyopathy, hyperlipidemia ,BPH, dysphagia G-tube , was sent from the assisted [facility] for evaluation. Patient noted to have yellowish drainage from hemodialysis catheter at the right upper chest. Hemodialysis catheter was in use for one month. Upon evaluation in emergency department: no fever, lactic acid 1.9. No leukocytosis. Mild anemia. BUN 74, creatinine 1.7. Chest x-ray confirmed placement of permanent catheter tip in the right atrium. Patient admitted with diagnosis of probable infected hemodialysis catheter, end- stage renal disease , diabetes mellitus, hypercholesterolemia, hypertension, encephalopathy,dementia ,BPH, cardiomyopathy, atrial fibrillation. CONSULTANTS: airport security screener Dr. Shannon Urologist Dr. Barron ID specialist Dr. Little GI specialist Dr. Espinal flash ranging crewmember Dr. Verma Vascular surgery Dr. Shookarian Sammying Machine Operator Dr. Miller HOSPITAL COURSE: Patient was admitted. Patient was started on empiric antibiotic. ID specialist closely followed with recommendation for antibiotic regimen. No evidence of bacteremia : blood culture negative initially and repeated. Status post removal of hemodialysis catheter on 01/20/18. Catheter tip culture revealed MRSA. Echocardiogram revealed no evidence of vegetation. Patient afebrile ,no leukocytosis, patient status post antibiotic treatment. ID specialist recommended to observe closely off antibiotics. Coffee Attendant closely followed. Renal ultrasound revealed suspected nonobstructive nephrolithiasis in the left kidney. Renal echogenicity within normal limits. No hemodialysis was done while patient was in the hospital. Patient was hydrated. Renal parameters and electrolytes were closely monitored. Nephrotoxins were avoided. Electrolytes corrected as needed. Creatinine was trending up from initial 1.7 up to 3.3. Coffee Attendant stopped Cozaar. He recommended to replace perma catheter if outpatient dialysis to be continued, which to be decided by outpatient flash ranging crewmember. Flomax dose was increased. Hydralazine dose was optimized. Urology consult was requested , who had seen and evaluated the patient and give subsequent recommendations. Infectious disease specialist cleared to proceed with placement of permanent hemodialysis catheter if hemodialysis to be continued. Singing Teacher closely followed. Patient exhibited atrial flutter, spontaneously converted to sinus rhythm. Patient was on regimen of amiodarone ,digoxin, beta triny. Anticoagulation with Eliquis started. Blood pressure regimen was optimized, managed with Toprol and Hydralazine, off Cozaar . Echocardiogram revealed ejection fraction of 30%, patient not a candidate for defibrillator placement as per airport security screener. Statin was continued. G-tube malfunction noted. Patient subsequently undergone replacement on of G- tube at the bedside with 20 Sinhala gauge. Tube feeding restarted as per registered dietitian recommendations. Strict aspiration /reflux precautions were maintained. G-tube site care provided. Hemoglobin and hematocrit were closely monitored with goal to keep hemoglobin above 8. Hemoglobin and hematocrit remained stable, at baseline ,no need for transfusion. Bowel regimen instituted.. Patient was on PPI. Sammying Machine Operator closely followed. Per endo, patient had diabetes mellitus type 2 out of control. Anti- glycemic regimen was optimized as per manager of global. Patient with history of hypothyroidism TSH was elevated .Sammying Machine Operator recommended continue current dose of the levothyroxine and repeat TSH next week. Vascular surgeon consult was requested in anticipation for possible new perma catheter and AV shunt placement. Duplex bilateral upper extremity was stable ; anterior duplex of bilateral lower extremity revealed mild ischemia bilaterally. Patient removed Singer catheter. Patient will be monitored off Singer catheter in SNF with postvoid residual and reinsert Singer if above 400 ml. catheter if postvoid residual about 400 mL. Patient will be monitored off hemodialysis with close monitoring of renal parameters. Need for hemodialysis will be further determined based on renal parameters. Hemodialysis access was as discontinued as mentioned above. Patient will be closely monitored for need for reinsertion. At this time patient was stable for discharge, cleared by all consultants. 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 DISCHARGE INSTRUCTIONS: Patient was discharged to assisted facility. Patient will be monitored for need for reinsertion of hemodialysis catheter with close monitoring of renal parameters. Patient will be monitored of Singer catheter with frequent postvoid residuals checks , Singer to be reinserted if postvoid residual above 400 mL. Patient to follow-up with health care provider at the facility. I have been assigned to dictate discharge summary for this account. I was not involved in the patient's management. Joycelyn Alcala NP February 03, 2018 10:10
--- NOTE | 2018-02-05 06:58 | Diagnostic Imaging Report ---
APPROVED REPORT CPT Code: 50479 Present Symptoms Upper Extremity Edema: Bilateral RIGHT UPPER EXTREMITY (Deep venous system): Imaging reveals patency of the internal jugular, subclavian, axillary and brachial veins. Imaging also reveals patency of the basilic vein. Doppler indicates normal spontaneous flow within these venous segments. The cephalic vein is not well visualized.
== END 2018-01-30 20:35 | DRG 721 ==
LOC: EDBD 20:30 → EMR 21:24 → 2E 21:27 → EDBEDREQ 21:53 → 2E 22:45 → 4E 01-22 23:20
PROC: 0D20XUZ Change Feeding Device in Upper Intestinal Tract, External Approach (ICD-10-PCS; principal; 2018-01-23)
DX: T80.212A Local infection due to central venous catheter, initial encounter (principal); I13.2 Hypertensive heart and chronic kidney disease with heart failure and with stage 5 chronic kidney disease, or end stage renal disease; G93.40 Encephalopathy, unspecified; N17.9 Acute kidney failure, unspecified; K94.23 Gastrostomy malfunction; R13.10 Dysphagia, unspecified; I48.92 Unspecified atrial flutter; Z79.01 Long term (current) use of anticoagulants; E11.22 Type 2 diabetes mellitus with diabetic chronic kidney disease; E11.65 Type 2 diabetes mellitus with hyperglycemia; N18.6 End stage renal disease; I50.9 Heart failure, unspecified; Z79.4 Long term (current) use of insulin; E78.00 Pure hypercholesterolemia, unspecified; I42.9 Cardiomyopathy, unspecified; G30.9 Alzheimer's disease, unspecified; F02.80 Dementia in other diseases classified elsewhere, unspecified severity, without behavioral disturbance, psychotic disturbance, mood disturbance, and anxiety; N40.1 Benign prostatic hyperplasia with lower urinary tract symptoms; R33.8 Other retention of urine; I69.959 Hemiplegia and hemiparesis following unspecified cerebrovascular disease affecting unspecified side; I25.10 Atherosclerotic heart disease of native coronary artery without angina pectoris; I73.9 Peripheral vascular disease, unspecified; A49.02 Methicillin resistant Staphylococcus aureus infection, unspecified site; D64.9 Anemia, unspecified; E03.9 Hypothyroidism, unspecified
CPT/HCPCS: 36415; 36590; 71045; 74018; 74230; 76770; 80048; 80053; 80061; 80162; 80202; 81001; 82550; 82607; 82728; 82746; 82962; 82977; 83036; 83540; 83550; 83605; 83735; 83880; 84100; 84300; 84443; 84484; 84550; 85025; 85610; 85730; 86140; 87040; 87070; 87081; 87181; 87205; 89050; 93005; 93306; 93925; 93970; 93971; 99285; J1815; S5561

== ENCOUNTER 2018-02-03 17:05 | Inpatient (IN) | payer MEDICARE, MEDICAID ==
[~2018-02-03] VITALS: Ht 177.8 cm; Wt 106.1 kg
[~2018-02-03 17:05] MED LIST: ACETAMINOPHEN325 M1 GT; AMIODARONE HCL400 M1 GT; ATORVASTATIN CA80 MG ORAL; COLACE100 MG ORAL; CRANBERRY450 M4 GT; DONEPEZIL HCL10 MG ORAL; DULCOLAX10 MG RC; ELIQUIS2.5 MG GT; FERROUS SULFAT325 MG GT; FLORASTOR250 MG GT; FOLIC ACID1 MG ORAL; HYDRALAZINE HCL25 M1 GT; JUVEN PACKET1 EAC1 GT; LANTUS SOL100 UNIT/1 SUBQ; LOSARTAN POTASS50 MG ORAL; METOPROLOL SUCC25 MG GT; MILK OF MA400 MG/51 GT; MULTI-DELYN237 ML GT; NEXIUM40 MG GT; NITRO-BID1 GM TOPIC; NORCO 5-325 TA1 EACH GT; PROSCAR5 MG GT; SENNA8.6 M2 GT; SYNTHROID50 MCG ORAL; TAMSULOSIN HCL0.4 MG ORAL; TYLENOL WITH C1 EACH GT; UTI-STAT L3875 MG/31 GT; VITAMIN C500 M1 GT
[2018-02-03 17:15] VITALS: BP 109/72
[2018-02-03 18:02] LABS: EOSINOPHILS % (AUTO) 4.7 % (0.0-3.0); HEMATOCRIT 31.8 % (42.0-52.0); HEMOGLOBIN 10.9 G/DL (14.2-18.0); LYMPHOCYTES % (AUTO) 16.6 % (20.0-45.0); MEAN CORPUSCULAR VOLUME 99 FL (80-99); MONOCYTES % (AUTO) 8.3 % (1.0-10.0); NEUTROPHILS % (AUTO) 69.4 % (45.0-75.0); PLATELET COUNT 270 K/UL (150-450); RED BLOOD COUNT 3.22 M/UL (4.70-6.10); RED CELL DISTRIBUTION WIDTH 13.6 % (11.6-14.8); WHITE BLOOD COUNT 8.5 K/UL (4.8-10.8)
[2018-02-03 18:27] LABS: ANION GAP 14 mmol/L (5-15); BLOOD UREA NITROGEN 217 mg/dL (7-18); CALCIUM 8.9 MG/DL (8.5-10.1); CARBON DIOXIDE 23 MMOL/L (21-32); CHLORIDE 102 MMOL/L (98-107); CREATININE 4.8 MG/DL (0.55-1.30); POTASSIUM 4.4 MMOL/L (3.5-5.1); SODIUM 139 MMOL/L (136-145)
[2018-02-03 18:28] LABS: ALANINE AMINOTRANSFERASE 30 U/L (12-78); ALBUMIN 2.1 G/DL (3.4-5.0); ALBUMIN/GLOBULIN RATIO 0.4 (1.0-2.7); ALKALINE PHOSPHATASE 151 U/L (46-116); ASPARTATE AMINO TRANSFERASE 25 U/L (15-37); BILIRUBIN,TOTAL 0.3 MG/DL (0.2-1.0)
[2018-02-03] MEDS ORDERED: ACETAMINOPHEN325 M1 GT (18:41)
--- NOTE | 2018-02-03 19:12 | Emergency Room Report ---
History of Present Illness General Chief Complaint: Abnormal Labs Source: Medical Record, EMS Present Illness HPI Patient presents with worsening kidney function Dehydration patient appears to be weaker than usual Patient presents from nursing facility History of present illness is significantly limited Patient not able to provide input There was no reports of vomiting or diarrhea Unknown regarding chest pain or shortness of breath Allergies: Coded Allergies: No Known Allergies (Unverified , 12/19/17) Patient History Past Medical History: see triage record Pertinent Family History: none Reviewed Nursing Documentation: PMH: Agreed; PSxH: Agreed Nursing Documentation-PMH Hx Cardiac Problems: Yes - Afib, Heart Failure, Cardiomyopathy, Anemia Hx Hypertension: Yes Hx COPD: Yes Hx Diabetes: Yes - DM2 Hx Cancer: No - BPH Hx Gastrointestinal Problems: Yes - Gtube, Dysphagia Hx Dialysis: Yes - L upper chest perma-cath, End stage Renal Disease Hx Neurological Problems: Yes - Hemiplegia, Pressure ulcer Hx Cerebrovascular Accident: Yes Hx Dementia: Yes Hx Paralysis: Yes - hemiplegia Review of Systems All Other Systems: limited - Other than the ones mentioned in the history of present illness all others are reviewed however they do stay limited due to the patient's mental status Physical Exam Vital Signs Date Time Temp Pulse Resp B/P (MAP) Pulse Ox O2 Delivery O2 Flow Rate FiO2 02/03/18 17:00 97.5 74 20 117/61 98 Room Air 97.5 Sp02 EP Interpretation: reviewed, normal General Appearance: no apparent distress Head: normocephalic, atraumatic Eyes: bilateral eye PERRL ENT: dry mucus membranes Neck: supple, thyroid normal Respiratory: lungs clear, normal breath sounds Cardiovascular #1: regular rate, rhythm Gastrointestinal: non tender, soft, no mass Musculoskeletal: other - Patient does not follow commands muscle exam is difficult to obtain no obvious focal deficit in the upper extremities Neurologic: responsive - To physical stimuli Skin: normal color, no rash Lymphatic: no adenopathy Medical Decision Making Diagnostic Impression: Primary Impression: Renal failure (ARF), acute on chronic ER Course Patient's blood work shows significantly worsening kidney function Patient requires further IV hydration At this time potassium level is normal And requires further inpatient care Labs Test 02/03/18 17:25 White Blood Count 8.5 K/UL (4.8-10.8) Red Blood Count 3.22 M/UL (4.70-6.10) Hemoglobin 10.9 G/DL (14.2-18.0) Hematocrit 31.8 % (42.0-52.0) Mean Corpuscular Volume 99 FL (80-99) Mean Corpuscular Hemoglobin 33.7 PG (27.0-31.0) Mean Corpuscular Hemoglobin Concent 34.2 G/DL (32.0-36.0) Red Cell Distribution Width 13.6 % (11.6-14.8) Platelet Count 270 K/UL (150-450) Mean Platelet Volume 6.0 FL (6.5-10.1) Neutrophils (%) (Auto) 69.4 % (45.0-75.0) Lymphocytes (%) (Auto) 16.6 % (20.0-45.0) Monocytes (%) (Auto) 8.3 % (1.0-10.0) Eosinophils (%) (Auto) 4.7 % (0.0-3.0) Basophils (%) (Auto) 1.0 % (0.0-2.0) Sodium Level 139 MMOL/L (136-145) Potassium Level 4.4 MMOL/L (3.5-5.1) Chloride Level 102 MMOL/L (98-107) Carbon Dioxide Level 23 MMOL/L (21-32) Anion Gap 14 mmol/L (5-15) Blood Urea Nitrogen 217 mg/dL (7-18) Creatinine 4.8 MG/DL (0.55-1.30) Estimat Glomerular Filtration Rate mL/min (>60) Glucose Level 319 MG/DL (74-106) Calcium Level 8.9 MG/DL (8.5-10.1) Total Bilirubin 0.3 MG/DL (0.2-1.0) Aspartate Amino Transf (AST/SGOT) 25 U/L (15-37) Alanine Aminotransferase (ALT/SGPT) 30 U/L (12-78) Alkaline Phosphatase 151 U/L (46-116) Total Protein 7.4 G/DL (6.4-8.2) Albumin 2.1 G/DL (3.4-5.0) Globulin 5.3 g/dL Albumin/Globulin Ratio 0.4 (1.0-2.7) Lipase 410 U/L (73-393) Rhythm Strip Diag. Results EP Interpretation: yes Rate: 77 Rhythm: NSR, no PVC's, no ectopy Last Vital Signs Date Time Temp Pulse Resp B/P (MAP) Pulse Ox O2 Delivery O2 Flow Rate FiO2 02/03/18 17:15 97.5 72 20 109/72 98 Room Air 97.5 Status: improved Disposition: ADMITTED INPATIENT Condition: Serious Referrals: Courtney Weeks MD (PCP) Damian Velasquez DO February 03, 2018 19:12
[2018-02-03 19:56] VITALS: BP 117/63
[2018-02-03 20:57] VITALS: BP 120/65
[2018-02-03 21:55] VITALS: BP 121/60
[2018-02-04] VITALS: BP 133/68
[2018-02-04] MEDS ORDERED: Milk of Magnesia 30ml Ud GT PRN (01:00)
[2018-02-04] MEDS ORDERED: Tylenol #3 tab (300mg/30mg) GT PRN (01:00)
[2018-02-04 04:00] VITALS: BP 133/72
[2018-02-04] MEDS: HydrALAZINE 25mg tab GT SCH ×3 (06:14→21:26)
[2018-02-04] MEDS: NovoLOG Insulin Flexpen SUBQ SCH ×4 (06:30→21:30)
--- NOTE | 2018-02-04 08:41 | History & Physical ---
History and Physical History & Physicial HISTORY OF PRESENT ILLNESS: The patient is a resident of [facility]. He is 82 years old. status post hospitalization secondary tyo line infection aand extraction of HD accdess. Based on abnormal lab obtained in [place], His cratinin raised to 4.5 with significant hyperuremia. patient is AOx 1 REVIEW OF SYSTEMS: Unable to assess secondary to the patient's mental status. PAST MEDICAL HISTORY: Significant for: 1. End-stage renal disease, on hemodialysis every Friday, Friday, and Friday. 2. Diabetes type 2. 3. Hypercholesterolemia. 4. Cardiomyopathy. 5. Hypertension. 6. Alzheimer dementia. 7. Benign prostatic hypertrophy. 8. Congestive heart failure. PAST SURGICAL HISTORY: Significant for: 1. G-tube placement. 2. Right upper chest PermCath placement and extraction CURRENT MEDICATIONS: 1. Amiodarone 400 mg one tablet per G-tube daily. 2. Atorvastatin 80 mg per G-tube nightly. 3. Cranberry tablets 450 mg per G-tube daily. 4. Donepezil 10 mg per G-tube nightly. 5. Nexium 40 mg per G-tube daily. 6. Iron sulfate 325 mg per G-tube twice daily. 7. Finasteride 5 mg per G-tube daily. 8. Florastor 250 mg per G-tube daily. 9. Folic acid 1 mg per G-tube daily. 10. Lantus insulin 23 units subcutaneously daily. 11. Losartan 50 mg per G-tube daily. 12. Metoprolol ER 25 mg per G-tube daily. 13. Nitroglycerin ointment 2% applied twice daily. 14. Flomax 0.4 mg per G-tube daily. ALLERGIES: No known drug allergies. SOCIAL HISTORY: The patient denies tobacco or alcohol use. The patient is a resident [facility] PHYSICAL EXAMINATION: VITAL SIGNS: Temperature 98.3, respirations 20, pulse 69, blood pressure 140/83. GENERAL: The patient is a well-developed and well-nourished male, who is confused. HEENT: Pupils equal and responsive to light and accommodation. Extraocular movements are intact. NECK: Supple without lymphadenopathy. CHEST: Lungs are clear to auscultation bilaterally without wheezes or rales. CARDIOVASCULAR: Regular rate. S1, S2 normal without murmurs, rubs, or gallops. ABDOMEN: Soft, nontender, and nondistended. Positive bowel sounds. No evidence of hepatosplenomegaly. Currently, no rebound or guarding noted. EXTREMITIES: Negative for clubbing, cyanosis, or edema. RECTAL: Refused. GENITAL: Refused. NEUROLOGIC: Cranial nerves II through XII are grossly intact without focal deficits. Motor strength is 5/5 bilaterally intact. Deep tendon reflexes are 2+, plantar. ASSESSMENT: This is an 81-year-old male with: 1. Hyperuremia in progressive worsening renal function 2. history of End-stage renal disease, s/p extraction of HD access 3. Diabetes type 2. 4. Hypercholesterolemia. 5. Cardiomyopathy. 6. Atrial fibrillation. 7. Congestive heart failure. 8. Hypertension. 9. Alzheimer dementia. 10. Benign prostatic hypertrophy. TREATMENT: Will proceed with Permcath placement initiate HD per Nephrology Rec. resume [place] medications Comment: time of this encounter, doesn't reflect actual time of the Encounter Courtney Weeks MD February 04, 2018 08:40
--- NOTE | 2018-02-04 08:44 | General Progress Note ---
Assessment/Plan Status: stable Assessment/Plan S: " not communicating verbally" P: appears comfortable. No Singer in place , AOx1, limited source of info PHYSICAL EXAMINATION: GENERAL: The patient is comfortable. HEENT: Pupils equal and responsive to light and accommodation. Extraocular movements are intact. NECK: Supple without lymphadenopathy. CHEST: Lungs are clear to auscultation bilaterally without wheezes or rales. CARDIOVASCULAR: IRegular rate and rythm S1, S2 normal without murmurs, rubs, or gallops. ABDOMEN: Soft, nontender, and nondistended. Positive bowel sounds. No evidence of hepatosplenomegaly. Currently, no rebound or guarding noted. PEG t in place EXTREMITIES: atrophied extremitatis, with spontaneous movements NEUROLOGIC: Limited exam. Patient not cooperative, AOx 1 ASSESSMENT: This is an 81-year-old male with: 1. Hyperuremia in progressive worsening renal function 2. history of End-stage renal disease, s/p extraction of HD access 3. Diabetes type 2. 4. Hypercholesterolemia. 5. Cardiomyopathy. 6. Atrial fibrillation. 7. Congestive heart failure. 8. Hypertension. 9. Alzheimer dementia. 10. Benign prostatic hypertrophy. TREATMENT: Will proceed with Permcath placement initiate HD per Nephrology Rec. resume NH medications Comment: time of this encounter, doesn't reflect actual time of the Encounter Subjective Allergies: Coded Allergies: No Known Allergies (Unverified , 12/19/17) Objective Last 24 Hour Vital Signs Date Time Temp Pulse Resp B/P (MAP) Pulse Ox O2 Delivery O2 Flow Rate FiO2 02/04/18 06:14 133/72 02/04/18 04:00 98.7 67 20 133/72 98 98.7 02/04/18 00:00 98.3 69 20 133/68 98 98.3 02/03/18 22:18 70 18 121/70 97 Room Air 02/03/18 21:55 97.4 70 18 121/60 97 Room Air 97.4 02/03/18 20:57 70 20 120/65 97 Room Air 02/03/18 19:56 97.4 70 18 117/63 95 Room Air 97.4 02/03/18 17:15 97.5 72 20 109/72 98 Room Air 97.5 02/03/18 17:00 97.5 74 20 117/61 98 Room Air 97.5 Intake and Output 02/03/18 02/04/18 19:00 07:00 Intake Total 1000 ml Balance 1000 ml Intake IV Total 1000 ml # Voids 4 # Bowel Movements 2 Laboratory Tests 02/03/18 17:25: White Blood Count 8.5, Red Blood Count 3.22L, Hemoglobin 10.9L, Hematocrit 31.8L , Mean Corpuscular Volume 99, Mean Corpuscular Hemoglobin 33.7H, Mean Corpuscular Hemoglobin Concent 34.2, Red Cell Distribution Width 13.6, Platelet Count 270, Mean Platelet Volume 6.0L, Neutrophils (%) (Auto) 69.4, Lymphocytes ( %) (Auto) 16.6L, Monocytes (%) (Auto) 8.3, Eosinophils (%) (Auto) 4.7H, Basophils (%) (Auto) 1.0, Sodium Level 139, Potassium Level 4.4, Chloride Level 102, Carbon Dioxide Level 23, Anion Gap 14, Blood Urea Nitrogen 217H, Creatinine 4.8H, Estimat Glomerular Filtration Rate , Glucose Level 319H, Calcium Level 8.9, Total Bilirubin 0.3, Aspartate Amino Transf (AST/SGOT) 25, Alanine Aminotransferase (ALT/SGPT) 30, Alkaline Phosphatase 151H, Total Protein 7.4, Albumin 2.1L, Globulin 5.3, Albumin/Globulin Ratio 0.4L, Lipase 410H Height (Feet): 5 Height (Inches): 10.00 Weight (Pounds): 189 Courtney Weeks MD February 04, 2018 08:44
[2018-02-04 09:00] VITALS: BP 141/68
[2018-02-04] MEDS ORDERED: Heparin 5000 units/ml inj SUBQ SCH (09:00)
[2018-02-04] MEDS ORDERED: Losartan 50mg tab ORAL SCH (09:00)
[2018-02-04] MEDS: Metoprolol Succinate XL 25mg tab ORAL SCH (10:00)
[2018-02-04] MEDS: Nitroglycerin 2% oint pkt TOPIC SCH ×2 (10:00→18:42)
[2018-02-04] MEDS: Vitamin A&D Oint 2oz Tube TOPIC SCH ×2 (10:00→21:27)
[2018-02-04] MEDS: Docusate 100mg cap ORAL SCH (10:01)
[2018-02-04] MEDS: Eliquis 2.5mg tablet GT SCH ×2 (10:01→18:42)
[2018-02-04] MEDS: Ascorbic Acid 500mg tab GT SCH (10:03)
[2018-02-04] MEDS: Amiodarone 200mg tab GT SCH (10:03)
[2018-02-04] MEDS: Donepezil 10mg tab ORAL SCH (10:04)
[2018-02-04 13:25] LABS: BASOPHILS % (AUTO) 1.1 % (0.0-2.0); EOSINOPHILS % (AUTO) 4.4 % (0.0-3.0); HEMATOCRIT 30.9 % (42.0-52.0); HEMOGLOBIN 10.2 G/DL (14.2-18.0); MEAN CORPUSCULAR VOLUME 100 FL (80-99); MONOCYTES % (AUTO) 8.4 % (1.0-10.0); NEUTROPHILS % (AUTO) 70.1 % (45.0-75.0); PLATELET COUNT 250 K/UL (150-450); RED CELL DISTRIBUTION WIDTH 13.3 % (11.6-14.8); WHITE BLOOD COUNT 6.4 K/UL (4.8-10.8)
[2018-02-04 14:01] LABS: ALANINE AMINOTRANSFERASE 29 U/L (12-78); ALBUMIN/GLOBULIN RATIO 0.4 (1.0-2.7); ALKALINE PHOSPHATASE 125 U/L (46-116); ANION GAP 14 mmol/L (5-15); ASPARTATE AMINO TRANSFERASE 18 U/L (15-37); BILIRUBIN,TOTAL 0.4 MG/DL (0.2-1.0); BLOOD UREA NITROGEN 225 mg/dL (7-18); CALCIUM 8.6 MG/DL (8.5-10.1); CARBON DIOXIDE 22 MMOL/L (21-32); CHLORIDE 104 MMOL/L (98-107); POTASSIUM 3.7 MMOL/L (3.5-5.1); SODIUM 140 MMOL/L (136-145)
--- NOTE | 2018-02-04 14:04 | Consultation ---
Consult Note Consult Note Pt with renal failure, previously on HD via Permcath but now has new access after catheter pulled. Pt's renal function has continued to deteriorate per PMD /renal and needs new access to resume HD. PMH/ROS/Hosp. course noted. Exam -- lethargic, difficult to arouse; AVSS; cor RRR; lungs CTA; abd. soft/NT/ ND; extr. without C/C/E Labs/imaging reviewed. Assessment/Plan Pt with renal failure, HD to be resumed; needs new catheter access, per PMD/ renal. Will plan PermCath placement and if clinically improves and cleared for surgery , may consider AVF/AVG in arm at a later time. Discussed with team. LORETA BRAN February 04, 2018 14:04
--- NOTE | 2018-02-04 15:27 | Anethesia Preoperative Eval ---
Anesthesia Pre-op PMH/ROS General Date of Evaluation: February 04, 2018 Time of Evaluation: 14:03 Anesthesiologist: Jesusita ASA Score: ASA 4 Mallampati Score Class I : Soft palate, uvula, fauces, pillars visible Class II: Soft palate, uvula, fauces visible Class III: Soft palate, base of uvula visible Class IV: Only hard plate visible Mallampati Classification: Class II Surgeon: Argelia Diagnosis: L Upper Chest Permacath Surgical Procedure: L Upper Chest Permacath Removal Anesthesia History: none Family History: no anesthesia problems Allergies: Coded Allergies: No Known Allergies (Unverified , 12/19/17) Medications: see eMAR Past Medical History Cardiovascular: Reports: HTN, CAD, arrhythmia - AFib, other - CHF Pulmonary: Reports: asthma, COPD Neurologic/Psychiatric: Reports: dementia - G Tube, CVA Endocrine: Reports: DM Hematology/Immune: Reports: anemia Musculoskeletal/Integumentary: Reports: other - Generalized Weakness Anesthesia Pre-op Phys. Exam Physician Exam Last Vital Signs Date Time Temp Pulse Resp B/P (MAP) Pulse Ox O2 Delivery O2 Flow Rate FiO2 02/04/18 14:40 112/63 02/04/18 10:00 67 02/04/18 09:00 97.1 18 99 97.1 02/03/18 22:18 Room Air Constitutional: NAD Neurologic: CN 2-12 intact Cardiovascular: RRR Respiratory: CTA Gastrointestinal: S/NT/ND Airway Exam Mallampati Score: Class II MO: limited ROM: limited Teeth: missing, intact Anesthesia Pre-op A/P Labs Hematology Test 02/03/18 17:25 02/04/18 12:45 White Blood Count 8.5 K/UL (4.8-10.8) 6.4 K/UL (4.8-10.8) Red Blood Count 3.22 M/UL (4.70-6.10) L 3.10 M/UL (4.70-6.10) L Hemoglobin 10.9 G/DL (14.2-18.0) L 10.2 G/DL (14.2-18.0) L Hematocrit 31.8 % (42.0-52.0) L 30.9 % (42.0-52.0) L Mean Corpuscular Volume 99 FL (80-99) 100 FL (80-99) H Mean Corpuscular Hemoglobin 33.7 PG (27.0-31.0) H 32.9 PG (27.0-31.0) H Mean Corpuscular Hemoglobin Concent 34.2 G/DL (32.0-36.0) 33.0 G/DL (32.0-36.0) Red Cell Distribution Width 13.6 % (11.6-14.8) 13.3 % (11.6-14.8) Platelet Count 270 K/UL (150-450) 250 K/UL (150-450) Mean Platelet Volume 6.0 FL (6.5-10.1) L 6.1 FL (6.5-10.1) L Neutrophils (%) (Auto) 69.4 % (45.0-75.0) 70.1 % (45.0-75.0) Lymphocytes (%) (Auto) 16.6 % (20.0-45.0) L 16.0 % (20.0-45.0) L Monocytes (%) (Auto) 8.3 % (1.0-10.0) 8.4 % (1.0-10.0) Eosinophils (%) (Auto) 4.7 % (0.0-3.0) H 4.4 % (0.0-3.0) H Basophils (%) (Auto) 1.0 % (0.0-2.0) 1.1 % (0.0-2.0) Chemistry Test 02/03/18 17:25 02/04/18 12:45 Sodium Level 139 MMOL/L (136-145) 140 MMOL/L (136-145) Potassium Level 4.4 MMOL/L (3.5-5.1) 3.7 MMOL/L (3.5-5.1) Chloride Level 102 MMOL/L (98-107) 104 MMOL/L (98-107) Carbon Dioxide Level 23 MMOL/L (21-32) 22 MMOL/L (21-32) Anion Gap 14 mmol/L (5-15) 14 mmol/L (5-15) Blood Urea Nitrogen 217 mg/dL (7-18) H 225 mg/dL (7-18) H Creatinine 4.8 MG/DL (0.55-1.30) H 5.0 MG/DL (0.55-1.30) H Estimat Glomerular Filtration Rate mL/min (>60) mL/min (>60) Glucose Level 319 MG/DL (74-106) H 308 MG/DL (74-106) H Calcium Level 8.9 MG/DL (8.5-10.1) 8.6 MG/DL (8.5-10.1) Total Bilirubin 0.3 MG/DL (0.2-1.0) 0.4 MG/DL (0.2-1.0) Aspartate Amino Transf (AST/SGOT) 25 U/L (15-37) 18 U/L (15-37) Alanine Aminotransferase (ALT/SGPT) 30 U/L (12-78) 29 U/L (12-78) Alkaline Phosphatase 151 U/L (46-116) H 125 U/L (46-116) H Total Protein 7.4 G/DL (6.4-8.2) 6.9 G/DL (6.4-8.2) Albumin 2.1 G/DL (3.4-5.0) L 2.0 G/DL (3.4-5.0) L Globulin 5.3 g/dL 4.9 g/dL Albumin/Globulin Ratio 0.4 (1.0-2.7) L 0.4 (1.0-2.7) L Lipase 410 U/L (73-393) H Risk Assessment & Plan Assessment: ASA 4 Plan: GA Status Change Before Surgery: No Pre-Antibiotics Drug: Jasper Hardy MD February 04, 2018 15:27
[2018-02-04 16:00] VITALS: BP 111/58
--- NOTE | 2018-02-04 16:54 | Consultation ---
Consult Note Consult Note asked to eval for renal failure worsening- Patient presents with worsening kidney function Dehydration patient appears to be weaker than usual Patient presents from nursing facility History of present illness is significantly limited Patient not able to provide input There was no reports of vomiting or diarrhea Unknown regarding chest pain or shortness of breath Hx Cardiac Problems: Yes - Afib, Heart Failure, Cardiomyopathy, Anemia Hx Hypertension: Yes Hx COPD: Yes Hx Diabetes: Yes - DM2 Hx Cancer: No - BPH Hx Gastrointestinal Problems: Yes - Gtube, Dysphagia Hx Dialysis: Yes - L upper chest perma-cath, End stage Renal Disease Hx Neurological Problems: Yes - Hemiplegia, Pressure ulcer Hx Cerebrovascular Accident: Yes Hx Dementia: Yes Hx Paralysis: Yes - hemiplegia examined data reviewed cr high to 5 Assessment/Plan (1) Renal failure (ARF), acute on chronic need dialysis (2) 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 monitor renal parameters avoid nephrotoxics After load reduction- hydralazine optimize renal and cardiac status. Echo: Global left ventricular hypokinesis. Left ventricular ejection fraction estimated to be 30 %. VALENTIN RUSH February 04, 2018 16:54
[2018-02-04] MEDS ORDERED: Albumin Human 5% 250ml IV ONE (17:15)
[2018-02-04] MEDS ORDERED: Sodium Chloride 500ML 500 ML IV ONE (17:15)
[2018-02-04 18:31] LABS: APPEARANCE,URINE CLOUDY; BILIRUBIN, URINE NEGATIVE (NEGATIVE); GLUCOSE, URINE (UA) NEGATIVE (NEGATIVE); KETONES,URINE NEGATIVE (NEGATIVE); LEUKOCYTE ESTERASE ,URINE 3+ (NEGATIVE); NITRITE,URINE NEGATIVE (NEGATIVE); PH,URINE 5 (4.5-8.0); PROTEIN,URINE 2+ (NEGATIVE); UROBILINOGEN,URINE NORMAL MG/DL (0.0-1.0)
[2018-02-04 18:38] LABS: COLOR,URINE YELLOW
--- NOTE | 2018-02-04 18:54 | Consultation ---
History of Present Illness General Date patient seen: February 04, 2018 Chief Complaint: Abnormal Labs Present Illness HPI 82 yo male with hx of dementia and mmp admitted for medical stabilization. the pt is anxious and confused. the pt was unable to provide hx. waxing and waning of consciousness. the pt has impairment of memory Allergies: Coded Allergies: No Known Allergies (Unverified , 12/19/17) Medication History Scheduled Acetaminophen* (Acetaminophen 325MG Tablet*), 650 MG GT DAILY, (Reported) Amiodarone Hcl* (Amiodarone Hcl*), 400 MG GT DAILY, (Reported) Apixaban (Eliquis), 2.5 MG GT BID Arginine/Glutamine/Calcium Hmb (Tae Packet), 1 EACH GT DAILY, (Reported) Ascorbic Acid* (Vitamin C*), 500 MG GT DAILY, (Reported) Atorvastatin Calcium* (Lipitor*), 80 MG ORAL BEDTIME, (Reported) Cran/Vitc/Mannose/Inulin/Brom (Uti-Stat Liquid), 3,875 MG GT DAILY, (Reported) Cranberry Fruit Concentrate (Cranberry), 450 MG GT DAILY, (Reported) Docusate Sodium* (Colace*), 100 MG ORAL DAILY, (Reported) Donepezil Hcl* (Donepezil Hcl*), 10 MG ORAL DAILY, (Reported) Esomeprazole Magnesium (Nexium), 40 MG GT DAILY, (Reported) Ferrous Sulfate* (Ferrous Sulfate*), 325 MG GT TWICE A DAY, (Reported) Finasteride* (Proscar*), 5 MG GT DAILY, (Reported) Folic Acid* (Folic Acid*), 1 MG ORAL DAILY, (Reported) Hydralazine Hcl* (Hydralazine Hcl*), 25 MG GT Q8HR Levothyroxine Sodium (Synthroid), 50 MCG ORAL DAILY@0630 Losartan Potassium* (Losartan Potassium*), 50 MG ORAL DAILY, (Reported) Metoprolol Succinate* (Metoprolol Succinate*), 25 MG GT DAILY, (Reported) Multivitamin Liquid* (Multi-Delyn*), 5 ML GT DAILY, (Reported) Saccharomyces Boulardii (Florastor*), 250 MG GT DAILY, (Reported) Sennosides (Senna), 8.6 MG GT QHS, (Reported) Tamsulosin Hcl (Tamsulosin Hcl*), 0.4 MG ORAL BEDTIME, (Reported) Scheduled PRN Acetaminophen With Codeine 300MG/30MG (T#3)* (Tylenol With Codeine #3 Tablet*), 1 TAB GT Q4H PRN for MODERATE PAIN, (Reported) Acetaminophen* (Acetaminophen 325MG Tablet*), 650 MG GT Q4H PRN for MILD PAIN/ TEMP >101, (Reported) Bisacodyl (Dulcolax), 10 MG RC for IF MOM INEFFECTIVE, (Reported) Hydrocodone Bit/Acetaminophen 5-325* ([place] 5-325*), 1 TAB GT Q4H PRN for SEVERE PAIN, (Reported) Magnesium Hydroxide* (Milk Of Magnesia*), 30 ML GT DAILY PRN for IF DOK/SENNA INEFFECTIVE, (Reported) Miscellaneous Medications Nitroglycerin (Nitro-Bid*), Unknown Dose TOPIC, (Reported) Patient History Limited by: medical condition History Provided By: Patient, Medical Record, PMD Healthcare decision maker Resuscitation status Full Code Advanced Directive on File No Past Medical/Surgical History Past Medical/Surgical History: (1) 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 (2) 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, stage IV (3) Hypothyroidism (4) Diabetes mellitus out of control (5) Renal failure (6) Attention to G-tube (7) Malfunction of gastrostomy tube (8) Anemia (9) Renal failure (ARF), acute on chronic Review of Systems Psychiatric: Reports: prior hx, anxiety, emotional problems Physical Exam General Appearance: no apparent distress, alert, confused Last 24 Hour Vital Signs Date Time Temp Pulse Resp B/P (MAP) Pulse Ox O2 Delivery O2 Flow Rate FiO2 02/04/18 18:42 111/58 02/04/18 16:00 96.9 62 18 111/58 97 96.9 02/04/18 14:40 112/63 02/04/18 10:01 133/72 02/04/18 10:00 133/72 02/04/18 10:00 67 133/72 02/04/18 09:00 97.1 66 18 141/68 99 97.1 02/04/18 06:14 133/72 02/04/18 04:00 98.7 67 20 133/72 98 98.7 02/04/18 00:00 98.3 69 20 133/68 98 98.3 02/03/18 22:18 70 18 121/70 97 Room Air 02/03/18 21:55 97.4 70 18 121/60 97 Room Air 97.4 02/03/18 20:57 70 20 120/65 97 Room Air 02/03/18 19:56 97.4 70 18 117/63 95 Room Air 97.4 Intake and Output 02/03/18 02/04/18 19:00 07:00 Intake Total 1000 ml Balance 1000 ml Intake IV Total 1000 ml # Voids 4 # Bowel Movements 2 Laboratory Tests Test 02/04/18 12:45 02/04/18 17:00 White Blood Count 6.4 K/UL (4.8-10.8) Red Blood Count 3.10 M/UL (4.70-6.10) L Hemoglobin 10.2 G/DL (14.2-18.0) L Hematocrit 30.9 % (42.0-52.0) L Mean Corpuscular Volume 100 FL (80-99) H Mean Corpuscular Hemoglobin 32.9 PG (27.0-31.0) H Mean Corpuscular Hemoglobin Concent 33.0 G/DL (32.0-36.0) Red Cell Distribution Width 13.3 % (11.6-14.8) Platelet Count 250 K/UL (150-450) Mean Platelet Volume 6.1 FL (6.5-10.1) L Neutrophils (%) (Auto) 70.1 % (45.0-75.0) Lymphocytes (%) (Auto) 16.0 % (20.0-45.0) L Monocytes (%) (Auto) 8.4 % (1.0-10.0) Eosinophils (%) (Auto) 4.4 % (0.0-3.0) H Basophils (%) (Auto) 1.1 % (0.0-2.0) Sodium Level 140 MMOL/L (136-145) Potassium Level 3.7 MMOL/L (3.5-5.1) Chloride Level 104 MMOL/L (98-107) Carbon Dioxide Level 22 MMOL/L (21-32) Anion Gap 14 mmol/L (5-15) Blood Urea Nitrogen 225 mg/dL (7-18) H Creatinine 5.0 MG/DL (0.55-1.30) H Estimat Glomerular Filtration Rate mL/min (>60) Glucose Level 308 MG/DL (74-106) H Calcium Level 8.6 MG/DL (8.5-10.1) Total Bilirubin 0.4 MG/DL (0.2-1.0) Aspartate Amino Transf (AST/SGOT) 18 U/L (15-37) Alanine Aminotransferase (ALT/SGPT) 29 U/L (12-78) Alkaline Phosphatase 125 U/L (46-116) H C-Reactive Protein, Quantitative 4.1 mg/dL (0.00-0.90) H Total Protein 6.9 G/DL (6.4-8.2) Albumin 2.0 G/DL (3.4-5.0) L Globulin 4.9 g/dL Albumin/Globulin Ratio 0.4 (1.0-2.7) L Urine Color Yellow Urine Appearance Cloudy Urine pH 5 (4.5-8.0) Urine Specific [place] 1.010 (1.005-1.035) Urine Protein 2+ (NEGATIVE) H Urine Glucose (UA) Negative (NEGATIVE) Urine Ketones Negative (NEGATIVE) Urine Occult Blood Negative (NEGATIVE) Urine Nitrite Negative (NEGATIVE) Urine Bilirubin Negative (NEGATIVE) Urine Urobilinogen Normal MG/DL (0.0-1.0) Urine Leukocyte Esterase 3+ (NEGATIVE) H Urine RBC 2-4 /HPF (0 - 0) H Urine WBC 15-20 /HPF (0 - 0) H Urine Squamous Epithelial Cells Moderate /LPF (NONE/OCC) H Urine Bacteria Moderate /HPF (NONE) H Urine Random Sodium 25 mmol/L (20-110) Height (Feet): 5 Height (Inches): 10.00 Weight (Pounds): 189 Medications Current Medications Medications (Trade) Dose Ordered Sig/Tiffany Route PRN Reason Start Time Stop Time Status Last Admin Dose Admin Acetaminophen (Tylenol) 650 mg DAILY ORAL 02/04/18 09:00 03/06/18 08:59 02/04/18 10:03 Acetaminophen (Tylenol) 650 mg Q4H PRN ORAL MILD PAIN/TEMP >101 02/04/18 01:00 03/06/18 00:59 Acetaminophen/ Codeine Phosphate (Tylenol #3) 1 tab Q4H PRN GT MODERATE PAIN 02/04/18 01:00 02/11/18 00:59 Acetaminophen/ Hydrocodone Bitart ([place] 5/325) 1 tab Q4H PRN GT SEVERE PAIN 02/04/18 01:00 02/11/18 00:59 Amiodarone HCl (Cordarone) 400 mg DAILY GT 02/04/18 09:00 03/06/18 08:59 02/04/18 10:03 Apixaban (Eliquis) 2.5 mg BID GT 02/04/18 09:00 03/06/18 08:59 02/04/18 18:42 Ascorbic Acid (Vitamin C) 500 mg DAILY GT 02/04/18 09:00 03/06/18 08:59 02/04/18 10:03 Atorvastatin Calcium (Lipitor) 80 mg BEDTIME ORAL 02/04/18 21:00 03/06/18 20:59 Bisacodyl (Dulcolax) 10 mg DAILYPRN PRN RECTAL IF MOM INEFFECTIVE 02/04/18 01:00 03/06/18 00:59 Clotrimazole (Lotrimin) 1 applic EVERY 12 HOURS TOPIC 02/04/18 09:00 03/06/18 08:59 02/04/18 10:04 Dextrose (Dextrose 50%) 25 ml STAT PRN IV Hypoglycemia 02/04/18 01:30 03/06/18 01:29 Dextrose (Dextrose 50%) 50 ml STAT PRN IV Hypoglycemia 02/04/18 01:30 03/06/18 01:29 Docusate Sodium (Colace) 100 mg DAILY ORAL 02/04/18 09:00 03/06/18 08:59 02/04/18 10:01 Donepezil HCl (Aricept) 10 mg DAILY ORAL 02/04/18 09:00 03/06/18 08:59 02/04/18 10:04 Finasteride (Proscar) 5 mg DAILY ORAL 02/04/18 09:00 03/06/18 08:59 02/04/18 10:00 Hydralazine HCl (Apresoline) 25 mg Q8HR GT 02/04/18 06:00 03/06/18 05:59 02/04/18 14:40 Insulin Aspart (NovoLOG) BEFORE MEALS AND HS SUBQ 02/04/18 06:30 03/06/18 06:29 02/04/18 16:34 Lansoprazole (Prevacid) 30 mg ACBREAKFAST GT 02/04/18 06:30 03/06/18 06:29 02/04/18 06:14 Levothyroxine Sodium (Synthroid) 50 mcg DAILY@0630 ORAL 02/04/18 06:30 03/06/18 06:29 02/04/18 06:14 Metoprolol Succinate (Toprol XL) 25 mg DAILY ORAL 02/04/18 09:00 03/06/18 08:59 02/04/18 10:00 Nitroglycerin (Nitro-Bid) 1 inch BID TOPIC 02/04/18 09:00 03/06/18 08:59 02/04/18 18:42 Saccharomyces Boulardii (Florastor) 250 mg DAILY GT 02/04/18 09:00 03/06/18 08:59 02/04/18 10:00 Sennosides (Senokot) 2 tab QHS GT 02/04/18 21:00 03/06/18 20:59 Tamsulosin HCl (Flomax) 0.4 mg BEDTIME ORAL 02/04/18 21:00 03/06/18 20:59 Vitamin A/Vitamin D (A & D Oint) 1 applic EVERY 12 HOURS TOPIC 02/04/18 09:00 03/06/18 08:59 02/04/18 10:00 Assessment/Plan Status: unchanged Assessment/Plan dementia with behavioral dist encephalopathy seroquel Ashly Garcias M.D. February 04, 2018 18:54
[2018-02-04 20:00] VITALS: BP 123/70
[2018-02-04] MEDS ORDERED: Atorvastatin 80mg tab ORAL SCH (21:00)
[2018-02-04] MEDS: Sennosides 8.6mg GT SCH (21:26)
[2018-02-04] MEDS: Tamsulosin 0.4mg cap ORAL SCH (21:26)
[2018-02-05] VITALS (12 sets, daily range): BP systolic 98–139; BP diastolic 53–83
[2018-02-05] MEDS: HydrALAZINE 25mg tab GT SCH ×3 (05:59→21:48)
[2018-02-05] MEDS: NovoLOG Insulin Flexpen SUBQ SCH ×4 (06:01→21:50)
[2018-02-05 06:54] LABS: BASOPHILS % (AUTO) 0.9 % (0.0-2.0); EOSINOPHILS % (AUTO) 3.5 % (0.0-3.0); HEMOGLOBIN 10.6 G/DL (14.2-18.0); LYMPHOCYTES % (AUTO) 15.9 % (20.0-45.0); MEAN CORPUSCULAR VOLUME 100 FL (80-99); NEUTROPHILS % (AUTO) 70.8 % (45.0-75.0); PLATELET COUNT 245 K/UL (150-450); RED BLOOD COUNT 3.11 M/UL (4.70-6.10); RED CELL DISTRIBUTION WIDTH 13.3 % (11.6-14.8); WHITE BLOOD COUNT 6.9 K/UL (4.8-10.8)
[2018-02-05 07:21] LABS: % IRON SATURATION 42 % (15-50); IRON 69 ug/dL (50-175); TOTAL IRON BINDING CAPACITY 163 ug/dL (250-450)
[2018-02-05 07:28] LABS: CREATINE KINASE 72 U/L (26-308); GAMMA GLUTAMYL TRANSPEPTIDASE 36 U/L (5-85)
[2018-02-05] MEDS ORDERED: Heparin 1000 units/ml 1ml Vial ONE ×2 (07:54→09:26)
[2018-02-05] MEDS ORDERED: Bacitracin Oint 15gm Tube TOPIC ONE (07:54)
[2018-02-05] MEDS ORDERED: Heparin 5000 units/ml inj ONE (07:54)
[2018-02-05] MEDS ORDERED: Bacitracin 50000 Units Vial ONE (07:55)
[2018-02-05] MEDS ORDERED: Lidocaine 1% Plain 30 ml INJ ONE (07:55)
[2018-02-05] MEDS ORDERED: Iothalamate Meglumine 60% 30ML INJ ONE (07:55)
[2018-02-05 08:29] LABS: ALANINE AMINOTRANSFERASE 26 U/L (12-78); ALBUMIN 2.3 G/DL (3.4-5.0); ALBUMIN/GLOBULIN RATIO 0.5 (1.0-2.7); ALKALINE PHOSPHATASE 127 U/L (46-116); ANION GAP 16 mmol/L (5-15); ASPARTATE AMINO TRANSFERASE 16 U/L (15-37); BILIRUBIN,TOTAL 0.4 MG/DL (0.2-1.0); BLOOD UREA NITROGEN 230 mg/dL (7-18); CALCIUM 8.8 MG/DL (8.5-10.1); CARBON DIOXIDE 20 MMOL/L (21-32); CHLORIDE 104 MMOL/L (98-107); CHOLESTEROL 58 MG/DL (< 200); CREATININE 4.9 MG/DL (0.55-1.30); FERRITIN 449 NG/ML (8-388); HDL CHOLESTEROL 21 MG/DL (40-60); POTASSIUM 3.8 MMOL/L (3.5-5.1); SODIUM 140 MMOL/L (136-145); TRIGLYCERIDES 110 MG/DL (30-150)
[2018-02-05] MEDS: Ascorbic Acid 500mg tab GT SCH (09:00)
[2018-02-05] MEDS: Docusate 100mg cap ORAL SCH (09:00)
[2018-02-05] MEDS: Nitroglycerin 2% oint pkt TOPIC SCH ×2 (09:00→17:39)
[2018-02-05] MEDS: Eliquis 2.5mg tablet GT SCH ×2 (09:00→17:39)
[2018-02-05] MEDS: Amiodarone 200mg tab GT SCH (09:00)
[2018-02-05] MEDS: Vitamin A&D Oint 2oz Tube TOPIC SCH ×2 (09:00→21:54)
[2018-02-05] MEDS: Donepezil 10mg tab ORAL SCH (09:00)
[2018-02-05] MEDS: Metoprolol Succinate XL 25mg tab ORAL SCH (09:00)
--- NOTE | 2018-02-05 09:05 | General Progress Note ---
Assessment/Plan Assessment/Plan S: " not communicating verbally" P: appears comfortable. No Singer in place , AOx1, limited source of info PHYSICAL EXAMINATION: GENERAL: The patient is comfortable. HEENT: Pupils equal and responsive to light and accommodation. Extraocular movements are intact. NECK: Supple without lymphadenopathy. CHEST: Lungs are clear to auscultation bilaterally without wheezes or rales. CARDIOVASCULAR: IRegular rate and rythm S1, S2 normal without murmurs, rubs, or gallops. ABDOMEN: Soft, nontender, and nondistended. Positive bowel sounds. No evidence of hepatosplenomegaly. Currently, no rebound or guarding noted. PEG t in place EXTREMITIES: atrophied extremitatis, with spontaneous movements NEUROLOGIC: Limited exam. Patient not cooperative, AOx 1 ASSESSMENT: This is an 81-year-old male with: 1. Hyperuremia in progressive worsening renal function 2. history of End-stage renal disease, s/p extraction of HD access 3. Diabetes type 2. 4. Hypercholesterolemia. 5. Cardiomyopathy. 6. Atrial fibrillation. 7. Congestive heart failure. 8. Hypertension. 9. Alzheimer dementia. 10. Benign prostatic hypertrophy. 11. No capacity for making medical decision TREATMENT: Will proceed with Permcath placement initiate HD per Nephrology Rec. Given the emergency nature of consequences in delayed HD placement, and lack of patient's capacity for making decision. It is ok to proceed with HD access placement Comment: time of this encounter, doesn't reflect actual time of the Encounter Subjective Allergies: Coded Allergies: No Known Allergies (Unverified , 12/19/17) Objective Last 24 Hour Vital Signs Date Time Temp Pulse Resp B/P (MAP) Pulse Ox O2 Delivery O2 Flow Rate FiO2 02/05/18 05:59 125/73 02/05/18 04:00 98.1 73 20 125/73 97 98.1 02/05/18 00:00 98.0 79 20 131/69 97 98.0 02/04/18 21:26 123/70 02/04/18 20:00 98.3 66 20 123/70 98 98.3 02/04/18 18:42 111/58 02/04/18 16:00 96.9 62 18 111/58 97 96.9 02/04/18 14:40 112/63 02/04/18 10:01 133/72 02/04/18 10:00 133/72 02/04/18 10:00 67 Intake and Output 02/04/18 02/05/18 19:00 07:00 Intake Total 150 ml 400 ml Output Total 350 ml Balance 150 ml 50 ml Intake Free Water 100 ml Tube Feeding 50 ml 400 ml Output Urine Total 350 ml # Bowel Movements 3 Laboratory Tests 02/04/18 12:45: White Blood Count 6.4, Red Blood Count 3.10L, Hemoglobin 10.2L, Hematocrit 30.9L , Mean Corpuscular Volume 100H, Mean Corpuscular Hemoglobin 32.9H, Mean Corpuscular Hemoglobin Concent 33.0, Red Cell Distribution Width 13.3, Platelet Count 250, Mean Platelet Volume 6.1L, Neutrophils (%) (Auto) 70.1, Lymphocytes ( %) (Auto) 16.0L, Monocytes (%) (Auto) 8.4, Eosinophils (%) (Auto) 4.4H, Basophils (%) (Auto) 1.1, Sodium Level 140, Potassium Level 3.7, Chloride Level 104, Carbon Dioxide Level 22, Anion Gap 14, Blood Urea Nitrogen 225H, Creatinine 5.0H, Estimat Glomerular Filtration Rate , Glucose Level 308H, Calcium Level 8.6, Total Bilirubin 0.4, Aspartate Amino Transf (AST/SGOT) 18, Alanine Aminotransferase (ALT/SGPT) 29, Alkaline Phosphatase 125H, C-Reactive Protein, Quantitative 4.1H, Total Protein 6.9, Albumin 2.0L, Globulin 4.9, Albumin/Globulin Ratio 0.4L 02/04/18 17:00: Urine Color Yellow, Urine Appearance Cloudy, Urine pH 5, Urine Specific [place] 1.010, Urine Protein 2+H, Urine Glucose (UA) Negative, Urine Ketones Negative, Urine Occult Blood Negative, Urine Nitrite Negative, Urine Bilirubin Negative, Urine Urobilinogen Normal, Urine Leukocyte Esterase 3+H, Urine RBC 2-4H, Urine WBC 15-20H, Urine Squamous Epithelial Cells ModerateH, Urine Bacteria ModerateH , Urine Random Sodium 25 02/05/18 06:10: White Blood Count 6.9, Red Blood Count 3.11L, Hemoglobin 10.6L, Hematocrit 31.0L , Mean Corpuscular Volume 100H, Mean Corpuscular Hemoglobin 34.1H, Mean Corpuscular Hemoglobin Concent 34.3, Red Cell Distribution Width 13.3, Platelet Count 245, Mean Platelet Volume 6.6, Neutrophils (%) (Auto) 70.8, Lymphocytes (% ) (Auto) 15.9L, Monocytes (%) (Auto) 9.0, Eosinophils (%) (Auto) 3.5H, Basophils (%) (Auto) 0.9, Sodium Level 140, Potassium Level 3.8, Chloride Level 104, Carbon Dioxide Level 20L, Anion Gap 16H, Blood Urea Nitrogen 230H, Creatinine 4.9H, Estimat Glomerular Filtration Rate , Glucose Level 311H, Calcium Level 8.8, Total Bilirubin 0.4, Aspartate Amino Transf (AST/SGOT) 16, Alanine Aminotransferase (ALT/SGPT) 26, Alkaline Phosphatase 127H, Total Protein 7.3, Albumin 2.3L, Globulin 5.0, Albumin/Globulin Ratio 0.5L, Hemoglobin A1c 8.1H, Uric Acid 8.5H, Phosphorus Level 3.0, Magnesium Level 2.4, Iron Level 69, Total Iron Binding Capacity 163L, Percent Iron Saturation 42, Unsaturated Iron Binding 94L, Ferritin 449H, Gamma Glutamyl Transpeptidase 36, Total Creatine Kinase 72, Troponin I 0.010, Pro-B-Type Natriuretic Peptide 54084X, Triglycerides Level 110, Cholesterol Level 58, LDL Cholesterol 39, HDL Cholesterol 21L, Cholesterol/HDL Ratio 2.8L, Vitamin B12 Level 1206H, Folate 65.8H, Thyroid Stimulating Hormone (TSH) 6.779H, Digoxin Level 0.5 Height (Feet): 5 Height (Inches): 10.00 Weight (Pounds): 189 Courtney Weeks MD February 05, 2018 09:05
[2018-02-05] MEDS ORDERED: Heparin 2000 units/Ns 1000ml 0 ML ONE (09:27)
[2018-02-05] MEDS ORDERED: Propofol 200mg/20ml IV ONE (09:44)
[2018-02-05] MEDS ORDERED: Lidocaine 1% MPF 10mg/ml 5ml ONE (09:47)
[2018-02-05] MEDS ORDERED: fentaNYL 100 mcg/2 mL IV ONE (09:47)
[2018-02-05] MEDS ORDERED: Midazolam 2mg/2ml Inj ONE (09:47)
[2018-02-05] MEDS ORDERED: Zemuron 50mg/5ml Inj IV ONE ×2 (09:55→10:00)
[2018-02-05] MEDS ORDERED: NS Irrig 1000ml ONE (10:00)
[2018-02-05] MEDS ORDERED: Sterile Water Irrig 1000ml IRRIG ONE (10:00)
--- NOTE | 2018-02-05 10:18 | Nephrology Progress Note ---
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 Per order Subjective ROS Limited/Unobtainable: No Constitutional: Reports: malaise, weakness Objective Objective Last 24 Hour Vital Signs Date Time Temp Pulse Resp B/P (MAP) Pulse Ox O2 Delivery O2 Flow Rate FiO2 02/05/18 08:00 98.2 70 20 129/69 98 98.2 02/05/18 05:59 125/73 02/05/18 04:00 98.1 73 20 125/73 97 98.1 02/05/18 00:00 98.0 79 20 131/69 97 98.0 02/04/18 21:26 123/70 02/04/18 20:00 98.3 66 20 123/70 98 98.3 02/04/18 18:42 111/58 02/04/18 16:00 96.9 62 18 111/58 97 96.9 02/04/18 14:40 112/63 Intake and Output 02/04/18 02/05/18 19:00 07:00 Intake Total 150 ml 400 ml Output Total 350 ml Balance 150 ml 50 ml Intake Free Water 100 ml Tube Feeding 50 ml 400 ml Output Urine Total 350 ml # Bowel Movements 3 Laboratory Tests 02/04/18 12:45: White Blood Count 6.4, Red Blood Count 3.10L, Hemoglobin 10.2L, Hematocrit 30.9L , Mean Corpuscular Volume 100H, Mean Corpuscular Hemoglobin 32.9H, Mean Corpuscular Hemoglobin Concent 33.0, Red Cell Distribution Width 13.3, Platelet Count 250, Mean Platelet Volume 6.1L, Neutrophils (%) (Auto) 70.1, Lymphocytes ( %) (Auto) 16.0L, Monocytes (%) (Auto) 8.4, Eosinophils (%) (Auto) 4.4H, Basophils (%) (Auto) 1.1, Sodium Level 140, Potassium Level 3.7, Chloride Level 104, Carbon Dioxide Level 22, Anion Gap 14, Blood Urea Nitrogen 225H, Creatinine 5.0H, Estimat Glomerular Filtration Rate , Glucose Level 308H, Calcium Level 8.6, Total Bilirubin 0.4, Aspartate Amino Transf (AST/SGOT) 18, Alanine Aminotransferase (ALT/SGPT) 29, Alkaline Phosphatase 125H, C-Reactive Protein, Quantitative 4.1H, Total Protein 6.9, Albumin 2.0L, Globulin 4.9, Albumin/Globulin Ratio 0.4L 02/04/18 17:00: Urine Color Yellow, Urine Appearance Cloudy, Urine pH 5, Urine Specific [place] 1.010, Urine Protein 2+H, Urine Glucose (UA) Negative, Urine Ketones Negative, Urine Occult Blood Negative, Urine Nitrite Negative, Urine Bilirubin Negative, Urine Urobilinogen Normal, Urine Leukocyte Esterase 3+H, Urine RBC 2-4H, Urine WBC 15-20H, Urine Squamous Epithelial Cells ModerateH, Urine Bacteria ModerateH , Urine Random Sodium 25 02/05/18 06:10: White Blood Count 6.9, Red Blood Count 3.11L, Hemoglobin 10.6L, Hematocrit 31.0L , Mean Corpuscular Volume 100H, Mean Corpuscular Hemoglobin 34.1H, Mean Corpuscular Hemoglobin Concent 34.3, Red Cell Distribution Width 13.3, Platelet Count 245, Mean Platelet Volume 6.6, Neutrophils (%) (Auto) 70.8, Lymphocytes (% ) (Auto) 15.9L, Monocytes (%) (Auto) 9.0, Eosinophils (%) (Auto) 3.5H, Basophils (%) (Auto) 0.9, Sodium Level 140, Potassium Level 3.8, Chloride Level 104, Carbon Dioxide Level 20L, Anion Gap 16H, Blood Urea Nitrogen 230H, Creatinine 4.9H, Estimat Glomerular Filtration Rate , Glucose Level 311H, Calcium Level 8.8, Total Bilirubin 0.4, Aspartate Amino Transf (AST/SGOT) 16, Alanine Aminotransferase (ALT/SGPT) 26, Alkaline Phosphatase 127H, Total Protein 7.3, Albumin 2.3L, Globulin 5.0, Albumin/Globulin Ratio 0.5L, Hemoglobin A1c 8.1H, Uric Acid 8.5H, Phosphorus Level 3.0, Magnesium Level 2.4, Iron Level 69, Total Iron Binding Capacity 163L, Percent Iron Saturation 42, Unsaturated Iron Binding 94L, Ferritin 449H, Gamma Glutamyl Transpeptidase 36, Total Creatine Kinase 72, Troponin I 0.010, Pro-B-Type Natriuretic Peptide [id number], Triglycerides Level 110, Cholesterol Level 58, LDL Cholesterol 39, HDL Cholesterol 21L, Cholesterol/HDL Ratio 2.8L, Vitamin B12 Level 1206H, Folate 65.8H, Thyroid Stimulating Hormone (TSH) 6.779H, Digoxin Level 0.5 Height (Feet): 5 Height (Inches): 10.00 Weight (Pounds): 185 General Appearance: no apparent distress Cardiovascular: normal rate Respiratory/Chest: decreased breath sounds Abdomen: soft, other - GT VALENTIN RUSH February 05, 2018 10:18
--- NOTE | 2018-02-05 10:31 | Pre-Procedure Note/Attestation ---
Pre-Procedure Note/Attestation Complete Prior to Procedure Planned Procedure: not applicable Procedure Narrative: permcath placement Indications for Procedure Pre-Operative Diagnosis: ESRD Attestation I attest that I discussed the nature of the procedure; its benefits; risks and complications; and alternatives (and the risks and benefits of such alternatives ), prior to the procedure, with the patient (or the patient's legal traffic representative). I attest that, if there was a reasonable possibility of needing a blood transfusion, the patient (or the patient's legal traffic representative) was given the [facility] standardized written summary, pursuant to the Carlo Tracie Blood Safety Act ([place] Health and Safety Code # 1645, as amended). I attest that I re-evaluated the patient just prior to the surgery and that there has been no change in the patient's H&P, except as documented below: LORETA BRAN February 05, 2018 10:31
[2018-02-05] MEDS ORDERED: fentaNYL 100 mcg/2 mL IV PRN (11:00)
[2018-02-05] MEDS ORDERED: Midazolam 2mg/2ml Inj IVP PRN (11:00)
[2018-02-05] MEDS ORDERED: Neostigmine 1mg/ml 10ml Inj ONE (11:03)
[2018-02-05] MEDS ORDERED: ePHEDrine 50mg/ml Inj ONE (11:03)
[2018-02-05] MEDS ORDERED: Glycopyrrolate 0.2mg/ml 1ml Vial ONE (11:19)
--- NOTE | 2018-02-05 11:32 | Immediate Post-Op Evaluation ---
Immediate Post-Op Evalulation Immediate Post-Op Evalulation Procedure: Dialysis catheter placement Date of Evaluation: February 05, 2018 Time of Evaluation: 11:31 IV Fluids: 500 Blood Products: none Estimated Blood Loss: min Urinary Output: none Blood Pressure Systolic: 95 Blood Pressure Diastolic: 54 Pulse Rate: 86 Respiratory Rate: 22 O2 Sat by Pulse Oximetry: 97 Temperature (Fahrenheit): 97.6 Pain Score (1-10): 1 Nausea: No Vomiting: No Complications none Patient Status: reacts, patent, extubated, none Hydration Status: adequate Rodo Gonzalez MD February 05, 2018 11:32
--- NOTE | 2018-02-05 11:38 | Brief Operative Note ---
Immediate Post Operative Note Operative Note Pre-op Diagnosis: ESRD Procedure: Permcath placement via left IJ; I&D of right chest collection Post-op Diagnosis: same as pre-op plus - right chest hematoma Findings: other - see full report Surgeon: Georgette Stout Anesthesiologist: Melquiades Gonzalez Anesthesia: general Specimen: yes - right chest fluid for C&S Complications: none Condition: stable Fluids: see anesthesia records Estimated Blood Loss: minimal Drains: none Implant(s) used?: Yes - permcath in left chest LORETA STOUT February 05, 2018 11:38
[2018-02-05] MEDS: Docusate 100mg/10ml Liq GT SCH ×2 (12:33→17:32)
--- NOTE | 2018-02-05 12:38 | Diagnostic Imaging Report ---
Indication: Status post permacath Comparison: 01/27/2018 A single view chest radiograph was obtained. Findings: Interval placement of a left jugular permacath noted. The catheter position appears good. The tip is in the right atrium/SVC junction. There is a new left apical pleural cap now demonstrated, not previously seen. In addition there is increasing hazy opacification of the left lung base. Findings likely represent a pleural effusion possibly loculated. Suggest clinical correlation and follow-up. Lung volumes are low bilaterally. There is mild interstitial edema present. Heart is enlarged. Gastrostomy again noted. IMPRESSION: New left permacath appears to be in good position. Interval development of left apical pleural collection. This may be reflective of increasing pleural effusion which may be partially loculated. Follow-up is recommended. Mild interstitial edema.
--- NOTE | 2018-02-05 12:41 | Diagnostic Imaging Report ---
Indication: Permacath placement. Comparison: None A single fluoroscopic view chest radiograph was obtained following permacath. Findings: Permacath noted. Total fluoroscopic time 42 seconds. IMPRESSION: Intraoperative imaging
[2018-02-05] MEDS ORDERED: Cathflo Alteplase 2mg Inj INJ SCH ×2 (16:30)
[2018-02-05] MEDS ORDERED: Haloperidol 5mg/ml Inj IM PRN (16:45)
[2018-02-05] MEDS ORDERED: LORazepam Inj 2mg/ml 1ml IV ONE (16:45)
--- NOTE | 2018-02-05 17:32 | Cardiac Electrophysiology PN ---
Assessment/Plan Assessment/Plan 1. Atrial flutter. In SR when was on tele.Decrease amiodarone to 200 mg daily and continue Toprol-XL 25 mg daily and Eliquis 2.5 mg b.i.d. DC Dig 2. Hypertension. On Hydralazine 25 bid and Toprol-XL 25 mg and HD 3. Cardiomyopathy with EF 30% on Hydralazine and Toprol-XL 25 mg daily. Not a candidate for defibrillator placement. 4. ESRD on HD PermCath that was REMOVED and new one placed today HD per Dr Verma 5. Hyperlipidemia, on Lipitor. 6. Dysphagia, S/P PEG replacement DW RN Subjective Subjective Readmitted yesterday and underwent HD catheter placement today Objective Last 24 Hour Vital Signs Date Time Temp Pulse Resp B/P (MAP) Pulse Ox O2 Delivery O2 Flow Rate FiO2 02/05/18 14:00 105/69 02/05/18 11:48 89 17 106/65 97 02/05/18 11:40 93 20 103/53 95 02/05/18 11:32 207.7 86 22 97 02/05/18 11:30 94 16 100/59 98 02/05/18 11:22 97.4 86 22 98/56 96 97.4 02/05/18 08:00 98.2 70 20 129/69 98 98.2 02/05/18 05:59 125/73 02/05/18 04:00 98.1 73 20 125/73 97 98.1 02/05/18 00:00 98.0 79 20 131/69 97 98.0 02/04/18 21:26 123/70 02/04/18 20:00 98.3 66 20 123/70 98 98.3 02/04/18 18:42 111/58 Intake and Output 02/04/18 02/05/18 19:00 07:00 Intake Total 150 ml 400 ml Output Total 350 ml Balance 150 ml 50 ml Intake Free Water 100 ml Tube Feeding 50 ml 400 ml Output Urine Total 350 ml # Bowel Movements 3 Laboratory Tests Test 02/05/18 06:10 White Blood Count 6.9 K/UL (4.8-10.8) Red Blood Count 3.11 M/UL (4.70-6.10) L Hemoglobin 10.6 G/DL (14.2-18.0) L Hematocrit 31.0 % (42.0-52.0) L Mean Corpuscular Volume 100 FL (80-99) H Mean Corpuscular Hemoglobin 34.1 PG (27.0-31.0) H Mean Corpuscular Hemoglobin Concent 34.3 G/DL (32.0-36.0) Red Cell Distribution Width 13.3 % (11.6-14.8) Platelet Count 245 K/UL (150-450) Mean Platelet Volume 6.6 FL (6.5-10.1) Neutrophils (%) (Auto) 70.8 % (45.0-75.0) Lymphocytes (%) (Auto) 15.9 % (20.0-45.0) L Monocytes (%) (Auto) 9.0 % (1.0-10.0) Eosinophils (%) (Auto) 3.5 % (0.0-3.0) H Basophils (%) (Auto) 0.9 % (0.0-2.0) Sodium Level 140 MMOL/L (136-145) Potassium Level 3.8 MMOL/L (3.5-5.1) Chloride Level 104 MMOL/L (98-107) Carbon Dioxide Level 20 MMOL/L (21-32) L Anion Gap 16 mmol/L (5-15) H Blood Urea Nitrogen 230 mg/dL (7-18) H Creatinine 4.9 MG/DL (0.55-1.30) H Estimat Glomerular Filtration Rate mL/min (>60) Glucose Level 311 MG/DL (74-106) H Hemoglobin A1c 8.1 % (4.3-6.0) H Uric Acid 8.5 MG/DL (2.6-7.2) H Calcium Level 8.8 MG/DL (8.5-10.1) Phosphorus Level 3.0 MG/DL (2.5-4.9) Magnesium Level 2.4 MG/DL (1.8-2.4) Iron Level 69 ug/dL (50-175) Total Iron Binding Capacity 163 ug/dL (250-450) L Percent Iron Saturation 42 % (15-50) Unsaturated Iron Binding 94 ug/dL (112-346) L Ferritin 449 NG/ML (8-388) H Total Bilirubin 0.4 MG/DL (0.2-1.0) Gamma Glutamyl Transpeptidase 36 U/L (5-85) Aspartate Amino Transf (AST/SGOT) 16 U/L (15-37) Alanine Aminotransferase (ALT/SGPT) 26 U/L (12-78) Alkaline Phosphatase 127 U/L (46-116) H Total Creatine Kinase 72 U/L (26-308) Troponin I 0.010 ng/mL (0.000-0.056) Pro-B-Type Natriuretic Peptide 21256 pg/mL (0-125) H Total Protein 7.3 G/DL (6.4-8.2) Albumin 2.3 G/DL (3.4-5.0) L Globulin 5.0 g/dL Albumin/Globulin Ratio 0.5 (1.0-2.7) L Triglycerides Level 110 MG/DL (30-150) Cholesterol Level 58 MG/DL (< 200) LDL Cholesterol 39 mg/dL (<100) HDL Cholesterol 21 MG/DL (40-60) L Cholesterol/HDL Ratio 2.8 (3.3-4.4) L Vitamin B12 Level 1206 PG/ML (193-986) H Folate 65.8 NG/ML (8.6-58.9) H Thyroid Stimulating Hormone (TSH) 6.779 uiU/mL (0.358-3.740) Digoxin Level 0.5 NG/ML (0.5-2.0) Microbiology Date/Time Source Procedure Growth Status 02/03/18 17:56 Nasal Nares MRSA Culture - Final Staphylococcus Aureus - Mrsa Complete 02/04/18 17:00 Urine,Clean Catch Urine Culture - Preliminary Resulted Objective HEAD AND NECK: No JVD. LUNGS: Clear. CARDIOVASCULAR: Regular S1 and S2 with no gallop. ABDOMEN: Soft, status post G-tube. EXTREMITIES: 1+ pitting edema. Malik Shannon MD February 05, 2018 17:32
[2018-02-05] MEDS: Sennosides 8.6mg GT SCH (21:00)
[2018-02-05] MEDS: Tamsulosin 0.4mg cap ORAL SCH (21:48)
[2018-02-05] MEDS: Levemir Flexpen SUBQ SCH (22:24)
[2018-02-06] VITALS: BP 138/79
[2018-02-06 04:00] VITALS: BP 141/92
[2018-02-06] MEDS: HydrALAZINE 25mg tab GT SCH ×3 (05:59→21:22)
[2018-02-06] MEDS: NovoLOG Insulin Flexpen SUBQ SCH ×4 (06:00→23:59)
[2018-02-06 08:00] VITALS: BP 139/74
--- NOTE | 2018-02-06 08:41 | 48 Hour Post Anesthesia Eval ---
Post Anesthesia Evaluation Procedure: Dialysis catheter placement Date of Evaluation: February 06, 2018 Time of Evaluation: 08:39 Blood Pressure Systolic: 142 0: 85 Pulse Rate: 72 Respiratory Rate: 20 Temperature (Fahrenheit): 97.6 O2 Sat by Pulse Oximetry: 99 Airway: patent Nausea: No Vomiting: No Pain Intensity: 2 Hydration Status: adequate Cardiopulmonary Status: stable Mental Status/LOC: patient returned to baseline Follow-up Care/Observations: n/a Post-Anesthesia Complications: none Follow-up care needed: N/A Rodo Gonzalez MD February 06, 2018 08:41
[2018-02-06 08:52] LABS: BASOPHILS % (AUTO) 0.6 % (0.0-2.0); EOSINOPHILS % (AUTO) 1.8 % (0.0-3.0); HEMATOCRIT 31.7 % (42.0-52.0); HEMOGLOBIN 10.5 G/DL (14.2-18.0); LYMPHOCYTES % (AUTO) 10.1 % (20.0-45.0); MEAN CORPUSCULAR VOLUME 100 FL (80-99); MONOCYTES % (AUTO) 6.8 % (1.0-10.0); NEUTROPHILS % (AUTO) 80.6 % (45.0-75.0); PLATELET COUNT 258 K/UL (150-450); RED BLOOD COUNT 3.16 M/UL (4.70-6.10); RED CELL DISTRIBUTION WIDTH 13.4 % (11.6-14.8); WHITE BLOOD COUNT 7.5 K/UL (4.8-10.8)
[2018-02-06] MEDS: Metoprolol Succinate XL 25mg tab ORAL SCH (09:00)
[2018-02-06] MEDS: Amiodarone 200mg tab GT SCH (09:00)
[2018-02-06 09:23] LABS: ALANINE AMINOTRANSFERASE 28 U/L (12-78); ALBUMIN 2.5 G/DL (3.4-5.0); ALBUMIN/GLOBULIN RATIO 0.5 (1.0-2.7); ALKALINE PHOSPHATASE 125 U/L (46-116); ANION GAP 16 mmol/L (5-15); ASPARTATE AMINO TRANSFERASE 21 U/L (15-37); BILIRUBIN,TOTAL 0.4 MG/DL (0.2-1.0); BLOOD UREA NITROGEN 218 mg/dL (7-18); CALCIUM 9.3 MG/DL (8.5-10.1); CARBON DIOXIDE 21 MMOL/L (21-32); CHLORIDE 103 MMOL/L (98-107); CREATININE 5.1 MG/DL (0.55-1.30); POTASSIUM 3.8 MMOL/L (3.5-5.1); SODIUM 140 MMOL/L (136-145)
[2018-02-06 09:28] LABS: PHOSPHORUS 3.9 MG/DL (2.5-4.9)
[2018-02-06] MEDS: Nitroglycerin 2% oint pkt TOPIC SCH ×2 (09:53→17:24)
[2018-02-06] MEDS: Ascorbic Acid 500mg tab GT SCH (09:54)
[2018-02-06] MEDS: Docusate 100mg/10ml Liq GT SCH ×3 (09:54→17:24)
[2018-02-06] MEDS: Eliquis 2.5mg tablet GT SCH ×2 (09:55→17:24)
[2018-02-06] MEDS: Donepezil 10mg tab ORAL SCH (09:56)
--- NOTE | 2018-02-06 10:56 | General Progress Note ---
Assessment/Plan Status: stable Assessment/Plan S: " not communicating verbally" P: appears comfortable. No Singer in place , AOx1, limited source of info PHYSICAL EXAMINATION: GENERAL: The patient is comfortable. HEENT: Pupils equal and responsive to light and accommodation. Extraocular movements are intact. NECK: Supple without lymphadenopathy. CHEST: Lungs are clear to auscultation bilaterally without wheezes or rales. CARDIOVASCULAR: IRegular rate and rythm S1, S2 normal without murmurs, rubs, or gallops. ABDOMEN: Soft, nontender, and nondistended. Positive bowel sounds. No evidence of hepatosplenomegaly. Currently, no rebound or guarding noted. PEG t in place EXTREMITIES: atrophied extremitatis, with spontaneous movements NEUROLOGIC: Limited exam. Patient not cooperative, AOx 1 ASSESSMENT: This is an 81-year-old male with: 1. Hyperuremia in progressive worsening renal function 2. history of End-stage renal disease, s/p extraction of HD access 3. Diabetes type 2. 4. Hypercholesterolemia. 5. Cardiomyopathy. 6. Atrial fibrillation. 7. Congestive heart failure. 8. Hypertension. 9. Alzheimer dementia. 10. Benign prostatic hypertrophy. 11. No capacity for making medical decision TREATMENT: initiate HD per Nephrology Rec. Given the emergency nature of consequences in delayed HD placement, and lack of patient's capacity for making decision. It is ok to proceed with HD access placement Notes from Nephro reviewed Comment: time of this encounter, doesn't reflect actual time of the Encounter Subjective Allergies: Coded Allergies: No Known Allergies (Unverified , 12/19/17) Objective Last 24 Hour Vital Signs Date Time Temp Pulse Resp B/P (MAP) Pulse Ox O2 Delivery O2 Flow Rate FiO2 02/06/18 09:54 97.6 02/06/18 09:53 142/85 02/06/18 09:00 72 142/85 02/06/18 08:41 207.7 72 20 99 02/06/18 05:59 141/83 02/06/18 04:00 96.2 76 20 141/92 100 Room Air 96.2 02/06/18 00:00 96.8 72 20 138/79 100 Simple Mask 96.8 02/05/18 21:48 139/83 02/05/18 20:00 96.8 74 20 139/83 100 Simple Mask 5.0 96.8 02/05/18 17:46 76 133/78 02/05/18 17:39 134/66 02/05/18 17:00 Venturi Mask 4.0 02/05/18 17:00 97.0 75 16 133/78 Venturi Mask 4.0 97.0 02/05/18 16:00 97.5 17 133/75 96 Simple Mask 97.5 02/05/18 14:30 97.8 72 16 128/72 Venturi Mask 4.0 97.8 02/05/18 14:30 Venturi Mask 4.0 02/05/18 14:00 105/69 02/05/18 11:48 89 17 106/65 97 02/05/18 11:40 93 20 103/53 95 02/05/18 11:32 207.7 86 22 97 02/05/18 11:30 94 16 100/59 98 02/05/18 11:22 97.4 86 22 98/56 96 97.4 Intake and Output 02/05/18 02/06/18 19:00 07:00 Intake Total 500 ml 550 ml Output Total 300 ml 300 ml Balance 200 ml 250 ml Intake Free Water 200 ml 150 ml Tube Feeding 300 ml 400 ml Output Urine Total 300 ml 300 ml # Bowel Movements 2 Laboratory Tests 02/06/18 06:20: White Blood Count 7.5, Red Blood Count 3.16L, Hemoglobin 10.5L, Hematocrit 31.7L , Mean Corpuscular Volume 100H, Mean Corpuscular Hemoglobin 33.1H, Mean Corpuscular Hemoglobin Concent 33.0, Red Cell Distribution Width 13.4, Platelet Count 258, Mean Platelet Volume 6.8, Neutrophils (%) (Auto) 80.6H, Lymphocytes ( %) (Auto) 10.1L, Monocytes (%) (Auto) 6.8, Eosinophils (%) (Auto) 1.8, Basophils (%) (Auto) 0.6, Sodium Level 140, Potassium Level 3.8, Chloride Level 103, Carbon Dioxide Level 21, Anion Gap 16H, Blood Urea Nitrogen 218H, Creatinine 5.1H, Estimat Glomerular Filtration Rate , Glucose Level 299H, Uric Acid 8.2H, Calcium Level 9.3, Phosphorus Level 3.9, Magnesium Level 2.6H, Total Bilirubin 0.4, Aspartate Amino Transf (AST/SGOT) 21, Alanine Aminotransferase ( ALT/SGPT) 28, Alkaline Phosphatase 125H, Total Protein 7.6, Albumin 2.5L, Globulin 5.1, Albumin/Globulin Ratio 0.5L Height (Feet): 5 Height (Inches): 10.00 Weight (Pounds): 208 Courtney Weeks MD February 06, 2018 10:56
[2018-02-06 12:00] VITALS: BP_SYST 111; BP_SYST 99; BP_DIAS 61; BP_DIAS 73
[2018-02-06] MEDS: Vitamin A&D Oint 2oz Tube TOPIC SCH ×2 (12:23→20:44)
--- NOTE | 2018-02-06 13:11 | Nephrology Progress Note ---
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 not done- HD today Adjust BP meds Subjective ROS Limited/Unobtainable: No Constitutional: Reports: malaise Objective Objective Last 24 Hour Vital Signs Date Time Temp Pulse Resp B/P (MAP) Pulse Ox O2 Delivery O2 Flow Rate FiO2 02/06/18 10:50 97.6 02/06/18 09:54 97.6 02/06/18 09:53 142/85 02/06/18 09:00 72 142/85 02/06/18 08:41 207.7 72 20 99 02/06/18 08:00 97.4 80 20 139/74 100 Room Air 3.0 97.4 02/06/18 05:59 141/83 02/06/18 04:00 96.2 76 20 141/92 100 Room Air 96.2 02/06/18 00:00 96.8 72 20 138/79 100 Simple Mask 96.8 02/05/18 21:48 139/83 02/05/18 20:00 96.8 74 20 139/83 100 Simple Mask 5.0 96.8 02/05/18 17:46 76 133/78 02/05/18 17:39 134/66 02/05/18 17:00 Venturi Mask 4.0 02/05/18 17:00 97.0 75 16 133/78 Venturi Mask 4.0 97.0 02/05/18 16:00 97.5 17 133/75 96 Simple Mask 97.5 02/05/18 14:30 97.8 72 16 128/72 Venturi Mask 4.0 97.8 02/05/18 14:30 Venturi Mask 4.0 02/05/18 14:00 105/69 Intake and Output 02/05/18 02/06/18 19:00 07:00 Intake Total 500 ml 550 ml Output Total 300 ml 300 ml Balance 200 ml 250 ml Intake Free Water 200 ml 150 ml Tube Feeding 300 ml 400 ml Output Urine Total 300 ml 300 ml # Bowel Movements 2 Laboratory Tests 02/06/18 06:20: White Blood Count 7.5, Red Blood Count 3.16L, Hemoglobin 10.5L, Hematocrit 31.7L , Mean Corpuscular Volume 100H, Mean Corpuscular Hemoglobin 33.1H, Mean Corpuscular Hemoglobin Concent 33.0, Red Cell Distribution Width 13.4, Platelet Count 258, Mean Platelet Volume 6.8, Neutrophils (%) (Auto) 80.6H, Lymphocytes ( %) (Auto) 10.1L, Monocytes (%) (Auto) 6.8, Eosinophils (%) (Auto) 1.8, Basophils (%) (Auto) 0.6, Sodium Level 140, Potassium Level 3.8, Chloride Level 103, Carbon Dioxide Level 21, Anion Gap 16H, Blood Urea Nitrogen 218H, Creatinine 5.1H, Estimat Glomerular Filtration Rate , Glucose Level 299H, Uric Acid 8.2H, Calcium Level 9.3, Phosphorus Level 3.9, Magnesium Level 2.6H, Total Bilirubin 0.4, Aspartate Amino Transf (AST/SGOT) 21, Alanine Aminotransferase ( ALT/SGPT) 28, Alkaline Phosphatase 125H, Total Protein 7.6, Albumin 2.5L, Globulin 5.1, Albumin/Globulin Ratio 0.5L Height (Feet): 5 Height (Inches): 10.00 Weight (Pounds): 208 General Appearance: no apparent distress Cardiovascular: normal rate Respiratory/Chest: decreased breath sounds, other - left chest permacath Objective no change VALENTIN RUSH February 06, 2018 13:11
--- NOTE | 2018-02-06 14:31 | General Progress Note ---
Assessment/Plan Status: stable, progressing Assessment/Plan dementia with behavioral dist encephalopathy seroquel prn Subjective Date patient seen: February 05, 2018 Neurologic/Psychiatric: Reports: anxiety, depressed, emotional problems Allergies: Coded Allergies: No Known Allergies (Unverified , 12/19/17) Objective Last 24 Hour Vital Signs Date Time Temp Pulse Resp B/P (MAP) Pulse Ox O2 Delivery O2 Flow Rate FiO2 02/06/18 12:00 97.7 73 20 111/61 99 Room Air 3.0 97.7 02/06/18 12:00 96.0 78 16 99/73 Nasal Cannula 3.5 96.0 02/06/18 12:00 Nasal Cannula 3.5 02/06/18 10:50 97.6 02/06/18 09:54 97.6 02/06/18 09:53 142/85 02/06/18 09:00 72 142/85 02/06/18 08:41 207.7 72 20 99 02/06/18 08:00 97.4 80 20 139/74 100 Room Air 3.0 97.4 02/06/18 05:59 141/83 02/06/18 04:00 96.2 76 20 141/92 100 Room Air 96.2 02/06/18 00:00 96.8 72 20 138/79 100 Simple Mask 96.8 02/05/18 21:48 139/83 02/05/18 20:00 96.8 74 20 139/83 100 Simple Mask 5.0 96.8 02/05/18 17:46 76 133/78 02/05/18 17:39 134/66 02/05/18 17:00 Venturi Mask 4.0 02/05/18 17:00 97.0 75 16 133/78 Venturi Mask 4.0 97.0 02/05/18 16:00 97.5 17 133/75 96 Simple Mask 97.5 Intake and Output 02/05/18 02/06/18 19:00 07:00 Intake Total 500 ml 550 ml Output Total 300 ml 300 ml Balance 200 ml 250 ml Intake Free Water 200 ml 150 ml Tube Feeding 300 ml 400 ml Output Urine Total 300 ml 300 ml # Bowel Movements 2 Laboratory Tests 02/06/18 06:20: White Blood Count 7.5, Red Blood Count 3.16L, Hemoglobin 10.5L, Hematocrit 31.7L , Mean Corpuscular Volume 100H, Mean Corpuscular Hemoglobin 33.1H, Mean Corpuscular Hemoglobin Concent 33.0, Red Cell Distribution Width 13.4, Platelet Count 258, Mean Platelet Volume 6.8, Neutrophils (%) (Auto) 80.6H, Lymphocytes ( %) (Auto) 10.1L, Monocytes (%) (Auto) 6.8, Eosinophils (%) (Auto) 1.8, Basophils (%) (Auto) 0.6, Sodium Level 140, Potassium Level 3.8, Chloride Level 103, Carbon Dioxide Level 21, Anion Gap 16H, Blood Urea Nitrogen 218H, Creatinine 5.1H, Estimat Glomerular Filtration Rate , Glucose Level 299H, Uric Acid 8.2H, Calcium Level 9.3, Phosphorus Level 3.9, Magnesium Level 2.6H, Total Bilirubin 0.4, Aspartate Amino Transf (AST/SGOT) 21, Alanine Aminotransferase ( ALT/SGPT) 28, Alkaline Phosphatase 125H, Total Protein 7.6, Albumin 2.5L, Globulin 5.1, Albumin/Globulin Ratio 0.5L Height (Feet): 5 Height (Inches): 10.00 Weight (Pounds): 208 General Appearance: no apparent distress, alert, confused, agitated Ashly Rajan M.D. February 06, 2018 14:31
--- NOTE | 2018-02-06 14:47 | Cardiac Electrophysiology PN ---
Assessment/Plan Assessment/Plan 1. Atrial flutter. On amiodarone 200 mg daily, Toprol-XL 25 mg daily and Eliquis 2.5 mg b.i.d. 2. Hypertension. On Hydralazine 25 bid and Toprol-XL 25 mg and HD 3. Cardiomyopathy with EF 30% on Hydralazine and Toprol-XL 25 mg daily. Not a candidate for defibrillator placement. 4. ESRD on HD PermCath that was REMOVED and new one placed HD per Dr Verma today 5. Hyperlipidemia, on Lipitor. 6. Dysphagia, S/P PEG replacement DW RN Subjective Subjective getting his first HD with the new PermCath in NAD. Objective Last 24 Hour Vital Signs Date Time Temp Pulse Resp B/P (MAP) Pulse Ox O2 Delivery O2 Flow Rate FiO2 02/06/18 12:00 97.7 73 20 111/61 99 Room Air 3.0 97.7 02/06/18 12:00 96.0 78 16 99/73 Nasal Cannula 3.5 96.0 02/06/18 12:00 Nasal Cannula 3.5 02/06/18 10:50 97.6 02/06/18 09:54 97.6 02/06/18 09:53 142/85 02/06/18 09:00 72 142/85 02/06/18 08:41 207.7 72 20 99 02/06/18 08:00 97.4 80 20 139/74 100 Room Air 3.0 97.4 02/06/18 05:59 141/83 02/06/18 04:00 96.2 76 20 141/92 100 Room Air 96.2 02/06/18 00:00 96.8 72 20 138/79 100 Simple Mask 96.8 02/05/18 21:48 139/83 02/05/18 20:00 96.8 74 20 139/83 100 Simple Mask 5.0 96.8 02/05/18 17:46 76 133/78 02/05/18 17:39 134/66 02/05/18 17:00 Venturi Mask 4.0 02/05/18 17:00 97.0 75 16 133/78 Venturi Mask 4.0 97.0 02/05/18 16:00 97.5 17 133/75 96 Simple Mask 97.5 Intake and Output 02/05/18 02/06/18 19:00 07:00 Intake Total 500 ml 550 ml Output Total 300 ml 300 ml Balance 200 ml 250 ml Intake Free Water 200 ml 150 ml Tube Feeding 300 ml 400 ml Output Urine Total 300 ml 300 ml # Bowel Movements 2 Laboratory Tests Test 02/06/18 06:20 White Blood Count 7.5 K/UL (4.8-10.8) Red Blood Count 3.16 M/UL (4.70-6.10) L Hemoglobin 10.5 G/DL (14.2-18.0) L Hematocrit 31.7 % (42.0-52.0) L Mean Corpuscular Volume 100 FL (80-99) H Mean Corpuscular Hemoglobin 33.1 PG (27.0-31.0) H Mean Corpuscular Hemoglobin Concent 33.0 G/DL (32.0-36.0) Red Cell Distribution Width 13.4 % (11.6-14.8) Platelet Count 258 K/UL (150-450) Mean Platelet Volume 6.8 FL (6.5-10.1) Neutrophils (%) (Auto) 80.6 % (45.0-75.0) H Lymphocytes (%) (Auto) 10.1 % (20.0-45.0) L Monocytes (%) (Auto) 6.8 % (1.0-10.0) Eosinophils (%) (Auto) 1.8 % (0.0-3.0) Basophils (%) (Auto) 0.6 % (0.0-2.0) Sodium Level 140 MMOL/L (136-145) Potassium Level 3.8 MMOL/L (3.5-5.1) Chloride Level 103 MMOL/L (98-107) Carbon Dioxide Level 21 MMOL/L (21-32) Anion Gap 16 mmol/L (5-15) H Blood Urea Nitrogen 218 mg/dL (7-18) H Creatinine 5.1 MG/DL (0.55-1.30) H Estimat Glomerular Filtration Rate mL/min (>60) Glucose Level 299 MG/DL (74-106) H Uric Acid 8.2 MG/DL (2.6-7.2) H Calcium Level 9.3 MG/DL (8.5-10.1) Phosphorus Level 3.9 MG/DL (2.5-4.9) Magnesium Level 2.6 MG/DL (1.8-2.4) H Total Bilirubin 0.4 MG/DL (0.2-1.0) Aspartate Amino Transf (AST/SGOT) 21 U/L (15-37) Alanine Aminotransferase (ALT/SGPT) 28 U/L (12-78) Alkaline Phosphatase 125 U/L (46-116) H Total Protein 7.6 G/DL (6.4-8.2) Albumin 2.5 G/DL (3.4-5.0) L Globulin 5.1 g/dL Albumin/Globulin Ratio 0.5 (1.0-2.7) L Microbiology Date/Time Source Procedure Growth Status 02/05/18 12:45 Other(Specify in comment) Gram Stain - Final Resulted 02/05/18 12:45 Other(Specify in comment) Aerobic Culture - Preliminary NO GROWTH AFTER 24 HOURS Resulted 02/03/18 17:56 Nasal Nares MRSA Culture - Final Staphylococcus Aureus - Mrsa Complete 02/04/18 17:00 Urine,Clean Catch Urine Culture - Preliminary Gram Negative Bacillus 1 Resulted 02/03/18 17:56 Rectum VRE Culture - Final Enterococcus Faecalis - Vre Enterococcus Faecium - Vre Complete Objective HEAD AND NECK: No JVD.Left IG HD catheter in LUNGS: Clear. CARDIOVASCULAR: Regular S1 and S2 with no gallop. ABDOMEN: Soft, status post G-tube. EXTREMITIES: 1+ pitting edema. Malik Shannon MD February 06, 2018 14:47
[2018-02-06 15:49] VITALS: BP 103/59
[2018-02-06 20:00] VITALS: BP 103/63
[2018-02-06] MEDS: Dyna-Hex 2% Top Sol 2oz TOPIC SCH (20:41)
[2018-02-06] MEDS: Tamsulosin 0.4mg cap ORAL SCH (20:42)
[2018-02-06] MEDS: Sennosides 8.6mg GT SCH (20:42)
[2018-02-06] MEDS: Levemir Flexpen SUBQ SCH (20:43)
--- NOTE | 2018-02-06 22:32 | Cardiology Report ---
APPROVED REPORT EKG Measurement Heart [id number] ID [id number] Sinus rhythm with 1st degree AV block Left axis deviation Right bundle branch block Cannot rule out Inferior infarct, age undetermined Abnormal ECG
--- NOTE | 2018-02-06 23:15 | Progress Note ---
DATE: 02/06/2018 SUBJECTIVE: The patient is confused, Urdu-speaking, disoriented, not able to provide any meaningful information, gets agitated. MENTAL STATUS EXAMINATION: The patient is disoriented. Mood is agitated. Affect is flat. Thought process, there is a paucity of thought content. Thought content, no suicidal or homicidal ideation. ASSESSMENT: 1. Encephalopathy. 2. Dementia with behavior disturbance. PLAN: 1. We will continue the Seroquel as needed. 2. We will continue to follow and readjust the medications. Ashly Rajan M.D. DR: ALESHA JOB#: [id number] CC:
[2018-02-07] VITALS (7 sets, daily range): BP systolic 106–128; BP diastolic 58–72
[2018-02-07] MEDS: HydrALAZINE 25mg tab GT SCH ×3 (05:45→21:39)
[2018-02-07] MEDS: NovoLOG Insulin Flexpen SUBQ SCH ×4 (05:47→23:47)
[2018-02-07 06:06] LABS: BASOPHILS % (AUTO) 0.4 % (0.0-2.0); EOSINOPHILS % (AUTO) 1.3 % (0.0-3.0); HEMATOCRIT 31.4 % (42.0-52.0); HEMOGLOBIN 10.2 G/DL (14.2-18.0); MEAN CORPUSCULAR VOLUME 99 FL (80-99); MONOCYTES % (AUTO) 7.6 % (1.0-10.0); NEUTROPHILS % (AUTO) 80.7 % (45.0-75.0); PLATELET COUNT 244 K/UL (150-450); RED BLOOD COUNT 3.18 M/UL (4.70-6.10); RED CELL DISTRIBUTION WIDTH 13.5 % (11.6-14.8); WHITE BLOOD COUNT 9.9 K/UL (4.8-10.8)
[2018-02-07 06:31] LABS: ALANINE AMINOTRANSFERASE 29 U/L (12-78); ALBUMIN 2.2 G/DL (3.4-5.0); ALBUMIN/GLOBULIN RATIO 0.4 (1.0-2.7); ALKALINE PHOSPHATASE 135 U/L (46-116); ANION GAP 9 mmol/L (5-15); ASPARTATE AMINO TRANSFERASE 30 U/L (15-37); BILIRUBIN,TOTAL 0.4 MG/DL (0.2-1.0); BLOOD UREA NITROGEN 118 mg/dL (7-18); CALCIUM 8.4 MG/DL (8.5-10.1); CARBON DIOXIDE 29 MMOL/L (21-32); CHLORIDE 102 MMOL/L (98-107); CREATININE 3.3 MG/DL (0.55-1.30); PHOSPHORUS 2.2 MG/DL (2.5-4.9); POTASSIUM 3.7 MMOL/L (3.5-5.1); SODIUM 140 MMOL/L (136-145)
[2018-02-07] MEDS: Metoprolol Succinate XL 25mg tab ORAL SCH (09:00)
[2018-02-07] MEDS: Amiodarone 200mg tab GT SCH (09:10)
[2018-02-07] MEDS: Eliquis 2.5mg tablet GT SCH (09:10)
[2018-02-07] MEDS: Docusate 100mg/10ml Liq GT SCH ×3 (09:10→18:53)
[2018-02-07] MEDS: Ascorbic Acid 500mg tab GT SCH (09:10)
[2018-02-07] MEDS: Donepezil 10mg tab ORAL SCH (09:10)
[2018-02-07] MEDS: Nitroglycerin 2% oint pkt TOPIC SCH ×2 (09:11→18:53)
[2018-02-07] MEDS: Vitamin A&D Oint 2oz Tube TOPIC SCH ×2 (09:11→20:49)
--- NOTE | 2018-02-07 09:13 | General Progress Note ---
Assessment/Plan Assessment/Plan S: " not communicating verbally" P: appears comfortable. Singer in place , AOx1, limited source of info, PHYSICAL EXAMINATION: IVETT-chest wall PermCath in place GENERAL: The patient is comfortable. HEENT: Pupils equal and responsive to light and accommodation. Extraocular movements are intact. NECK: Supple without lymphadenopathy. CHEST: Lungs are clear to auscultation bilaterally without wheezes or rales. CARDIOVASCULAR: IRegular rate and rythm S1, S2 normal without murmurs, rubs, or gallops. ABDOMEN: Soft, nontender, and nondistended. Positive bowel sounds. No evidence of hepatosplenomegaly. Currently, no rebound or guarding noted. PEG t in place EXTREMITIES: atrophied extremitatis, with spontaneous movements NEUROLOGIC: Limited exam. Patient not cooperative, AOx 1 ASSESSMENT: This is an 81-year-old male with: 1. Hyperuremia in progressive worsening renal function 2. history of End-stage renal disease, s/p Re-initiation of HD 3. Diabetes type 2. 4. Hypercholesterolemia. 5. Cardiomyopathy. 6. Atrial fibrillation. 7. Congestive heart failure. 8. Hypertension. 9. Alzheimer dementia. 10. Benign prostatic hypertrophy. 11. No capacity for making medical decision TREATMENT: initiate HD per Nephrology Rec. Given the emergency nature of consequences in delayed HD placement, and lack of patient's capacity for making decision. It is ok to proceed with HD access placement Notes from Nephro reviewed Will optimize electrolyte, per Nephrology Subjective Allergies: Coded Allergies: No Known Allergies (Unverified , 12/19/17) Objective Last 24 Hour Vital Signs Date Time Temp Pulse Resp B/P (MAP) Pulse Ox O2 Delivery O2 Flow Rate FiO2 02/07/18 05:45 106/64 02/07/18 05:40 90 18 106/64 96 Nasal Cannula 02/07/18 04:00 97.3 68 18 109/69 96 97.3 02/07/18 00:00 97.1 80 18 108/62 100 97.1 02/06/18 21:22 103/63 02/06/18 20:00 97.1 78 18 103/63 98 97.1 02/06/18 17:24 103/59 02/06/18 15:50 Nasal Cannula 3.5 02/06/18 15:49 96.4 80 16 103/59 Nasal Cannula 3.5 96.4 02/06/18 12:00 97.7 73 20 111/61 99 Room Air 3.0 97.7 02/06/18 12:00 96.0 78 16 99/73 Nasal Cannula 3.5 96.0 02/06/18 12:00 Nasal Cannula 3.5 02/06/18 10:50 97.6 02/06/18 09:54 97.6 02/06/18 09:53 142/85 Intake and Output 02/06/18 02/07/18 19:00 07:00 Intake Total 700 ml 670 ml Output Total 300 ml Balance 400 ml 670 ml Intake Free Water 100 ml 220 ml Tube Feeding 600 ml 450 ml Output Urine Total 300 ml Hemodialysis UF 0 ml Laboratory Tests 02/07/18 05:20: White Blood Count 9.9, Red Blood Count 3.18L, Hemoglobin 10.2L, Hematocrit 31.4L , Mean Corpuscular Volume 99, Mean Corpuscular Hemoglobin 32.1H, Mean Corpuscular Hemoglobin Concent 32.5, Red Cell Distribution Width 13.5, Platelet Count 244, Mean Platelet Volume 6.7, Neutrophils (%) (Auto) 80.7H, Lymphocytes ( %) (Auto) 10.0L, Monocytes (%) (Auto) 7.6, Eosinophils (%) (Auto) 1.3, Basophils (%) (Auto) 0.4, Sodium Level 140, Potassium Level 3.7, Chloride Level 102, Carbon Dioxide Level 29, Anion Gap 9, Blood Urea Nitrogen 118#H, Creatinine 3.3H, Estimat Glomerular Filtration Rate , Glucose Level 149#H, Calcium Level 8.4L, Phosphorus Level 2.2L, Magnesium Level 2.2, Total Bilirubin 0.4, Aspartate Amino Transf (AST/SGOT) 30, Alanine Aminotransferase (ALT/SGPT) 29, Alkaline Phosphatase 135H, Pro-B-Type Natriuretic Peptide 9555H, Total Protein 7.2, Albumin 2.2L, Globulin 5.0, Albumin/Globulin Ratio 0.4L Height (Feet): 5 Height (Inches): 10.00 Weight (Pounds): 217 Courtney Weeks MD February 07, 2018 09:13
--- NOTE | 2018-02-07 11:00 | Nephrology Progress Note ---
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 not done- HD02/06 done Adjust BP meds IV bollous Subjective ROS Limited/Unobtainable: No Constitutional: Reports: malaise Objective Objective Last 24 Hour Vital Signs Date Time Temp Pulse Resp B/P (MAP) Pulse Ox O2 Delivery O2 Flow Rate FiO2 02/07/18 10:09 97.3 02/07/18 09:11 128/59 02/07/18 09:10 97.3 02/07/18 09:00 89 128/59 02/07/18 05:45 106/64 02/07/18 05:40 90 18 106/64 96 Nasal Cannula 02/07/18 04:00 97.3 68 18 109/69 96 97.3 02/07/18 00:00 97.1 80 18 108/62 100 97.1 02/06/18 21:22 103/63 02/06/18 20:00 97.1 78 18 103/63 98 97.1 02/06/18 17:24 103/59 02/06/18 15:50 Nasal Cannula 3.5 02/06/18 15:49 96.4 80 16 103/59 Nasal Cannula 3.5 96.4 02/06/18 12:00 97.7 73 20 111/61 99 Room Air 3.0 97.7 02/06/18 12:00 96.0 78 16 99/73 Nasal Cannula 3.5 96.0 02/06/18 12:00 Nasal Cannula 3.5 Intake and Output 02/06/18 02/07/18 19:00 07:00 Intake Total 700 ml 670 ml Output Total 300 ml Balance 400 ml 670 ml Intake Free Water 100 ml 220 ml Tube Feeding 600 ml 450 ml Output Urine Total 300 ml Hemodialysis UF 0 ml Laboratory Tests 02/07/18 05:20: White Blood Count 9.9, Red Blood Count 3.18L, Hemoglobin 10.2L, Hematocrit 31.4L , Mean Corpuscular Volume 99, Mean Corpuscular Hemoglobin 32.1H, Mean Corpuscular Hemoglobin Concent 32.5, Red Cell Distribution Width 13.5, Platelet Count 244, Mean Platelet Volume 6.7, Neutrophils (%) (Auto) 80.7H, Lymphocytes ( %) (Auto) 10.0L, Monocytes (%) (Auto) 7.6, Eosinophils (%) (Auto) 1.3, Basophils (%) (Auto) 0.4, Sodium Level 140, Potassium Level 3.7, Chloride Level 102, Carbon Dioxide Level 29, Anion Gap 9, Blood Urea Nitrogen 118#H, Creatinine 3.3H, Estimat Glomerular Filtration Rate , Glucose Level 149#H, Calcium Level 8.4L, Phosphorus Level 2.2L, Magnesium Level 2.2, Total Bilirubin 0.4, Aspartate Amino Transf (AST/SGOT) 30, Alanine Aminotransferase (ALT/SGPT) 29, Alkaline Phosphatase 135H, Pro-B-Type Natriuretic Peptide 9555H, Total Protein 7.2, Albumin 2.2L, Globulin 5.0, Albumin/Globulin Ratio 0.4L Height (Feet): 5 Height (Inches): 10.00 Weight (Pounds): 217 General Appearance: no apparent distress Objective no change VALENTIN RUSH February 07, 2018 11:00
[2018-02-07] MEDS ORDERED: Sodium Chloride 500ML 500 ML IV ONE (11:30)
--- NOTE | 2018-02-07 15:42 | Cardiac Electrophysiology PN ---
Assessment/Plan Assessment/Plan 1. Atrial flutter. On amiodarone 200 mg daily, Toprol-XL 25 mg daily and Eliquis 2.5 mg b.i.d. 2. Hypertension. On Hydralazine 25 bid and Toprol-XL 25 mg and HD 3. Cardiomyopathy with EF 30% on Hydralazine,Toprol-XL and HD Not a candidate for defibrillator placement. 4. ESRD on HD PermCath that was REMOVED and new one placed HD per Dr Verma today 5. Hyperlipidemia, on Lipitor. 6. Dysphagia, S/P PEG replacement DW RN Subjective Subjective Had his first HD with the new PermCath yesterday.No events Objective Last 24 Hour Vital Signs Date Time Temp Pulse Resp B/P (MAP) Pulse Ox O2 Delivery O2 Flow Rate FiO2 02/07/18 14:00 124/58 02/07/18 12:00 98.1 86 19 124/58 98 Nasal Cannula 3.0 98.1 02/07/18 10:09 97.3 02/07/18 09:11 128/59 02/07/18 09:10 97.3 02/07/18 09:00 89 128/59 02/07/18 08:00 97.7 89 20 128/59 98 Nasal Cannula 3.0 97.7 02/07/18 05:45 106/64 02/07/18 05:40 90 18 106/64 96 Nasal Cannula 02/07/18 04:00 97.3 68 18 109/69 96 97.3 02/07/18 00:00 97.1 80 18 108/62 100 97.1 02/06/18 21:22 103/63 02/06/18 20:00 97.1 78 18 103/63 98 97.1 02/06/18 17:24 103/59 02/06/18 15:50 Nasal Cannula 3.5 02/06/18 15:49 96.4 80 16 103/59 Nasal Cannula 3.5 96.4 Intake and Output 02/06/18 02/07/18 19:00 07:00 Intake Total 700 ml 670 ml Output Total 300 ml Balance 400 ml 670 ml Intake Free Water 100 ml 220 ml Tube Feeding 600 ml 450 ml Output Urine Total 300 ml Hemodialysis UF 0 ml Laboratory Tests Test 02/07/18 05:20 White Blood Count 9.9 K/UL (4.8-10.8) Red Blood Count 3.18 M/UL (4.70-6.10) L Hemoglobin 10.2 G/DL (14.2-18.0) L Hematocrit 31.4 % (42.0-52.0) L Mean Corpuscular Volume 99 FL (80-99) Mean Corpuscular Hemoglobin 32.1 PG (27.0-31.0) H Mean Corpuscular Hemoglobin Concent 32.5 G/DL (32.0-36.0) Red Cell Distribution Width 13.5 % (11.6-14.8) Platelet Count 244 K/UL (150-450) Mean Platelet Volume 6.7 FL (6.5-10.1) Neutrophils (%) (Auto) 80.7 % (45.0-75.0) H Lymphocytes (%) (Auto) 10.0 % (20.0-45.0) L Monocytes (%) (Auto) 7.6 % (1.0-10.0) Eosinophils (%) (Auto) 1.3 % (0.0-3.0) Basophils (%) (Auto) 0.4 % (0.0-2.0) Sodium Level 140 MMOL/L (136-145) Potassium Level 3.7 MMOL/L (3.5-5.1) Chloride Level 102 MMOL/L (98-107) Carbon Dioxide Level 29 MMOL/L (21-32) Anion Gap 9 mmol/L (5-15) Blood Urea Nitrogen 118 mg/dL (7-18) #H Creatinine 3.3 MG/DL (0.55-1.30) H Estimat Glomerular Filtration Rate mL/min (>60) Glucose Level 149 MG/DL (74-106) #H Calcium Level 8.4 MG/DL (8.5-10.1) L Phosphorus Level 2.2 MG/DL (2.5-4.9) L Magnesium Level 2.2 MG/DL (1.8-2.4) Total Bilirubin 0.4 MG/DL (0.2-1.0) Aspartate Amino Transf (AST/SGOT) 30 U/L (15-37) Alanine Aminotransferase (ALT/SGPT) 29 U/L (12-78) Alkaline Phosphatase 135 U/L (46-116) H Pro-B-Type Natriuretic Peptide 9555 pg/mL (0-125) H Total Protein 7.2 G/DL (6.4-8.2) Albumin 2.2 G/DL (3.4-5.0) L Globulin 5.0 g/dL Albumin/Globulin Ratio 0.4 (1.0-2.7) L Microbiology Date/Time Source Procedure Growth Status 02/05/18 12:45 Other(Specify in comment) Gram Stain - Final Resulted 02/05/18 12:45 Other(Specify in comment) Aerobic Culture - Preliminary NO GROWTH AFTER 48 HOURS Resulted 02/04/18 17:00 Urine,Clean Catch Urine Culture - Final Klebsiella Pneumoniae Complete Objective HEAD AND NECK: No JVD. Left IG HD catheter in LUNGS: Clear. CARDIOVASCULAR: Regular S1 and S2 with no gallop. ABDOMEN: Soft, status post G-tube. EXTREMITIES: 1+ pitting edema. Malik Shannon MD February 07, 2018 15:42
--- NOTE | 2018-02-07 18:47 | Diagnostic Imaging Report ---
EXAM: XR Chest, 1 View CLINICAL HISTORY: LINE TECHNIQUE: Frontal view of the chest. COMPARISON: 02/05/2018 FINDINGS: Lungs: Hypoventilatory lungs. Nonspecific left basilar opacity, possibly atelectasis or an infectious or inflammatory process. Pleural space: Persistent moderate left pleural effusion. No pneumothorax. Heart: Stable cardiomediastinal silhouette. Mediastinum: Crowding of the central bronchovascular structures is likely in part due to low lung volumes. Bones/joints: No acute osseous abnormality. Tubes, lines and devices: Left dual-lumen central venous catheter tip projects near the cavoatrial junction. IMPRESSION: Left central venous catheter tip projects near the cavoatrial junction. No pneumothorax.
[2018-02-07] MEDS: Sennosides 8.6mg GT SCH (20:48)
[2018-02-07] MEDS: Dyna-Hex 2% Top Sol 2oz TOPIC SCH (20:48)
[2018-02-07] MEDS: Tamsulosin 0.4mg cap ORAL SCH (20:49)
[2018-02-07] MEDS: Levemir Flexpen SUBQ SCH (20:50)
[2018-02-08] VITALS: BP 109/70
[2018-02-08 04:00] VITALS: BP 119/69
[2018-02-08] MEDS: HydrALAZINE 25mg tab GT SCH ×3 (06:13→21:53)
[2018-02-08] MEDS: Norco 5mg/325mg tab GT PRN ×2 (06:13→21:04)
[2018-02-08] MEDS: NovoLOG Insulin Flexpen SUBQ SCH ×4 (06:15→23:40)
[2018-02-08 07:45] LABS: ALANINE AMINOTRANSFERASE 27 U/L (12-78); ALBUMIN 2.2 G/DL (3.4-5.0); ALBUMIN/GLOBULIN RATIO 0.4 (1.0-2.7); ALKALINE PHOSPHATASE 153 U/L (46-116); ANION GAP 12 mmol/L (5-15); ASPARTATE AMINO TRANSFERASE 25 U/L (15-37); BILIRUBIN,TOTAL 0.4 MG/DL (0.2-1.0); BLOOD UREA NITROGEN 126 mg/dL (7-18); CALCIUM 8.5 MG/DL (8.5-10.1); CARBON DIOXIDE 26 MMOL/L (21-32); CHLORIDE 98 MMOL/L (98-107); CREATININE 3.9 MG/DL (0.55-1.30); PHOSPHORUS 3.1 MG/DL (2.5-4.9); POTASSIUM 3.7 MMOL/L (3.5-5.1); SODIUM 136 MMOL/L (136-145)
[2018-02-08 08:00] VITALS: BP 120/73
[2018-02-08] MEDS: Ascorbic Acid 500mg tab GT SCH (08:53)
[2018-02-08] MEDS: Docusate 100mg/10ml Liq GT SCH ×3 (08:53→17:06)
[2018-02-08] MEDS: Nitroglycerin 2% oint pkt TOPIC SCH ×2 (08:53→17:09)
[2018-02-08] MEDS: Metoprolol Succinate XL 25mg tab ORAL SCH (08:53)
[2018-02-08] MEDS: Vitamin A&D Oint 2oz Tube TOPIC SCH ×2 (09:05→21:05)
[2018-02-08] MEDS: Amiodarone 200mg tab GT SCH (09:06)
--- NOTE | 2018-02-08 09:58 | Nephrology Progress Note ---
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 not done- HD02/06 done Adjust BP meds IV bollous Subjective ROS Limited/Unobtainable: No Constitutional: Reports: malaise Objective Objective Last 24 Hour Vital Signs Date Time Temp Pulse Resp B/P (MAP) Pulse Ox O2 Delivery O2 Flow Rate FiO2 02/08/18 08:55 97.4 02/08/18 08:53 120/73 02/08/18 08:53 88 120/73 02/08/18 08:00 97.4 88 20 120/73 96 Nasal Cannula 97.4 02/08/18 06:13 111/68 02/08/18 04:00 97.1 90 20 119/69 95 Nasal Cannula 97.1 02/08/18 00:00 97.0 88 20 109/70 99 Nasal Cannula 3.0 97.0 02/07/18 21:39 118/72 02/07/18 20:00 97.0 85 20 118/72 98 Nasal Cannula 3.0 97.0 02/07/18 18:53 127/59 02/07/18 16:00 97.8 87 19 127/59 99 Nasal Cannula 3.0 97.8 02/07/18 14:00 124/58 02/07/18 12:00 98.1 86 19 124/58 98 Nasal Cannula 3.0 98.1 02/07/18 10:09 97.3 Intake and Output 02/07/18 02/08/18 19:00 07:00 Intake Total 650 ml 510 ml Output Total 200 ml Balance 450 ml 510 ml Intake Free Water 100 ml 60 ml IV Total 500 ml Tube Feeding 50 ml 450 ml Output Urine Total 200 ml # Voids 1 # Bowel Movements 1 Laboratory Tests 02/07/18 15:40: Urine Random Sodium 39 02/08/18 06:30: Sodium Level 136, Potassium Level 3.7, Chloride Level 98, Carbon Dioxide Level 26, Anion Gap 12, Blood Urea Nitrogen 126H, Creatinine 3.9H, Estimat Glomerular Filtration Rate , Glucose Level 219H, Calcium Level 8.5, Phosphorus Level 3.1, Magnesium Level 2.2, Total Bilirubin 0.4, Aspartate Amino Transf (AST/SGOT) 25, Alanine Aminotransferase (ALT/SGPT) 27, Alkaline Phosphatase 153H, Total Protein 7.3, Albumin 2.2L, Globulin 5.1, Albumin/Globulin Ratio 0.4L Height (Feet): 5 Height (Inches): 10.00 Weight (Pounds): 249 General Appearance: no apparent distress Cardiovascular: normal rate Respiratory/Chest: decreased breath sounds, other - left cath site bleeding Abdomen: soft Objective no change VALENTIN RUSH February 08, 2018 09:58
[2018-02-08 10:18] LABS: BASOPHILS % (AUTO) 0.5 % (0.0-2.0); EOSINOPHILS % (AUTO) 0.7 % (0.0-3.0); HEMATOCRIT 33.2 % (42.0-52.0); HEMOGLOBIN 10.9 G/DL (14.2-18.0); LYMPHOCYTES % (AUTO) 12.4 % (20.0-45.0); MEAN CORPUSCULAR VOLUME 99 FL (80-99); MONOCYTES % (AUTO) 7.8 % (1.0-10.0); NEUTROPHILS % (AUTO) 78.6 % (45.0-75.0); PLATELET COUNT 259 K/UL (150-450); RED BLOOD COUNT 3.37 M/UL (4.70-6.10); RED CELL DISTRIBUTION WIDTH 13.8 % (11.6-14.8); WHITE BLOOD COUNT 11.2 K/UL (4.8-10.8)
[2018-02-08 10:29] LABS: INR 1.1 (0.9-1.1)
[2018-02-08 12:00] VITALS: BP 76/42
[2018-02-08] MEDS ORDERED: Sodium Chloride 500ML 500 ML IV ONE (12:15)
[2018-02-08 16:00] VITALS: BP 104/63
[2018-02-08] MEDS ORDERED: NS 500ML ONE (16:06)
[2018-02-08 20:00] VITALS: BP 100/66
[2018-02-08] MEDS: Tamsulosin 0.4mg cap ORAL SCH (21:03)
[2018-02-08] MEDS: Dyna-Hex 2% Top Sol 2oz TOPIC SCH (21:03)
[2018-02-08] MEDS: Sennosides 8.6mg GT SCH (21:03)
[2018-02-08] MEDS: Donepezil 10mg tab ORAL SCH (21:04)
[2018-02-08] MEDS: Levemir Flexpen SUBQ SCH (21:05)
[2018-02-09] VITALS (8 sets, daily range): BP systolic 85–122; BP diastolic 48–67
[2018-02-09] MEDS: Norco 5mg/325mg tab GT PRN (04:55)
[2018-02-09] MEDS: HydrALAZINE 25mg tab GT SCH ×3 (05:57→21:21)
[2018-02-09] MEDS: NovoLOG Insulin Flexpen SUBQ SCH ×4 (05:59→23:09)
[2018-02-09] MEDS: Metoprolol Succinate XL 25mg tab ORAL SCH (09:00)
[2018-02-09] MEDS: Docusate 100mg/10ml Liq GT SCH ×3 (09:31→18:00)
[2018-02-09] MEDS: Vitamin A&D Oint 2oz Tube TOPIC SCH ×2 (09:31→21:21)
[2018-02-09] MEDS: Ascorbic Acid 500mg tab GT SCH (09:32)
[2018-02-09] MEDS: Nitroglycerin 2% oint pkt TOPIC SCH ×2 (09:32→18:00)
[2018-02-09] MEDS: Amiodarone 200mg tab GT SCH (09:34)
--- NOTE | 2018-02-09 09:36 | General Progress Note ---
Assessment/Plan Assessment/Plan S: " not communicating verbally" P: appears comfortable. Singer in place , AOx1, limited source of info, PHYSICAL EXAMINATION: IVETT-chest wall PermCath in place GENERAL: The patient is comfortable. HEENT: Pupils equal and responsive to light and accommodation. Extraocular movements are intact. NECK: Supple without lymphadenopathy. CHEST: Lungs are clear to auscultation bilaterally without wheezes or rales. CARDIOVASCULAR: IRegular rate and rythm S1, S2 normal without murmurs, rubs, or gallops. ABDOMEN: Soft, nontender, and nondistended. Positive bowel sounds. No evidence of hepatosplenomegaly. Currently, no rebound or guarding noted. PEG t in place EXTREMITIES: atrophied extremitatis, with spontaneous movements NEUROLOGIC: Limited exam. Patient not cooperative, AOx 1 ASSESSMENT: This is an 81-year-old male with: 1. Hyperuremia in progressive worsening renal function 2. history of End-stage renal disease, s/p Re-initiation of HD 3. Diabetes type 2. 4. Hypercholesterolemia. 5. Cardiomyopathy. 6. Atrial fibrillation. 7. Congestive heart failure. 8. Hypertension. 9. Alzheimer dementia. 10. Benign prostatic hypertrophy. 11. No capacity for making medical decision TREATMENT: Continue HD per Nephrology Rec. Given the emergency nature of consequences in delayed HD placement, and lack of patient's capacity for making decision. It is ok to proceed with HD access placement Notes from Nephro reviewed Will optimize electrolyte, per Nephrology comment: time of this dictation, doesn't reflect actual of the encounter on February 08 Subjective Allergies: Coded Allergies: No Known Allergies (Unverified , 12/19/17) Objective Last 24 Hour Vital Signs Date Time Temp Pulse Resp B/P (MAP) Pulse Ox O2 Delivery O2 Flow Rate FiO2 02/09/18 09:32 122/66 02/09/18 09:00 88 122/66 02/09/18 05:57 126/68 02/09/18 04:00 97.2 84 18 102/54 100 97.2 02/09/18 00:00 97.1 84 18 116/67 94 97.1 02/08/18 21:53 111/70 02/08/18 20:00 97.2 83 19 100/66 95 97.2 02/08/18 17:09 104/63 02/08/18 16:00 98.1 83 18 104/63 97 Nasal Cannula 98.1 02/08/18 14:00 76/42 02/08/18 12:00 97.3 68 18 76/42 96 Nasal Cannula 97.3 02/08/18 09:54 97.4 Intake and Output 02/08/18 02/09/18 19:00 07:00 Intake Total 750 ml 670 ml Output Total 150 ml Balance 600 ml 670 ml Intake Free Water 200 ml 220 ml Tube Feeding 550 ml 450 ml Output Urine Total 150 ml Height (Feet): 5 Height (Inches): 10.00 Weight (Pounds): 218 Courtney Weeks MD February 09, 2018 09:36
--- NOTE | 2018-02-09 09:37 | General Progress Note ---
Assessment/Plan Assessment/Plan S: " not communicating verbally" P: appears comfortable. Singer in place , AOx1, limited source of info, PHYSICAL EXAMINATION: IVETT-chest wall PermCath in place GENERAL: The patient is comfortable. HEENT: Pupils equal and responsive to light and accommodation. Extraocular movements are intact. NECK: Supple without lymphadenopathy. CHEST: Lungs are clear to auscultation bilaterally without wheezes or rales. CARDIOVASCULAR: IRegular rate and rythm S1, S2 normal without murmurs, rubs, or gallops. ABDOMEN: Soft, nontender, and nondistended. Positive bowel sounds. No evidence of hepatosplenomegaly. Currently, no rebound or guarding noted. PEG t in place EXTREMITIES: atrophied extremitatis, with spontaneous movements NEUROLOGIC: Limited exam. Patient not cooperative, AOx 1 ASSESSMENT: This is an 81-year-old male with: 1. Hyperuremia in progressive worsening renal function 2. history of End-stage renal disease, s/p Re-initiation of HD 3. Diabetes type 2. 4. Hypercholesterolemia. 5. Cardiomyopathy. 6. Atrial fibrillation. 7. Congestive heart failure. 8. Hypertension. 9. Alzheimer dementia. 10. Benign prostatic hypertrophy. 11. No capacity for making medical decision TREATMENT: Continue HD per Nephrology Rec. Given the emergency nature of consequences in delayed HD placement, and lack of patient's capacity for making decision. It is ok to proceed with HD access placement Notes from Nephro reviewed Will optimize electrolyte, per Nephrology Incidence of Hypotension. will provide NS 500 cc Bolus, and will downtitrate BP meds Subjective Allergies: Coded Allergies: No Known Allergies (Unverified , 12/19/17) Objective Last 24 Hour Vital Signs Date Time Temp Pulse Resp B/P (MAP) Pulse Ox O2 Delivery O2 Flow Rate FiO2 02/09/18 09:32 122/66 02/09/18 09:00 88 122/66 02/09/18 05:57 126/68 02/09/18 04:00 97.2 84 18 102/54 100 97.2 02/09/18 00:00 97.1 84 18 116/67 94 97.1 02/08/18 21:53 111/70 02/08/18 20:00 97.2 83 19 100/66 95 97.2 02/08/18 17:09 104/63 02/08/18 16:00 98.1 83 18 104/63 97 Nasal Cannula 98.1 02/08/18 14:00 76/42 02/08/18 12:00 97.3 68 18 76/42 96 Nasal Cannula 97.3 02/08/18 09:54 97.4 Intake and Output 02/08/18 02/09/18 19:00 07:00 Intake Total 750 ml 670 ml Output Total 150 ml Balance 600 ml 670 ml Intake Free Water 200 ml 220 ml Tube Feeding 550 ml 450 ml Output Urine Total 150 ml Height (Feet): 5 Height (Inches): 10.00 Weight (Pounds): 218 Courtney Weeks MD February 09, 2018 09:37
--- NOTE | 2018-02-09 12:37 | Nephrology Progress Note ---
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 not done- HD02/06 done next 02/09 Adjust BP meds IV bollous Subjective ROS Limited/Unobtainable: No Constitutional: Reports: malaise Objective Objective Last 24 Hour Vital Signs Date Time Temp Pulse Resp B/P (MAP) Pulse Ox O2 Delivery O2 Flow Rate FiO2 02/09/18 09:32 122/66 02/09/18 09:00 88 122/66 02/09/18 08:00 98.1 88 20 122/66 100 Nasal Cannula 3.0 98.1 02/09/18 05:57 126/68 02/09/18 04:00 97.2 84 18 102/54 100 97.2 02/09/18 00:00 97.1 84 18 116/67 94 97.1 02/08/18 21:53 111/70 02/08/18 20:00 97.2 83 19 100/66 95 97.2 02/08/18 17:09 104/63 02/08/18 16:00 98.1 83 18 104/63 97 Nasal Cannula 98.1 02/08/18 14:00 76/42 Intake and Output 02/08/18 02/09/18 19:00 07:00 Intake Total 750 ml 670 ml Output Total 150 ml Balance 600 ml 670 ml Intake Free Water 200 ml 220 ml Tube Feeding 550 ml 450 ml Output Urine Total 150 ml Height (Feet): 5 Height (Inches): 10.00 Weight (Pounds): 218 General Appearance: no apparent distress Objective no change VALENTIN RUSH February 09, 2018 12:37
--- NOTE | 2018-02-09 13:06 | Cardiac Electrophysiology PN ---
Assessment/Plan Assessment/Plan 1. Atrial flutter. On amiodarone 200 mg daily, Toprol-XL 25 mg daily. Eliquis 2.5 mg b.i.d. held until cleared by Dr james 2. Hypertension. On Hydralazine 25 bid and Toprol-XL 25 mg and HD 3. Cardiomyopathy with EF 30% on Hydralazine,Toprol-XL and HD Not a candidate for defibrillator placement. 4. ESRD on HD PermCath that was REMOVED and new one placed that pt tried to remove. HD per Dr Verma 5. Hyperlipidemia, on Lipitor. 6. Dysphagia, S/P PEG replacement DW RN Subjective Subjective Pulled on his Perm Cath and started bleeding from the site yesterday. Anticoagulation DCed. In restraints in NAD. Objective Last 24 Hour Vital Signs Date Time Temp Pulse Resp B/P (MAP) Pulse Ox O2 Delivery O2 Flow Rate FiO2 02/09/18 09:32 122/66 02/09/18 09:00 88 122/66 02/09/18 08:00 98.1 88 20 122/66 100 Nasal Cannula 3.0 98.1 02/09/18 05:57 126/68 02/09/18 04:00 97.2 84 18 102/54 100 97.2 02/09/18 00:00 97.1 84 18 116/67 94 97.1 02/08/18 21:53 111/70 02/08/18 20:00 97.2 83 19 100/66 95 97.2 02/08/18 17:09 104/63 02/08/18 16:00 98.1 83 18 104/63 97 Nasal Cannula 98.1 02/08/18 14:00 76/42 Intake and Output 02/08/18 02/09/18 19:00 07:00 Intake Total 750 ml 670 ml Output Total 150 ml Balance 600 ml 670 ml Intake Free Water 200 ml 220 ml Tube Feeding 550 ml 450 ml Output Urine Total 150 ml Laboratory Tests Test 02/09/18 12:58 C-Reactive Protein, Quantitative Pending Objective HEAD AND NECK: No JVD. Left IG HD catheter in place with no active bleeding LUNGS: Clear. CARDIOVASCULAR: Regular S1 and S2 with no gallop. ABDOMEN: Soft, status post G-tube. EXTREMITIES: 1+ pitting edema. Malik Shannon MD February 09, 2018 13:06
[2018-02-09] MEDS: Tamsulosin 0.4mg cap ORAL SCH (21:21)
[2018-02-09] MEDS: Sennosides 8.6mg GT SCH (21:21)
[2018-02-09] MEDS: Donepezil 10mg tab ORAL SCH (21:21)
[2018-02-09] MEDS: Dyna-Hex 2% Top Sol 2oz TOPIC SCH (21:22)
[2018-02-09] MEDS: Levemir Flexpen SUBQ SCH (21:23)
[2018-02-10 00:14] VITALS: BP 92/54
[2018-02-10 04:10] VITALS: BP 95/55
[2018-02-10 04:37] LABS: BASOPHILS % (AUTO) 0.7 % (0.0-2.0); EOSINOPHILS % (AUTO) 0.7 % (0.0-3.0); HEMATOCRIT 27.9 % (42.0-52.0); HEMOGLOBIN 9.5 G/DL (14.2-18.0); LYMPHOCYTES % (AUTO) 10.1 % (20.0-45.0); MEAN CORPUSCULAR VOLUME 97 FL (80-99); MONOCYTES % (AUTO) 7.5 % (1.0-10.0); PLATELET COUNT 214 K/UL (150-450); RED BLOOD COUNT 2.86 M/UL (4.70-6.10); RED CELL DISTRIBUTION WIDTH 13.4 % (11.6-14.8)
[2018-02-10 05:10] LABS: ALANINE AMINOTRANSFERASE 24 U/L (12-78); ALBUMIN/GLOBULIN RATIO 0.4 (1.0-2.7); ALKALINE PHOSPHATASE 150 U/L (46-116); ANION GAP 8 mmol/L (5-15); ASPARTATE AMINO TRANSFERASE 23 U/L (15-37); BILIRUBIN,TOTAL 0.4 MG/DL (0.2-1.0); BLOOD UREA NITROGEN 86 mg/dL (7-18); CALCIUM 8.3 MG/DL (8.5-10.1); CARBON DIOXIDE 31 MMOL/L (21-32); CHLORIDE 98 MMOL/L (98-107); CREATININE 3.1 MG/DL (0.55-1.30); PHOSPHORUS 3.2 MG/DL (2.5-4.9); POTASSIUM 3.4 MMOL/L (3.5-5.1); SODIUM 137 MMOL/L (136-145)
[2018-02-10] MEDS: HydrALAZINE 25mg tab GT SCH (05:23)
[2018-02-10] MEDS: NovoLOG Insulin Flexpen SUBQ SCH ×4 (05:48→23:49)
[2018-02-10 08:00] VITALS: BP 104/61
--- NOTE | 2018-02-10 08:59 | General Progress Note ---
Assessment/Plan Status: stable Assessment/Plan S: " not communicating verbally" P: appears comfortable. Singer in place , AOx1, limited source of info, PHYSICAL EXAMINATION: IVETT-chest wall PermCath in place GENERAL: The patient is comfortable. HEENT: Pupils equal and responsive to light and accommodation. Extraocular movements are intact. NECK: Supple without lymphadenopathy. CHEST: Lungs are clear to auscultation bilaterally without wheezes or rales. CARDIOVASCULAR: IRegular rate and rythm S1, S2 normal without murmurs, rubs, or gallops. ABDOMEN: Soft, nontender, and nondistended. Positive bowel sounds. No evidence of hepatosplenomegaly. Currently, no rebound or guarding noted. PEG t in place EXTREMITIES: atrophied extremitatis, with spontaneous movements NEUROLOGIC: Limited exam. Patient not cooperative, AOx 1 ASSESSMENT: This is an 81-year-old male with: 1. Hyperuremia in progressive worsening renal function 2. history of End-stage renal disease, s/p Re-initiation of HD 3. Diabetes type 2. 4. Hypercholesterolemia. 5. Cardiomyopathy. 6. Atrial fibrillation. 7. Congestive heart failure. 8. Hypertension. 9. Alzheimer dementia. 10. Benign prostatic hypertrophy. 11. No capacity for making medical decision TREATMENT: Continue HD per Nephrology Rec. Given the emergency nature of consequences in delayed HD placement, and lack of patient's capacity for making decision. It is ok to proceed with HD access placement Notes from Nephro reviewed Will optimize electrolyte, per Nephrology Incidence of Hypotension. will provide NS 500 cc Bolus, and will downtitrate BP meds New leukocytosis, No evidence of active acute infection. will monitor Subjective Allergies: Coded Allergies: No Known Allergies (Unverified , 12/19/17) Objective Last 24 Hour Vital Signs Date Time Temp Pulse Resp B/P (MAP) Pulse Ox O2 Delivery O2 Flow Rate FiO2 02/10/18 05:23 95/55 02/10/18 04:10 97.3 92 19 95/55 97 97.3 02/10/18 04:00 Nasal Cannula 3.0 02/10/18 00:14 97.4 96 20 92/54 96 97.4 02/10/18 00:00 Nasal Cannula 3.0 02/09/18 21:21 102/48 02/09/18 20:25 96.1 95 20 102/48 97 96.1 02/09/18 20:00 Nasal Cannula 3.0 02/09/18 18:00 85/59 02/09/18 18:00 96.6 88 20 98/57 Nasal Cannula 3.0 96.6 02/09/18 18:00 Nasal Cannula 3.0 02/09/18 16:00 97.5 88 20 85/59 98 Nasal Cannula 3.0 97.5 02/09/18 13:58 86/58 02/09/18 12:00 97.7 90 20 86/58 97 Nasal Cannula 3.0 97.7 02/09/18 09:32 122/66 02/09/18 09:00 88 122/66 Intake and Output 02/09/18 02/10/18 19:00 07:00 Intake Total 50 ml 560 ml Output Total 300 ml Balance -250 ml 560 ml Intake Free Water 160 ml Tube Feeding 50 ml 400 ml Output Urine Total 300 ml # Bowel Movements 1 Laboratory Tests 02/09/18 12:58: C-Reactive Protein, Quantitative 10.4H 02/10/18 03:10: White Blood Count 11.0H, Red Blood Count 2.86L, Hemoglobin 9.5L, Hematocrit 27.9L, Mean Corpuscular Volume 97, Mean Corpuscular Hemoglobin 33.3H, Mean Corpuscular Hemoglobin Concent 34.2, Red Cell Distribution Width 13.4, Platelet Count 214, Mean Platelet Volume 7.0, Neutrophils (%) (Auto) 81.0H, Lymphocytes ( %) (Auto) 10.1L, Monocytes (%) (Auto) 7.5, Eosinophils (%) (Auto) 0.7, Basophils (%) (Auto) 0.7, Sodium Level 137, Potassium Level 3.4L, Chloride Level 98, Carbon Dioxide Level 31, Anion Gap 8, Blood Urea Nitrogen 86H, Creatinine 3.1H, Estimat Glomerular Filtration Rate , Glucose Level 194H, Calcium Level 8.3L, Phosphorus Level 3.2, Magnesium Level 2.1, Total Bilirubin 0.4, Aspartate Amino Transf (AST/SGOT) 23, Alanine Aminotransferase (ALT/SGPT) 24, Alkaline Phosphatase 150H, Pro-B-Type Natriuretic Peptide 6463H, Total Protein 6.9, Albumin 2.0L, Globulin 4.9, Albumin/Globulin Ratio 0.4L Height (Feet): 5 Height (Inches): 10.00 Weight (Pounds): 225 Courtney Weeks MD February 10, 2018 08:59
[2018-02-10] MEDS: Metoprolol Succinate XL 25mg tab ORAL SCH (09:00)
[2018-02-10] MEDS: Amiodarone 200mg tab GT SCH (09:00)
[2018-02-10] MEDS: Docusate 100mg/10ml Liq GT SCH ×3 (09:50→18:40)
[2018-02-10] MEDS: Ascorbic Acid 500mg tab GT SCH (09:50)
[2018-02-10] MEDS: Vitamin A&D Oint 2oz Tube TOPIC SCH ×2 (09:51→20:27)
[2018-02-10] MEDS: Nitroglycerin 2% oint pkt TOPIC SCH ×2 (09:51→18:00)
--- NOTE | 2018-02-10 10:22 | Cardiac Electrophysiology PN ---
Assessment/Plan Assessment/Plan 1. Atrial flutter. On amiodarone 200 mg daily, Toprol-XL 25 mg daily.Resume Eliquis 2.5 mg b.i.d. 2. Hypertension. On Hydralazine 25 bid and Toprol-XL 25 mg and HD 3. Cardiomyopathy with EF 30% on Hydralazine,Toprol-XL and HD Not a candidate for defibrillator placement. 4. ESRD on HD PermCath that was REMOVED and new one placed that pt tried to remove. HD per Dr Verma 5. Hyperlipidemia, on Lipitor. 6. Dysphagia, S/P PEG replacement DW RN Subjective Subjective No further bleeding from the site. had HD. In restraints in NAD. Objective Last 24 Hour Vital Signs Date Time Temp Pulse Resp B/P (MAP) Pulse Ox O2 Delivery O2 Flow Rate FiO2 02/10/18 09:51 104/61 02/10/18 05:23 95/55 02/10/18 04:10 97.3 92 19 95/55 97 97.3 02/10/18 04:00 Nasal Cannula 3.0 02/10/18 00:14 97.4 96 20 92/54 96 97.4 02/10/18 00:00 Nasal Cannula 3.0 02/09/18 21:21 102/48 02/09/18 20:25 96.1 95 20 102/48 97 96.1 02/09/18 20:00 Nasal Cannula 3.0 02/09/18 18:00 85/59 02/09/18 18:00 96.6 88 20 98/57 Nasal Cannula 3.0 96.6 02/09/18 18:00 Nasal Cannula 3.0 02/09/18 16:00 97.5 88 20 85/59 98 Nasal Cannula 3.0 97.5 02/09/18 13:58 86/58 02/09/18 12:00 97.7 90 20 86/58 97 Nasal Cannula 3.0 97.7 Intake and Output 02/09/18 02/10/18 19:00 07:00 Intake Total 50 ml 560 ml Output Total 300 ml Balance -250 ml 560 ml Intake Free Water 160 ml Tube Feeding 50 ml 400 ml Output Urine Total 300 ml # Bowel Movements 1 Laboratory Tests Test 02/09/18 12:58 02/10/18 03:10 C-Reactive Protein, Quantitative 10.4 mg/dL (0.00-0.90) H White Blood Count 11.0 K/UL (4.8-10.8) H Red Blood Count 2.86 M/UL (4.70-6.10) L Hemoglobin 9.5 G/DL (14.2-18.0) L Hematocrit 27.9 % (42.0-52.0) L Mean Corpuscular Volume 97 FL (80-99) Mean Corpuscular Hemoglobin 33.3 PG (27.0-31.0) H Mean Corpuscular Hemoglobin Concent 34.2 G/DL (32.0-36.0) Red Cell Distribution Width 13.4 % (11.6-14.8) Platelet Count 214 K/UL (150-450) Mean Platelet Volume 7.0 FL (6.5-10.1) Neutrophils (%) (Auto) 81.0 % (45.0-75.0) H Lymphocytes (%) (Auto) 10.1 % (20.0-45.0) L Monocytes (%) (Auto) 7.5 % (1.0-10.0) Eosinophils (%) (Auto) 0.7 % (0.0-3.0) Basophils (%) (Auto) 0.7 % (0.0-2.0) Sodium Level 137 MMOL/L (136-145) Potassium Level 3.4 MMOL/L (3.5-5.1) L Chloride Level 98 MMOL/L (98-107) Carbon Dioxide Level 31 MMOL/L (21-32) Anion Gap 8 mmol/L (5-15) Blood Urea Nitrogen 86 mg/dL (7-18) H Creatinine 3.1 MG/DL (0.55-1.30) H Estimat Glomerular Filtration Rate mL/min (>60) Glucose Level 194 MG/DL (74-106) H Calcium Level 8.3 MG/DL (8.5-10.1) L Phosphorus Level 3.2 MG/DL (2.5-4.9) Magnesium Level 2.1 MG/DL (1.8-2.4) Total Bilirubin 0.4 MG/DL (0.2-1.0) Aspartate Amino Transf (AST/SGOT) 23 U/L (15-37) Alanine Aminotransferase (ALT/SGPT) 24 U/L (12-78) Alkaline Phosphatase 150 U/L (46-116) H Pro-B-Type Natriuretic Peptide 6463 pg/mL (0-125) H Total Protein 6.9 G/DL (6.4-8.2) Albumin 2.0 G/DL (3.4-5.0) L Globulin 4.9 g/dL Albumin/Globulin Ratio 0.4 (1.0-2.7) L Objective HEAD AND NECK: No JVD. Left IG HD catheter in place with no active bleeding LUNGS: Clear. CARDIOVASCULAR: Regular S1 and S2 with no gallop. ABDOMEN: Soft, status post G-tube. EXTREMITIES: 1+ pitting edema. Malik Shannon MD February 10, 2018 10:22
--- NOTE | 2018-02-10 10:53 | Nephrology Progress Note ---
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3 92 19 95/55 97 97.3 02/10/18 04:00 Nasal Cannula 3.0 02/10/18 00:14 97.4 96 20 92/54 96 97.4 02/10/18 00:00 Nasal Cannula 3.0 02/09/18 21:21 102/48 02/09/18 20:25 96.1 95 20 102/48 97 96.1 02/09/18 20:00 Nasal Cannula 3.0 02/09/18 18:00 85/59 02/09/18 18:00 96.6 88 20 98/57 Nasal Cannula 3.0 96.6 02/09/18 18:00 Nasal Cannula 3.0 02/09/18 16:00 97.5 88 20 85/59 98 Nasal Cannula 3.0 97.5 02/09/18 13:58 86/58 02/09/18 12:00 97.7 90 20 86/58 97 Nasal Cannula 3.0 97.7 Intake and Output 02/09/18 02/10/18 19:00 07:00 Intake Total 50 ml 560 ml Output Total 300 ml Balance -250 ml 560 ml Intake Free Water 160 ml Tube Feeding 50 ml 400 ml Output Urine Total 300 ml # Bowel Movements 1 Laboratory Tests 02/09/18 12:58: C-Reactive Protein, Quantitative 10.4H 02/10/18 03:10: White Blood Count 11.0H, Red Blood Count 2.86L, Hemoglobin 9.5L, Hematocrit 27.9L, Mean Corpuscular Volume 97, Mean Corpuscular Hemoglobin 33.3H, Mean Corpuscular Hemoglobin Concent 34.2, Red Cell Distribution Width 13.4, Platelet Count 214, Mean Platelet Volume 7.0, Neutrophils (%) (Auto) 81.0H, Lymphocytes ( %) (Auto) 10.1L, Monocytes (%) (Auto) 7.5, Eosinophils (%) (Auto) 0.7, Basophils (%) (Auto) 0.7, Sodium Level 137, Potassium Level 3.4L, Chloride Level 98, Carbon Dioxide Level 31, Anion Gap 8, Blood Urea Nitrogen 86H, Creatinine 3.1H, Estimat Glomerular Filtration Rate , Glucose Level 194H, Calcium Level 8.3L, Phosphorus Level 3.2, Magnesium Level 2.1, Total Bilirubin 0.4, Aspartate Amino Transf (AST/SGOT) 23, Alanine Aminotransferase (ALT/SGPT) 24, Alkaline Phosphatase 150H, Pro-B-Type Natriuretic Peptide 6463H, Total Protein 6.9, Albumin 2.0L, Globulin 4.9, Albumin/Globulin Ratio 0.4L Height (Feet): 5 Height (Inches): 10.00 Weight (Pounds): 225 General Appearance: no apparent distress Objective no change VALENTIN RUSH February 10, 2018 10:53
[2018-02-10 12:00] VITALS: BP 117/55
[2018-02-10] MEDS: Eliquis 2.5mg tablet GT SCH ×2 (12:48→18:40)
[2018-02-10] MEDS ORDERED: Albuterol/Ipratropium 3ml neb HHN PRN ×2 (15:00→23:00)
--- NOTE | 2018-02-10 15:53 | General Progress Note ---
Assessment/Plan Assessment/Plan dementia with behavioral dist encephalopathy seroquel prn Subjective Date patient seen: February 10, 2018 Neurologic/Psychiatric: Reports: anxiety, depressed, emotional problems Allergies: Coded Allergies: No Known Allergies (Unverified , 12/19/17) Subjective in restrainers pulling out his iv Objective Last 24 Hour Vital Signs Date Time Temp Pulse Resp B/P (MAP) Pulse Ox O2 Delivery O2 Flow Rate FiO2 02/10/18 15:12 96 20 96 Room Air 40 02/10/18 15:05 40 02/10/18 15:05 101 24 92 Nasal Cannula 5.0 40 02/10/18 12:00 97.3 94 20 117/55 94 Nasal Cannula 3.0 97.3 02/10/18 09:51 104/61 02/10/18 08:00 97.1 93 20 104/61 97 Nasal Cannula 3.0 97.1 02/10/18 05:23 95/55 02/10/18 04:10 97.3 92 19 95/55 97 97.3 02/10/18 04:00 Nasal Cannula 3.0 02/10/18 00:14 97.4 96 20 92/54 96 97.4 02/10/18 00:00 Nasal Cannula 3.0 02/09/18 21:21 102/48 02/09/18 20:25 96.1 95 20 102/48 97 96.1 02/09/18 20:00 Nasal Cannula 3.0 02/09/18 18:00 85/59 02/09/18 18:00 96.6 88 20 98/57 Nasal Cannula 3.0 96.6 02/09/18 18:00 Nasal Cannula 3.0 02/09/18 16:00 97.5 88 20 85/59 98 Nasal Cannula 3.0 97.5 Intake and Output 02/09/18 02/10/18 19:00 07:00 Intake Total 50 ml 560 ml Output Total 300 ml Balance -250 ml 560 ml Intake Free Water 160 ml Tube Feeding 50 ml 400 ml Output Urine Total 300 ml # Bowel Movements 1 Laboratory Tests 02/10/18 03:10: White Blood Count 11.0H, Red Blood Count 2.86L, Hemoglobin 9.5L, Hematocrit 27.9L, Mean Corpuscular Volume 97, Mean Corpuscular Hemoglobin 33.3H, Mean Corpuscular Hemoglobin Concent 34.2, Red Cell Distribution Width 13.4, Platelet Count 214, Mean Platelet Volume 7.0, Neutrophils (%) (Auto) 81.0H, Lymphocytes ( %) (Auto) 10.1L, Monocytes (%) (Auto) 7.5, Eosinophils (%) (Auto) 0.7, Basophils (%) (Auto) 0.7, Sodium Level 137, Potassium Level 3.4L, Chloride Level 98, Carbon Dioxide Level 31, Anion Gap 8, Blood Urea Nitrogen 86H, Creatinine 3.1H, Estimat Glomerular Filtration Rate , Glucose Level 194H, Calcium Level 8.3L, Phosphorus Level 3.2, Magnesium Level 2.1, Total Bilirubin 0.4, Aspartate Amino Transf (AST/SGOT) 23, Alanine Aminotransferase (ALT/SGPT) 24, Alkaline Phosphatase 150H, Pro-B-Type Natriuretic Peptide 6463H, Total Protein 6.9, Albumin 2.0L, Globulin 4.9, Albumin/Globulin Ratio 0.4L, Hepatitis B Surface Antigen [Pending], Hepatitis B Surface Antibody, Quant [Pending], Hepatitis C Antibody [Pending] Height (Feet): 5 Height (Inches): 10.00 Weight (Pounds): 225 General Appearance: WD/WN, no apparent distress, lethargic, confused, agitated Ashly Rajan M.D. February 10, 2018 15:53
[2018-02-10 16:00] VITALS: BP 100/65
[2018-02-10] MEDS ORDERED: Vancomycin 1.5 GM/D5W 250ML IVPB ONE (17:00)
[2018-02-10 20:00] VITALS: BP 93/55
[2018-02-10] MEDS ORDERED: Piperacillin/Tazobactam 2.25 GM in D5W 110 ML IV SCH (20:00)
[2018-02-10] MEDS: Sennosides 8.6mg GT SCH (20:23)
[2018-02-10] MEDS: Dyna-Hex 2% Top Sol 2oz TOPIC SCH (20:23)
[2018-02-10] MEDS: Tamsulosin 0.4mg cap ORAL SCH (20:24)
[2018-02-10] MEDS: Donepezil 10mg tab ORAL SCH (20:24)
[2018-02-10] MEDS: Levemir Flexpen SUBQ SCH (20:26)
[2018-02-10] MEDS ORDERED: Lisinopril 2.5mg tab ORAL SCH (21:00)
[2018-02-10] MEDS: Piperacillin/Tazobactam 2.25 GM in D5W 110 ML IV SCH (22:36)
[2018-02-10] MEDS ORDERED: Docusate 100mg/10ml Liq GT SCH (22:45)
[2018-02-10] MEDS ORDERED: Haloperidol 5mg/ml Inj IM PRN (22:45)
[2018-02-10] MEDS ORDERED: Donepezil 10mg tab ORAL SCH (22:46)
[2018-02-11] VITALS (8 sets, daily range): BP systolic 88–120; BP diastolic 41–60
[2018-02-11] MEDS ORDERED: Norco 5mg/325mg tab GT PRN (01:00)
[2018-02-11] MEDS: Piperacillin/Tazobactam 2.25 GM in D5W 110 ML IV SCH ×3 (05:33→22:21)
[2018-02-11] MEDS: NovoLOG Insulin Flexpen SUBQ SCH ×3 (05:35→18:47)
[2018-02-11] MEDS: Docusate 100mg/10ml Liq GT SCH ×3 (09:21→17:59)
[2018-02-11] MEDS: Eliquis 2.5mg tablet GT SCH ×2 (09:23→17:59)
[2018-02-11] MEDS: Lisinopril 2.5mg tab ORAL SCH ×2 (09:24→21:55)
[2018-02-11] MEDS: Metoprolol Succinate XL 25mg tab ORAL SCH (09:24)
[2018-02-11] MEDS: Amiodarone 200mg tab GT SCH (09:25)
[2018-02-11] MEDS: Ascorbic Acid 500mg tab GT SCH (09:25)
[2018-02-11] MEDS: Nitroglycerin 2% oint pkt TOPIC SCH ×2 (09:26→18:00)
[2018-02-11] MEDS: Vitamin A&D Oint 2oz Tube TOPIC SCH ×2 (09:38→21:55)
--- NOTE | 2018-02-11 09:57 | General Progress Note ---
Assessment/Plan Status: deteriorating Assessment/Plan S: " not communicating verbally" P: appears comfortable. Singer in place , AOx1, limited source of info, PHYSICAL EXAMINATION: IVETT-chest wall PermCath in place GENERAL: The patient is comfortable. HEENT: Pupils equal and responsive to light and accommodation. Extraocular movements are intact. NECK: Supple without lymphadenopathy. CHEST: bronchial breathing sounds CARDIOVASCULAR: IRegular rate and rythm S1, S2 normal without murmurs, rubs, or gallops. ABDOMEN: Soft, nontender, and nondistended. Positive bowel sounds. No evidence of hepatosplenomegaly. Currently, no rebound or guarding noted. PEG t in place EXTREMITIES: atrophied extremitatis, with spontaneous movements NEUROLOGIC: Limited exam. Patient not cooperative, AOx 1 ASSESSMENT: This is an 81-year-old male with: 1. Hyperuremia in progressive worsening renal function 2. history of End-stage renal disease, s/p Re-initiation of HD 3. Diabetes type 2. 4. Hypercholesterolemia. 5. Cardiomyopathy. 6. Atrial fibrillation. 7. Congestive heart failure. 8. Hypertension. 9. Alzheimer dementia. 10. Benign prostatic hypertrophy. 11. No capacity for making medical decision TREATMENT: Continue HD per Nephrology Rec. Given the emergency nature of consequences in delayed HD placement, and lack of patient's capacity for making decision. It is ok to proceed with HD access placement Notes from Nephro reviewed Will optimize electrolyte, per Nephrology Incidence of Hypotension. will provide NS 500 cc Bolus, and will downtitrate BP meds New leukocytosis, in conjunction with new hypoxemia CXR pending will proceed with empiricall abx treatment for aspiration pna transfer to P2 consult ID Subjective Allergies: Coded Allergies: No Known Allergies (Unverified , 12/19/17) Objective Last 24 Hour Vital Signs Date Time Temp Pulse Resp B/P (MAP) Pulse Ox O2 Delivery O2 Flow Rate FiO2 02/11/18 09:26 110/60 02/11/18 09:24 99 110/60 02/11/18 09:24 110/60 02/11/18 04:00 94 02/11/18 04:00 97.6 97 21 96/55 92 Nasal Cannula 4.0 97.6 02/11/18 00:00 97.8 90 19 89/53 95 Nasal Cannula 4.0 97.8 02/11/18 00:00 90 02/10/18 20:24 93/52 02/10/18 20:00 97.2 96 18 93/55 100 97.2 02/10/18 18:00 100/65 02/10/18 16:00 97.2 100 20 100/65 95 Nasal Cannula 3.0 97.2 02/10/18 15:12 96 20 96 Room Air 40 02/10/18 15:05 40 02/10/18 15:05 101 24 92 Nasal Cannula 5.0 40 02/10/18 12:00 97.3 94 20 117/55 94 Nasal Cannula 3.0 97.3 Intake and Output 02/10/18 02/11/18 19:00 07:00 Intake Total 670 ml 1000 ml Output Total 300 ml Balance 370 ml 1000 ml Intake Free Water 120 ml 130 ml IV Total 470 ml Tube Feeding 550 ml 400 ml Output Urine Total 300 ml # Bowel Movements 1 Laboratory Tests 02/11/18 06:33: Random Vancomycin Level 19.9 Height (Feet): 5 Height (Inches): 10.00 Weight (Pounds): 226 Courtney Weeks MD February 11, 2018 09:57
--- NOTE | 2018-02-11 10:10 | Nephrology Progress Note ---
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, stage IV (4) Hypothyroidism Renal failure- Been dialysed previously- Cr creeping up h/o urine out let Obstruction, Urine retention GT in place DM HTN echo: Cardiomyopathy 30% ej Fx HypoThyroidism IV bollous Cr 5 Singer for now 2D echo 30% ej fx Plan change hydralazine to zestril HD 02/11 hepatitis panel last HD 02/09 Adjust BP meds Subjective ROS Limited/Unobtainable: No Constitutional: Reports: malaise Objective Objective Last 24 Hour Vital Signs Date Time Temp Pulse Resp B/P (MAP) Pulse Ox O2 Delivery O2 Flow Rate FiO2 02/11/18 09:26 110/60 02/11/18 09:24 99 110/60 02/11/18 09:24 110/60 02/11/18 04:00 94 02/11/18 04:00 97.6 97 21 96/55 92 Nasal Cannula 4.0 97.6 02/11/18 00:00 97.8 90 19 89/53 95 Nasal Cannula 4.0 97.8 02/11/18 00:00 90 02/10/18 20:24 93/52 02/10/18 20:00 97.2 96 18 93/55 100 97.2 02/10/18 18:00 100/65 02/10/18 16:00 97.2 100 20 100/65 95 Nasal Cannula 3.0 97.2 02/10/18 15:12 96 20 96 Room Air 40 02/10/18 15:05 40 02/10/18 15:05 101 24 92 Nasal Cannula 5.0 40 02/10/18 12:00 97.3 94 20 117/55 94 Nasal Cannula 3.0 97.3 Intake and Output 02/10/18 02/11/18 19:00 07:00 Intake Total 670 ml 1000 ml Output Total 300 ml Balance 370 ml 1000 ml Intake Free Water 120 ml 130 ml IV Total 470 ml Tube Feeding 550 ml 400 ml Output Urine Total 300 ml # Bowel Movements 1 Laboratory Tests 02/11/18 06:33: Random Vancomycin Level 19.9 Height (Feet): 5 Height (Inches): 10.00 Weight (Pounds): 226 General Appearance: no apparent distress Respiratory/Chest: decreased breath sounds Objective no change VALENTIN RUSH February 11, 2018 10:10
--- NOTE | 2018-02-11 10:33 | Diagnostic Imaging Report ---
Indication: Dyspnea Comparison: 02/07/2018 A single view chest radiograph was obtained. Findings: Interstitial edema demonstrated with worsening. There is cardiomegaly present. Permacath noted in good position. There may be a left pleural effusion. Bones are osteopenic. IMPRESSION: CHF/interstitial edema. Suspected left pleural effusion
--- NOTE | 2018-02-11 12:30 | Consultation ---
History of Present Illness General Date patient seen: February 11, 2018 Chief Complaint: Abnormal Labs Present Illness HPI 82 year old male with hx of CHF, DM, CRF, bed bound, Peg, vegetative state, custodial resident, REN 8 days ago with CC of worsening renal function. Pt was on the medical floor. He was transferred to telemetry yesterday b/o decreasing BP. A new CXR showed worsening pleural effusion. I was asked to help out with the management. Allergies: Coded Allergies: No Known Allergies (Unverified , 12/19/17) Medication History Scheduled Acetaminophen* (Acetaminophen 325MG Tablet*), 650 MG GT DAILY, (Reported) Amiodarone Hcl* (Amiodarone Hcl*), 400 MG GT DAILY, (Reported) Apixaban (Eliquis), 2.5 MG GT BID Arginine/Glutamine/Calcium Hmb (Tae Packet), 1 EACH GT DAILY, (Reported) Ascorbic Acid* (Vitamin C*), 500 MG GT DAILY, (Reported) Atorvastatin Calcium* (Lipitor*), 80 MG ORAL BEDTIME, (Reported) Cran/Vitc/Mannose/Inulin/Brom (Uti-Stat Liquid), 3,875 MG GT DAILY, (Reported) Cranberry Fruit Concentrate (Cranberry), 450 MG GT DAILY, (Reported) Docusate Sodium* (Colace*), 100 MG ORAL DAILY, (Reported) Donepezil Hcl* (Donepezil Hcl*), 10 MG ORAL DAILY, (Reported) Esomeprazole Magnesium (Nexium), 40 MG GT DAILY, (Reported) Ferrous Sulfate* (Ferrous Sulfate*), 325 MG GT TWICE A DAY, (Reported) Finasteride* (Proscar*), 5 MG GT DAILY, (Reported) Folic Acid* (Folic Acid*), 1 MG ORAL DAILY, (Reported) Hydralazine Hcl* (Hydralazine Hcl*), 25 MG GT Q8HR Levothyroxine Sodium (Synthroid), 50 MCG ORAL DAILY@0630 Losartan Potassium* (Losartan Potassium*), 50 MG ORAL DAILY, (Reported) Metoprolol Succinate* (Metoprolol Succinate*), 25 MG GT DAILY, (Reported) Multivitamin Liquid* (Multi-Delyn*), 5 ML GT DAILY, (Reported) Saccharomyces Boulardii (Florastor*), 250 MG GT DAILY, (Reported) Sennosides (Senna), 8.6 MG GT QHS, (Reported) Tamsulosin Hcl (Tamsulosin Hcl*), 0.4 MG ORAL BEDTIME, (Reported) Scheduled PRN Acetaminophen With Codeine 300MG/30MG (T#3)* (Tylenol With Codeine #3 Tablet*), 1 TAB GT Q4H PRN for MODERATE PAIN, (Reported) Acetaminophen* (Acetaminophen 325MG Tablet*), 650 MG GT Q4H PRN for MILD PAIN/ TEMP >101, (Reported) Bisacodyl (Dulcolax), 10 MG RC for IF MOM INEFFECTIVE, (Reported) Hydrocodone Bit/Acetaminophen 5-325* ([place] 5-325*), 1 TAB GT Q4H PRN for SEVERE PAIN, (Reported) Magnesium Hydroxide* (Milk Of Magnesia*), 30 ML GT DAILY PRN for IF DOK/SENNA INEFFECTIVE, (Reported) Miscellaneous Medications Nitroglycerin (Nitro-Bid*), Unknown Dose TOPIC, (Reported) Patient History Healthcare decision maker Resuscitation status Full Code Advanced Directive on File No Past Medical/Surgical History Past Medical/Surgical History: (1) 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, stage IV (2) Diabetes mellitus out of control (3) Hypothyroidism Review of Systems All Other Systems: negative except mentioned in HPI Physical Exam General Appearance: WD/WN Lines, tubes and drains: peripheral HEENT: normocephalic, atraumatic Neck: non-tender, normal alignment, supple Respiratory/Chest: rhonchi - left, rhonchi - right Breasts: no masses Cardiovascular/Chest: normal peripheral pulses, normal rate Abdomen: normal bowel sounds, non tender Genitourinary/Rectal: normal genital exam Extremities: normal range of motion Skin Exam: normal pigmentation Last 24 Hour Vital Signs Date Time Temp Pulse Resp B/P (MAP) Pulse Ox O2 Delivery O2 Flow Rate FiO2 02/11/18 09:26 110/60 02/11/18 09:24 99 110/60 02/11/18 09:24 110/60 02/11/18 08:00 97.2 99 20 110/60 95 Nasal Cannula 4.0 97.2 02/11/18 07:40 94 02/11/18 04:00 94 02/11/18 04:00 97.6 97 21 96/55 92 Nasal Cannula 4.0 97.6 02/11/18 00:00 97.8 90 19 89/53 95 Nasal Cannula 4.0 97.8 02/11/18 00:00 90 02/10/18 20:24 93/52 02/10/18 20:00 97.2 96 18 93/55 100 97.2 02/10/18 18:00 100/65 02/10/18 16:00 97.2 100 20 100/65 95 Nasal Cannula 3.0 97.2 02/10/18 15:12 96 20 96 Room Air 40 02/10/18 15:05 40 02/10/18 15:05 101 24 92 Nasal Cannula 5.0 40 Intake and Output 02/10/18 02/11/18 19:00 07:00 Intake Total 670 ml 1000 ml Output Total 300 ml Balance 370 ml 1000 ml Intake Free Water 120 ml 130 ml IV Total 470 ml Tube Feeding 550 ml 400 ml Output Urine Total 300 ml # Bowel Movements 1 Laboratory Tests Test 02/11/18 06:33 Random Vancomycin Level 19.9 ug/mL Height (Feet): 5 Height (Inches): 10.00 Weight (Pounds): 226 Medications Current Medications Medications (Trade) Dose Ordered Sig/Tiffany Route PRN Reason Start Time Stop Time Status Last Admin Dose Admin Acetaminophen (Tylenol) 650 mg Q4H PRN ORAL MILD PAIN/TEMP >101 02/11/18 01:00 03/06/18 00:59 Acetaminophen/ Hydrocodone Bitart ([place] 5/325) 1 tab Q4H PRN GT SEVERE PAIN 02/11/18 01:00 02/12/18 00:59 Albuterol/ Ipratropium (Albuterol/ Ipratropium) 3 ml Q4H PRN HHN Shortness of Breath 02/10/18 23:00 02/15/18 14:59 Amiodarone HCl (Cordarone) 200 mg DAILY GT 02/11/18 09:00 03/06/18 08:59 02/11/18 09:25 Apixaban (Eliquis) 2.5 mg BID GT 02/11/18 09:00 03/12/18 10:59 02/11/18 09:23 Ascorbic Acid (Vitamin C) 500 mg DAILY GT 02/11/18 09:00 03/06/18 08:59 02/11/18 09:25 Bisacodyl (Dulcolax) 10 mg DAILYPRN PRN RECTAL IF MOM INEFFECTIVE 02/11/18 01:00 03/06/18 00:59 Chlorhexidine Gluconate (Laya-Hex 2%) 1 applic DAILY@1999 TOPIC 02/11/18 20:00 03/08/18 19:59 Clotrimazole (Lotrimin) 1 applic EVERY 12 HOURS TOPIC 02/11/18 09:00 03/13/18 08:59 02/11/18 09:39 Dextrose (Dextrose 50%) 25 ml STAT PRN IV Hypoglycemia 02/11/18 01:30 03/06/18 01:29 Dextrose (Dextrose 50%) 50 ml STAT PRN IV Hypoglycemia 02/11/18 01:30 03/06/18 01:29 Docusate Sodium (Colace) 100 mg TID GT 02/11/18 09:00 03/13/18 08:59 02/11/18 09:21 Donepezil HCl (Aricept) 10 mg QHS ORAL 02/11/18 21:00 03/13/18 20:59 Finasteride (Proscar) 5 mg DAILY ORAL 02/11/18 09:00 03/06/18 08:59 02/11/18 09:36 Haloperidol Lactate (Haldol) 5 mg Q6H PRN IM Agitation 02/10/18 22:45 03/07/18 16:44 Insulin Aspart (NovoLOG) Q6HR SUBQ 02/11/18 00:00 03/06/18 06:29 02/11/18 05:35 Insulin Detemir (Levemir) 5 units BEDTIME SUBQ 02/11/18 21:00 03/07/18 20:59 Lansoprazole (Prevacid) 30 mg ACBREAKFAST GT 02/11/18 06:30 03/06/18 06:29 02/11/18 06:07 Levothyroxine Sodium (Synthroid) 50 mcg DAILY@0630 ORAL 02/11/18 06:30 03/06/18 06:29 02/11/18 06:07 Lisinopril (Zestril) 2.5 mg Q12HR ORAL 02/11/18 09:00 03/12/18 20:59 02/11/18 09:24 Metoprolol Succinate (Toprol XL) 12.5 mg DAILY ORAL 02/11/18 09:00 03/06/18 08:59 02/11/18 09:24 Nitroglycerin (Nitro-Bid) 1 inch BID TOPIC 02/11/18 09:00 03/06/18 08:59 02/11/18 09:26 Piperacillin Sod/ Tazobactam Sod 2.25 gm/Dextrose 110 ml @ 220 mls/hr Q8HR IV 02/10/18 22:15 02/15/18 19:59 02/11/18 05:33 Quetiapine Fumarate (SEROquel) 25 mg Q6H PRN ORAL For Anxiety 02/11/18 01:00 03/06/18 18:59 Saccharomyces Boulardii (Florastor) 250 mg DAILY GT 02/11/18 09:00 03/06/18 08:59 02/11/18 09:24 Sennosides (Senokot) 2 tab QHS GT 02/11/18 21:00 03/06/18 20:59 Tamsulosin HCl (Flomax) 0.4 mg BEDTIME ORAL 02/11/18 21:00 03/06/18 20:59 Vancomycin HCl (Vanco rx to dose) 1 ea DAILY PRN MISC Per rx protocol 02/11/18 09:00 03/12/18 15:59 Vancomycin HCl/ Dextrose 250 ml @ 125 mls/hr ONCE IVPB 02/11/18 17:00 02/11/18 23:59 Vitamin A/Vitamin D (A & D Oint) 1 applic EVERY 12 HOURS TOPIC 02/11/18 09:00 03/06/18 08:59 02/11/18 09:38 Assessment/Plan Problem List: (1) Acute respiratory failure ICD Codes: J96.00 - Acute respiratory failure, unspecified whether with hypoxia or hypercapnia SNOMED: 44747518 (2) Pleural effusion ICD Codes: J90 - Pleural effusion, not elsewhere classified SNOMED: 43356473 (3) ESRF (end stage renal failure) ICD Codes: N18.6 - End stage renal disease SNOMED: 18429464 (4) Vegetative state ICD Codes: R40.3 - Persistent vegetative state SNOMED: 39926604 (5) Limited mobility ICD Codes: Z74.09 - Other reduced mobility SNOMED: 2713290 (6) Diabetes mellitus ICD Codes: E11.9 - Type 2 diabetes mellitus without complications SNOMED: 57666408 Assessment/Plan respiratory treatment titrate fio2 to sat of 92% thoracentesis Hd check electrolytes cxr in am symptomatic treatment address the code status? Michelle Harris MD February 11, 2018 12:30
--- NOTE | 2018-02-11 13:01 | General Progress Note ---
Progress Note Progress Note All noted. Pt reportedly has been trying to pull out new PermCath, causing bleeding from site. Exam -- NAD; AVSS; catheter site C&D; no active bleeding or collection in the area. labs reviewed. A/P -- pt is a poor candidate for long-term catheter access for HD. Suggest AVF /AVG, if medically cleared and plans for chronic HD expected. Discussed with team. LORETA BRAN February 11, 2018 13:01
[2018-02-11 13:53] LABS: INR 1.1 (0.9-1.1)
--- NOTE | 2018-02-11 15:30 | Operative Note - Dictated ---
DATE OF OPERATION: 02/05/2018 PREOPERATIVE DIAGNOSIS: Endstage renal disease. POSTOPERATIVE DIAGNOSIS: Endstage renal disease . PROCEDURE: 1. Placement of a tunneled dialysis catheter (PermCath) via left internal jugular vein. 2. Incision and drainage of right chest hematoma. 3. Intraoperative ultrasound. 4. Intraoperative fluoroscopy. SURGEON: Ulysses Stout M.D. ANESTHESIA: General. ANESTHESIOLOGIST: Rodo Gonzalez M.D. INDICATION: The patient had a catheter removed recently from the right chest and is in need of a new dialysis access per the personal care assistant. INTRAOPERATIVE FINDINGS: There was noted to be a mass at the location of the old catheter in the right chest requiring drainage as described below. The fluid was sent for culture and sensitivity and appeared to be hematoma with possible pus. The left internal jugular vein was patent and the catheter placed as described below. A good venous blood returned from both ports and the tip placed at the atriocaval junction. The patient remained hemodynamically stable throughout the procedure and chest x-ray was ordered postoperatively to rule out hemopneumothorax. PROCEDURE IN DETAIL: With the patient in supine position and after induction of anesthesia, the neck and upper chest areas were prepped and draped in usual sterile fashion. The mass in the right chest was drained after infiltration of the skin with local anesthetic and a small incision was made and some fluid expressed and sent for culture and sensitivity. Sterile dressings were placed. The patient was then placed in the Trendelenburg position and left internal jugular vein access through a posterior approach to the left sternocleidomastoid muscle under ultrasound and fluoroscopic guidance using a micropuncture needle and a single wall puncture and modified Seldinger technique, a wire was advanced and followed into the vena cava under fluoroscopy and the needle removed. After infiltration of the skin with more local anesthetic, two stab incisions were made, one at the puncture site in the neck and the other in the left anterolateral of the chest and there were connected through a subcutaneous tunnel through which the catheter was brought out of the upper incision where after sterile dilation , the peel-away introducer sheath and dilator were placed coaxially over the wire and followed into the vena cava under fluoroscopy. The wire and dilator were removed and the catheter placed through the sheath into the vessel and the sheath peeled away and removed leaving the catheter in good position. No kinks noted along its length under fluoroscopy. Good venous blood return was obtained from both ports of the catheter, which was flushed with heparinized saline and capped. The catheter was secured to the skin with nylon sutures and after the neck incision was irrigated with antibiotic solution and hemostasis was established it was closed with a single suture of 4-0 Vicryl in a subcuticular vertical mattress fashion. Skin was cleaned and dried and Betadine solution applied to both incisions and sterile dressings were placed. The patient was brought out of anesthesia, extubated and transferred to PACU in stable condition. He tolerated procedure well. At the conclusion of procedure, sponge, needle, and instrument counts were correct. ESTIMATED BLOOD LOSS: Minimal. COMPLICATIONS: None. DRAINS: None. SPECIMEN: Fluid from the right chest collection for culture and sensitivity. TOTAL FLUOROSCOPY TIME: 41 seconds. Procedure was performed using maximal sterile barrier technique. Ulysses Stout M.D. DR: SUNDAY JOB#: [id number] CC: Courtney Weeks M.D.; Fax#: [phone] Bird Page M.D.; FAX#: [phone]
--- NOTE | 2018-02-11 15:49 | Consultation ---
History of Present Illness General Date patient seen: February 11, 2018 Chief Complaint: Abnormal Labs Present Illness HPI 82 y/o M with hx of CHF, DM2, bed bound, ESRD previously on HD, recent infected HD cath s/p removal,cardiomyopathy EF 30%, HTN, hypothyroidism, Dementia, BPH, anemia, dysphagia s/p Peg, vegetative state, care home resident presents to ED on 02/04 with worsening renal function; creatinine up to 5. Started on HD. Patient was transferred to telemetry due to low BP. CXR showed pleural effusion. Patient re-initiated on HD. No report of vomiting, diarrhea upon admission Patient recently admitted here from 01/17-01/30 with infected HD cath, s/p removal , no bacteremia. Treated with 7 days of Daptomycin. Plan was to monitor patient off hemodialysis Yesterday, patient had episodes of desaturation and low blood pressure and transferred to telemetry. Started on Vanco and Zosyn. Also mild leukocytosis. No fever. Allergies: Coded Allergies: No Known Allergies (Unverified , 12/19/17) Medication History Scheduled Acetaminophen* (Acetaminophen 325MG Tablet*), 650 MG GT DAILY, (Reported) Amiodarone Hcl* (Amiodarone Hcl*), 400 MG GT DAILY, (Reported) Apixaban (Eliquis), 2.5 MG GT BID Arginine/Glutamine/Calcium Hmb (Tae Packet), 1 EACH GT DAILY, (Reported) Ascorbic Acid* (Vitamin C*), 500 MG GT DAILY, (Reported) Atorvastatin Calcium* (Lipitor*), 80 MG ORAL BEDTIME, (Reported) Cran/Vitc/Mannose/Inulin/Brom (Uti-Stat Liquid), 3,875 MG GT DAILY, (Reported) Cranberry Fruit Concentrate (Cranberry), 450 MG GT DAILY, (Reported) Docusate Sodium* (Colace*), 100 MG ORAL DAILY, (Reported) Donepezil Hcl* (Donepezil Hcl*), 10 MG ORAL DAILY, (Reported) Esomeprazole Magnesium (Nexium), 40 MG GT DAILY, (Reported) Ferrous Sulfate* (Ferrous Sulfate*), 325 MG GT TWICE A DAY, (Reported) Finasteride* (Proscar*), 5 MG GT DAILY, (Reported) Folic Acid* (Folic Acid*), 1 MG ORAL DAILY, (Reported) Hydralazine Hcl* (Hydralazine Hcl*), 25 MG GT Q8HR Levothyroxine Sodium (Synthroid), 50 MCG ORAL DAILY@0630 Losartan Potassium* (Losartan Potassium*), 50 MG ORAL DAILY, (Reported) Metoprolol Succinate* (Metoprolol Succinate*), 25 MG GT DAILY, (Reported) Multivitamin Liquid* (Multi-Delyn*), 5 ML GT DAILY, (Reported) Saccharomyces Boulardii (Florastor*), 250 MG GT DAILY, (Reported) Sennosides (Senna), 8.6 MG GT QHS, (Reported) Tamsulosin Hcl (Tamsulosin Hcl*), 0.4 MG ORAL BEDTIME, (Reported) Scheduled PRN Acetaminophen With Codeine 300MG/30MG (T#3)* (Tylenol With Codeine #3 Tablet*), 1 TAB GT Q4H PRN for MODERATE PAIN, (Reported) Acetaminophen* (Acetaminophen 325MG Tablet*), 650 MG GT Q4H PRN for MILD PAIN/ TEMP >101, (Reported) Bisacodyl (Dulcolax), 10 MG RC for IF MOM INEFFECTIVE, (Reported) Hydrocodone Bit/Acetaminophen 5-325* ([place] 5-325*), 1 TAB GT Q4H PRN for SEVERE PAIN, (Reported) Magnesium Hydroxide* (Milk Of Magnesia*), 30 ML GT DAILY PRN for IF DOK/SENNA INEFFECTIVE, (Reported) Miscellaneous Medications Nitroglycerin (Nitro-Bid*), Unknown Dose TOPIC, (Reported) Patient History Healthcare decision maker Resuscitation status Full Code Advanced Directive on File No Patient History Narrative Pmhx: as above Shx: The patient denies tobacco or alcohol use. The patient is a resident of [facility]. Fhx: non contributory Review of Systems All Other Systems: negative except mentioned in HPI Physical Exam Physical Exam Narrative GENERAL: The patient is a well-developed and well-nourished male, who is confused. HEENT: Pupils equal and responsive to light and accommodation. Extraocular movements are intact. NECK: Supple without lymphadenopathy. CHEST: ronchi, and cracales bibasilar CARDIOVASCULAR: Regular rate. S1, S2 normal without murmurs, rubs, or gallops. ABDOMEN: Soft, nontender, and nondistended. Positive bowel sounds. No evidence of hepatosplenomegaly. Currently, no rebound or guarding noted. EXTREMITIES: Negative for clubbing, cyanosis, or edema. Last 24 Hour Vital Signs Date Time Temp Pulse Resp B/P (MAP) Pulse Ox O2 Delivery O2 Flow Rate FiO2 02/11/18 12:00 97.7 96 20 98/59 96 Nasal Cannula 4.0 97.7 02/11/18 11:40 95 02/11/18 09:26 110/60 02/11/18 09:24 99 110/60 02/11/18 09:24 110/60 02/11/18 08:00 97.2 99 20 110/60 95 Nasal Cannula 4.0 97.2 02/11/18 07:40 94 02/11/18 04:00 94 02/11/18 04:00 97.6 97 21 96/55 92 Nasal Cannula 4.0 97.6 02/11/18 00:00 97.8 90 19 89/53 95 Nasal Cannula 4.0 97.8 02/11/18 00:00 90 02/10/18 20:24 93/52 02/10/18 20:00 97.2 96 18 93/55 100 97.2 02/10/18 18:00 100/65 02/10/18 16:00 97.2 100 20 100/65 95 Nasal Cannula 3.0 97.2 Intake and Output 02/10/18 02/11/18 19:00 07:00 Intake Total 670 ml 1000 ml Output Total 300 ml Balance 370 ml 1000 ml Intake Free Water 120 ml 130 ml IV Total 470 ml Tube Feeding 550 ml 400 ml Output Urine Total 300 ml # Bowel Movements 1 Laboratory Tests Test 02/11/18 06:33 02/11/18 13:14 Random Vancomycin Level 19.9 ug/mL Prothrombin Time 11.3 SEC (9.30-11.50) Prothromb Time International Ratio 1.1 (0.9-1.1) Activated Partial Thromboplast Time 37 SEC (23-33) H Height (Feet): 5 Height (Inches): 10.00 Weight (Pounds): 226 Medications Current Medications Medications (Trade) Dose Ordered Sig/Tiffany Route PRN Reason Start Time Stop Time Status Last Admin Dose Admin Acetaminophen (Tylenol) 650 mg Q4H PRN ORAL MILD PAIN/TEMP >101 02/11/18 01:00 03/06/18 00:59 Acetaminophen/ Hydrocodone Bitart ([place] 5/325) 1 tab Q4H PRN GT SEVERE PAIN 02/11/18 01:00 02/12/18 00:59 Albuterol/ Ipratropium (Albuterol/ Ipratropium) 3 ml Q4H PRN HHN Shortness of Breath 02/10/18 23:00 02/15/18 14:59 Amiodarone HCl (Cordarone) 200 mg DAILY GT 02/11/18 09:00 03/06/18 08:59 02/11/18 09:25 Apixaban (Eliquis) 2.5 mg BID GT 02/11/18 09:00 03/12/18 10:59 02/11/18 09:23 Ascorbic Acid (Vitamin C) 500 mg DAILY GT 02/11/18 09:00 03/06/18 08:59 02/11/18 09:25 Bisacodyl (Dulcolax) 10 mg DAILYPRN PRN RECTAL IF MOM INEFFECTIVE 02/11/18 01:00 03/06/18 00:59 Chlorhexidine Gluconate (Laya-Hex 2%) 1 applic DAILY@2000 TOPIC 02/11/18 20:00 03/08/18 19:59 Clotrimazole (Lotrimin) 1 applic EVERY 12 HOURS TOPIC 02/11/18 09:00 03/13/18 08:59 02/11/18 09:39 Dextrose (Dextrose 50%) 25 ml STAT PRN IV Hypoglycemia 02/11/18 01:30 03/06/18 01:29 Dextrose (Dextrose 50%) 50 ml STAT PRN IV Hypoglycemia 02/11/18 01:30 03/06/18 01:29 Docusate Sodium (Colace) 100 mg TID GT 02/11/18 09:00 03/13/18 08:59 02/11/18 12:43 Donepezil HCl (Aricept) 10 mg QHS ORAL 02/11/18 21:00 03/13/18 20:59 Finasteride (Proscar) 5 mg DAILY ORAL 02/11/18 09:00 03/06/18 08:59 02/11/18 09:36 Haloperidol Lactate (Haldol) 5 mg Q6H PRN IM Agitation 02/10/18 22:45 03/07/18 16:44 Insulin Aspart (NovoLOG) Q6HR SUBQ 02/11/18 00:00 03/06/18 06:29 02/11/18 12:43 Insulin Detemir (Levemir) 5 units BEDTIME SUBQ 02/11/18 21:00 03/07/18 20:59 Lansoprazole (Prevacid) 30 mg ACBREAKFAST GT 02/11/18 06:30 03/06/18 06:29 02/11/18 06:07 Levothyroxine Sodium (Synthroid) 50 mcg DAILY@0630 ORAL 02/11/18 06:30 03/06/18 06:29 02/11/18 06:07 Lisinopril (Zestril) 2.5 mg Q12HR ORAL 02/11/18 09:00 03/12/18 20:59 02/11/18 09:24 Metoprolol Succinate (Toprol XL) 12.5 mg DAILY ORAL 02/11/18 09:00 03/06/18 08:59 02/11/18 09:24 Nitroglycerin (Nitro-Bid) 1 inch BID TOPIC 02/11/18 09:00 03/06/18 08:59 02/11/18 09:26 Piperacillin Sod/ Tazobactam Sod 2.25 gm/Dextrose 110 ml @ 220 mls/hr Q8HR IV 02/10/18 22:15 02/15/18 19:59 02/11/18 14:04 Quetiapine Fumarate (SEROquel) 25 mg Q6H PRN ORAL For Anxiety 02/11/18 01:00 03/06/18 18:59 Saccharomyces Boulardii (Florastor) 250 mg DAILY GT 02/11/18 09:00 03/06/18 08:59 02/11/18 09:24 Sennosides (Senokot) 2 tab QHS GT 02/11/18 21:00 03/06/18 20:59 Tamsulosin HCl (Flomax) 0.4 mg BEDTIME ORAL 02/11/18 21:00 03/06/18 20:59 Vancomycin HCl (Vanco rx to dose) 1 ea DAILY PRN MISC Per rx protocol 02/11/18 09:00 03/12/18 15:59 Vancomycin HCl/ Dextrose 250 ml @ 125 mls/hr ONCE IVPB 02/11/18 17:00 02/11/18 23:59 Vitamin A/Vitamin D (A & D Oint) 1 applic EVERY 12 HOURS TOPIC 02/11/18 09:00 03/06/18 08:59 02/11/18 09:38 Assessment/Plan Assessment/Plan Abx: IV Vancomycin 02/10- Zosyn 02/10- Assessment: Probable aspiration pneumonia (desaturation, mild leukocytosis) -CXR: Interstitial edema demonstrated with worsening. There is cardiomegaly present. There may be a left pleural effusion. Mild leukocytosis -afebrile Mild pyuria and bacteriuria -u.a wbc 15-20, nti neg, leuk +3; ucx <10K K, pna ( R amp, otherwise S); not clinically significant Acute on chronic renal failure -s/p permacath HD placement and re-initiation of HD Recent infected HD cath 2ry to MRSA s/p removal 01/20 -cath tip cx :MRSA -BCx Neg (peripheral), HD Cath Bcx neg -wound cx: MRSA (S Vancomycin, Bactrim, Tetracycline) -Echo: no vegetations seen. Aortic valve calcification with decreased cusp excursion c/w aortic stenosis. Mildly thickened mitral valve leaflets with normal excursion. Moderate mitral annulus and aortic root calcification. Stroke w/ hemiparesis dementia nonverbal HTN HLD cardiomyopathy Aflutter contractures, DM2 dysphagia s/p PEG anemia CHF care home resident VRE colonized Plan: -Continue empiric IV Vanco and Zosyn #2 pending sputum cx -01/24 SP IV Daptomycin 4mg/kg q48hrs abx d # 7/7 for MRSA HD cath infection -01/22 SP IV Vancomcyin #5 (d/c due to supratherapeutic vanco levels) -sputum cx -Monitor CBC/BMP, temperatures -aspiration precautions -PEG, HD cath care Thank you for this consultation. Will continue to follow along with you. Discussed with Sarah Lujan M.D. February 11, 2018 15:49
--- NOTE | 2018-02-11 15:57 | Cardiac Electrophysiology PN ---
Assessment/Plan Assessment/Plan 1. Atrial flutter. On amiodarone 200 mg daily, Toprol-XL 25 mg daily and Eliquis 2.5 mg b.i.d. 2. Hypertension. On Hydralazine 25 bid and Toprol-XL 25 mg and HD 3. Cardiomyopathy with EF 30% on Hydralazine,Toprol-XL and HD Not a candidate for defibrillator placement. 4. ESRD on HD PermCath that was REMOVED and new one placed HD per Dr Verma 5. Hyperlipidemia, on Lipitor. 6. Dysphagia, S/P PEG replacement DW RN Subjective Subjective In restraints in NAD. Objective Last 24 Hour Vital Signs Date Time Temp Pulse Resp B/P (MAP) Pulse Ox O2 Delivery O2 Flow Rate FiO2 02/11/18 12:00 97.7 96 20 98/59 96 Nasal Cannula 4.0 97.7 02/11/18 11:40 95 02/11/18 09:26 110/60 02/11/18 09:24 99 110/60 02/11/18 09:24 110/60 02/11/18 08:00 97.2 99 20 110/60 95 Nasal Cannula 4.0 97.2 02/11/18 07:40 94 02/11/18 04:00 94 02/11/18 04:00 97.6 97 21 96/55 92 Nasal Cannula 4.0 97.6 02/11/18 00:00 97.8 90 19 89/53 95 Nasal Cannula 4.0 97.8 02/11/18 00:00 90 02/10/18 20:24 93/52 02/10/18 20:00 97.2 96 18 93/55 100 97.2 02/10/18 18:00 100/65 02/10/18 16:00 97.2 100 20 100/65 95 Nasal Cannula 3.0 97.2 Intake and Output 02/10/18 02/11/18 19:00 07:00 Intake Total 670 ml 1000 ml Output Total 300 ml Balance 370 ml 1000 ml Intake Free Water 120 ml 130 ml IV Total 470 ml Tube Feeding 550 ml 400 ml Output Urine Total 300 ml # Bowel Movements 1 Laboratory Tests Test 02/11/18 06:33 02/11/18 13:14 Random Vancomycin Level 19.9 ug/mL Prothrombin Time 11.3 SEC (9.30-11.50) Prothromb Time International Ratio 1.1 (0.9-1.1) Activated Partial Thromboplast Time 37 SEC (23-33) H Objective HEAD AND NECK: No JVD. Left IG HD catheter in place with no active bleeding LUNGS: Clear. CARDIOVASCULAR: Regular S1 and S2 with no gallop. ABDOMEN: Soft, status post G-tube. EXTREMITIES: 1+ pitting edema. Malik Shannon MD February 11, 2018 15:56
[2018-02-11] MEDS ORDERED: Vancomycin 1.5 GM/D5W 250ML IVPB SCH (17:00)
[2018-02-11] MEDS ORDERED: Sterile Water Irrig 1000ml IRRIG ONE (19:58)
[2018-02-11] MEDS ORDERED: Tubing IV Secondary IV ONE (19:58)
[2018-02-11] MEDS: Sennosides 8.6mg GT SCH (21:43)
[2018-02-11] MEDS: Tamsulosin 0.4mg cap ORAL SCH (21:43)
[2018-02-11] MEDS: Donepezil 10mg tab ORAL SCH (21:44)
[2018-02-11] MEDS: Levemir Flexpen SUBQ SCH (21:48)
[2018-02-11] MEDS: Dyna-Hex 2% Top Sol 2oz TOPIC SCH (21:55)
--- NOTE | 2018-02-11 23:11 | General Progress Note ---
Assessment/Plan Assessment/Plan dementia with behavioral dist encephalopathy seroquel prn Subjective Date patient seen: February 11, 2018 Neurologic/Psychiatric: Reports: anxiety, depressed, emotional problems Allergies: Coded Allergies: No Known Allergies (Unverified , 12/19/17) Subjective in restrainers pulling out his iv Objective Last 24 Hour Vital Signs Date Time Temp Pulse Resp B/P (MAP) Pulse Ox O2 Delivery O2 Flow Rate FiO2 02/11/18 21:43 Nasal Cannula 3.0 02/11/18 21:36 97.2 85 20 120/51 Nasal Cannula 3.0 97.2 02/11/18 20:00 98.2 76 20 106/44 95 Nasal Cannula 4.0 98.2 02/11/18 18:24 95 20 Nasal Cannula 4.0 36 02/11/18 18:00 97.0 68 20 92/41 Nasal Cannula 3.0 97.0 02/11/18 18:00 Nasal Cannula 3.0 02/11/18 18:00 88/55 02/11/18 16:00 97.9 87 22 88/55 95 Nasal Cannula 4.0 97.9 02/11/18 15:38 88 02/11/18 12:00 97.7 96 20 98/59 96 Nasal Cannula 4.0 97.7 02/11/18 11:40 95 02/11/18 09:26 110/60 02/11/18 09:24 99 110/60 02/11/18 09:24 110/60 02/11/18 08:00 97.2 99 20 110/60 95 Nasal Cannula 4.0 97.2 02/11/18 07:40 94 02/11/18 04:00 94 02/11/18 04:00 97.6 97 21 96/55 92 Nasal Cannula 4.0 97.6 02/11/18 00:00 97.8 90 19 89/53 95 Nasal Cannula 4.0 97.8 02/11/18 00:00 90 Intake and Output 02/10/18 02/11/18 19:00 07:00 Intake Total 670 ml 1000 ml Output Total 300 ml Balance 370 ml 1000 ml Intake Free Water 120 ml 130 ml IV Total 470 ml Tube Feeding 550 ml 400 ml Output Urine Total 300 ml # Bowel Movements 1 Laboratory Tests 02/11/18 06:33: Random Vancomycin Level 19.9 02/11/18 13:14: Prothrombin Time 11.3, Prothromb Time International Ratio 1.1, Activated Partial Thromboplast Time 37H Height (Feet): 5 Height (Inches): 10.00 Weight (Pounds): 226 Ashly Rajan M.D. February 11, 2018 23:11
[2018-02-12] VITALS (7 sets, daily range): BP systolic 90–112; BP diastolic 50–60
[2018-02-12] MEDS: NovoLOG Insulin Flexpen SUBQ SCH ×5 (00:05→23:41)
[2018-02-12] MEDS: Piperacillin/Tazobactam 2.25 GM in D5W 110 ML IV SCH ×3 (05:43→21:56)
[2018-02-12 07:59] LABS: BASOPHILS % (AUTO) 0.4 % (0.0-2.0); EOSINOPHILS % (AUTO) 0.3 % (0.0-3.0); HEMATOCRIT 26.2 % (42.0-52.0); LYMPHOCYTES % (AUTO) 8.8 % (20.0-45.0); MEAN CORPUSCULAR VOLUME 100 FL (80-99); MONOCYTES % (AUTO) 6.9 % (1.0-10.0); NEUTROPHILS % (AUTO) 83.5 % (45.0-75.0); PLATELET COUNT 229 K/UL (150-450); RED BLOOD COUNT 2.62 M/UL (4.70-6.10); RED CELL DISTRIBUTION WIDTH 13.7 % (11.6-14.8); WHITE BLOOD COUNT 12.3 K/UL (4.8-10.8)
[2018-02-12 08:11] LABS: ALANINE AMINOTRANSFERASE 21 U/L (12-78); ALBUMIN 1.9 G/DL (3.4-5.0); ALBUMIN/GLOBULIN RATIO 0.4 (1.0-2.7); ALKALINE PHOSPHATASE 157 U/L (46-116); ANION GAP 10 mmol/L (5-15); ASPARTATE AMINO TRANSFERASE 30 U/L (15-37); BILIRUBIN,TOTAL 0.6 MG/DL (0.2-1.0); BLOOD UREA NITROGEN 76 mg/dL (7-18); CALCIUM 8.6 MG/DL (8.5-10.1); CARBON DIOXIDE 31 MMOL/L (21-32); CHLORIDE 94 MMOL/L (98-107); CREATININE 3.1 MG/DL (0.55-1.30); POTASSIUM 3.3 MMOL/L (3.5-5.1); SODIUM 135 MMOL/L (136-145)
[2018-02-12] MEDS: Lisinopril 2.5mg tab ORAL SCH ×2 (09:00→09:42)
[2018-02-12] MEDS: Nitroglycerin 2% oint pkt TOPIC SCH (09:00)
[2018-02-12] MEDS: Metoprolol Succinate XL 25mg tab ORAL SCH (09:00)
[2018-02-12] MEDS: Vitamin A&D Oint 2oz Tube TOPIC SCH ×2 (09:00→20:34)
[2018-02-12] MEDS: Eliquis 2.5mg tablet GT SCH ×2 (09:00→17:29)
--- NOTE | 2018-02-12 09:39 | General Progress Note ---
Assessment/Plan Assessment/Plan S: " not communicating verbally" P: appears comfortable. Singer in place , AOx1, limited source of info, soft restraint in place PHYSICAL EXAMINATION: IVETT-chest wall PermCath in place GENERAL: The patient is comfortable. HEENT: Pupils equal and responsive to light and accommodation. Extraocular movements are intact. NECK: Supple without lymphadenopathy. CHEST: bronchial breathing sounds CARDIOVASCULAR: IRegular rate and rythm S1, S2 normal without murmurs, rubs, or gallops. ABDOMEN: Soft, nontender, and nondistended. Positive bowel sounds. No evidence of hepatosplenomegaly. Currently, no rebound or guarding noted. PEG t in place EXTREMITIES: atrophied extremitatis, with spontaneous movements NEUROLOGIC: Limited exam. Patient not cooperative, AOx 1 ASSESSMENT: This is an 81-year-old male with: 1. Hyperuremia in progressive worsening renal function 2. history of End-stage renal disease, s/p Re-initiation of HD 3. Hypoxemic Respiratoy failure, likely secondary to PNA- ASpiration 3. Diabetes type 2. 4. Hypercholesterolemia. 5. Cardiomyopathy. 6. Atrial fibrillation. 7. Congestive heart failure. 8. Hypertension. 9. Alzheimer dementia. 10. Benign prostatic hypertrophy. 11. No capacity for making medical decision TREATMENT: Continue HD per Nephrology Rec. Given the emergency nature of consequences in delayed HD placement, and lack of patient's capacity for making decision. It is ok to proceed with HD access placement Notes from Nephro reviewed Will optimize electrolyte, per Nephrology Incidence of Hypotension. will provide NS 500 cc Bolus, and will downtitrate BP meds New leukocytosis, in conjunction with new hypoxemia CXR pending Continue with empiricall abx treatment for aspiration pna transfer to P2 Notes from ID reviewed discussed the care with Vsx, agree for Graft placement , secondary to multiple incidents of self Extraction of PermCath by patient after then patient is clear for Discharge and return to facility Subjective Allergies: Coded Allergies: No Known Allergies (Unverified , 12/19/17) Objective Last 24 Hour Vital Signs Date Time Temp Pulse Resp B/P (MAP) Pulse Ox O2 Delivery O2 Flow Rate FiO2 02/12/18 09:34 97.8 84 20 93/52 Nasal Cannula 3.0 97.8 02/12/18 08:00 97.7 84 20 90/60 94 Nasal Cannula 3.0 97.7 02/12/18 04:00 97.8 84 20 93/52 Nasal Cannula 3.0 97.8 02/12/18 03:52 81 02/12/18 00:00 97.7 75 20 112/53 Nasal Cannula 3.0 97.7 02/12/18 00:00 82 02/11/18 21:43 Nasal Cannula 3.0 02/11/18 21:36 97.2 85 20 120/51 Nasal Cannula 3.0 97.2 02/11/18 20:00 98.2 76 20 106/44 95 Nasal Cannula 4.0 98.2 02/11/18 20:00 83 02/11/18 18:24 95 20 Nasal Cannula 4.0 36 02/11/18 18:00 97.0 68 20 92/41 Nasal Cannula 3.0 97.0 02/11/18 18:00 Nasal Cannula 3.0 02/11/18 18:00 88/55 02/11/18 16:00 97.9 87 22 88/55 95 Nasal Cannula 4.0 97.9 02/11/18 15:38 88 02/11/18 12:00 97.7 96 20 98/59 96 Nasal Cannula 4.0 97.7 02/11/18 11:40 95 Intake and Output 02/11/18 02/12/18 19:00 07:00 Intake Total 500 ml Output Total 0 ml Balance 500 ml Intake Free Water 100 ml Tube Feeding 400 ml Hemodialysis UF 0 ml # Bowel Movements 1 Laboratory Tests 02/11/18 13:14: Prothrombin Time 11.3, Prothromb Time International Ratio 1.1, Activated Partial Thromboplast Time 37H 02/12/18 07:00: White Blood Count 12.3H, Red Blood Count 2.62L, Hemoglobin 9.0L, Hematocrit 26.2L, Mean Corpuscular Volume 100H, Mean Corpuscular Hemoglobin 34.4H, Mean Corpuscular Hemoglobin Concent 34.3, Red Cell Distribution Width 13.7, Platelet Count 229, Mean Platelet Volume 8.1, Neutrophils (%) (Auto) 83.5H, Lymphocytes ( %) (Auto) 8.8L, Monocytes (%) (Auto) 6.9, Eosinophils (%) (Auto) 0.3, Basophils (%) (Auto) 0.4, Sodium Level 135L, Potassium Level 3.3L, Chloride Level 94L, Carbon Dioxide Level 31, Anion Gap 10, Blood Urea Nitrogen 76H, Creatinine 3.1H , Estimat Glomerular Filtration Rate , Glucose Level 194H, Calcium Level 8.6, Total Bilirubin 0.6, Aspartate Amino Transf (AST/SGOT) 30, Alanine Aminotransferase (ALT/SGPT) 21, Alkaline Phosphatase 157H, Pro-B-Type Natriuretic Peptide 5580H, Total Protein 6.9, Albumin 1.9L, Globulin 5.0, Albumin/Globulin Ratio 0.4L Height (Feet): 5 Height (Inches): 10.00 Weight (Pounds): 226 Courtney Weeks MD February 12, 2018 09:39
[2018-02-12] MEDS: Docusate 100mg/10ml Liq GT SCH ×3 (09:40→17:29)
[2018-02-12] MEDS: Amiodarone 200mg tab GT SCH (09:41)
[2018-02-12] MEDS: Ascorbic Acid 500mg tab GT SCH (09:41)
--- NOTE | 2018-02-12 10:55 | Diagnostic Imaging Report ---
Indication: Dyspnea Comparison: 02/11/2018 A single view chest radiograph was obtained. Findings: Interstitial edema prominent vascularity and heart size demonstrated. Hazy opacity at the left lung base likely pleural effusion. Left jugular permacath is present. The bones are osteopenic. Aorta is moderately calcified. IMPRESSION: No significant change. Pulmonary edema. Left pleural effusion suspected
--- NOTE | 2018-02-12 11:41 | Pulmonology Progress Note ---
Assessment/Plan Problems: (1) Acute respiratory failure (2) Pleural effusion (3) ESRF (end stage renal failure) (4) Limited mobility (5) Diabetes mellitus (6) Feeding by G-tube (7) Vegetative state Assessment/Plan pt with multi orang failure, End stage heart disease with EF of 30, Renal failure on HD, dementia, Gtube. Anasarca, pleural effusion, episodes of desaturation. I recommend family meeting to talk about goal and plan of care. Subjective ROS Limited/Unobtainable: Yes Constitutional: Reports: no symptoms HEENT: Repors: no symptoms Respiratory: Reports: no symptoms Allergies: Coded Allergies: No Known Allergies (Unverified , 12/19/17) Objective Last 24 Hour Vital Signs Date Time Temp Pulse Resp B/P (MAP) Pulse Ox O2 Delivery O2 Flow Rate FiO2 02/12/18 09:34 97.8 84 20 93/52 Nasal Cannula 3.0 97.8 02/12/18 09:00 02/12/18 09:00 84 9152 02/12/18 09:00 02/12/18 08:00 97.7 84 20 90/60 94 Nasal Cannula 3.0 97.7 02/12/18 04:00 97.8 84 20 93/52 Nasal Cannula 3.0 97.8 02/12/18 03:52 81 02/12/18 00:00 97.7 75 20 112/53 Nasal Cannula 3.0 97.7 02/12/18 00:00 82 02/11/18 21:43 Nasal Cannula 3.0 02/11/18 21:36 97.2 85 20 120/51 Nasal Cannula 3.0 97.2 02/11/18 20:00 98.2 76 20 106/44 95 Nasal Cannula 4.0 98.2 02/11/18 20:00 83 02/11/18 18:24 95 20 Nasal Cannula 4.0 36 02/11/18 18:00 97.0 68 20 92/41 Nasal Cannula 3.0 97.0 02/11/18 18:00 Nasal Cannula 3.0 02/11/18 18:00 88/55 02/11/18 16:00 97.9 87 22 88/55 95 Nasal Cannula 4.0 97.9 02/11/18 15:38 88 02/11/18 12:00 97.7 96 20 98/59 96 Nasal Cannula 4.0 97.7 Intake and Output 02/11/18 02/12/18 19:00 07:00 Intake Total 500 ml Output Total 0 ml Balance 500 ml Intake Free Water 100 ml Tube Feeding 400 ml Hemodialysis UF 0 ml # Bowel Movements 1 General Appearance: WD/WN HEENT: normocephalic, atraumatic Respiratory/Chest: crackles/rales, rhonchi Cardiovascular: normal peripheral pulses, normal rate Abdomen: normal bowel sounds, soft, non tender Extremities: no cyanosis Skin: no rash Neurologic/Psychiatric: aphasia Laboratory Tests 02/11/18 13:14: Prothrombin Time 11.3, Prothromb Time International Ratio 1.1, Activated Partial Thromboplast Time 37H 02/12/18 07:00: White Blood Count 12.3H, Red Blood Count 2.62L, Hemoglobin 9.0L, Hematocrit 26.2L, Mean Corpuscular Volume 100H, Mean Corpuscular Hemoglobin 34.4H, Mean Corpuscular Hemoglobin Concent 34.3, Red Cell Distribution Width 13.7, Platelet Count 229, Mean Platelet Volume 8.1, Neutrophils (%) (Auto) 83.5H, Lymphocytes ( %) (Auto) 8.8L, Monocytes (%) (Auto) 6.9, Eosinophils (%) (Auto) 0.3, Basophils (%) (Auto) 0.4, Sodium Level 135L, Potassium Level 3.3L, Chloride Level 94L, Carbon Dioxide Level 31, Anion Gap 10, Blood Urea Nitrogen 76H, Creatinine 3.1H , Estimat Glomerular Filtration Rate , Glucose Level 194H, Calcium Level 8.6, Total Bilirubin 0.6, Aspartate Amino Transf (AST/SGOT) 30, Alanine Aminotransferase (ALT/SGPT) 21, Alkaline Phosphatase 157H, Pro-B-Type Natriuretic Peptide 5580H, Total Protein 6.9, Albumin 1.9L, Globulin 5.0, Albumin/Globulin Ratio 0.4L Current Medications Medications (Trade) Dose Ordered Sig/Tiffany Route PRN Reason Start Time Stop Time Status Last Admin Dose Admin Acetaminophen (Tylenol) 650 mg Q4H PRN ORAL MILD PAIN/TEMP >101 02/11/18 01:00 03/06/18 00:59 Albuterol/ Ipratropium (Albuterol/ Ipratropium) 3 ml Q4H PRN HHN Shortness of Breath 02/10/18 23:00 02/15/18 14:59 Amiodarone HCl (Cordarone) 200 mg DAILY GT 02/11/18 09:00 03/06/18 08:59 02/12/18 09:41 Apixaban (Eliquis) 2.5 mg BID GT 02/11/18 09:00 03/12/18 10:59 02/11/18 17:59 Ascorbic Acid (Vitamin C) 500 mg DAILY GT 02/11/18 09:00 03/06/18 08:59 02/12/18 09:41 Bisacodyl (Dulcolax) 10 mg DAILYPRN PRN RECTAL IF MOM INEFFECTIVE 02/11/18 01:00 03/06/18 00:59 Chlorhexidine Gluconate (Laya-Hex 2%) 1 applic DAILY@2000 TOPIC 02/11/18 20:00 03/08/18 19:59 02/11/18 21:55 Clotrimazole (Lotrimin) 1 applic EVERY 12 HOURS TOPIC 02/11/18 09:00 03/13/18 08:59 02/12/18 09:43 Dextrose (Dextrose 50%) 25 ml STAT PRN IV Hypoglycemia 02/11/18 01:30 03/06/18 01:29 Dextrose (Dextrose 50%) 50 ml STAT PRN IV Hypoglycemia 02/11/18 01:30 03/06/18 01:29 Docusate Sodium (Colace) 100 mg TID GT 02/11/18 09:00 03/13/18 08:59 02/12/18 09:40 Donepezil HCl (Aricept) 10 mg QHS ORAL 02/11/18 21:00 03/13/18 20:59 02/11/18 21:44 Finasteride (Proscar) 5 mg DAILY ORAL 02/11/18 09:00 03/06/18 08:59 02/12/18 09:41 Haloperidol Lactate (Haldol) 5 mg Q6H PRN IM Agitation 02/10/18 22:45 03/07/18 16:44 Insulin Aspart (NovoLOG) Q6HR SUBQ 02/11/18 00:00 03/06/18 06:29 02/12/18 06:02 Insulin Detemir (Levemir) 5 units BEDTIME SUBQ 02/11/18 21:00 03/07/18 20:59 02/11/18 21:48 Lansoprazole (Prevacid) 30 mg ACBREAKFAST GT 02/11/18 06:30 03/06/18 06:29 02/12/18 05:43 Levothyroxine Sodium (Synthroid) 50 mcg DAILY@0630 ORAL 02/11/18 06:30 03/06/18 06:29 02/12/18 05:43 Lisinopril (Zestril) 2.5 mg Q12HR ORAL 02/11/18 09:00 03/12/18 20:59 02/11/18 09:24 Metoprolol Succinate (Toprol XL) 12.5 mg DAILY ORAL 02/11/18 09:00 03/06/18 08:59 02/11/18 09:24 Nitroglycerin (Nitro-Bid) 1 inch BID TOPIC 02/11/18 09:00 03/06/18 08:59 02/11/18 09:26 Piperacillin Sod/ Tazobactam Sod 2.25 gm/Dextrose 110 ml @ 220 mls/hr Q8HR IV 02/10/18 22:15 02/15/18 19:59 02/12/18 05:43 Quetiapine Fumarate (SEROquel) 25 mg Q6H PRN ORAL For Anxiety 02/11/18 01:00 03/06/18 18:59 Saccharomyces Boulardii (Florastor) 250 mg DAILY GT 02/11/18 09:00 03/06/18 08:59 02/12/18 09:41 Sennosides (Senokot) 2 tab QHS GT 02/11/18 21:00 03/06/18 20:59 02/11/18 21:43 Tamsulosin HCl (Flomax) 0.4 mg BEDTIME ORAL 02/11/18 21:00 03/06/18 20:59 02/11/18 21:43 Vancomycin HCl (Vanco rx to dose) 1 ea DAILY PRN MISC Per rx protocol 02/11/18 09:00 03/12/18 15:59 Vitamin A/Vitamin D (A & D Oint) 1 applic EVERY 12 HOURS TOPIC 02/11/18 09:00 03/06/18 08:59 02/12/18 09:00 Michelle Harris MD February 12, 2018 11:41
--- NOTE | 2018-02-12 12:37 | Nephrology Progress Note ---
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, stage IV (4) Hypothyroidism Renal failure- Been dialysed previously- Cr creeping up h/o urine out let Obstruction, Urine retention GT in place DM HTN echo: Cardiomyopathy 30% ej Fx HypoThyroidism IV bollous Cr 5 Singer for now 2D echo 30% ej fx Plan K supplement change hydralazine to zestril last HD 02/11 hepatitis panel last HD 02/09 Adjust BP meds Subjective ROS Limited/Unobtainable: No Constitutional: Reports: malaise, weakness Objective Objective Last 24 Hour Vital Signs Date Time Temp Pulse Resp B/P (MAP) Pulse Ox O2 Delivery O2 Flow Rate FiO2 02/12/18 09:34 97.8 84 20 93/52 Nasal Cannula 3.0 97.8 02/12/18 09:00 91/52 02/12/18 09:00 84 91/52 02/12/18 09:00 91/52 02/12/18 08:00 97.7 84 20 90/60 94 Nasal Cannula 3.0 97.7 02/12/18 04:00 97.8 84 20 93/52 Nasal Cannula 3.0 97.8 02/12/18 03:52 81 02/12/18 00:00 97.7 75 20 112/53 Nasal Cannula 3.0 97.7 02/12/18 00:00 82 02/11/18 21:43 Nasal Cannula 3.0 02/11/18 21:36 97.2 85 20 120/51 Nasal Cannula 3.0 97.2 02/11/18 20:00 98.2 76 20 106/44 95 Nasal Cannula 4.0 98.2 02/11/18 20:00 83 02/11/18 18:24 95 20 Nasal Cannula 4.0 36 02/11/18 18:00 97.0 68 20 92/41 Nasal Cannula 3.0 97.0 02/11/18 18:00 Nasal Cannula 3.0 02/11/18 18:00 88/55 5/30/18 16:00 97.9 87 22 88/55 95 Nasal Cannula 4.0 97.9 02/11/18 15:38 88 Intake and Output 02/11/18 02/12/18 19:00 07:00 Intake Total 500 ml Output Total 0 ml Balance 500 ml Intake Free Water 100 ml Tube Feeding 400 ml Hemodialysis UF 0 ml # Bowel Movements 1 Laboratory Tests 02/11/18 13:14: Prothrombin Time 11.3, Prothromb Time International Ratio 1.1, Activated Partial Thromboplast Time 37H 02/12/18 07:00: White Blood Count 12.3H, Red Blood Count 2.62L, Hemoglobin 9.0L, Hematocrit 26.2L, Mean Corpuscular Volume 100H, Mean Corpuscular Hemoglobin 34.4H, Mean Corpuscular Hemoglobin Concent 34.3, Red Cell Distribution Width 13.7, Platelet Count 229, Mean Platelet Volume 8.1, Neutrophils (%) (Auto) 83.5H, Lymphocytes ( %) (Auto) 8.8L, Monocytes (%) (Auto) 6.9, Eosinophils (%) (Auto) 0.3, Basophils (%) (Auto) 0.4, Sodium Level 135L, Potassium Level 3.3L, Chloride Level 94L, Carbon Dioxide Level 31, Anion Gap 10, Blood Urea Nitrogen 76H, Creatinine 3.1H , Estimat Glomerular Filtration Rate , Glucose Level 194H, Calcium Level 8.6, Total Bilirubin 0.6, Aspartate Amino Transf (AST/SGOT) 30, Alanine Aminotransferase (ALT/SGPT) 21, Alkaline Phosphatase 157H, Pro-B-Type Natriuretic Peptide 5580H, Total Protein 6.9, Albumin 1.9L, Globulin 5.0, Albumin/Globulin Ratio 0.4L Height (Feet): 5 Height (Inches): 10.00 Weight (Pounds): 226 General Appearance: no apparent distress Cardiovascular: normal rate Respiratory/Chest: decreased breath sounds Abdomen: soft Objective no change VALENTIN RUSH February 12, 2018 12:37
--- NOTE | 2018-02-12 15:19 | Cardiac Electrophysiology PN ---
Assessment/Plan Assessment/Plan 1. Atrial flutter. In SR on amiodarone 200 mg daily, Toprol-XL 25 mg daily. Eliquis held for possible thoracentesis 2. Hypertension. Decrease Hydralazine to 10 bid and decrease Toprol-XL to 12.5 mg daily and HD 3. Cardiomyopathy with EF 30% on Hydralazine,Toprol-XL and HD Not a candidate for defibrillator placement. 4. ESRD on HD PermCath that was REMOVED and new one placed HD per Dr Verma 5. Hyperlipidemia, on Lipitor. 6. Dysphagia, S/P PEG replacement DW RN Subjective Subjective In restraints in NAD.Had HD yesterday without fluid removal. Thoracentesis cancelled due to consent as well as he Got Eliquis yesterday Objective Last 24 Hour Vital Signs Date Time Temp Pulse Resp B/P (MAP) Pulse Ox O2 Delivery O2 Flow Rate FiO2 02/12/18 12:00 97.7 78 20 95/53 Nasal Cannula 3.0 97.7 02/12/18 12:00 83 02/12/18 09:34 97.8 84 20 93/52 Nasal Cannula 3.0 97.8 02/12/18 09:00 91/52 02/12/18 09:00 84 91/52 02/12/18 09:00 91/52 02/12/18 08:00 97.7 84 20 90/60 94 Nasal Cannula 3.0 97.7 02/12/18 08:00 80 02/12/18 04:00 97.8 84 20 93/52 Nasal Cannula 3.0 97.8 02/12/18 03:52 81 02/12/18 00:00 97.7 75 20 112/53 Nasal Cannula 3.0 97.7 02/12/18 00:00 82 02/11/18 21:43 Nasal Cannula 3.0 02/11/18 21:36 97.2 85 20 120/51 Nasal Cannula 3.0 97.2 02/11/18 20:00 98.2 76 20 106/44 95 Nasal Cannula 4.0 98.2 02/11/18 20:00 83 02/11/18 18:24 95 20 Nasal Cannula 4.0 36 02/11/18 18:00 97.0 68 20 92/41 Nasal Cannula 3.0 97.0 02/11/18 18:00 Nasal Cannula 3.0 02/11/18 18:00 88/55 02/11/18 16:00 97.9 87 22 88/55 95 Nasal Cannula 4.0 97.9 02/11/18 15:38 88 Intake and Output 02/11/18 02/12/18 19:00 07:00 Intake Total 500 ml Output Total 0 ml Balance 500 ml Intake Free Water 100 ml Tube Feeding 400 ml Hemodialysis UF 0 ml # Bowel Movements 1 Laboratory Tests Test 02/12/18 07:00 White Blood Count 12.3 K/UL (4.8-10.8) H Red Blood Count 2.62 M/UL (4.70-6.10) L Hemoglobin 9.0 G/DL (14.2-18.0) L Hematocrit 26.2 % (42.0-52.0) L Mean Corpuscular Volume 100 FL (80-99) H Mean Corpuscular Hemoglobin 34.4 PG (27.0-31.0) H Mean Corpuscular Hemoglobin Concent 34.3 G/DL (32.0-36.0) Red Cell Distribution Width 13.7 % (11.6-14.8) Platelet Count 229 K/UL (150-450) Mean Platelet Volume 8.1 FL (6.5-10.1) Neutrophils (%) (Auto) 83.5 % (45.0-75.0) H Lymphocytes (%) (Auto) 8.8 % (20.0-45.0) L Monocytes (%) (Auto) 6.9 % (1.0-10.0) Eosinophils (%) (Auto) 0.3 % (0.0-3.0) Basophils (%) (Auto) 0.4 % (0.0-2.0) Sodium Level 135 MMOL/L (136-145) L Potassium Level 3.3 MMOL/L (3.5-5.1) L Chloride Level 94 MMOL/L (98-107) L Carbon Dioxide Level 31 MMOL/L (21-32) Anion Gap 10 mmol/L (5-15) Blood Urea Nitrogen 76 mg/dL (7-18) H Creatinine 3.1 MG/DL (0.55-1.30) H Estimat Glomerular Filtration Rate mL/min (>60) Glucose Level 194 MG/DL (74-106) H Calcium Level 8.6 MG/DL (8.5-10.1) Total Bilirubin 0.6 MG/DL (0.2-1.0) Aspartate Amino Transf (AST/SGOT) 30 U/L (15-37) Alanine Aminotransferase (ALT/SGPT) 21 U/L (12-78) Alkaline Phosphatase 157 U/L (46-116) H Pro-B-Type Natriuretic Peptide 5580 pg/mL (0-125) H Total Protein 6.9 G/DL (6.4-8.2) Albumin 1.9 G/DL (3.4-5.0) L Globulin 5.0 g/dL Albumin/Globulin Ratio 0.4 (1.0-2.7) L Objective HEAD AND NECK: No JVD. Left IG HD catheter in place with no active bleeding LUNGS: Clear. CARDIOVASCULAR: Regular S1 and S2 with no gallop. ABDOMEN: Soft, status post G-tube. EXTREMITIES: 1+ pitting edema. Malik Shannon MD February 12, 2018 15:19
--- NOTE | 2018-02-12 17:33 | General Progress Note ---
Assessment/Plan Assessment/Plan dementia with behavioral dist encephalopathy seroquel prn Subjective Date patient seen: February 12, 2018 Neurologic/Psychiatric: Reports: anxiety, depressed Allergies: Coded Allergies: No Known Allergies (Unverified , 12/19/17) Subjective v Objective Last 24 Hour Vital Signs Date Time Temp Pulse Resp B/P (MAP) Pulse Ox O2 Delivery O2 Flow Rate FiO2 02/12/18 16:00 80 02/12/18 16:00 97.4 72 20 91/50 Nasal Cannula 3.0 97.4 02/12/18 12:00 97.7 78 20 95/53 Nasal Cannula 3.0 97.7 02/12/18 12:00 83 02/12/18 09:34 97.8 84 20 93/52 Nasal Cannula 3.0 97.8 02/12/18 09:00 91/52 02/12/18 09:00 84 91/52 02/12/18 09:00 91/52 02/12/18 08:00 97.7 84 20 90/60 94 Nasal Cannula 3.0 97.7 02/12/18 08:00 80 02/12/18 04:00 97.8 84 20 93/52 Nasal Cannula 3.0 97.8 02/12/18 03:52 81 02/12/18 00:00 97.7 75 20 112/53 Nasal Cannula 3.0 97.7 02/12/18 00:00 82 02/11/18 21:43 Nasal Cannula 3.0 02/11/18 21:36 97.2 85 20 120/51 Nasal Cannula 3.0 97.2 02/11/18 20:00 98.2 76 20 106/44 95 Nasal Cannula 4.0 98.2 02/11/18 20:00 83 02/11/18 18:24 95 20 Nasal Cannula 4.0 36 02/11/18 18:00 97.0 68 20 92/41 Nasal Cannula 3.0 97.0 02/11/18 18:00 Nasal Cannula 3.0 02/11/18 18:00 88/55 Intake and Output 02/11/18 02/12/18 19:00 07:00 Intake Total 500 ml Output Total 0 ml Balance 500 ml Intake Free Water 100 ml Tube Feeding 400 ml Hemodialysis UF 0 ml # Bowel Movements 1 Laboratory Tests 02/12/18 07:00: White Blood Count 12.3H, Red Blood Count 2.62L, Hemoglobin 9.0L, Hematocrit 26.2L, Mean Corpuscular Volume 100H, Mean Corpuscular Hemoglobin 34.4H, Mean Corpuscular Hemoglobin Concent 34.3, Red Cell Distribution Width 13.7, Platelet Count 229, Mean Platelet Volume 8.1, Neutrophils (%) (Auto) 83.5H, Lymphocytes ( %) (Auto) 8.8L, Monocytes (%) (Auto) 6.9, Eosinophils (%) (Auto) 0.3, Basophils (%) (Auto) 0.4, Sodium Level 135L, Potassium Level 3.3L, Chloride Level 94L, Carbon Dioxide Level 31, Anion Gap 10, Blood Urea Nitrogen 76H, Creatinine 3.1H , Estimat Glomerular Filtration Rate , Glucose Level 194H, Calcium Level 8.6, Total Bilirubin 0.6, Aspartate Amino Transf (AST/SGOT) 30, Alanine Aminotransferase (ALT/SGPT) 21, Alkaline Phosphatase 157H, Pro-B-Type Natriuretic Peptide 5580H, Total Protein 6.9, Albumin 1.9L, Globulin 5.0, Albumin/Globulin Ratio 0.4L Height (Feet): 5 Height (Inches): 10.00 Weight (Pounds): 226 Ashly Rajan M.D. February 12, 2018 17:33
--- NOTE | 2018-02-12 17:36 | Infectious Diseases Prog Note ---
Assessment/Plan Assessment/Plan Abx: IV Vancomycin 02/10- Zosyn 02/10- Assessment: Probable aspiration pneumonia (desaturation, mild leukocytosis) -CXR: Interstitial edema demonstrated with worsening. There is cardiomegaly present. There may be a left pleural effusion. -sp cx p Mild leukocytosis, increasing -afebrile Mild pyuria and bacteriuria -u.a wbc 15-20, nti neg, leuk +3; ucx <10K K, pna ( R amp, otherwise S); not clinically significant Acute on chronic renal failure -s/p permacath HD placement and re-initiation of HD Recent infected HD cath 2ry to MRSA s/p removal 01/20 -cath tip cx :MRSA -BCx Neg (peripheral), HD Cath Bcx neg -wound cx: MRSA (S Vancomycin, Bactrim, Tetracycline) -Echo: no vegetations seen. Aortic valve calcification with decreased cusp excursion c/w aortic stenosis. Mildly thickened mitral valve leaflets with normal excursion. Moderate mitral annulus and aortic root calcification. Stroke w/ hemiparesis dementia nonverbal HTN HLD cardiomyopathy Aflutter contractures, DM2 dysphagia s/p PEG anemia CHF long-term resident VRE colonized Plan: -Continue empiric IV Vanco and Zosyn #3 pending sputum cx -01/24 SP IV Daptomycin 4mg/kg q48hrs abx d # 7/ for MRSA HD cath infection -01/22 SP IV Vancomcyin #5 (d/c due to supratherapeutic vanco levels) -Bcx x2 -Trend WBC -Cdiff if diarrhea -Monitor CBC/BMP, temperatures -aspiration precautions -PEG, HD cath care Thank you for this consultation. Will continue to follow along with you. Discussed with RN. Subjective Allergies: Coded Allergies: No Known Allergies (Unverified , 12/19/17) Subjective afebrile at 3l NC WBC slighlty increased Objective Vital Signs Last 24 Hour Vital Signs Date Time Temp Pulse Resp B/P (MAP) Pulse Ox O2 Delivery O2 Flow Rate FiO2 02/12/18 16:00 80 02/12/18 16:00 97.4 72 20 91/50 Nasal Cannula 3.0 97.4 02/12/18 12:00 97.7 78 20 95/53 Nasal Cannula 3.0 97.7 02/12/18 12:00 83 5/31/18 09:34 97.8 84 20 93/52 Nasal Cannula 3.0 97.8 02/12/18 09:00 91/52 02/12/18 09:00 84 91/52 02/12/18 09:00 91/52 02/12/18 08:00 97.7 84 20 90/60 94 Nasal Cannula 3.0 97.7 02/12/18 08:00 80 02/12/18 04:00 97.8 84 20 93/52 Nasal Cannula 3.0 97.8 02/12/18 03:52 81 02/12/18 00:00 97.7 75 20 112/53 Nasal Cannula 3.0 97.7 02/12/18 00:00 82 02/11/18 21:43 Nasal Cannula 3.0 02/11/18 21:36 97.2 85 20 120/51 Nasal Cannula 3.0 97.2 02/11/18 20:00 98.2 76 20 106/44 95 Nasal Cannula 4.0 98.2 02/11/18 20:00 83 02/11/18 18:24 95 20 Nasal Cannula 4.0 36 02/11/18 18:00 97.0 68 20 92/41 Nasal Cannula 3.0 97.0 02/11/18 18:00 Nasal Cannula 3.0 02/11/18 18:00 88/55 Height (Feet): 5 Height (Inches): 10.00 Weight (Pounds): 226 Objective GENERAL: The patient is a well-developed and well-nourished male, who is confused. HEENT: Pupils equal and responsive to light and accommodation. Extraocular movements are intact. NECK: Supple without lymphadenopathy. CHEST: ronchi, and cracales bibasilar CARDIOVASCULAR: Regular rate. S1, S2 normal without murmurs, rubs, or gallops. ABDOMEN: Soft, nontender, and nondistended. Positive bowel sounds. No evidence of hepatosplenomegaly. Currently, no rebound or guarding noted. EXTREMITIES: Negative for clubbing, cyanosis, or dawna Laboratory Tests Test 02/12/18 07:00 White Blood Count 12.3 K/UL (4.8-10.8) H Red Blood Count 2.62 M/UL (4.70-6.10) L Hemoglobin 9.0 G/DL (14.2-18.0) L Hematocrit 26.2 % (42.0-52.0) L Mean Corpuscular Volume 100 FL (80-99) H Mean Corpuscular Hemoglobin 34.4 PG (27.0-31.0) H Mean Corpuscular Hemoglobin Concent 34.3 G/DL (32.0-36.0) Red Cell Distribution Width 13.7 % (11.6-14.8) Platelet Count 229 K/UL (150-450) Mean Platelet Volume 8.1 FL (6.5-10.1) Neutrophils (%) (Auto) 83.5 % (45.0-75.0) H Lymphocytes (%) (Auto) 8.8 % (20.0-45.0) L Monocytes (%) (Auto) 6.9 % (1.0-10.0) Eosinophils (%) (Auto) 0.3 % (0.0-3.0) Basophils (%) (Auto) 0.4 % (0.0-2.0) Sodium Level 135 MMOL/L (136-145) L Potassium Level 3.3 MMOL/L (3.5-5.1) L Chloride Level 94 MMOL/L (98-107) L Carbon Dioxide Level 31 MMOL/L (21-32) Anion Gap 10 mmol/L (5-15) Blood Urea Nitrogen 76 mg/dL (7-18) H Creatinine 3.1 MG/DL (0.55-1.30) H Estimat Glomerular Filtration Rate mL/min (>60) Glucose Level 194 MG/DL (74-106) H Calcium Level 8.6 MG/DL (8.5-10.1) Total Bilirubin 0.6 MG/DL (0.2-1.0) Aspartate Amino Transf (AST/SGOT) 30 U/L (15-37) Alanine Aminotransferase (ALT/SGPT) 21 U/L (12-78) Alkaline Phosphatase 157 U/L (46-116) H Pro-B-Type Natriuretic Peptide 5580 pg/mL (0-125) H Total Protein 6.9 G/DL (6.4-8.2) Albumin 1.9 G/DL (3.4-5.0) L Globulin 5.0 g/dL Albumin/Globulin Ratio 0.4 (1.0-2.7) L Current Medications Medications (Trade) Dose Ordered Sig/Tiffany Route PRN Reason Start Time Stop Time Status Last Admin Dose Admin Acetaminophen (Tylenol) 650 mg Q4H PRN ORAL MILD PAIN/TEMP >101 02/11/18 01:00 03/06/18 00:59 Albuterol/ Ipratropium (Albuterol/ Ipratropium) 3 ml Q4H PRN HHN Shortness of Breath 02/10/18 23:00 02/15/18 14:59 Amiodarone HCl (Cordarone) 200 mg DAILY GT 02/11/18 09:00 03/06/18 08:59 02/12/18 09:41 Apixaban (Eliquis) 2.5 mg BID GT 02/11/18 09:00 03/12/18 10:59 02/11/18 17:59 Ascorbic Acid (Vitamin C) 500 mg DAILY GT 02/11/18 09:00 03/06/18 08:59 02/12/18 09:41 Bisacodyl (Dulcolax) 10 mg DAILYPRN PRN RECTAL IF MOM INEFFECTIVE 02/11/18 01:00 03/06/18 00:59 Chlorhexidine Gluconate (Laya-Hex 2%) 1 applic DAILY@2000 TOPIC 02/11/18 20:00 03/08/18 19:59 02/11/18 21:55 Clotrimazole (Lotrimin) 1 applic EVERY 12 HOURS TOPIC 02/11/18 09:00 03/13/18 08:59 02/12/18 09:43 Dextrose (Dextrose 50%) 25 ml STAT PRN IV Hypoglycemia 02/11/18 01:30 03/06/18 01:29 Dextrose (Dextrose 50%) 50 ml STAT PRN IV Hypoglycemia 02/11/18 01:30 03/06/18 01:29 Docusate Sodium (Colace) 100 mg TID GT 02/11/18 09:00 03/13/18 08:59 02/12/18 09:40 Donepezil HCl (Aricept) 10 mg QHS ORAL 02/11/18 21:00 03/13/18 20:59 02/11/18 21:44 Finasteride (Proscar) 5 mg DAILY ORAL 02/11/18 09:00 03/06/18 08:59 02/12/18 09:41 Haloperidol Lactate (Haldol) 5 mg Q6H PRN IM Agitation 02/10/18 22:45 03/07/18 16:44 Insulin Aspart (NovoLOG) Q6HR SUBQ 02/11/18 00:00 03/06/18 06:29 02/12/18 13:09 Insulin Detemir (Levemir) 5 units BEDTIME SUBQ 02/11/18 21:00 03/07/18 20:59 02/11/18 21:48 Lansoprazole (Prevacid) 30 mg ACBREAKFAST GT 02/11/18 06:30 03/06/18 06:29 02/12/18 05:43 Levothyroxine Sodium (Synthroid) 50 mcg DAILY@0630 ORAL 02/11/18 06:30 03/06/18 06:29 02/12/18 05:43 Lisinopril (Zestril) 2.5 mg DAILY ORAL 02/13/18 09:00 03/12/18 20:59 Metoprolol Succinate (Toprol XL) 12.5 mg DAILY ORAL 02/11/18 09:00 03/06/18 08:59 02/11/18 09:24 Piperacillin Sod/ Tazobactam Sod 2.25 gm/Dextrose 110 ml @ 220 mls/hr Q8HR IV 02/10/18 22:15 02/15/18 19:59 02/12/18 13:09 Quetiapine Fumarate (SEROquel) 25 mg Q6H PRN ORAL For Anxiety 02/11/18 01:00 03/06/18 18:59 Saccharomyces Boulardii (Florastor) 250 mg DAILY GT 02/11/18 09:00 03/06/18 08:59 02/12/18 09:41 Sennosides (Senokot) 2 tab QHS GT 02/11/18 21:00 03/06/18 20:59 02/11/18 21:43 Tamsulosin HCl (Flomax) 0.4 mg BEDTIME ORAL 02/11/18 21:00 03/06/18 20:59 02/11/18 21:43 Vancomycin HCl (Vanco rx to dose) 1 ea DAILY PRN MISC Per rx protocol 02/11/18 09:00 03/12/18 15:59 Vitamin A/Vitamin D (A & D Oint) 1 applic EVERY 12 HOURS TOPIC 02/11/18 09:00 03/06/18 08:59 02/12/18 09:00 Sarah Borjas M.D. February 12, 2018 17:36
[2018-02-12] MEDS: Dyna-Hex 2% Top Sol 2oz TOPIC SCH (20:18)
[2018-02-12] MEDS: Donepezil 10mg tab ORAL SCH (20:31)
[2018-02-12] MEDS: Sennosides 8.6mg GT SCH (20:31)
[2018-02-12] MEDS: Tamsulosin 0.4mg cap ORAL SCH (20:31)
[2018-02-12] MEDS: Levemir Flexpen SUBQ SCH (20:39)
[2018-02-13] VITALS: BP 91/52
[2018-02-13 04:00] VITALS: BP 90/54
[2018-02-13] MEDS: Piperacillin/Tazobactam 2.25 GM in D5W 110 ML IV SCH ×3 (05:34→21:38)
[2018-02-13] MEDS: NovoLOG Insulin Flexpen SUBQ SCH ×3 (05:36→17:40)
[2018-02-13 06:16] LABS: BASOPHILS % (AUTO) 0.5 % (0.0-2.0); EOSINOPHILS % (AUTO) 0.7 % (0.0-3.0); HEMOGLOBIN 9.5 G/DL (14.2-18.0); MEAN CORPUSCULAR VOLUME 100 FL (80-99); MONOCYTES % (AUTO) 9.4 % (1.0-10.0); NEUTROPHILS % (AUTO) 75.5 % (45.0-75.0); PLATELET COUNT 233 K/UL (150-450); RED BLOOD COUNT 2.71 M/UL (4.70-6.10); RED CELL DISTRIBUTION WIDTH 13.5 % (11.6-14.8); WHITE BLOOD COUNT 10.5 K/UL (4.8-10.8)
[2018-02-13 08:00] VITALS: BP 89/55
[2018-02-13] MEDS: Lisinopril 2.5mg tab ORAL SCH (09:00)
[2018-02-13] MEDS: Vitamin A&D Oint 2oz Tube TOPIC SCH ×2 (09:00→21:00)
--- NOTE | 2018-02-13 11:28 | General Progress Note ---
Assessment/Plan Status: stable Assessment/Plan S: " not communicating verbally" P: appears comfortable. Singer in place , AOx1, limited source of info, soft restraint in place PHYSICAL EXAMINATION: IVETT-chest wall PermCath in place GENERAL: The patient is comfortable. HEENT: Pupils equal and responsive to light and accommodation. Extraocular movements are intact. NECK: Supple without lymphadenopathy. CHEST: bronchial breathing sounds CARDIOVASCULAR: IRegular rate and rythm S1, S2 normal without murmurs, rubs, or gallops. ABDOMEN: Soft, nontender, and nondistended. Positive bowel sounds. No evidence of hepatosplenomegaly. Currently, no rebound or guarding noted. PEG t in place EXTREMITIES: atrophied extremitatis, with spontaneous movements NEUROLOGIC: Limited exam. Patient not cooperative, AOx 1 ASSESSMENT: This is an 81-year-old male with: 1. Hyperuremia in progressive worsening renal function 2. history of End-stage renal disease, s/p Re-initiation of HD 3. Hypoxemic Respiratoy failure, likely secondary to PNA- ASpiration 3. Diabetes type 2. 4. Hypercholesterolemia. 5. Cardiomyopathy. 6. Atrial fibrillation. 7. Congestive heart failure. 8. Hypertension. 9. Alzheimer dementia. 10. Benign prostatic hypertrophy. 11. No capacity for making medical decision TREATMENT: Continue HD per Nephrology Rec. Given the emergency nature of consequences in delayed HD placement, and lack of patient's capacity for making decision. It is ok to proceed with HD access placement Notes from Nephro reviewed Will optimize electrolyte, per Nephrology Incidence of Hypotension. will provide NS 500 cc Bolus, and will downtitrate BP meds New leukocytosis, in conjunction with new hypoxemia Continue with empiricall abx treatment for aspiration pna transfer to P2 Notes from ID reviewed discussed the care with Vsx, agree for Graft placement , secondary to multiple incidents of self Extraction of PermCath by patient change of the code status to DNR, in agreement after our Ethic committee Continue with current management, including HD. Subjective Allergies: Coded Allergies: No Known Allergies (Unverified , 12/19/17) Objective Last 24 Hour Vital Signs Date Time Temp Pulse Resp B/P (MAP) Pulse Ox O2 Delivery O2 Flow Rate FiO2 02/13/18 08:02 98 Nasal Cannula 3.0 32 02/13/18 08:02 Nasal Cannula 3.0 32 02/13/18 08:02 84 20 Nasal Cannula 3.0 32 02/13/18 04:00 78 02/13/18 04:00 97.7 79 20 90/54 96 Nasal Cannula 3.0 97.7 02/13/18 00:00 97.2 83 20 91/52 97 Nasal Cannula 3.0 97.2 02/13/18 00:00 79 02/12/18 20:07 95 Nasal Cannula 3.0 32 02/12/18 20:07 Nasal Cannula 3.0 32 02/12/18 20:07 88 20 Nasal Cannula 3.0 32 02/12/18 20:00 97.7 81 20 91/56 96 Nasal Cannula 3.0 97.7 02/12/18 20:00 80 02/12/18 16:00 80 02/12/18 16:00 97.4 72 20 91/50 Nasal Cannula 3.0 97.4 02/12/18 12:00 97.7 78 20 95/53 Nasal Cannula 3.0 97.7 02/12/18 12:00 83 Intake and Output 02/12/18 02/13/18 19:00 07:00 Intake Total 510 ml Output Total 50 ml 1000 ml Balance -50 ml -490 ml Intake Free Water 40 ml IV Total 220 ml Tube Feeding 250 ml Output Urine Total 50 ml 1000 ml # Bowel Movements 1 Laboratory Tests 02/13/18 05:50: White Blood Count 10.5, Red Blood Count 2.71L, Hemoglobin 9.5L, Hematocrit 27.0L , Mean Corpuscular Volume 100H, Mean Corpuscular Hemoglobin 35.0H, Mean Corpuscular Hemoglobin Concent 35.0, Red Cell Distribution Width 13.5, Platelet Count 233, Mean Platelet Volume 8.2, Neutrophils (%) (Auto) 75.5H, Lymphocytes ( %) (Auto) 14.0L, Monocytes (%) (Auto) 9.4, Eosinophils (%) (Auto) 0.7, Basophils (%) (Auto) 0.5, Random Vancomycin Level 23.4 Height (Feet): 5 Height (Inches): 10.00 Weight (Pounds): 228 Courtney Weeks MD Feb 13, 2018 11:28
--- NOTE | 2018-02-13 11:38 | Pulmonology Progress Note ---
Assessment/Plan Problems: (1) Acute respiratory failure (2) Pleural effusion (3) ESRF (end stage renal failure) (4) Limited mobility (5) Diabetes mellitus (6) Feeding by G-tube (7) Vegetative state Assessment/Plan pt with multi orang failure, End stage heart disease with EF of 30, Renal failure on HD, dementia, Gtube. Anasarca, pleural effusion, episodes of desaturation. titrate cardiac meds, pt is borderline low, Suggest to decrease or stop all meds with negative ionotropic effect Subjective ROS Limited/Unobtainable: Yes Constitutional: Reports: no symptoms HEENT: Repors: no symptoms Allergies: Coded Allergies: No Known Allergies (Unverified , 12/19/17) Objective Last 24 Hour Vital Signs Date Time Temp Pulse Resp B/P (MAP) Pulse Ox O2 Delivery O2 Flow Rate FiO2 02/13/18 08:02 98 Nasal Cannula 3.0 32 02/13/18 08:02 Nasal Cannula 3.0 32 02/13/18 08:02 84 20 Nasal Cannula 3.0 32 02/13/18 04:00 78 02/13/18 04:00 97.7 79 20 90/54 96 Nasal Cannula 3.0 97.7 02/13/18 00:00 97.2 83 20 91/52 97 Nasal Cannula 3.0 97.2 02/13/18 00:00 79 02/12/18 20:07 95 Nasal Cannula 3.0 32 02/12/18 20:07 Nasal Cannula 3.0 32 02/12/18 20:07 88 20 Nasal Cannula 3.0 32 02/12/18 20:00 97.7 81 20 91/56 96 Nasal Cannula 3.0 97.7 02/12/18 20:00 80 02/12/18 16:00 80 02/12/18 16:00 97.4 72 20 91/50 Nasal Cannula 3.0 97.4 02/12/18 12:00 97.7 78 20 95/53 Nasal Cannula 3.0 97.7 02/12/18 12:00 83 Intake and Output 02/12/18 02/13/18 19:00 07:00 Intake Total 510 ml Output Total 50 ml 1000 ml Balance -50 ml -490 ml Intake Free Water 40 ml IV Total 220 ml Tube Feeding 250 ml Output Urine Total 50 ml 1000 ml # Bowel Movements 1 General Appearance: WD/WN HEENT: normocephalic Respiratory/Chest: chest wall non-tender, accessory muscle use, crackles/rales Cardiovascular: normal peripheral pulses, normal rate Abdomen: normal bowel sounds, soft, non tender Genitourinary: normal external genitalia Extremities: no cyanosis 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 Lymphatic: no neck adenopathy Musculoskeletal: normal muscle bulk Laboratory Tests 02/13/18 05:50: White Blood Count 10.5, Red Blood Count 2.71L, Hemoglobin 9.5L, Hematocrit 27.0L , Mean Corpuscular Volume 100H, Mean Corpuscular Hemoglobin 35.0H, Mean Corpuscular Hemoglobin Concent 35.0, Red Cell Distribution Width 13.5, Platelet Count 233, Mean Platelet Volume 8.2, Neutrophils (%) (Auto) 75.5H, Lymphocytes ( %) (Auto) 14.0L, Monocytes (%) (Auto) 9.4, Eosinophils (%) (Auto) 0.7, Basophils (%) (Auto) 0.5, Random Vancomycin Level 23.4 Current Medications Medications (Trade) Dose Ordered Sig/Tiffany Route PRN Reason Start Time Stop Time Status Last Admin Dose Admin Acetaminophen (Tylenol) 650 mg Q4H PRN ORAL MILD PAIN/TEMP >101 02/11/18 01:00 03/06/18 00:59 Albuterol/ Ipratropium (Albuterol/ Ipratropium) 3 ml Q4H PRN HHN Shortness of Breath 02/10/18 23:00 02/15/18 14:59 Amiodarone HCl (Cordarone) 200 mg DAILY GT 02/11/18 09:00 03/06/18 08:59 02/12/18 09:41 Apixaban (Eliquis) 2.5 mg BID GT 02/11/18 09:00 03/12/18 10:59 02/12/18 17:29 Ascorbic Acid (Vitamin C) 500 mg DAILY GT 02/11/18 09:00 03/06/18 08:59 02/12/18 09:41 Bisacodyl (Dulcolax) 10 mg DAILYPRN PRN RECTAL IF MOM INEFFECTIVE 02/11/18 01:00 03/06/18 00:59 Chlorhexidine Gluconate (Laya-Hex 2%) 1 applic DAILY@1999 TOPIC 02/11/18 20:00 03/08/18 19:59 02/12/18 20:18 Clotrimazole (Lotrimin) 1 applic EVERY 12 HOURS TOPIC 02/11/18 09:00 03/13/18 08:59 02/12/18 20:34 Dextrose (Dextrose 50%) 25 ml STAT PRN IV Hypoglycemia 02/11/18 01:30 03/06/18 01:29 Dextrose (Dextrose 50%) 50 ml STAT PRN IV Hypoglycemia 02/11/18 01:30 03/06/18 01:29 Docusate Sodium (Colace) 100 mg TID GT 02/11/18 09:00 03/13/18 08:59 02/12/18 17:29 Donepezil HCl (Aricept) 10 mg QHS ORAL 02/11/18 21:00 03/13/18 20:59 02/12/18 20:31 Finasteride (Proscar) 5 mg DAILY ORAL 02/11/18 09:00 03/06/18 08:59 02/12/18 09:41 Haloperidol Lactate (Haldol) 5 mg Q6H PRN IM Agitation 02/10/18 22:45 03/07/18 16:44 Insulin Aspart (NovoLOG) Q6HR SUBQ 02/11/18 00:00 03/06/18 06:29 02/13/18 05:36 Insulin Detemir (Levemir) 5 units BEDTIME SUBQ 02/11/18 21:00 03/07/18 20:59 02/12/18 20:39 Lansoprazole (Prevacid) 30 mg ACBREAKFAST GT 02/11/18 06:30 03/06/18 06:29 02/13/18 06:01 Levothyroxine Sodium (Synthroid) 50 mcg DAILY@0630 ORAL 02/11/18 06:30 03/06/18 06:29 02/13/18 06:01 Lisinopril (Zestril) 2.5 mg DAILY ORAL 02/13/18 09:00 03/12/18 20:59 Metoprolol Succinate (Toprol XL) 12.5 mg DAILY ORAL 02/11/18 09:00 03/06/18 08:59 02/11/18 09:24 Piperacillin Sod/ Tazobactam Sod 2.25 gm/Dextrose 110 ml @ 220 mls/hr Q8HR IV 02/10/18 22:15 02/15/18 19:59 02/13/18 05:34 Quetiapine Fumarate (SEROquel) 25 mg Q6H PRN ORAL For Anxiety 02/11/18 01:00 03/06/18 18:59 Saccharomyces Boulardii (Florastor) 250 mg DAILY GT 02/11/18 09:00 03/06/18 08:59 02/12/18 09:41 Sennosides (Senokot) 2 tab QHS GT 02/11/18 21:00 03/06/18 20:59 02/11/18 21:43 Tamsulosin HCl (Flomax) 0.4 mg BEDTIME ORAL 02/11/18 21:00 03/06/18 20:59 02/12/18 20:31 Vancomycin HCl (Vanco rx to dose) 1 ea DAILY PRN MISC Per rx protocol 02/11/18 09:00 03/12/18 15:59 Vancomycin HCl/ Dextrose 250 ml @ 125 mls/hr ONCE ONCE IVPB 02/15/18 09:00 02/15/18 10:59 Vitamin A/Vitamin D (A & D Oint) 1 applic EVERY 12 HOURS TOPIC 02/11/18 09:00 03/06/18 08:59 02/12/18 20:34 Michelle Harris MD Feb 13, 2018 11:38
[2018-02-13] MEDS: Amiodarone 200mg tab GT SCH (11:41)
[2018-02-13] MEDS: Docusate 100mg/10ml Liq GT SCH ×3 (11:41→17:35)
[2018-02-13] MEDS: Eliquis 2.5mg tablet GT SCH ×2 (11:42→17:35)
[2018-02-13] MEDS: Ascorbic Acid 500mg tab GT SCH (11:42)
--- NOTE | 2018-02-13 11:44 | General Progress Note ---
Assessment/Plan Assessment/Plan dementia with behavioral dist encephalopathy seroquel prn Subjective Date patient seen: Feb 13, 2018 Neurologic/Psychiatric: Reports: anxiety Allergies: Coded Allergies: No Known Allergies (Unverified , 12/19/17) Subjective v Objective Last 24 Hour Vital Signs Date Time Temp Pulse Resp B/P (MAP) Pulse Ox O2 Delivery O2 Flow Rate FiO2 02/13/18 08:02 98 Nasal Cannula 3.0 32 02/13/18 08:02 Nasal Cannula 3.0 32 02/13/18 08:02 84 20 Nasal Cannula 3.0 32 02/13/18 04:00 78 02/13/18 04:00 97.7 79 20 90/54 96 Nasal Cannula 3.0 97.7 02/13/18 00:00 97.2 83 20 91/52 97 Nasal Cannula 3.0 97.2 02/13/18 00:00 79 02/12/18 20:07 95 Nasal Cannula 3.0 32 02/12/18 20:07 Nasal Cannula 3.0 32 02/12/18 20:07 88 20 Nasal Cannula 3.0 32 02/12/18 20:00 97.7 81 20 91/56 96 Nasal Cannula 3.0 97.7 02/12/18 20:00 80 02/12/18 16:00 80 02/12/18 16:00 97.4 72 20 91/50 Nasal Cannula 3.0 97.4 02/12/18 12:00 97.7 78 20 95/53 Nasal Cannula 3.0 97.7 02/12/18 12:00 83 Intake and Output 02/12/18 02/13/18 19:00 07:00 Intake Total 510 ml Output Total 50 ml 1000 ml Balance -50 ml -490 ml Intake Free Water 40 ml IV Total 220 ml Tube Feeding 250 ml Output Urine Total 50 ml 1000 ml # Bowel Movements 1 Laboratory Tests 02/13/18 05:50: White Blood Count 10.5, Red Blood Count 2.71L, Hemoglobin 9.5L, Hematocrit 27.0L , Mean Corpuscular Volume 100H, Mean Corpuscular Hemoglobin 35.0H, Mean Corpuscular Hemoglobin Concent 35.0, Red Cell Distribution Width 13.5, Platelet Count 233, Mean Platelet Volume 8.2, Neutrophils (%) (Auto) 75.5H, Lymphocytes ( %) (Auto) 14.0L, Monocytes (%) (Auto) 9.4, Eosinophils (%) (Auto) 0.7, Basophils (%) (Auto) 0.5, Random Vancomycin Level 23.4 Height (Feet): 5 Height (Inches): 10.00 Weight (Pounds): 228 General Appearance: no apparent distress, lethargic, confused Ashly Rajan M.D. Feb 13, 2018 11:44
[2018-02-13 12:00] VITALS: BP 120/58
--- NOTE | 2018-02-13 13:30 | Nephrology Progress Note ---
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, stage IV (4) Hypothyroidism Renal failure- Been dialysed previously- Cr creeping up h/o urine out let Obstruction, Urine retention GT in place DM HTN echo: Cardiomyopathy 30% ej Fx HypoThyroidism IV bollous Cr 5 Singer for now 2D echo 30% ej fx Plan K supplement change hydralazine to zestril last HD 02/11 hepatitis panel Adjust BP meds DC planning Subjective ROS Limited/Unobtainable: No Constitutional: Reports: malaise Objective Objective Last 24 Hour Vital Signs Date Time Temp Pulse Resp B/P (MAP) Pulse Ox O2 Delivery O2 Flow Rate FiO2 02/13/18 12:00 97.4 75 20 120/58 96 Nasal Cannula 3.0 97.4 02/13/18 09:00 89/55 02/13/18 08:02 98 Nasal Cannula 3.0 32 02/13/18 08:02 Nasal Cannula 3.0 32 02/13/18 08:02 84 20 Nasal Cannula 3.0 32 02/13/18 08:00 97.2 77 17 89/55 100 Nasal Cannula 3.0 97.2 02/13/18 04:00 78 02/13/18 04:00 97.7 79 20 90/54 96 Nasal Cannula 3.0 97.7 02/13/18 00:00 97.2 83 20 91/52 97 Nasal Cannula 3.0 97.2 02/13/18 00:00 79 02/12/18 20:07 95 Nasal Cannula 3.0 32 02/12/18 20:07 Nasal Cannula 3.0 32 02/12/18 20:07 88 20 Nasal Cannula 3.0 32 02/12/18 20:00 97.7 81 20 91/56 96 Nasal Cannula 3.0 97.7 02/12/18 20:00 80 02/12/18 16:00 80 02/12/18 16:00 97.4 72 20 91/50 Nasal Cannula 3.0 97.4 Intake and Output 02/12/18 02/13/18 19:00 07:00 Intake Total 510 ml Output Total 50 ml 1000 ml Balance -50 ml -490 ml Intake Free Water 40 ml IV Total 220 ml Tube Feeding 250 ml Output Urine Total 50 ml 1000 ml # Bowel Movements 1 Laboratory Tests 02/13/18 05:50: White Blood Count 10.5, Red Blood Count 2.71L, Hemoglobin 9.5L, Hematocrit 27.0L , Mean Corpuscular Volume 100H, Mean Corpuscular Hemoglobin 35.0H, Mean Corpuscular Hemoglobin Concent 35.0, Red Cell Distribution Width 13.5, Platelet Count 233, Mean Platelet Volume 8.2, Neutrophils (%) (Auto) 75.5H, Lymphocytes ( %) (Auto) 14.0L, Monocytes (%) (Auto) 9.4, Eosinophils (%) (Auto) 0.7, Basophils (%) (Auto) 0.5, Random Vancomycin Level 23.4 Height (Feet): 5 Height (Inches): 10.00 Weight (Pounds): 228 General Appearance: no apparent distress Neck: limited range of motion Cardiovascular: normal rate Respiratory/Chest: decreased breath sounds Abdomen: soft Objective no change VALENTIN RUSH Feb 13, 2018 13:29
--- NOTE | 2018-02-13 13:46 | Cardiac Electrophysiology PN ---
Assessment/Plan Assessment/Plan 1. Atrial flutter. In SR on amiodarone 200 mg daily, Toprol-XL 25 mg daily. Eliquis resumed 2. Hypertension. Toprol-XL to 12.5 mg daily and Lisinopril 2.5 daily and HD 3. Cardiomyopathy with EF 30% on Lisinopril 2.5 daily,Toprol-XL and HD Not a candidate for defibrillator placement. 4. ESRD on HD PermCath that was REMOVED and new one placed HD per Dr Verma 5. Hyperlipidemia, on Lipitor. 6. Dysphagia, S/P PEG replacement DW RN Subjective Subjective In restraints in NAD.Had HD 02/12/18 without fluid removal. Thoracentesis cancelled due to consent. No events Objective Last 24 Hour Vital Signs Date Time Temp Pulse Resp B/P (MAP) Pulse Ox O2 Delivery O2 Flow Rate FiO2 02/13/18 12:00 74 02/13/18 12:00 97.4 75 20 120/58 96 Nasal Cannula 3.0 97.4 02/13/18 09:00 89/55 02/13/18 08:02 98 Nasal Cannula 3.0 32 02/13/18 08:02 Nasal Cannula 3.0 32 02/13/18 08:02 84 20 Nasal Cannula 3.0 32 02/13/18 08:00 73 02/13/18 08:00 97.2 77 17 89/55 100 Nasal Cannula 3.0 97.2 02/13/18 04:00 78 02/13/18 04:00 97.7 79 20 90/54 96 Nasal Cannula 3.0 97.7 02/13/18 00:00 97.2 83 20 91/52 97 Nasal Cannula 3.0 97.2 02/13/18 00:00 79 02/12/18 20:07 95 Nasal Cannula 3.0 32 02/12/18 20:07 Nasal Cannula 3.0 32 02/12/18 20:07 88 20 Nasal Cannula 3.0 32 02/12/18 20:00 97.7 81 20 91/56 96 Nasal Cannula 3.0 97.7 02/12/18 20:00 80 02/12/18 16:00 80 02/12/18 16:00 97.4 72 20 91/50 Nasal Cannula 3.0 97.4 Intake and Output 02/12/18 02/13/18 19:00 07:00 Intake Total 510 ml Output Total 50 ml 1000 ml Balance -50 ml -490 ml Intake Free Water 40 ml IV Total 220 ml Tube Feeding 250 ml Output Urine Total 50 ml 1000 ml # Bowel Movements 1 Laboratory Tests Test 02/13/18 05:50 White Blood Count 10.5 K/UL (4.8-10.8) Red Blood Count 2.71 M/UL (4.70-6.10) L Hemoglobin 9.5 G/DL (14.2-18.0) L Hematocrit 27.0 % (42.0-52.0) L Mean Corpuscular Volume 100 FL (80-99) H Mean Corpuscular Hemoglobin 35.0 PG (27.0-31.0) H Mean Corpuscular Hemoglobin Concent 35.0 G/DL (32.0-36.0) Red Cell Distribution Width 13.5 % (11.6-14.8) Platelet Count 233 K/UL (150-450) Mean Platelet Volume 8.2 FL (6.5-10.1) Neutrophils (%) (Auto) 75.5 % (45.0-75.0) H Lymphocytes (%) (Auto) 14.0 % (20.0-45.0) L Monocytes (%) (Auto) 9.4 % (1.0-10.0) Eosinophils (%) (Auto) 0.7 % (0.0-3.0) Basophils (%) (Auto) 0.5 % (0.0-2.0) Random Vancomycin Level 23.4 ug/mL Objective HEAD AND NECK: No JVD. Left IG HD catheter in place with no active bleeding LUNGS: Clear. CARDIOVASCULAR: Regular S1 and S2 with no gallop. ABDOMEN: Soft, status post G-tube. EXTREMITIES: 1+ pitting edema. Malik Shannon MD Feb 13, 2018 13:46
--- NOTE | 2018-02-13 13:47 | General Progress Note ---
Progress Note Progress Note Bioethics Committee The patient was presented to the Committee by Dr. Weeks with the question of code status and continuation of dialysis. He is a longtime patient of Dr. Weeks and previously had a much better functional status. His condition has deteriorated with respect to mental status and physical ability and he is now at a correction. He has poor cardiac function and renal failure which has responded to dialysis and is now in no respiratory distress due to infection, renal failue or CHF. It was agreed by the Committee present that further aggressive care is likely futile and that DNR status is appropriate. It was felt by the physicians present that discontinuation of dialysis at this time would likely lead to recurrent respiratory distress from renal and CHF. It was suggested that the patient return to the SNF on dialysis, however in view of multiple failures of outpatient treatment and hospital readmissionsl and the futility of ongoing care that in the event he is nabor back to [facility] through the ER comfort measures only would be appropriate. Dr. Weeks will sign a new POLST for the patient indicating this. Present were Mariama Siddiqi, Alexandra Carmona (social services technician), Sharita Sands(case management), Fawn Norris and Chris from the Bioethics Committee and Dr.'s Weeks , Bayron, and Kimberly as well as myself. Gilberto James M.D. Fuel Retrofitting Technician, Bioethics Committee Gilberto James MD Feb 13, 2018 13:47
[2018-02-13 16:00] VITALS: BP 109/68
--- NOTE | 2018-02-13 16:05 | Infectious Diseases Prog Note ---
Assessment/Plan Assessment/Plan Abx: IV Vancomycin 02/10- Zosyn 02/10- Assessment: Probable aspiration pneumonia (desaturation, mild leukocytosis) -CXR: Interstitial edema demonstrated with worsening. There is cardiomegaly present. There may be a left pleural effusion. -sp cx p -bcx p Mild leukocytosis, resolved -afebrile Mild pyuria and bacteriuria -u.a wbc 15-20, nti neg, leuk +3; ucx <10K K, pna ( R amp, otherwise S); not clinically significant Acute on chronic renal failure -s/p permacath HD placement and re-initiation of HD Recent infected HD cath 2ry to MRSA s/p removal 01/20 -cath tip cx :MRSA -BCx Neg (peripheral), HD Cath Bcx neg -wound cx: MRSA (S Vancomycin, Bactrim, Tetracycline) -Echo: no vegetations seen. Aortic valve calcification with decreased cusp excursion c/w aortic stenosis. Mildly thickened mitral valve leaflets with normal excursion. Moderate mitral annulus and aortic root calcification. Stroke w/ hemiparesis dementia nonverbal HTN HLD cardiomyopathy Aflutter contractures, DM2 dysphagia s/p PEG anemia CHF fdc resident VRE colonized Plan: -Continue empiric IV Vanco and Zosyn #/7-10 pending sputum cx -01/24 SP IV Daptomycin 4mg/kg q48hrs abx d # 03/21 for MRSA HD cath infection -01/22 SP IV Vancomcyin #5 (d/c due to supratherapeutic vanco levels) -f/u cx -Trend WBC -Cdiff if diarrhea -Monitor CBC/BMP, temperatures -aspiration precautions -PEG, HD cath care Thank you for this consultation. Will continue to follow along with you. Discussed with RN. Subjective Allergies: Coded Allergies: No Known Allergies (Unverified , 12/19/17) Subjective afebrile at 3l NC leukocytosis resolved Objective Vital Signs Last 24 Hour Vital Signs Date Time Temp Pulse Resp B/P (MAP) Pulse Ox O2 Delivery O2 Flow Rate FiO2 02/13/18 12:00 74 02/13/18 12:00 97.4 75 20 120/58 96 Nasal Cannula 3.0 97.4 02/13/18 09:00 89/55 02/13/18 08:02 98 Nasal Cannula 3.0 32 6/1/18 08:02 Nasal Cannula 3.0 32 02/13/18 08:02 84 20 Nasal Cannula 3.0 32 02/13/18 08:00 73 02/13/18 08:00 97.2 77 17 89/55 100 Nasal Cannula 3.0 97.2 02/13/18 04:00 78 02/13/18 04:00 97.7 79 20 90/54 96 Nasal Cannula 3.0 97.7 02/13/18 00:00 97.2 83 20 91/52 97 Nasal Cannula 3.0 97.2 02/13/18 00:00 79 02/12/18 20:07 95 Nasal Cannula 3.0 32 02/12/18 20:07 Nasal Cannula 3.0 32 02/12/18 20:07 88 20 Nasal Cannula 3.0 32 02/12/18 20:00 97.7 81 20 91/56 96 Nasal Cannula 3.0 97.7 02/12/18 20:00 80 Height (Feet): 5 Height (Inches): 10.00 Weight (Pounds): 228 Objective GENERAL: The patient is a well-developed and well-nourished male, who is confused. HEENT: Pupils equal and responsive to light and accommodation. Extraocular movements are intact. NECK: Supple without lymphadenopathy. CHEST: ronchi, and cracales bibasilar CARDIOVASCULAR: Regular rate. S1, S2 normal without murmurs, rubs, or gallops. ABDOMEN: Soft, nontender, and nondistended. Positive bowel sounds. No evidence of hepatosplenomegaly. Currently, no rebound or guarding noted. EXTREMITIES: Negative for clubbing, cyanosis, or dawna Laboratory Tests Test 02/13/18 05:50 White Blood Count 10.5 K/UL (4.8-10.8) Red Blood Count 2.71 M/UL (4.70-6.10) L Hemoglobin 9.5 G/DL (14.2-18.0) L Hematocrit 27.0 % (42.0-52.0) L Mean Corpuscular Volume 100 FL (80-99) H Mean Corpuscular Hemoglobin 35.0 PG (27.0-31.0) H Mean Corpuscular Hemoglobin Concent 35.0 G/DL (32.0-36.0) Red Cell Distribution Width 13.5 % (11.6-14.8) Platelet Count 233 K/UL (150-450) Mean Platelet Volume 8.2 FL (6.5-10.1) Neutrophils (%) (Auto) 75.5 % (45.0-75.0) H Lymphocytes (%) (Auto) 14.0 % (20.0-45.0) L Monocytes (%) (Auto) 9.4 % (1.0-10.0) Eosinophils (%) (Auto) 0.7 % (0.0-3.0) Basophils (%) (Auto) 0.5 % (0.0-2.0) Random Vancomycin Level 23.4 ug/mL Current Medications Medications (Trade) Dose Ordered Sig/Tiffany Route PRN Reason Start Time Stop Time Status Last Admin Dose Admin Acetaminophen (Tylenol) 650 mg Q4H PRN ORAL MILD PAIN/TEMP >101 02/11/18 01:00 03/06/18 00:59 Albuterol/ Ipratropium (Albuterol/ Ipratropium) 3 ml Q4H PRN HHN Shortness of Breath 02/10/18 23:00 02/15/18 14:59 Amiodarone HCl (Cordarone) 200 mg DAILY GT 02/11/18 09:00 03/06/18 08:59 02/13/18 11:41 Apixaban (Eliquis) 2.5 mg BID GT 02/11/18 09:00 03/12/18 10:59 02/13/18 11:42 Ascorbic Acid (Vitamin C) 500 mg DAILY GT 02/11/18 09:00 03/06/18 08:59 02/13/18 11:42 Bisacodyl (Dulcolax) 10 mg DAILYPRN PRN RECTAL IF MOM INEFFECTIVE 02/11/18 01:00 03/06/18 00:59 Chlorhexidine Gluconate (Laya-Hex 2%) 1 applic DAILY@1999 TOPIC 02/11/18 20:00 03/08/18 19:59 02/12/18 20:18 Clotrimazole (Lotrimin) 1 applic EVERY 12 HOURS TOPIC 02/11/18 09:00 03/13/18 08:59 02/13/18 09:00 Dextrose (Dextrose 50%) 25 ml STAT PRN IV Hypoglycemia 02/11/18 01:30 03/06/18 01:29 Dextrose (Dextrose 50%) 50 ml STAT PRN IV Hypoglycemia 02/11/18 01:30 03/06/18 01:29 Docusate Sodium (Colace) 100 mg TID GT 02/11/18 09:00 03/13/18 08:59 02/13/18 15:00 Donepezil HCl (Aricept) 10 mg QHS ORAL 02/11/18 21:00 03/13/18 20:59 02/12/18 20:31 Finasteride (Proscar) 5 mg DAILY ORAL 02/11/18 09:00 03/06/18 08:59 02/13/18 11:42 Haloperidol Lactate (Haldol) 5 mg Q6H PRN IM Agitation 02/10/18 22:45 03/07/18 16:44 Insulin Aspart (NovoLOG) Q6HR SUBQ 02/11/18 00:00 03/06/18 06:29 02/13/18 11:53 Insulin Detemir (Levemir) 5 units BEDTIME SUBQ 02/11/18 21:00 03/07/18 20:59 02/12/18 20:39 Lansoprazole (Prevacid) 30 mg ACBREAKFAST GT 02/11/18 06:30 03/06/18 06:29 02/13/18 06:01 Levothyroxine Sodium (Synthroid) 50 mcg DAILY@0630 ORAL 02/11/18 06:30 03/06/18 06:29 02/13/18 06:01 Lisinopril (Zestril) 2.5 mg DAILY ORAL 02/13/18 09:00 03/12/18 20:59 Metoprolol Succinate (Toprol XL) 12.5 mg DAILY ORAL 02/11/18 09:00 03/06/18 08:59 02/11/18 09:24 Piperacillin Sod/ Tazobactam Sod 2.25 gm/Dextrose 110 ml @ 220 mls/hr Q8HR IV 02/10/18 22:15 02/15/18 19:59 02/13/18 15:00 Quetiapine Fumarate (SEROquel) 25 mg Q6H PRN ORAL For Anxiety 02/11/18 01:00 03/06/18 18:59 Saccharomyces Boulardii (Florastor) 250 mg DAILY GT 02/11/18 09:00 03/06/18 08:59 02/13/18 11:42 Sennosides (Senokot) 2 tab QHS GT 02/11/18 21:00 03/06/18 20:59 02/11/18 21:43 Tamsulosin HCl (Flomax) 0.4 mg BEDTIME ORAL 02/11/18 21:00 03/06/18 20:59 02/12/18 20:31 Vancomycin HCl (Vanco rx to dose) 1 ea DAILY PRN MISC Per rx protocol 02/11/18 09:00 03/12/18 15:59 Vancomycin HCl/ Dextrose 250 ml @ 125 mls/hr ONCE ONCE IVPB 02/15/18 09:00 02/15/18 10:59 Vitamin A/Vitamin D (A & D Oint) 1 applic EVERY 12 HOURS TOPIC 02/11/18 09:00 03/06/18 08:59 02/13/18 09:00 Sarah Borjas M.D. Feb 13, 2018 16:05
[2018-02-13 20:00] VITALS: BP 94/52
[2018-02-13] MEDS: Dyna-Hex 2% Top Sol 2oz TOPIC SCH (21:37)
[2018-02-13] MEDS: Tamsulosin 0.4mg cap ORAL SCH (21:38)
[2018-02-13] MEDS: Donepezil 10mg tab ORAL SCH (21:39)
[2018-02-13] MEDS: Sennosides 8.6mg GT SCH (21:39)
[2018-02-13] MEDS: Levemir Flexpen SUBQ SCH (21:56)
[2018-02-14] VITALS: BP 102/63
[2018-02-14] MEDS: NovoLOG Insulin Flexpen SUBQ SCH ×4 (00:24→17:37)
[2018-02-14 04:00] VITALS: BP 108/63
[2018-02-14] MEDS: Piperacillin/Tazobactam 2.25 GM in D5W 110 ML IV SCH ×3 (05:56→21:44)
[2018-02-14 08:00] VITALS: BP 114/61
[2018-02-14 08:06] LABS: BASOPHILS % (AUTO) 0.4 % (0.0-2.0); EOSINOPHILS % (AUTO) 0.4 % (0.0-3.0); HEMATOCRIT 26.9 % (42.0-52.0); MEAN CORPUSCULAR VOLUME 100 FL (80-99); MONOCYTES % (AUTO) 7.8 % (1.0-10.0); NEUTROPHILS % (AUTO) 82.4 % (45.0-75.0); PLATELET COUNT 231 K/UL (150-450); RED BLOOD COUNT 2.69 M/UL (4.70-6.10); RED CELL DISTRIBUTION WIDTH 14.2 % (11.6-14.8)
[2018-02-14] MEDS: Metoprolol Succinate XL 25mg tab ORAL SCH (09:00)
[2018-02-14] MEDS: Eliquis 2.5mg tablet GT SCH ×2 (09:00→17:37)
[2018-02-14] MEDS: Ascorbic Acid 500mg tab GT SCH (09:00)
[2018-02-14] MEDS: Vitamin A&D Oint 2oz Tube TOPIC SCH ×2 (09:00→21:27)
[2018-02-14] MEDS: Docusate 100mg/10ml Liq GT SCH (09:00)
[2018-02-14] MEDS: Lisinopril 2.5mg tab ORAL SCH (09:00)
[2018-02-14] MEDS: Amiodarone 200mg tab GT SCH (09:00)
--- NOTE | 2018-02-14 10:37 | Pulmonology Progress Note ---
Assessment/Plan Problems: (1) Acute respiratory failure (2) Pleural effusion (3) ESRF (end stage renal failure) (4) Limited mobility (5) Diabetes mellitus (6) Feeding by G-tube (7) Vegetative state Assessment/Plan I attended the ethics meeting yesterday. I agree with recommendation that pt should be DNR and if he keeps having recurrent hospitalizations, comfort care should be considered. for now continue current treatment titrate fio2 to sat of 92% dialyze aggressively check electrolytes check cultures continue feeding aspiration precaution. Subjective ROS Limited/Unobtainable: Yes Constitutional: Reports: no symptoms HEENT: Repors: no symptoms Allergies: Coded Allergies: No Known Allergies (Unverified , 12/19/17) Objective Last 24 Hour Vital Signs Date Time Temp Pulse Resp B/P (MAP) Pulse Ox O2 Delivery O2 Flow Rate FiO2 02/14/18 09:29 Nasal Cannula 3.0 32 02/14/18 09:28 96 Nasal Cannula 3.0 32 02/14/18 09:22 81 16 Nasal Cannula 3.0 32 02/14/18 04:00 97.3 84 20 108/63 99 Nasal Cannula 3.0 97.3 02/14/18 04:00 73 02/14/18 00:00 72 02/14/18 00:00 97.5 81 20 102/63 99 Nasal Cannula 3.0 97.5 02/13/18 20:00 71 02/13/18 20:00 97.6 79 20 94/52 99 Nasal Cannula 3.0 97.6 02/13/18 19:30 97 Nasal Cannula 3.0 32 02/13/18 19:30 80 20 Nasal Cannula 3.0 32 02/13/18 19:30 Nasal Cannula 3.0 32 02/13/18 16:00 75 02/13/18 16:00 97.3 76 18 109/68 96 Nasal Cannula 3.0 97.3 02/13/18 12:00 74 02/13/18 12:00 97.4 75 20 120/58 96 Nasal Cannula 3.0 97.4 Intake and Output 02/13/18 02/14/18 19:00 07:00 Output Total 25 ml Balance -25 ml Output Urine Total 25 ml General Appearance: WD/WN HEENT: normocephalic, atraumatic Respiratory/Chest: crackles/rales Cardiovascular: normal peripheral pulses, normal rate Abdomen: normal bowel sounds, soft, non tender, no organomegaly Microbiology Date/Time Source Procedure Growth Status 02/12/18 18:10 Blood Blood Culture - Preliminary NO GROWTH AFTER 24 HOURS Resulted 02/12/18 17:55 Blood Blood Culture - Preliminary NO GROWTH AFTER 24 HOURS Resulted Laboratory Tests 02/14/18 06:36: White Blood Count 13.0H, Red Blood Count 2.69L, Hemoglobin 9.0L, Hematocrit 26.9L, Mean Corpuscular Volume 100H, Mean Corpuscular Hemoglobin 33.6H, Mean Corpuscular Hemoglobin Concent 33.6, Red Cell Distribution Width 14.2, Platelet Count 231, Mean Platelet Volume 8.3, Neutrophils (%) (Auto) 82.4H, Lymphocytes ( %) (Auto) 9.0L, Monocytes (%) (Auto) 7.8, Eosinophils (%) (Auto) 0.4, Basophils (%) (Auto) 0.4 Current Medications Medications (Trade) Dose Ordered Sig/Tiffany Route PRN Reason Start Time Stop Time Status Last Admin Dose Admin Acetaminophen (Tylenol) 650 mg Q4H PRN ORAL MILD PAIN/TEMP >101 02/11/18 01:00 03/06/18 00:59 Albuterol/ Ipratropium (Albuterol/ Ipratropium) 3 ml Q4H PRN HHN Shortness of Breath 02/10/18 23:00 02/15/18 14:59 Amiodarone HCl (Cordarone) 200 mg DAILY GT 02/11/18 09:00 03/06/18 08:59 02/13/18 11:41 Apixaban (Eliquis) 2.5 mg BID GT 02/11/18 09:00 03/12/18 10:59 02/13/18 17:35 Ascorbic Acid (Vitamin C) 500 mg DAILY GT 02/11/18 09:00 03/06/18 08:59 02/13/18 11:42 Bisacodyl (Dulcolax) 10 mg DAILYPRN PRN RECTAL IF MOM INEFFECTIVE 02/11/18 01:00 03/06/18 00:59 Chlorhexidine Gluconate (Laya-Hex 2%) 1 applic DAILY@2000 TOPIC 02/11/18 20:00 03/08/18 19:59 02/13/18 21:37 Clotrimazole (Lotrimin) 1 applic EVERY 12 HOURS TOPIC 02/11/18 09:00 03/13/18 08:59 02/13/18 21:00 Dextrose (Dextrose 50%) 25 ml STAT PRN IV Hypoglycemia 02/11/18 01:30 03/06/18 01:29 Dextrose (Dextrose 50%) 50 ml STAT PRN IV Hypoglycemia 02/11/18 01:30 03/06/18 01:29 Docusate Sodium (Colace) 100 mg TID GT 02/11/18 09:00 03/13/18 08:59 02/13/18 17:35 Donepezil HCl (Aricept) 10 mg QHS ORAL 02/11/18 21:00 03/13/18 20:59 02/13/18 21:39 Finasteride (Proscar) 5 mg DAILY ORAL 02/11/18 09:00 03/06/18 08:59 02/13/18 11:42 Haloperidol Lactate (Haldol) 5 mg Q6H PRN IM Agitation 02/10/18 22:45 03/07/18 16:44 Insulin Aspart (NovoLOG) Q6HR SUBQ 02/11/18 00:00 03/06/18 06:29 02/14/18 05:56 Insulin Detemir (Levemir) 5 units BEDTIME SUBQ 02/11/18 21:00 03/07/18 20:59 02/13/18 21:56 Lansoprazole (Prevacid) 30 mg ACBREAKFAST GT 02/11/18 06:30 03/06/18 06:29 02/13/18 06:01 Levothyroxine Sodium (Synthroid) 50 mcg DAILY@0630 ORAL 02/11/18 06:30 03/06/18 06:29 02/13/18 06:01 Lisinopril (Zestril) 2.5 mg DAILY ORAL 02/13/18 09:00 03/12/18 20:59 Metoprolol Succinate (Toprol XL) 12.5 mg DAILY ORAL 02/11/18 09:00 03/06/18 08:59 02/11/18 09:24 Piperacillin Sod/ Tazobactam Sod 2.25 gm/Dextrose 110 ml @ 220 mls/hr Q8HR IV 02/10/18 22:15 02/15/18 19:59 02/14/18 05:56 Quetiapine Fumarate (SEROquel) 25 mg Q6H PRN ORAL For Anxiety 02/11/18 01:00 03/06/18 18:59 Saccharomyces Boulardii (Florastor) 250 mg DAILY GT 02/11/18 09:00 03/06/18 08:59 02/13/18 11:42 Sennosides (Senokot) 2 tab QHS GT 02/11/18 21:00 03/06/18 20:59 02/13/18 21:39 Tamsulosin HCl (Flomax) 0.4 mg BEDTIME ORAL 02/11/18 21:00 03/06/18 20:59 02/13/18 21:38 Vancomycin HCl (Vanco rx to dose) 1 ea DAILY PRN MISC Per rx protocol 02/11/18 09:00 03/12/18 15:59 Vancomycin HCl/ Dextrose 250 ml @ 125 mls/hr ONCE ONCE IVPB 02/15/18 09:00 02/15/18 10:59 Vitamin A/Vitamin D (A & D Oint) 1 applic EVERY 12 HOURS TOPIC 02/11/18 09:00 03/06/18 08:59 02/13/18 21:00 Michelle Harris MD Feb 14, 2018 10:37
--- NOTE | 2018-02-14 11:23 | General Progress Note ---
Assessment/Plan Assessment/Plan S: " not communicating verbally" P: appears comfortable. Singer in place , AOx1, limited source of info, soft restraint in place PHYSICAL EXAMINATION: IVETT-chest wall PermCath in place GENERAL: The patient is comfortable. HEENT: Pupils equal and responsive to light and accommodation. Extraocular movements are intact. NECK: Supple without lymphadenopathy. CHEST: bronchial breathing sounds CARDIOVASCULAR: IRegular rate and rythm S1, S2 normal without murmurs, rubs, or gallops. ABDOMEN: Soft, nontender, and nondistended. Positive bowel sounds. No evidence of hepatosplenomegaly. Currently, no rebound or guarding noted. PEG t in place EXTREMITIES: atrophied extremitatis, with spontaneous movements NEUROLOGIC: Limited exam. Patient not cooperative, AOx 1 ASSESSMENT: This is an 81-year-old male with: 1. Hyperuremia in progressive worsening renal function 2. End-stage renal disease, s/p Re-initiation of HD 3. Hypoxemic Respiratoy failure, likely secondary to PNA- ASpiration 3. Diabetes type 2. 4. Hypercholesterolemia. 5. Cardiomyopathy. 6. Atrial fibrillation. 7. Congestive heart failure. 8. Hypertension. 9. Alzheimer dementia. 10. Benign prostatic hypertrophy. 11. No capacity for making medical decision TREATMENT: Continue HD per Nephrology Rec. Given the emergency nature of consequences in delayed HD placement, and lack of patient's capacity for making decision. It is ok to proceed with HD access placement Will optimize electrolyte, per Nephrology Incidence of Hypotension. will provide NS 500 cc Bolus, and will downtitrate BP meds Continue with empiricall abx treatment for aspiration pna discussed the care with Vsx, agree for Graft placement , secondary to multiple incidents of self Extraction of PermCath by patient change of the code status to DNR, in agreement after the Ethic committee Continue with current management, including HD. Ok to DC after Graft placement per Vascular surgeon Subjective Allergies: Coded Allergies: No Known Allergies (Unverified , 12/19/17) Objective Last 24 Hour Vital Signs Date Time Temp Pulse Resp B/P (MAP) Pulse Ox O2 Delivery O2 Flow Rate FiO2 02/14/18 09:29 Nasal Cannula 3.0 32 02/14/18 09:28 96 Nasal Cannula 3.0 32 02/14/18 09:22 81 16 Nasal Cannula 3.0 32 02/14/18 08:00 80 02/14/18 08:00 97.9 82 20 114/61 100 Nasal Cannula 3.0 97.9 02/14/18 04:00 97.3 84 20 108/63 99 Nasal Cannula 3.0 97.3 02/14/18 04:00 73 02/14/18 00:00 72 02/14/18 00:00 97.5 81 20 102/63 99 Nasal Cannula 3.0 97.5 02/13/18 20:00 71 02/13/18 20:00 97.6 79 20 94/52 99 Nasal Cannula 3.0 97.6 02/13/18 19:30 97 Nasal Cannula 3.0 32 02/13/18 19:30 80 20 Nasal Cannula 3.0 32 02/13/18 19:30 Nasal Cannula 3.0 32 02/13/18 16:00 75 02/13/18 16:00 97.3 76 18 109/68 96 Nasal Cannula 3.0 97.3 02/13/18 12:00 74 02/13/18 12:00 97.4 75 20 120/58 96 Nasal Cannula 3.0 97.4 Intake and Output 02/13/18 02/14/18 19:00 07:00 Output Total 25 ml Balance -25 ml Output Urine Total 25 ml Laboratory Tests 02/14/18 06:36: White Blood Count 13.0H, Red Blood Count 2.69L, Hemoglobin 9.0L, Hematocrit 26.9L, Mean Corpuscular Volume 100H, Mean Corpuscular Hemoglobin 33.6H, Mean Corpuscular Hemoglobin Concent 33.6, Red Cell Distribution Width 14.2, Platelet Count 231, Mean Platelet Volume 8.3, Neutrophils (%) (Auto) 82.4H, Lymphocytes ( %) (Auto) 9.0L, Monocytes (%) (Auto) 7.8, Eosinophils (%) (Auto) 0.4, Basophils (%) (Auto) 0.4 Height (Feet): 5 Height (Inches): 10.00 Weight (Pounds): 227 Courtney Weeks MD Feb 14, 2018 11:23
--- NOTE | 2018-02-14 11:35 | Infectious Diseases Prog Note ---
Assessment/Plan Assessment/Plan Abx: IV Vancomycin 02/10- Zosyn 02/10- Assessment: Probable aspiration pneumonia (desaturation, mild leukocytosis) -CXR: Interstitial edema demonstrated with worsening. There is cardiomegaly present. There may be a left pleural effusion. -sp cx ordered, not collected -bcx NTD Mild leukocytosis, recurrent -afebrile Mild pyuria and bacteriuria -u.a wbc 15-20, nti neg, leuk +3; ucx <10K K, pna ( R amp, otherwise S); not clinically significant Acute on chronic renal failure -s/p permacath HD placement and re-initiation of HD Recent infected HD cath 2ry to MRSA s/p removal 01/20 -cath tip cx :MRSA -BCx Neg (peripheral), HD Cath Bcx neg -wound cx: MRSA (S Vancomycin, Bactrim, Tetracycline) -Echo: no vegetations seen. Aortic valve calcification with decreased cusp excursion c/w aortic stenosis. Mildly thickened mitral valve leaflets with normal excursion. Moderate mitral annulus and aortic root calcification. Stroke w/ hemiparesis dementia nonverbal HTN HLD cardiomyopathy Aflutter contractures, DM2 dysphagia s/p PEG anemia CHF senior living resident VRE colonized Plan: -Continue empiric IV Vanco and Zosyn #/-10 pending sputum cx -01/24 SP IV Daptomycin 4mg/kg q48hrs abx d # 03/21 for MRSA HD cath infection -01/22 SP IV Vancomcyin #5 (d/c due to supratherapeutic vanco levels) -Sp cx -CXR am -f/u cx -Trend WBC -Cdiff if diarrhea -Monitor CBC/BMP, temperatures -aspiration precautions -PEG, HD cath care Thank you for this consultation. Will continue to follow along with you. Discussed with RN. Subjective Allergies: Coded Allergies: No Known Allergies (Unverified , 12/19/17) Subjective afebrile at 3l NC leukocytosis BCx NTD GT not functioning Objective Vital Signs Last 24 Hour Vital Signs Date Time Temp Pulse Resp B/P (MAP) Pulse Ox O2 Delivery O2 Flow Rate FiO2 02/14/18 09:29 Nasal Cannula 3.0 32 02/14/18 09:28 96 Nasal Cannula 3.0 32 02/14/18 09:22 81 16 Nasal Cannula 3.0 32 6/2/18 08:00 80 02/14/18 08:00 97.9 82 20 114/61 100 Nasal Cannula 3.0 97.9 02/14/18 04:00 97.3 84 20 108/63 99 Nasal Cannula 3.0 97.3 02/14/18 04:00 73 02/14/18 00:00 72 02/14/18 00:00 97.5 81 20 102/63 99 Nasal Cannula 3.0 97.5 02/13/18 20:00 71 02/13/18 20:00 97.6 79 20 94/52 99 Nasal Cannula 3.0 97.6 02/13/18 19:30 97 Nasal Cannula 3.0 32 02/13/18 19:30 80 20 Nasal Cannula 3.0 32 02/13/18 19:30 Nasal Cannula 3.0 32 02/13/18 16:00 75 02/13/18 16:00 97.3 76 18 109/68 96 Nasal Cannula 3.0 97.3 02/13/18 12:00 74 02/13/18 12:00 97.4 75 20 120/58 96 Nasal Cannula 3.0 97.4 Height (Feet): 5 Height (Inches): 10.00 Weight (Pounds): 227 Objective GENERAL: The patient is a well-developed and well-nourished male, who is confused. HEENT: Pupils equal and responsive to light and accommodation. Extraocular movements are intact. NECK: Supple without lymphadenopathy. CHEST: ronchi, and cracales bibasilar CARDIOVASCULAR: Regular rate. S1, S2 normal without murmurs, rubs, or gallops. ABDOMEN: Soft, nontender, and nondistended. Positive bowel sounds. No evidence of hepatosplenomegaly. Currently, no rebound or guarding noted. EXTREMITIES: Negative for clubbing, cyanosis, or dawna Microbiology Date/Time Source Procedure Growth Status 02/12/18 18:10 Blood Blood Culture - Preliminary NO GROWTH AFTER 24 HOURS Resulted 02/12/18 17:55 Blood Blood Culture - Preliminary NO GROWTH AFTER 24 HOURS Resulted Laboratory Tests Test 02/14/18 06:36 White Blood Count 13.0 K/UL (4.8-10.8) H Red Blood Count 2.69 M/UL (4.70-6.10) L Hemoglobin 9.0 G/DL (14.2-18.0) L Hematocrit 26.9 % (42.0-52.0) L Mean Corpuscular Volume 100 FL (80-99) H Mean Corpuscular Hemoglobin 33.6 PG (27.0-31.0) H Mean Corpuscular Hemoglobin Concent 33.6 G/DL (32.0-36.0) Red Cell Distribution Width 14.2 % (11.6-14.8) Platelet Count 231 K/UL (150-450) Mean Platelet Volume 8.3 FL (6.5-10.1) Neutrophils (%) (Auto) 82.4 % (45.0-75.0) H Lymphocytes (%) (Auto) 9.0 % (20.0-45.0) L Monocytes (%) (Auto) 7.8 % (1.0-10.0) Eosinophils (%) (Auto) 0.4 % (0.0-3.0) Basophils (%) (Auto) 0.4 % (0.0-2.0) Current Medications Medications (Trade) Dose Ordered Sig/Tiffany Route PRN Reason Start Time Stop Time Status Last Admin Dose Admin Acetaminophen (Tylenol) 650 mg Q4H PRN ORAL MILD PAIN/TEMP >101 02/11/18 01:00 03/06/18 00:59 Albuterol/ Ipratropium (Albuterol/ Ipratropium) 3 ml Q4H PRN HHN Shortness of Breath 02/10/18 23:00 02/15/18 14:59 Amiodarone HCl (Cordarone) 200 mg DAILY GT 02/11/18 09:00 03/06/18 08:59 02/13/18 11:41 Apixaban (Eliquis) 2.5 mg BID GT 02/11/18 09:00 03/12/18 10:59 02/13/18 17:35 Ascorbic Acid (Vitamin C) 500 mg DAILY GT 02/11/18 09:00 03/06/18 08:59 02/13/18 11:42 Bisacodyl (Dulcolax) 10 mg DAILYPRN PRN RECTAL IF MOM INEFFECTIVE 02/11/18 01:00 03/06/18 00:59 Chlorhexidine Gluconate (Laya-Hex 2%) 1 applic DAILY@1999 TOPIC 02/11/18 20:00 03/08/18 19:59 02/13/18 21:37 Clotrimazole (Lotrimin) 1 applic EVERY 12 HOURS TOPIC 02/11/18 09:00 03/13/18 08:59 02/14/18 09:00 Dextrose (Dextrose 50%) 25 ml STAT PRN IV Hypoglycemia 02/11/18 01:30 03/06/18 01:29 Dextrose (Dextrose 50%) 50 ml STAT PRN IV Hypoglycemia 02/11/18 01:30 03/06/18 01:29 Docusate Sodium (Colace) 100 mg TID GT 02/11/18 09:00 03/13/18 08:59 02/13/18 17:35 Donepezil HCl (Aricept) 10 mg QHS ORAL 02/11/18 21:00 03/13/18 20:59 02/13/18 21:39 Finasteride (Proscar) 5 mg DAILY ORAL 02/11/18 09:00 03/06/18 08:59 02/13/18 11:42 Haloperidol Lactate (Haldol) 5 mg Q6H PRN IM Agitation 02/10/18 22:45 03/07/18 16:44 Insulin Aspart (NovoLOG) Q6HR SUBQ 02/11/18 00:00 03/06/18 06:29 02/14/18 05:56 Insulin Detemir (Levemir) 5 units BEDTIME SUBQ 02/11/18 21:00 03/07/18 20:59 02/13/18 21:56 Lansoprazole (Prevacid) 30 mg ACBREAKFAST GT 02/11/18 06:30 03/06/18 06:29 02/13/18 06:01 Levothyroxine Sodium (Synthroid) 50 mcg DAILY@0630 ORAL 02/11/18 06:30 03/06/18 06:29 02/13/18 06:01 Lisinopril (Zestril) 2.5 mg DAILY ORAL 02/13/18 09:00 03/12/18 20:59 Metoprolol Succinate (Toprol XL) 12.5 mg DAILY ORAL 02/11/18 09:00 03/06/18 08:59 02/11/18 09:24 Piperacillin Sod/ Tazobactam Sod 2.25 gm/Dextrose 110 ml @ 220 mls/hr Q8HR IV 02/10/18 22:15 02/15/18 19:59 02/14/18 05:56 Quetiapine Fumarate (SEROquel) 25 mg Q6H PRN ORAL For Anxiety 02/11/18 01:00 03/06/18 18:59 Saccharomyces Boulardii (Florastor) 250 mg DAILY GT 02/11/18 09:00 03/06/18 08:59 02/13/18 11:42 Sennosides (Senokot) 2 tab QHS GT 02/11/18 21:00 03/06/18 20:59 02/13/18 21:39 Tamsulosin HCl (Flomax) 0.4 mg BEDTIME ORAL 02/11/18 21:00 03/06/18 20:59 02/13/18 21:38 Vancomycin HCl (Vanco rx to dose) 1 ea DAILY PRN MISC Per rx protocol 02/11/18 09:00 03/12/18 15:59 Vancomycin HCl/ Dextrose 250 ml @ 125 mls/hr ONCE ONCE IVPB 02/15/18 09:00 02/15/18 10:59 Vitamin A/Vitamin D (A & D Oint) 1 applic EVERY 12 HOURS TOPIC 02/11/18 09:00 03/06/18 08:59 02/14/18 09:00 Sarah Borjas M.D. Feb 14, 2018 11:35
--- NOTE | 2018-02-14 11:36 | Nephrology Progress Note ---
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, stage IV (4) Hypothyroidism Renal failure- Been dialysed previously- Cr creeping up h/o urine out let Obstruction, Urine retention GT in place DM HTN echo: Cardiomyopathy 30% ej Fx HypoThyroidism IV bollous Cr 5 Singer for now 2D echo 30% ej fx Plan K supplement GI eval for GT change hydralazine to zestril last HD 02/11 hepatitis panel Adjust BP meds DC planning Subjective ROS Limited/Unobtainable: No Constitutional: Reports: malaise Subjective diarrhea- GT clogged Objective Objective Last 24 Hour Vital Signs Date Time Temp Pulse Resp B/P (MAP) Pulse Ox O2 Delivery O2 Flow Rate FiO2 02/14/18 09:29 Nasal Cannula 3.0 32 02/14/18 09:28 96 Nasal Cannula 3.0 32 02/14/18 09:22 81 16 Nasal Cannula 3.0 32 02/14/18 08:00 80 02/14/18 08:00 97.9 82 20 114/61 100 Nasal Cannula 3.0 97.9 02/14/18 04:00 97.3 84 20 108/63 99 Nasal Cannula 3.0 97.3 02/14/18 04:00 73 02/14/18 00:00 72 02/14/18 00:00 97.5 81 20 102/63 99 Nasal Cannula 3.0 97.5 02/13/18 20:00 71 02/13/18 20:00 97.6 79 20 94/52 99 Nasal Cannula 3.0 97.6 02/13/18 19:30 97 Nasal Cannula 3.0 32 02/13/18 19:30 80 20 Nasal Cannula 3.0 32 02/13/18 19:30 Nasal Cannula 3.0 32 02/13/18 16:00 75 02/13/18 16:00 97.3 76 18 109/68 96 Nasal Cannula 3.0 97.3 02/13/18 12:00 74 02/13/18 12:00 97.4 75 20 120/58 96 Nasal Cannula 3.0 97.4 Intake and Output 02/13/18 02/14/18 19:00 07:00 Output Total 25 ml Balance -25 ml Output Urine Total 25 ml Laboratory Tests 02/14/18 06:36: White Blood Count 13.0H, Red Blood Count 2.69L, Hemoglobin 9.0L, Hematocrit 26.9L, Mean Corpuscular Volume 100H, Mean Corpuscular Hemoglobin 33.6H, Mean Corpuscular Hemoglobin Concent 33.6, Red Cell Distribution Width 14.2, Platelet Count 231, Mean Platelet Volume 8.3, Neutrophils (%) (Auto) 82.4H, Lymphocytes ( %) (Auto) 9.0L, Monocytes (%) (Auto) 7.8, Eosinophils (%) (Auto) 0.4, Basophils (%) (Auto) 0.4 Height (Feet): 5 Height (Inches): 10.00 Weight (Pounds): 227 General Appearance: no apparent distress Cardiovascular: normal rate Respiratory/Chest: decreased breath sounds Abdomen: soft, other - rectal tube- GT clogged Objective no change VALENTIN RUSH Feb 14, 2018 11:36
[2018-02-14 12:00] VITALS: BP 120/64
[2018-02-14] MEDS ORDERED: Lactobacillus-GG tablet GT SCH (13:00)
[2018-02-14] MEDS ORDERED: Albuterol/Ipratropium 3ml neb HHN PRN (13:00)
[2018-02-14] MEDS: Lactobacillus-GG tablet GT SCH ×2 (13:00→17:37)
[2018-02-14] MEDS ORDERED: Haloperidol 5mg/ml Inj IM PRN (13:00)
[2018-02-14] MEDS ORDERED: Vancomycin 1.5 GM/D5W 250ML IVPB ONE ×2 (14:00→14:30)
[2018-02-14] MEDS ORDERED: Vancomycin 1.5gm/D5W 250ml 250 ML IVPB ONE (14:30)
[2018-02-14 16:00] VITALS: BP 104/61
[2018-02-14 20:00] VITALS: BP 105/62
[2018-02-14] MEDS: Donepezil 10mg tab ORAL SCH (21:26)
[2018-02-14] MEDS: Tamsulosin 0.4mg cap ORAL SCH (21:26)
[2018-02-14] MEDS: Dyna-Hex 2% Top Sol 2oz TOPIC SCH (21:26)
[2018-02-14] MEDS: Sennosides 8.6mg GT SCH (21:26)
[2018-02-14] MEDS: Levemir Flexpen SUBQ SCH (21:29)
--- NOTE | 2018-02-14 22:48 | General Progress Note ---
Assessment/Plan Assessment/Plan dementia with behavioral dist encephalopathy seroquel prn Subjective Date patient seen: Feb 14, 2018 Neurologic/Psychiatric: Reports: anxiety, emotional problems Allergies: Coded Allergies: No Known Allergies (Unverified , 12/19/17) Subjective v Objective Last 24 Hour Vital Signs Date Time Temp Pulse Resp B/P (MAP) Pulse Ox O2 Delivery O2 Flow Rate FiO2 02/14/18 20:00 98.1 85 20 105/62 96 Nasal Cannula 3.0 98.1 02/14/18 16:00 97.3 82 17 104/61 Nasal Cannula 3.0 97.3 02/14/18 12:00 83 18 120/64 Nasal Cannula 3.0 02/14/18 09:29 Nasal Cannula 3.0 32 02/14/18 09:28 96 Nasal Cannula 3.0 32 02/14/18 09:22 81 16 Nasal Cannula 3.0 32 02/14/18 08:00 80 02/14/18 08:00 97.9 82 20 114/61 100 Nasal Cannula 3.0 97.9 02/14/18 04:00 97.3 84 20 108/63 99 Nasal Cannula 3.0 97.3 02/14/18 04:00 73 02/14/18 00:00 72 02/14/18 00:00 97.5 81 20 102/63 99 Nasal Cannula 3.0 97.5 Intake and Output 02/13/18 02/14/18 19:00 07:00 Output Total 25 ml Balance -25 ml Output Urine Total 25 ml Laboratory Tests 02/14/18 06:36: White Blood Count 13.0H, Red Blood Count 2.69L, Hemoglobin 9.0L, Hematocrit 26.9L, Mean Corpuscular Volume 100H, Mean Corpuscular Hemoglobin 33.6H, Mean Corpuscular Hemoglobin Concent 33.6, Red Cell Distribution Width 14.2, Platelet Count 231, Mean Platelet Volume 8.3, Neutrophils (%) (Auto) 82.4H, Lymphocytes ( %) (Auto) 9.0L, Monocytes (%) (Auto) 7.8, Eosinophils (%) (Auto) 0.4, Basophils (%) (Auto) 0.4 Height (Feet): 5 Height (Inches): 10.00 Weight (Pounds): 227 Ashly Rajan M.D. Feb 14, 2018 22:48
[2018-02-15] VITALS: BP 114/80
[2018-02-15] MEDS: NovoLOG Insulin Flexpen SUBQ SCH ×4 (00:27→17:27)
[2018-02-15 04:00] VITALS: BP 99/55
[2018-02-15] MEDS: Piperacillin/Tazobactam 2.25 GM in D5W 110 ML IV SCH ×3 (05:36→21:28)
[2018-02-15 08:00] VITALS: BP 104/60
[2018-02-15 08:41] LABS: BASOPHILS % (AUTO) 0.5 % (0.0-2.0); EOSINOPHILS % (AUTO) 0.2 % (0.0-3.0); HEMATOCRIT 26.2 % (42.0-52.0); HEMOGLOBIN 9.2 G/DL (14.2-18.0); LYMPHOCYTES % (AUTO) 8.2 % (20.0-45.0); MEAN CORPUSCULAR VOLUME 99 FL (80-99); MONOCYTES % (AUTO) 8.3 % (1.0-10.0); NEUTROPHILS % (AUTO) 82.7 % (45.0-75.0); PLATELET COUNT 229 K/UL (150-450); RED BLOOD COUNT 2.64 M/UL (4.70-6.10); RED CELL DISTRIBUTION WIDTH 14.2 % (11.6-14.8); WHITE BLOOD COUNT 9.2 K/UL (4.8-10.8)
[2018-02-15] MEDS: Lactobacillus-GG tablet GT SCH ×3 (08:56→17:25)
[2018-02-15] MEDS: Eliquis 2.5mg tablet GT SCH ×2 (08:56→17:25)
[2018-02-15] MEDS: Vitamin A&D Oint 2oz Tube TOPIC SCH ×2 (08:58→21:14)
[2018-02-15] MEDS ORDERED: Amiodarone 200mg tab GT SCH (09:00)
[2018-02-15] MEDS ORDERED: Lisinopril 2.5mg tab ORAL SCH (09:00)
[2018-02-15] MEDS ORDERED: Ascorbic Acid 500mg tab GT SCH (09:00)
[2018-02-15] MEDS ORDERED: Metoprolol Succinate XL 25mg tab ORAL SCH (09:00)
[2018-02-15] MEDS ORDERED: Vancomycin 1.5 GM/D5W 250ML IVPB ONE (09:00)
--- NOTE | 2018-02-15 09:19 | General Progress Note ---
Assessment/Plan Status: stable Assessment/Plan S: " not communicating verbally" P: appears comfortable. Singer in place , AOx1, limited source of info, soft restraint in place PHYSICAL EXAMINATION: IVETT-chest wall PermCath in place GENERAL: The patient is comfortable. HEENT: Pupils equal and responsive to light and accommodation. Extraocular movements are intact. NECK: Supple without lymphadenopathy. CHEST: bronchial breathing sounds CARDIOVASCULAR: IRegular rate and rythm S1, S2 normal without murmurs, rubs, or gallops. ABDOMEN: Soft, nontender, and nondistended. Positive bowel sounds. No evidence of hepatosplenomegaly. Currently, no rebound or guarding noted. PEG t in place EXTREMITIES: atrophied extremitatis, with spontaneous movements NEUROLOGIC: Limited exam. Patient not cooperative, AOx 1 ASSESSMENT: This is an 81-year-old male with: 1. Hyperuremia in progressive worsening renal function 2. End-stage renal disease, s/p Re-initiation of HD 3. Hypoxemic Respiratoy failure, likely secondary to PNA- ASpiration 3. Diabetes type 2. 4. Hypercholesterolemia. 5. Cardiomyopathy. 6. Atrial fibrillation. 7. Congestive heart failure. 8. Hypertension. 9. Alzheimer dementia. 10. Benign prostatic hypertrophy. 11. 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 DNR, in agreement after the Ethic committee TREATMENT: Continue HD per Nephrology Rec. Given the emergency nature of consequences in delayed HD placement, and lack of patient's capacity for making decision. It is ok to proceed with HD access placement Will optimize electrolyte, per Nephrology Incidence of Hypotension. will provide NS 500 cc Bolus, and will downtitrate BP meds Continue with empiricall abx treatment for aspiration pna discussed the care with Vsx, agree for Graft placement , secondary to multiple incidents of self Extraction of PermCath by patient change of the code status to DNR, in agreement after the Ethic committee Continue with current management, including HD. Ok to DC outpatient, once the HD place is arranged Subjective Allergies: Coded Allergies: No Known Allergies (Unverified , 12/19/17) Objective Last 24 Hour Vital Signs Date Time Temp Pulse Resp B/P (MAP) Pulse Ox O2 Delivery O2 Flow Rate FiO2 02/15/18 08:57 103 104/60 02/15/18 08:57 104/60 02/15/18 08:00 98.2 103 20 104/60 100 Nasal Cannula 3.0 98.2 02/15/18 04:00 98.0 92 20 99/55 98 Nasal Cannula 3.0 98.0 02/15/18 00:00 98.2 88 20 114/80 96 Nasal Cannula 3.0 98.2 02/14/18 20:00 98.1 85 20 105/62 96 Nasal Cannula 3.0 98.1 02/14/18 19:03 96 Nasal Cannula 3.0 32 02/14/18 19:03 88 18 Nasal Cannula 3.0 32 02/14/18 19:03 Nasal Cannula 3.0 32 02/14/18 16:00 97.3 82 17 104/61 Nasal Cannula 3.0 97.3 02/14/18 12:00 83 18 120/64 Nasal Cannula 3.0 02/14/18 09:29 Nasal Cannula 3.0 32 02/14/18 09:28 96 Nasal Cannula 3.0 32 02/14/18 09:22 81 16 Nasal Cannula 3.0 32 Intake and Output 02/14/18 02/15/18 19:00 07:00 Intake Total 0 ml 840 ml Output Total 0 ml 0 ml Balance 0 ml 840 ml Intake Oral 0 ml Free Water 150 ml IV Total 440 ml Tube Feeding 250 ml Output Urine Total 0 ml 0 ml Laboratory Tests 02/15/18 06:35: White Blood Count 9.2, Red Blood Count 2.64L, Hemoglobin 9.2L, Hematocrit 26.2L , Mean Corpuscular Volume 99, Mean Corpuscular Hemoglobin 34.8H, Mean Corpuscular Hemoglobin Concent 35.1, Red Cell Distribution Width 14.2, Platelet Count 229, Mean Platelet Volume 7.3, Neutrophils (%) (Auto) 82.7H, Lymphocytes ( %) (Auto) 8.2L, Monocytes (%) (Auto) 8.3, Eosinophils (%) (Auto) 0.2, Basophils (%) (Auto) 0.5, Sodium Level [Pending], Potassium Level [Pending], Chloride Level [Pending], Carbon Dioxide Level [Pending], Blood Urea Nitrogen [Pending], Creatinine [Pending], Estimat Glomerular Filtration Rate [Pending], Glucose Level [Pending], Calcium Level [Pending], Total Bilirubin [Pending], Aspartate Amino Transf (AST/SGOT) [Pending], Alanine Aminotransferase (ALT/SGPT) [Pending] , Alkaline Phosphatase [Pending], Total Protein [Pending], Albumin [Pending], Globulin [Pending] Height (Feet): 5 Height (Inches): 10.00 Weight (Pounds): 234 Courtney Weeks MD Feb 15, 2018 09:19
[2018-02-15 09:20] LABS: ALANINE AMINOTRANSFERASE 22 U/L (12-78); ALBUMIN 1.8 G/DL (3.4-5.0); ALBUMIN/GLOBULIN RATIO 0.3 (1.0-2.7); ALKALINE PHOSPHATASE 161 U/L (46-116); ANION GAP 19 mmol/L (5-15); ASPARTATE AMINO TRANSFERASE 24 U/L (15-37); BILIRUBIN,TOTAL 0.7 MG/DL (0.2-1.0); BLOOD UREA NITROGEN 120 mg/dL (7-18); CALCIUM 8.9 MG/DL (8.5-10.1); CARBON DIOXIDE 23 MMOL/L (21-32); CHLORIDE 89 MMOL/L (98-107); CREATININE 4.9 MG/DL (0.55-1.30); POTASSIUM 4.3 MMOL/L (3.5-5.1); SODIUM 131 MMOL/L (136-145)
[2018-02-15] MEDS ORDERED: Sterile Water Irrig 1000ml IRRIG ONE (10:52)
--- NOTE | 2018-02-15 10:54 | Diagnostic Imaging Report ---
INDICATION: Cough COMPARISON: Chest x-ray dated 02/12/18 FINDINGS: Single frontal view demonstrates complete opacification of the left hemidiaphragm, increased from prior exam. Right subclavian catheter with tip in the superior vena cava. Increased pulmonary vascular markings within the right lung suggestive of congestion. IMPRESSION: Complete opacification of the left hemidiaphragm, increased from prior exam. Increased pulmonary vascular markings within the right lung suggestive of congestion.
--- NOTE | 2018-02-15 11:08 | Pulmonology Progress Note ---
Assessment/Plan Problems: (1) Collapse of left lung (2) Acute respiratory failure (3) Pleural effusion (4) ESRF (end stage renal failure) (5) Limited mobility (6) Diabetes mellitus (7) Feeding by G-tube (8) Vegetative state Assessment/Plan I attended the ethics meeting yesterday. I agree with recommendation that pt should be DNR and if he keeps having recurrent hospitalizations, comfort care should be considered. for now continue current treatment titrate fio2 to sat of 92% dialyze aggressively check electrolytes check cultures continue feeding aspiration precaution. keep left lung elevated, cxr in am Subjective ROS Limited/Unobtainable: No Constitutional: Reports: no symptoms HEENT: Repors: no symptoms Respiratory: Reports: no symptoms Allergies: Coded Allergies: No Known Allergies (Unverified , 12/19/17) Objective Last 24 Hour Vital Signs Date Time Temp Pulse Resp B/P (MAP) Pulse Ox O2 Delivery O2 Flow Rate FiO2 02/15/18 09:45 94 Nasal Cannula 3.0 32 02/15/18 09:45 76 20 Nasal Cannula 3.0 32 02/15/18 09:45 Nasal Cannula 3.0 32 02/15/18 08:57 103 104/60 02/15/18 08:57 104/60 02/15/18 08:00 98.2 103 20 104/60 100 Nasal Cannula 3.0 98.2 02/15/18 04:00 98.0 92 20 99/55 98 Nasal Cannula 3.0 98.0 02/15/18 00:00 98.2 88 20 114/80 96 Nasal Cannula 3.0 98.2 02/14/18 20:00 98.1 85 20 105/62 96 Nasal Cannula 3.0 98.1 02/14/18 19:03 96 Nasal Cannula 3.0 32 02/14/18 19:03 88 18 Nasal Cannula 3.0 32 02/14/18 19:03 Nasal Cannula 3.0 32 02/14/18 16:00 97.3 82 17 104/61 Nasal Cannula 3.0 97.3 02/14/18 12:00 83 18 120/64 Nasal Cannula 3.0 Intake and Output 02/14/18 02/15/18 19:00 07:00 Intake Total 0 ml 840 ml Output Total 0 ml 0 ml Balance 0 ml 840 ml Intake Oral 0 ml Free Water 150 ml IV Total 440 ml Tube Feeding 250 ml Output Urine Total 0 ml 0 ml General Appearance: WD/WN HEENT: normocephalic Respiratory/Chest: decreased breath sounds, crackles/rales Cardiovascular: normal peripheral pulses, normal rate, no JVD Abdomen: soft, non tender, no organomegaly Microbiology Date/Time Source Procedure Growth Status 02/12/18 18:10 Blood Blood Culture - Preliminary NO GROWTH AFTER 48 HOURS Resulted 02/12/18 17:55 Blood Blood Culture - Preliminary NO GROWTH AFTER 48 HOURS Resulted Laboratory Tests 02/15/18 06:35: White Blood Count 9.2, Red Blood Count 2.64L, Hemoglobin 9.2L, Hematocrit 26.2L , Mean Corpuscular Volume 99, Mean Corpuscular Hemoglobin 34.8H, Mean Corpuscular Hemoglobin Concent 35.1, Red Cell Distribution Width 14.2, Platelet Count 229, Mean Platelet Volume 7.3, Neutrophils (%) (Auto) 82.7H, Lymphocytes ( %) (Auto) 8.2L, Monocytes (%) (Auto) 8.3, Eosinophils (%) (Auto) 0.2, Basophils (%) (Auto) 0.5, Sodium Level 131L, Potassium Level 4.3, Chloride Level 89L, Carbon Dioxide Level 23, Anion Gap 19H, Blood Urea Nitrogen 120H, Creatinine 4.9H, Estimat Glomerular Filtration Rate , Glucose Level 172H, Calcium Level 8.9 , Total Bilirubin 0.7, Aspartate Amino Transf (AST/SGOT) 24, Alanine Aminotransferase (ALT/SGPT) 22, Alkaline Phosphatase 161H, Total Protein 7.1, Albumin 1.8L, Globulin 5.3, Albumin/Globulin Ratio 0.3L Current Medications Medications (Trade) Dose Ordered Sig/Tiffany Route PRN Reason Start Time Stop Time Status Last Admin Dose Admin Acetaminophen (Tylenol) 650 mg Q4H PRN ORAL MILD PAIN/TEMP >101 02/14/18 13:00 03/06/18 00:59 Albuterol/ Ipratropium (Albuterol/ Ipratropium) 3 ml Q4H PRN HHN Shortness of Breath 02/14/18 13:00 02/15/18 12:59 Amiodarone HCl (Cordarone) 200 mg DAILY GT 02/15/18 09:00 6/22/18 08:59 Apixaban (Eliquis) 2.5 mg BID GT 02/14/18 18:00 03/12/18 10:59 02/15/18 08:56 Ascorbic Acid (Vitamin C) 500 mg DAILY GT 02/15/18 09:00 03/06/18 08:59 02/15/18 08:56 Bisacodyl (Dulcolax) 10 mg DAILYPRN PRN RECTAL IF MOM INEFFECTIVE 02/14/18 13:00 03/16/18 12:59 Chlorhexidine Gluconate (Laya-Hex 2%) 1 applic DAILY@1999 TOPIC 02/14/18 20:00 03/08/18 19:59 02/14/18 21:26 Clotrimazole (Lotrimin) 1 applic EVERY 12 HOURS TOPIC 02/14/18 21:00 03/13/18 08:59 02/15/18 08:58 Dextrose (Dextrose 50%) 25 ml STAT PRN IV Hypoglycemia 02/14/18 13:00 03/16/18 12:59 Dextrose (Dextrose 50%) 50 ml STAT PRN IV Hypoglycemia 02/14/18 13:00 03/16/18 12:59 Donepezil HCl (Aricept) 10 mg QHS ORAL 02/14/18 21:00 03/13/18 20:59 02/14/18 21:26 Finasteride (Proscar) 5 mg DAILY ORAL 02/15/18 09:00 03/06/18 08:59 02/15/18 08:56 Haloperidol Lactate (Haldol) 5 mg Q6H PRN IM Agitation 02/14/18 13:00 03/07/18 12:59 Insulin Aspart (NovoLOG) Q6HR SUBQ 02/14/18 18:00 03/06/18 06:29 02/15/18 05:48 Insulin Detemir (Levemir) 5 units BEDTIME SUBQ 02/14/18 21:00 03/07/18 20:59 02/14/18 21:29 Lactobacillus Acidophilus (Culturelle) 1 tab THREE TIMES A DAY GT 02/14/18 13:00 03/16/18 12:59 02/15/18 08:56 Lansoprazole (Prevacid) 30 mg ACBREAKFAST GT 02/15/18 06:30 03/06/18 06:29 02/15/18 06:20 Levothyroxine Sodium (Synthroid) 50 mcg DAILY@0630 ORAL 02/15/18 06:30 03/06/18 06:29 02/15/18 06:21 Lisinopril (Zestril) 2.5 mg DAILY ORAL 02/15/18 09:00 03/12/18 20:59 Metoprolol Succinate (Toprol XL) 12.5 mg DAILY ORAL 02/15/18 09:00 03/06/18 08:59 Piperacillin Sod/ Tazobactam Sod 2.25 gm/Dextrose 110 ml @ 220 mls/hr Q8HR IV 02/14/18 14:00 02/15/18 19:59 02/15/18 05:36 Quetiapine Fumarate (SEROquel) 25 mg Q6H PRN ORAL For Anxiety 02/14/18 13:00 03/06/18 18:59 Saccharomyces Boulardii (Florastor) 250 mg DAILY GT 02/15/18 09:00 03/06/18 08:59 02/15/18 08:59 Sennosides (Senokot) 2 tab QHS GT 02/14/18 21:00 03/06/18 20:59 02/14/18 21:26 Tamsulosin HCl (Flomax) 0.4 mg BEDTIME ORAL 02/14/18 21:00 03/06/18 20:59 02/14/18 21:26 Vancomycin HCl (Vanco rx to dose) 1 ea DAILY PRN MISC Per rx protocol 02/14/18 13:00 03/16/18 12:59 Vitamin A/Vitamin D (A & D Oint) 1 applic EVERY 12 HOURS TOPIC 02/14/18 21:00 03/06/18 08:59 02/15/18 08:58 Michelle Harris MD Feb 15, 2018 11:08
[2018-02-15 12:00] VITALS: BP 95/64
--- NOTE | 2018-02-15 15:40 | Nephrology Progress Note ---
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, stage IV (4) Hypothyroidism Renal failure- Been dialysed previously- Cr creeping up h/o urine out let Obstruction, Urine retention GT in place DM HTN echo: Cardiomyopathy 30% ej Fx HypoThyroidism IV bollous Cr 5 Singer for now 2D echo 30% ej fx Plan K supplement GI eval for GT change hydralazine to zestril last HD 02/11 next 02/16 hepatitis panel Adjust BP meds DC planning Subjective ROS Limited/Unobtainable: No Constitutional: Reports: malaise, weakness Subjective diarrhea- GT clogged Objective Objective Last 24 Hour Vital Signs Date Time Temp Pulse Resp B/P (MAP) Pulse Ox O2 Delivery O2 Flow Rate FiO2 02/15/18 12:00 97.7 93 20 95/64 97 Nasal Cannula 3.0 97.7 02/15/18 09:45 94 Nasal Cannula 3.0 32 02/15/18 09:45 76 20 Nasal Cannula 3.0 32 02/15/18 09:45 Nasal Cannula 3.0 32 02/15/18 08:57 103 104/60 02/15/18 08:57 104/60 02/15/18 08:00 98.2 103 20 104/60 100 Nasal Cannula 3.0 98.2 02/15/18 04:00 98.0 92 20 99/55 98 Nasal Cannula 3.0 98.0 02/15/18 00:00 98.2 88 20 114/80 96 Nasal Cannula 3.0 98.2 02/14/18 20:00 98.1 85 20 105/62 96 Nasal Cannula 3.0 98.1 02/14/18 19:03 96 Nasal Cannula 3.0 32 02/14/18 19:03 88 18 Nasal Cannula 3.0 32 02/14/18 19:03 Nasal Cannula 3.0 32 02/14/18 16:00 97.3 82 17 104/61 Nasal Cannula 3.0 97.3 Intake and Output 02/14/18 02/15/18 19:00 07:00 Intake Total 0 ml 840 ml Output Total 0 ml 0 ml Balance 0 ml 840 ml Intake Oral 0 ml Free Water 150 ml IV Total 440 ml Tube Feeding 250 ml Output Urine Total 0 ml 0 ml Laboratory Tests 02/15/18 06:35: White Blood Count 9.2, Red Blood Count 2.64L, Hemoglobin 9.2L, Hematocrit 26.2L , Mean Corpuscular Volume 99, Mean Corpuscular Hemoglobin 34.8H, Mean Corpuscular Hemoglobin Concent 35.1, Red Cell Distribution Width 14.2, Platelet Count 229, Mean Platelet Volume 7.3, Neutrophils (%) (Auto) 82.7H, Lymphocytes ( %) (Auto) 8.2L, Monocytes (%) (Auto) 8.3, Eosinophils (%) (Auto) 0.2, Basophils (%) (Auto) 0.5, Sodium Level 131L, Potassium Level 4.3, Chloride Level 89L, Carbon Dioxide Level 23, Anion Gap 19H, Blood Urea Nitrogen 120H, Creatinine 4.9H, Estimat Glomerular Filtration Rate , Glucose Level 172H, Calcium Level 8.9 , Total Bilirubin 0.7, Aspartate Amino Transf (AST/SGOT) 24, Alanine Aminotransferase (ALT/SGPT) 22, Alkaline Phosphatase 161H, Total Protein 7.1, Albumin 1.8L, Globulin 5.3, Albumin/Globulin Ratio 0.3L Height (Feet): 5 Height (Inches): 10.00 Weight (Pounds): 234 General Appearance: no apparent distress Cardiovascular: regular rhythm Respiratory/Chest: decreased breath sounds Abdomen: distended Objective no change VALENTIN RUSH Feb 15, 2018 15:40
[2018-02-15] MEDS ORDERED: NS 500ML ONE (15:56)
[2018-02-15 16:00] VITALS: BP 102/62
[2018-02-15 20:00] VITALS: BP 95/58
--- NOTE | 2018-02-15 20:30 | Consultation ---
DATE OF CONSULTATION: 02/15/2018 GASTROLOGY CONSULTATION CONSULTING PHYSICIAN: Xavier Espinal M.D. CHIEF COMPLAINT: Malfunctioning G-tube. HISTORY OF PRESENT ILLNESS: Most of history per chart, 82-year-old male, half-way patient, numerous medical problems including CHF, diabetes, chronic renal failure, bedbound, dysphagia requiring G-tube placement, history of vegetation state, admitted to the hospital with acute renal failure. The patient was found to have a clogged G-tube, which was not opening up with any attempts by the nurses. GI consult requested for evaluation for G-tube placement. PAST MEDICAL HISTORY: As above. ALLERGY: No known allergies. PAST SURGICAL HISTORY: Unknown. MEDICATIONS: Please see medication reconciliation list. SOCIAL HISTORY: Currently lives in a half-way. No recent history of tobacco, alcohol, or drug abuse. FAMILY HISTORY: Noncontributory. REVIEW OF SYSTEMS: Unable to obtain. PHYSICAL EXAMINATION: VITAL SIGNS: Temperature is 98.2 degrees, pulse is 103, respirations 20, and blood pressure is 104/60. HEENT: Normocephalic and atraumatic. Sclerae anicteric. NECK: Supple. No lymphadenopathy. LUNGS: Decreased breath sounds bilaterally on supine exam. CARDIOVASCULAR: Regular rhythm. Plus S1 and S2. Soft systolic murmur heard at the left sternal border. ABDOMEN: Positive bowel sounds. Soft, nontender. No rebound. No guarding. No peritoneal sign. G-tube in place. EXTREMITIES: There is evidence of bilateral lower extremity edema. LABORATORY AND DIAGNOSTIC DATA: White count is 9.2, hemoglobin 9.2, hematocrit 26, platelet count is 229. ASSESSMENT AND PLAN: The patient is an 82-year-old male with numerous medical problems, GI complaint at this time is he has anemia, which already been worked up and there was no obvious bleeding, most probably secondary to renal disease. Also, he has malfunctioning G-tube, which was placed at the bedside. Old G-tube was removed and 20 balloon type G-tube was replaced and flushed and is functioning well. So we are going to plan to resume diet through tube feeding today. I want to thank, Dr. Weeks, for this kind referral. Xavier Espinal M.D. DR: JENARO JOB#: [id number] CC: Courtney Weeks M.D.; Fax#: [phone]
[2018-02-15] MEDS: Donepezil 10mg tab ORAL SCH (21:13)
[2018-02-15] MEDS: Dyna-Hex 2% Top Sol 2oz TOPIC SCH (21:13)
[2018-02-15] MEDS: Sennosides 8.6mg GT SCH (21:13)
[2018-02-15] MEDS: Tamsulosin 0.4mg cap ORAL SCH (21:13)
[2018-02-15] MEDS: Levemir Flexpen SUBQ SCH (21:17)
[2018-02-15 22:48] LABS: APPEARANCE,URINE CLOUDY; BILIRUBIN, URINE NEGATIVE (NEGATIVE); GLUCOSE, URINE (UA) 1+ (NEGATIVE); KETONES,URINE 1+ (NEGATIVE); LEUKOCYTE ESTERASE ,URINE 3+ (NEGATIVE); NITRITE,URINE NEGATIVE (NEGATIVE); PH,URINE 5 (4.5-8.0); PROTEIN,URINE 4+ (NEGATIVE); UROBILINOGEN,URINE NORMAL MG/DL (0.0-1.0)
[2018-02-15 22:49] LABS: COLOR,URINE YELLOW
[2018-02-16] VITALS: BP 100/65
[2018-02-16] MEDS: NovoLOG Insulin Flexpen SUBQ SCH (00:30)
[2018-02-16 04:00] VITALS: BP 131/74
--- NOTE | 2018-02-16 22:34 | General Progress Note ---
Assessment/Plan Status: unchanged Assessment/Plan dementia with behavioral dist encephalopathy seroquel prn Subjective Date patient seen: Feb 15, 2018 Neurologic/Psychiatric: Reports: anxiety, depressed, emotional problems Allergies: Coded Allergies: No Known Allergies (Unverified , 12/19/17) Subjective v Objective Last 24 Hour Vital Signs Date Time Temp Pulse Resp B/P (MAP) Pulse Ox O2 Delivery O2 Flow Rate FiO2 02/16/18 04:00 99.2 82 20 131/74 96 Nasal Cannula 3.0 99.2 02/16/18 00:00 99.6 62 20 100/65 96 Nasal Cannula 3.0 99.6 Intake and Output 02/15/18 02/16/18 19:00 07:00 Intake Total 860 ml 220 ml Output Total 300 ml Balance 560 ml 220 ml Free Water 200 ml IV Total 110 ml 220 ml Tube Feeding 550 ml Output Urine Total 300 ml Height (Feet): 5 Height (Inches): 10.00 Weight (Pounds): 234 General Appearance: no apparent distress, confused, agitated Ashly Rajan M.D. Feb 16, 2018 22:34
--- NOTE | 2018-02-17 12:07 | Discharge Summary ---
Discharge Summary Hospital Course Date of Admission February 03, 2018 at 19:12 Date of Discharge Feb 16, 2018 at 04:45 Admitting Diagnosis ACUTE RENAL FAILURE HPI Asim Leavitt is a 82 year old male who was admitted on February 03, 2018 at 19:12 for Acute Renal Failure Hospital Course summary #[id number] Discharge Discharge Disposition Patient Discharge Instructions Discharge Instructions Special Instructions I have been assigned to complete a D/C Summary on this account. I was not involved in the patient management Joycelyn Alcala NP Feb 17, 2018 12:07
--- NOTE | 2018-02-18 03:30 | Discharge Summary 2 SIG ---
DATE OF ADMISSION: 02/03/2018 DATE OF DISCHARGE: 02/16/2018 DATE OF EXPIRATION: 02/16/2018 REASON FOR ADMISSION: This was an 82-year-old male with past medical history significant for end-stage renal disease, on hemodialysis, diabetes mellitus type 2, cardiomyopathy with ejection fraction of 30%, congestive heart failure, hypertension, atrial fibrillation/flutter, Alzheimer dementia, dysphagia, G-tube, history of CVA with hemiparesis, BPH, and hypercholesterolemia, who was sent from the shelter facility for worsening renal failure. The patient recently had removal of PermCath secondary to MRSA infected line. Upon evaluation in the emergency department, the patient had no leukocytosis. Hemoglobin 10.9, hematocrit 31.8, BUN 217, creatinine 4.8, glucose 319. EKG revealed normal sinus rhythm. The patient admitted with diagnoses of: 1. Acute on chronic renal failure with hyperuremia and progressively worsening renal failure. 2. End-stage renal disease, status post extraction of hemodialysis access. 3. Cardiomyopathy. 4. Diabetes mellitus type 2. 5. CHF. 6. Dehydration. HOSPITAL COURSE: The patient admitted. Vascular Surgery consulted. consulted. Perm catheter placement via left internal jugular was placed with further confirmation by x-ray. Subsequently, per library media assistant, hemodialysis was initiated. Renal parameters and electrolytes were closely monitored. Electrolytes were replaced as needed. Nephrotoxics were avoided. Infectious Disease doctor closely followed. Blood cultures were negative. Urine culture showed Klebsiella pneumoniae and repeated urine culture were negative. The patient continued to have recurrent mild leukocytosis. In terms of bacteriuria, the patient had urine culture less than 10,000 and not clinically significant to treat. The patient did have mild pyuria and bacteriuria, and repeated urine culture were negative, however, the patient likely had aspiration pneumonia given mild leukocytosis and desaturation. Sputum culture was not collected. Blood cultures were negative up-to-date. Director Regulatory Agency closely followed. The patient had an echocardiogram done previously with known ejection fraction of 30%. Anti-failure regimen with beta-triny and DANIEL inhibitor was resumed. The patient was not a candidate for defibrillator as per sales manager. Blood pressure was managed with beta-triny and DANIEL inhibitor, and remained stable. The patient remained in sinus rhythm. Amiodarone was continued. Beta-triny was continued and Eliquis was resumed. Hemoglobin and hematocrit remained stable. Lipid panel stable. Troponin was negative and proBNP from initial 10,975 down to 5580 with current anti-failure treatment. The patient was anemic, however, hemoglobin and hematocrit were closely monitored. No significant trend down. Anemia workup revealed stable iron, stable B12 and folate level. Anemia likely related to anemia of chronic kidney disease. Clerk Supervisor closely followed. Levothyroxine was continued. Blood sugar was managed with sliding scale of insulin. Ultrasound of the kidney on previous admission showed nonobstructive nephrolithiasis of the left kidney. Psychiatrist closely followed and diagnosed the patient with dementia with behavioral disturbances and encephalopathy. The patient was on Seroquel. The patient lacked capacity to make any informed decision. Noted malfunctioning G-tube. Subsequently, GI specialist was requested. The patient had undergone replacement of G-tube at the bedside. Strict aspiration precautions were maintained. G-tube feeding restarted. Supplemental oxygen provided as needed to keep pulse oximetry above 92%. Pulmonary toilet provided as needed. The patient was followed up with chest x-ray. Signal System Testing Maintainer closely followed. The patient had a chest x-ray on 02/12/2018, which demonstrated pulmonary edema and left pleural effusion. The patient likely had aspiration pneumonia and was treated with antibiotic due to the congestion and low-grade fever as well as the mild leukocytosis. Repeated chest x-ray on 02/15/2018, showed complete opacification of the left hemidiaphragm, increased from the previous examination, increased pulmonary vascular markings of the right lung suggestive of congestion. X-ray findings were consistent with left lung collapse and pleural effusion as well as the probable aspiration pneumonia. The patient continued to be deteriorating. The patient with multiple of chronic comorbidities, in vegetative state. Ethics Committee decision was requested regarding . Per Ethics Committee, the patient's condition significantly deteriorated with respect to mental status and physical ability. The patient has poor cardiac function and renal failure, and by the end of the staying in the hospital, Ethics Committee concluded that further aggressive care would likely be futile and DNR status would be appropriate for this patient, however, discontinuation of dialysis at this time would likely lead to recurrent respiratory distress from renal failure and CHF, so Ethics Committee suggested that the patient would return to shelter facility on dialysis. It was suggested that the patient would return to shelter facility for hemodialysis, however, in view of multiple failures of outpatient treatment and hospital readmission and futility of ongoing care, in the event he would be brought back to [facility] to the emergency room, Comfort Measures Only would be appropriate. At this time, code status was changed to DNR on 02/15/2018, after Ethics Committee decision. The patient's condition continued to deteriorate and on early childhood coordinator on 02/16/2018, the patient was pronounced at 0445 hours on 02/16/2018. CAUSE OF : Cardiopulmonary arrest. FINAL DIAGNOSES: 1. Acute on chronic renal failure. 2. End-stage renal disease, status post extraction of hemodialysis catheter secondary to MRSA. 3. Acute hypoxemic respiratory failure. 4. Left lung collapse. 5. Probable aspiration pneumonia. 6. Pleural effusion. 7. Cardiomyopathy with ejection fraction of 30%. 8. Diabetes mellitus type 2. 9. Congestive heart failure. 10. Atrial flutter. 11. Hypertension. 12. 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 13. Dehydration. 14. Hypothyroidism. 15. 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. 16. Alzheimer dementia. 17. BPH. 18. History of CVA with hemiparesis. 19. Hyperlipidemia. 20. Dysphagia, G-tube. 21. Malfunctioning G-tube, status post replacement. 22. Anemia. 23. Dementia with behavioral disturbances. 24. Encephalopathy. 25. Vegetative state. Courtney Weeks M.D. I have been assigned to dictate discharge summary on this account and I was not involved in the patient's management. Joycelyn delgadodelisa N.P. : Araseli JOB#: [id number] CC:
== END 2018-02-16 04:45 | disposition expired | DRG 469 ==
LOC: EDBD 17:05 → EMR 17:40 → EDBEDREQ 17:55 → 4E 19:12 → EDBEDREQ 20:32 → 4E 02-07 03:14 → 2E 02-10 20:28 → 4E 02-14 12:00
PROC: 0JH63XZ Insertion of Tunneled Vascular Access Device into Chest Subcutaneous Tissue and Fascia, Percutaneous Approach (ICD-10-PCS; 2018-02-05)
PROC: 05HN33Z Insertion of Infusion Device into Left Internal Jugular Vein, Percutaneous Approach (ICD-10-PCS; 2018-02-05)
PROC: B514ZZA Fluoroscopy of Left Jugular Veins, Guidance (ICD-10-PCS; 2018-02-05)
PROC: 0H95XZZ Drainage of Chest Skin, External Approach (ICD-10-PCS; 2018-02-05)
PROC: 5A1D70Z Performance of Urinary Filtration, Intermittent, Less than 6 Hours Per Day (ICD-10-PCS; principal; 2018-02-05 10:00)
PROC: 0D20XUZ Change Feeding Device in Upper Intestinal Tract, External Approach (ICD-10-PCS; 2018-02-15)
DX: N17.9 Acute kidney failure, unspecified (principal); J96.01 Acute respiratory failure with hypoxia; J69.0 Pneumonitis due to inhalation of food and vomit; G93.40 Encephalopathy, unspecified; J90 Pleural effusion, not elsewhere classified; R40.3 Persistent vegetative state; I50.9 Heart failure, unspecified; I13.0 Hypertensive heart and chronic kidney disease with heart failure and stage 1 through stage 4 chronic kidney disease, or unspecified chronic kidney disease; G30.9 Alzheimer's disease, unspecified; F02.81 Dementia in other diseases classified elsewhere, unspecified severity, with behavioral disturbance; R13.10 Dysphagia, unspecified; I42.9 Cardiomyopathy, unspecified; E11.22 Type 2 diabetes mellitus with diabetic chronic kidney disease; E11.65 Type 2 diabetes mellitus with hyperglycemia; N18.4 Chronic kidney disease, stage 4 (severe); Z99.2 Dependence on renal dialysis; E78.00 Pure hypercholesterolemia, unspecified; N40.0 Benign prostatic hyperplasia without lower urinary tract symptoms; E03.9 Hypothyroidism, unspecified; Z74.01 Bed confinement status; I69.959 Hemiplegia and hemiparesis following unspecified cerebrovascular disease affecting unspecified side; I48.92 Unspecified atrial flutter; E78.5 Hyperlipidemia, unspecified; K94.23 Gastrostomy malfunction; D64.9 Anemia, unspecified; Z66 Do not resuscitate; L76.32 Postprocedural hematoma of skin and subcutaneous tissue following other procedure
CPT/HCPCS: 36415; 71045; 76000; 80053; 80061; 80162; 80202; 81001; 81003; 82550; 82607; 82728; 82746; 82962; 82977; 83036; 83540; 83550; 83690; 83735; 83880; 84100; 84300; 84443; 84484; 84550; 85025; 85610; 85730; 86140; 86706; 86707; 86803; 87040; 87070; 87081; 87086; 87181; 87205; 93005; 93922; 94003; 94150; 94640; 94664; 94760; 99285; J1815; J2250; J2710; J7620; J8499; S5561